=== PATIENT | female | born 1960 | race Caucasian/White ===

== ENCOUNTER 2020-09-22 20:12 | Inpatient (IN) | payer MEDICARE, SELFPAY ==
[2020-09-22 20:45] VITALS: BP 160/56; PULSE 61; RESP 18; TEMP 37.2; O2SAT 97; BMI 27.0
[2020-09-22 21:42] LABS: Basophils Percent Auto 0.3 % (0-2); Eosinophils Absolute Auto 0.2 X10*3/uL (0.0-0.4); Hematocrit 29.5 % (37-47); Hemoglobin 10.2 g/dl (12.0-16.0); Imm Gran Abs Auto 0.21 X10*3/uL (0.00-0.03); Imm Gran Pct Auto 2.1 % (0.0-0.4); Lymphocytes Absolute Auto 2.1 X10*3/uL (1.2-4.9); Lymphocytes Percent Auto 21.7 % (20-40); MANUAL DIFF FLAG NO; Mean Corpuscular HGB Conc 34.6 g/dl (31.0-35.0); Mean Corpuscular Hemoglobin 29.9 pg (27.0-33.0); Mean Corpuscular Volume 86.5 fL (80-98); Mean Platelet Volume 10.3 fL (9.4-12.3); Monocytes Percent Auto 9.7 % (2-11); Neutrophils Absolute Auto 6.3 X10*3/uL (2.0-8.3); Neutrophils Percent Auto 64.2 % (45-73); Platelet Count 320 X10*3/uL (160-400); Red Blood Count 3.41 X10*6/uL (4.20-5.50); Red Cell Distribution Width 12.3 % (11.0-16.0); White Blood Count 9.8 X10*3/uL (4.8-10.8)
[2020-09-22 21:58] LABS: Lactic Acid 0.8 mmol/L (0.5-2.0)
[2020-09-22 22:01] LABS: Anion Gap 11 (12-20); Blood Urea Nitrogen 14 mg/dL (9-16); Calcium 8.4 mg/dL (8.4-10.2); Carbon Dioxide 26 mmol/L (22-29); Chloride 106 mmol/L (96-108); Creatinine Clr Calc Pharmacy 77.9; Estimated Glomerular Filt Rate > 60; Glucose Random 85 mg/dL (60-115); Potassium 3.5 mmol/l (3.3-5.1); Sodium 139 mmol/L (135-145)
[2020-09-23] VITALS (11 sets, daily range): BP systolic 141–169; BP diastolic 46–79; PULSE 57–68; RESP 15–19; TEMP 36.3–37.2; O2SAT 97–100
--- NOTE | 2020-09-23 00:28 | US_ITS ---
EXAMINATION: US VENOUS WITH DOPPLER UPPER EXTREMITY, RIGHT CLINICAL INFORMATION: Right upper extremity edema/swelling. Pain. COMPARISON: None TECHNIQUE: Ultrasound of the upper extremity is performed using compression sonography and color and pulse Doppler flow with assessment of augmentation of flow. There is also imaging and Doppler assessment of the jugular and subclavian veins. Spectral analysis with color-flow imaging is performed. FINDINGS: Respiratory variation, normal compression, and augmented flow are noted throughout the upper extremity including the axillary, brachial, cubital, and radial and ulnar veins. There is normal flow in the internal jugular and subclavian veins. There is no visible deep or superficial thrombophlebitis. If the patient's symptoms progress, a followup ultrasound in 5 -7 days might be of value to exclude proximal propagation from a nonvisualized distal arm vein. US/US venous duplex UE RT IMPRESSION: No DVT demonstrated in the right upper extremity.
--- NOTE | 2020-09-23 00:46 | XR_ITS ---
EXAMINATION: XR HUMERUS, RIGHT XR FOREARM, RIGHT XR HAND/WRIST, RIGHT CLINICAL INFORMATION: Right arm swelling. Question osteomyelitis COMPARISON: None TECHNIQUE: 2 views of the right humerus. 2 views of the right forearm. 3 views of the right hand/wrist. FINDINGS: Right humerus: No fracture or cortical disruption. Appropriate alignment of the shoulder and elbow. Suggestion of calcific tendinosis of the rotator cuff. Mild soft tissue swelling visualized. The visualized lung is clear. Right forearm: No fracture or malalignment. Appropriate alignment at the elbow and wrist. Diffuse soft tissue swelling. No osseous erosion. No elbow joint effusion. Right hand/wrist: No fracture or malalignment. No osseous erosions. Diffuse soft tissue swelling. Arthritic changes are seen throughout the hand and wrist. This is most prominent at the first carpometacarpal joint with joint space narrowing and sclerosis. XR/XR forearm RT 2V IMPRESSION: Diffuse soft tissue swelling throughout the right upper extremity, greatest at the hand. No osseous erosions.
--- NOTE | 2020-09-23 00:46 | XR_ITS ---
EXAMINATION: XR HUMERUS, RIGHT XR FOREARM, RIGHT XR HAND/WRIST, RIGHT CLINICAL INFORMATION: Right arm swelling. Question osteomyelitis COMPARISON: None TECHNIQUE: 2 views of the right humerus. 2 views of the right forearm. 3 views of the right hand/wrist. FINDINGS: Right humerus: No fracture or cortical disruption. Appropriate alignment of the shoulder and elbow. Suggestion of calcific tendinosis of the rotator cuff. Mild soft tissue swelling visualized. The visualized lung is clear. Right forearm: No fracture or malalignment. Appropriate alignment at the elbow and wrist. Diffuse soft tissue swelling. No osseous erosion. No elbow joint effusion. Right hand/wrist: No fracture or malalignment. No osseous erosions. Diffuse soft tissue swelling. Arthritic changes are seen throughout the hand and wrist. This is most prominent at the first carpometacarpal joint with joint space narrowing and sclerosis. XR/XR humerus RT IMPRESSION: Diffuse soft tissue swelling throughout the right upper extremity, greatest at the hand. No osseous erosions.
--- NOTE | 2020-09-23 00:46 | XR_ITS ---
EXAMINATION: XR HUMERUS, RIGHT XR FOREARM, RIGHT XR HAND/WRIST, RIGHT CLINICAL INFORMATION: Right arm swelling. Question osteomyelitis COMPARISON: None TECHNIQUE: 2 views of the right humerus. 2 views of the right forearm. 3 views of the right hand/wrist. FINDINGS: Right humerus: No fracture or cortical disruption. Appropriate alignment of the shoulder and elbow. Suggestion of calcific tendinosis of the rotator cuff. Mild soft tissue swelling visualized. The visualized lung is clear. Right forearm: No fracture or malalignment. Appropriate alignment at the elbow and wrist. Diffuse soft tissue swelling. No osseous erosion. No elbow joint effusion. Right hand/wrist: No fracture or malalignment. No osseous erosions. Diffuse soft tissue swelling. Arthritic changes are seen throughout the hand and wrist. This is most prominent at the first carpometacarpal joint with joint space narrowing and sclerosis. XR/XR hand wrist RT IMPRESSION: Diffuse soft tissue swelling throughout the right upper extremity, greatest at the hand. No osseous erosions.
[2020-09-23] MEDS: Morphine Sulfate 4 MG/ML CARTRIDGE IVPUSH (00:49)
[2020-09-23] MEDS: Piperacillin Sodium/Tazobactam 3.375 GM in 0.9 % Sodium Chloride 50 ML IV ×2 (00:50→06:15)
[2020-09-23] MEDS: HYDROmorphone HCl 0.5 MG/0.5 ML SYRINGE IVPUSH ×4 (02:01→21:47)
--- NOTE | 2020-09-23 02:13 | ED.GENADULT ---
HPI - General Adult General Chief complaint: General Medical Stated complaint: cellulitis fever Time Seen by Provider: 09/23/20 00:02 Source: patient Mode of arrival: ambulatory Limitations: no limitations History of Present Illness HPI narrative: Patient presents to ED for right upper extremity pain. Patient recently discharged from [facility] with right upper extremity cellulitis. Patient states pain has worsened and at home she had a fever of 101. Patient states she just started taking Augmentin. Related Data Allergies Allergy/AdvReac Type Severity Reaction Status Date / Time doxycycline Allergy Unknown Verified 09/22/20 20:30 horse dander Allergy Unknown Verified 09/22/20 20:30 peach Allergy Unknown Verified 09/22/20 20:30 plum Allergy Unknown Verified 09/22/20 20:30 ragweed pollen Allergy Unknown Verified 09/22/20 20:30 Sulfa (Sulfonamide Allergy Unknown Verified 09/22/20 20:30 Antibiotics) Review of Systems Review of Systems: Yes all other systems are reviewed and are negative Constitutional: Constitutional: Reports as per HPI and Reports no additional constitutional complaints Eyes: Eyes: Reports as per HPI and Reports no additional eye complaints ENT: Reports system reviewed and no additional complaints, except as documented and Reports as per HPI Cardiovascular: Cardiovascular: Reports as per HPI and Reports no additional cardiovascular complaints Respiratory: Respiratory: Reports as per HPI and Reports no additional respiratory complaints Gastrointestinal: Gastrointestinal: Reports as per HPI and Reports no additional gastrointestinal complaints Genitourinary: Genitourinary: Reports no additional female genitourinary complaints and Reports as per HPI Musculoskeletal: Musculoskeletal: Reports no additional musculoskeletal complaints and Reports as per HPI Comments: Positive for right upper extremity swelling and pain Neurologic: Reports system reviewed and no additional complaints, except as documented and Reports as per HPI Psychiatric: Psychiatric: Reports no additional psychiatric complaints and Reports as per HPI [facility] Past Medical History Medical History CVA (cerebral vascular accident) Diabetes mellitus type 1 Social History Social History Smoking Status: Never smoker Use of substances other than those prescribed or required for medical reasons: Yes Substance Use Type: Marijuana Substance Use Frequency: Daily Advance Directives: No Advance Directives Information Provided: No Physical Exam Vital Signs: Vital Signs: Last Vital Signs Temp 98.9 F 09/23/20 00:17 Pulse 63 09/23/20 02:00 Resp 16 09/23/20 02:47 BP 156/61 H 09/23/20 02:00 Pulse Ox 97 09/23/20 02:00 Body Mass Index 27.0 Const: General: cooperative and healthy appearing Orientation/consciousness: patient oriented x3 HENMT: Head: Yes normal to inspection and Yes No palpable skull fracture present Eyes: General: appearance normal, both eyes and all related structures Neck: Neck: Yes normal visual inspection and Yes full ROM Chest: Chest palpation & inspection: normal inspection of the chest and normal palpation of entire chest wall Breast/axilla inspection: normal inspection of the breasts Resp: Effort & Inspection: normal respiratory effort and able to speak in complete sentences Cardio: Jugular venous distension: no JVD Heart sounds: S1 normal heart sound present and S2 normal heart sound present GI: Inspection: Yes normal to inspection and No abdominal wall ecchymosis Palpation (GI): Soft to palpation, not firm, nontender, no guarding and not rigid : General: No CVA tenderness and Yes no CVA tenderness Back/Spine/Pelvis: Back: no CVA tenderness, No CVA tenderness and No back tenderness Skin: Other: Right upper extremity swelling and redness Neuro: General: patient oriented x3, gait normal and CN's II-XI intact bilaterally Extrem: Other: Upper extremity positive for swelling, redness, and warmth. Pulses are intact. Psych: Appearance: grossly normal, well kempt and not disheveled Course Course Course Narrative: Patient will have repeat labs, given Vanco and Zosyn, and will get records from [facility] Reevaluation(s) Reevaluation #1: Records from [facility] shows patient had x-rays of upper extremity which were negative for any osteomyelitis. Patient was treated as cellulitis. Patient never had ultrasound while admitted at [facility]. Right upper extremity ultrasound will be ordered to rule out DVT due to patient's history of breast cancer. Time: 02:16 Reevaluation #2: Patient still having pain. Patient ordered more Dilaudid. Case presented to the hospitalist for admission for uncontrollable pain and cellulitis right upper extremity. He was informed of pending ultrasound of lower extremity. Time: 02:49 Medical Decision Making MDM Narrative Medical decision making narrative: Right upper extremity cellulitis. Lab Data Result diagrams: 09/22/20 21:32 09/22/20 21:32 Labs: Lab Results 09/22/20 09/22/20 09/22/20 Range/Units 21:32 21:32 21:32 WBC 9.8 (4.8-10.8) X10*3/uL RBC 3.41 L (4.20-5.50) X10*6/uL Hgb 10.2 L (12.0-16.0) g/dl Hct 29.5 L (37-47) % MCV 86.5 (80-98) fL MCH 29.9 (27.0-33.0) pg MCHC 34.6 (31.0-35.0) g/dl RDW 12.3 (11.0-16.0) % Plt Count 320 (160-400) X10*3/uL MPV 10.3 (9.4-12.3) fL Immature Gran % (Auto) 2.1 H (0.0-0.4) % Neut % (Auto) 64.2 (45-73) % Lymph % (Auto) 21.7 (20-40) % [place] % (Auto) 9.7 (2-11) % Eos % (Auto) 2.0 (0-4) % Baso % (Auto) 0.3 (0-2) % Lymph # (Auto) 2.1 (1.2-4.9) X10*3/uL [place] # (Auto) 1.0 (0.1-1.2) X10*3/uL Eos # (Auto) 0.2 (0.0-0.4) X10*3/uL Baso # (Auto) 0.0 (0.0-0.2) X10*3/uL Abs Immat Gran (auto) 0.21 H (0.00-0.03) X10*3/uL Absolute Neuts (auto) 6.3 (2.0-8.3) X10*3/uL Absolute Nucleated RBC 0.000 (0.0-0.012) X10*3/uL Nucleated RBC % (auto) 0.0 (0.0-0.2) /100WBC Hold Blue Top SEE NOTE Sodium 139 (135-145) mmol/L Potassium 3.5 (3.3-5.1) mmol/l Chloride 106 (96-108) mmol/L Carbon Dioxide 26 (22-29) mmol/L Anion Gap 11 L (12-20) BUN 14 (9-16) mg/dL Creatinine 0.74 (0.5-1.4) mg/dL Estim Creat Clear Calc 77.9 Estimated GFR > 60 Random Glucose 85 (60-115) mg/dL Lactic Acid (0.5-2.0) mmol/L Calcium 8.4 (8.4-10.2) mg/dL 09/22/20 Range/Units 21:34 WBC (4.8-10.8) X10*3/uL RBC (4.20-5.50) X10*6/uL Hgb (12.0-16.0) g/dl Hct (37-47) % MCV (80-98) fL MCH (27.0-33.0) pg MCHC (31.0-35.0) g/dl RDW (11.0-16.0) % Plt Count (160-400) X10*3/uL MPV (9.4-12.3) fL Immature Gran % (Auto) (0.0-0.4) % Neut % (Auto) (45-73) % Lymph % (Auto) (20-40) % [place] % (Auto) (2-11) % Eos % (Auto) (0-4) % Baso % (Auto) (0-2) % Lymph # (Auto) (1.2-4.9) X10*3/uL [place] # (Auto) (0.1-1.2) X10*3/uL Eos # (Auto) (0.0-0.4) X10*3/uL Baso # (Auto) (0.0-0.2) X10*3/uL Abs Immat Gran (auto) (0.00-0.03) X10*3/uL Absolute Neuts (auto) (2.0-8.3) X10*3/uL Absolute Nucleated RBC (0.0-0.012) X10*3/uL Nucleated RBC % (auto) (0.0-0.2) /100WBC Hold Blue Top Sodium (135-145) mmol/L Potassium (3.3-5.1) mmol/l Chloride (96-108) mmol/L Carbon Dioxide (22-29) mmol/L Anion Gap (12-20) BUN (9-16) mg/dL Creatinine (0.5-1.4) mg/dL Estim Creat Clear Calc Estimated GFR Random Glucose (60-115) mg/dL Lactic Acid 0.8 (0.5-2.0) mmol/L Calcium (8.4-10.2) mg/dL Discharge Plan Discharge Clinical Impression: Cellulitis Patient Disposition: Admitted As Inpatient
[2020-09-23 03:59] LABS: Influenza A PCR NEGATIVE (Negative); Influenza B PCR NEGATIVE (Negative); Resp Syncy Virus RNA Qual PCR NEGATIVE (Negative); SARS COV2 PCR INHOUSE NEGATIVE (Negative)
--- NOTE | 2020-09-23 04:16 | PC.NURSE ---
Hospitalist at bedside for evaluation of patient. Patient's pain is controlled but right arm is still swollen and warm to touch. Plan is for admission to hospital.
--- NOTE | 2020-09-23 04:48 | PM.IMHP ---
History of Present Illness Date of Service: 09/23/20 Chief Complaint: Right arm pain, swelling 59 year old woman presented with right arm pain and swelling. She was recently hospitalized at [facility] for RUE cellulitis and was treated with Zosyn and Vancomycin with improvement. Was transitioned to Augmentin PO and discharged home. At home she noted worsening pain and swelling in the arm and was febrile so came to ED at [place] to be evaluated. She notes that the arm previously had blisters that have improved. She describes pain in the right shoulder and right upper arm mostly. She had previously had a cut on her finger and was gardening when this started-soaked it with no improvement and then it worsened. She has hx of breast cancer and is s/p mastectomy on the right but has not had swelling of the arm like this before. Review of Systems Review of Systems: Yes all other systems are reviewed and are negative Constitutional: Comments: Fevers noted, no chills ENT: Comments: dry mouth Cardiovascular: Comments: No chest pain or palpitations Respiratory: Comments: No dyspena or cough Gastrointestinal: Comments: No abd pain, nausea, vomiting Musculoskeletal: Comments: Right arm pain and swelling noted Neurologic: Reports system reviewed and no additional complaints, except as documented and Reports as per HPI Psychiatric: Comments: Not anxious [facility] Medical History (Updated 09/23/20 @ 04:56 by Piero Norwood MD) CVA (cerebral vascular accident) Diabetes mellitus type 1 FH: mastectomy HTN (hypertension) Functional capacity: independent ambulation Family history: reviewed and not pertinent Social History Smoking Status: Never smoker Use of substances other than those prescribed or required for medical reasons: Yes Substance Use Type: Marijuana Substance Use Frequency: Daily Advance Directives: No Advance Directives Information Provided: No Meds Allergies Allergy/AdvReac Type Severity Reaction Status Date / Time doxycycline Allergy Unknown Verified 09/22/20 20:30 horse dander Allergy Unknown Verified 09/22/20 20:30 peach Allergy Unknown Verified 09/22/20 20:30 plum Allergy Unknown Verified 09/22/20 20:30 ragweed pollen Allergy Unknown Verified 09/22/20 20:30 Sulfa (Sulfonamide Allergy Unknown Verified 09/22/20 20:30 Antibiotics) Home Medications Medication Instructions Recorded Confirmed Type lisinopril 20 mg PO DAILY 09/23/20 09/23/20 History Physical Exam Vital Signs and Narrative: Vital Signs: Last Vital Signs Temp 98.9 F 09/23/20 00:17 Pulse 63 09/23/20 03:57 Resp 15 09/23/20 03:57 BP 164/61 H 09/23/20 03:57 Pulse Ox 97 09/23/20 03:57 Body Mass Index 27.0 Const: General: cooperative, comfortable and no acute distress HENMT: Head: Yes normal to inspection Mouth: Normal oral and palatal mucosa present and moist mucous membranes Eyes: General: appearance normal, both eyes and all related structures Chest: Other: Prior mastectomy on right Resp: Other: No insp crackles or exp wheezes Effort & Inspection: normal respiratory effort Auscultation: clear to auscultation bilaterally Cardio: Rate: regular rate Rhythm: regular rhythm Heart sounds: S1 normal heart sound present and S2 normal heart sound present GI: Other: nontender nondistended Inspection: Yes normal to inspection Auscultation: normal bowel sounds Skin: Other: Some crusting lesions in right upper arm Extrem: Other: right arm and hand are edematous. No significant erythema seen but does have evidence of honey-crusted vesicles Results Labs CBC and Chem 7: 09/22/20 21:32 09/22/20 21:32 Labs: Laboratory Results - last 24 hr 09/22/20 09/22/20 09/22/20 21:32 21:32 21:32 MCV 86.5 MCH 29.9 MCHC 34.6 RDW 12.3 Plt Count 320 MPV 10.3 Immature Gran % (Auto) 2.1 H Neut % (Auto) 64.2 Lymph % (Auto) 21.7 [place] % (Auto) 9.7 Eos % (Auto) 2.0 Baso % (Auto) 0.3 Lymph # (Auto) 2.1 [place] # (Auto) 1.0 Eos # (Auto) 0.2 Baso # (Auto) 0.0 Abs Immat Gran (auto) 0.21 H Absolute Neuts (auto) 6.3 Absolute Nucleated RBC 0.000 Nucleated RBC % (auto) 0.0 Hold Blue Top SEE NOTE Anion Gap 11 L Estim Creat Clear Calc 77.9 Estimated GFR > 60 Random Glucose 85 Lactic Acid Calcium 8.4 Coronavirus (PCR) Influenza Type A (PCR) Influenza Type B (PCR) RSV RNA Qual (PCR) 09/22/20 09/23/20 21:34 03:03 MCV MCH MCHC RDW Plt Count MPV Immature Gran % (Auto) Neut % (Auto) Lymph % (Auto) [place] % (Auto) Eos % (Auto) Baso % (Auto) Lymph # (Auto) [place] # (Auto) Eos # (Auto) Baso # (Auto) Abs Immat Gran (auto) Absolute Neuts (auto) Absolute Nucleated RBC Nucleated RBC % (auto) Hold Blue Top Anion Gap Estim Creat Clear Calc Estimated GFR Random Glucose Lactic Acid 0.8 Calcium Coronavirus (PCR) NEGATIVE Influenza Type A (PCR) NEGATIVE Influenza Type B (PCR) NEGATIVE RSV RNA Qual (PCR) NEGATIVE Imaging Radiologist's Impressions: Impressions Venous Duplex 09/23/20 00:28 IMPRESSION: No DVT demonstrated in the right upper extremity. Forearm X-Ray 09/23/20 00:46 IMPRESSION: Diffuse soft tissue swelling throughout the right upper extremity, greatest at the hand. No osseous erosions. Hand/Wrist X-Ray 09/23/20 00:46 IMPRESSION: Diffuse soft tissue swelling throughout the right upper extremity, greatest at the hand. No osseous erosions. Humerus X-Ray 09/23/20 00:46 IMPRESSION: Diffuse soft tissue swelling throughout the right upper extremity, greatest at the hand. No osseous erosions. Assessment and Plan (1) Cellulitis: Status: Acute 59 year old woman with right upper extremity edema, recent treatment for cellulitis in the arm at [facility]. Cellulitis Not septic. Continue Vancomycin and Zosyn for now. Pain control with Dilaudid. Honey crusted lesions suggestive of impetigo. Consider ID input if not improving. DC summary from [facility] stated she was evaluated by ortho for the shoulder pain and was thought due in part to chronic rotator cuff issues. Recommendation was for conservative management with rest, elevation. HTN Continue Lisniopril at outpt dose. DM type 2 Has her own insulin pump. Will check sugars QID-AC. DVT proph SC Heparin Code status Had detailed discussion with her and she wants to be DNR/I. Stated she had this discussion with her healthcare proxy, daughter Deyanira.
--- NOTE | 2020-09-23 07:25 | PC.NURSE ---
report taken from magali stein pt admitted inpt for cellulitis, tx w abx. pt appears to be sleeping, alert to verbal stimuli, appears w pleasant affect. has r side defecits from previous cva. able to assist w bedpan use. given breakfast tray. wctm.
[2020-09-23 07:31] LABS: Glucose, Whole Blood 58 mg/dL (60-115)
--- NOTE | 2020-09-23 08:42 | MHC.CM.PN ---
CM spoke with Patient over the phone at [phone]. Patient lives alone in a second floor townhouse (this causes stress for Patient having had a CVA in the past and she is attempting to secure first floor housing).Patient has a cane and walker and recently started using the walker more often r/t bone mets that causes her pain with ambulation. PCP is DR. Priscilla Guillaume. The goal for dc is to return home with resumption of her [address] [employer] hours/week; CM has initiated and will follow for dc planning. IMM discussed over the phone with Patient and per that discussion, RN/Barbara has agreed to give the original to the Patient when she arrives from the ER. A copy of the IMM has been placed in the chart also. Patient has her own insulin pump.
--- NOTE | 2020-09-23 09:52 | PC.NURSE ---
report given to tyrone stein c.
[2020-09-23] MEDS: 0.9 % Sodium Chloride Flush 3 ML SYRINGE IVFLUSH ×2 (10:52→15:53)
[2020-09-23] MEDS: Heparin Sodium,Porcine 5,000 UNIT/ML VIAL 5000 UNIT SUBCUT ×2 (10:52→18:03)
[2020-09-23] MEDS: lisinopriL 20 MG TABLET PO (10:52)
[2020-09-23 11:50] LABS: Glucose, Whole Blood 90 mg/dL (60-115)
[2020-09-23] MEDS: oxyCODONE HCl Immed Release 5 MG TABLET PO (13:42)
[2020-09-23] MEDS: vancomycin HCL 750 MG in 0.9 % Sodium Chloride 250 ML 265 MG IV (13:43)
[2020-09-23 15:54] LABS: Glucose, Whole Blood 176 mg/dL (60-115)
[2020-09-23 19:51] LABS: Glucose, Whole Blood 128 mg/dL (60-115)
[2020-09-24] VITALS (9 sets, daily range): BP systolic 150–160; BP diastolic 60–82; PULSE 61–65; RESP 18–20; TEMP 36.2–36.9; O2SAT 93–100
[2020-09-24] MEDS: vancomycin HCL 750 MG in 0.9 % Sodium Chloride 250 ML 265 MG IV ×2 (00:37→13:19)
[2020-09-24] MEDS: 0.9 % Sodium Chloride Flush 3 ML SYRINGE IVFLUSH ×4 (00:37→23:58)
[2020-09-24] MEDS: Heparin Sodium,Porcine 5,000 UNIT/ML VIAL 5000 UNIT SUBCUT ×3 (00:37→17:16)
[2020-09-24] MEDS: HYDROmorphone HCl 0.5 MG/0.5 ML SYRINGE IVPUSH ×2 (00:38→06:15)
[2020-09-24 07:52] LABS: Glucose, Whole Blood 77 mg/dL (60-115)
[2020-09-24] MEDS: lisinopriL 20 MG TABLET PO (08:52)
--- NOTE | 2020-09-24 10:35 | P.CDIC_ITS ---
CDI Concurrent Query Service Date: 09/24/20 Documentation Clarification: Please clarify if you are treating a proba ble/suspected/likely or confirmed: Acute Cellulitis Right upper extremity due to Diabetes Mellitus Acute Cellulitis Right upper extremity not due to Diabetes Mellitus Provider Response: Other Other Diagnosis: Acute Cellulitis Right upper extremity not due to Diabetes Mellitus PLEASE DO NOT DELETE/MODIFY EXISTING CONTENT Additional information is needed in order to code to the highest accuracy and appropriate Severity of Illness (SOI). Please clarify the information noted below in your progress notes and discharge summary. Risk Factors/Clinical Indicators/Treatments 59 year old female admitted with fever, pain right upper extremity PMH: CVA, DM, Breast CA Per H&P: Acute Cellulitis Right upper extremity CDS: Melanie Merida RN Contact Number: [phone] Please Review the information above and exercise your independent professional judgment in responding to the query. If you concur, pleas document in the PROGRESS NOTES and DISCHARGE SUMMARY. If you do not agree with the query, ple ase document in the query above. THIS QUERY IS PART OF THE PERMANENT MEDICAL RECORD
[2020-09-24 11:25] LABS: Glucose, Whole Blood 128 mg/dL (60-115)
[2020-09-24] MEDS: HYDROmorphone HCl 0.5 MG/0.5 ML SYRINGE 1 MG IVPUSH ×2 (12:27→18:22)
[2020-09-24 13:09] LABS: Vancomycin Trough 6.8 mcg/mL (10.0-20.0)
[2020-09-24 16:26] LABS: Glucose, Whole Blood 110 mg/dL (60-115)
--- NOTE | 2020-09-24 20:12 | P.CNID_ITS ---
History of Present Illness Data of Consult Service Date: 09/24/20 Requesting physician: Mykel Blanoc Primary Care Provider: Priscilla Guillaume MD [facility] Reason for consult: right arm redness She has had redness and swelling right arm for a week She started with right index finger redness after chewing for a week and then redness with blisters up wrist extending up arm. She also has been gardening. She was hospitalized at [facility] last week for one week and took Zosyn and Vancomycin for nearly a week and then symptoms returned and she came to [place] She has had right breast mastectomy Review of Systems Review of Systems: Yes all other systems are reviewed and are negative Neurologic: Reports system reviewed and no additional complaints, except as documented and Reports as per [facility] Past Medical History Medical History CVA (cerebral vascular accident) Diabetes mellitus type 1 FH: mastectomy HTN (hypertension) Functional capacity: independent ambulation Family History Family history: reviewed and not pertinent Social History Social History Household Members: None Housing: House Do you presently have visiting nurse or other home services: No Smoking Status: Never smoker Use of substances other than those prescribed or required for medical reasons: Yes Substance Use Type: Marijuana Substance Use Frequency: Daily Last Used Substance: Just Prior to Admission Currently Displaying Signs/Symptoms of Drug Intoxication Withdrawal: No Any prior treatment program specific to substance use: No Have you been hit, kicked, punched, or otherwise hurt by someone within the past year? If so, by whom?: No Do you feel safe in your current relationship?: No Is there a partner from a previous relationship who is making you feel unsafe now?: No Are you made to feel afraid or neglected: No Advance Directives: No Advance Directives Information Provided: No Do you have thoughts of harming others: None Do you have a plan to hurt others: No Plan Recently lost weight without trying: No service: No Current occupational status: retired Meds Allergies Allergy/AdvReac Type Severity Reaction Status Date / Time doxycycline Allergy Unknown Verified 09/22/20 20:30 horse dander Allergy Unknown Verified 09/22/20 20:30 peach Allergy Unknown Verified 12/29/20 20:30 plum Allergy Unknown Verified 09/22/20 20:30 ragweed pollen Allergy Unknown Verified 09/22/20 20:30 Sulfa (Sulfonamide Allergy Unknown Verified 09/22/20 20:30 Antibiotics) Home Medications Medication Instructions Recorded Confirmed Type lisinopril 20 mg PO DAILY 09/23/20 09/23/20 History Physical Exam Vital Signs: Vital Signs: Last Vital Signs Temp 98 F 09/24/20 18:44 Pulse 63 09/24/20 18:44 Resp 18 09/24/20 18:44 BP 152/60 H 09/24/20 18:44 Pulse Ox 93 09/24/20 18:44 Body Mass Index 27.0 Const: General: cooperative HENMT: Head: Yes normal to inspection Mouth: moist mucous membranes Eyes: General: appearance normal, both eyes and all related structures Resp: Effort & Inspection: normal respiratory effort Cardio: Rate: regular rate Rhythm: regular rhythm GI: Palpation (GI): Soft to palpation and nontender : General: Yes no CVA tenderness Back/Spine/Pelvis: Back: no CVA tenderness Skin: Other: redness right arm with blister wrist, also index finger paronychia General skin exam: no rashes or lesions noted Assessment and Plan (1) Cellulitis: Problem details: She has had redness arm She has possible staph or strep,not sure why recurred Concern over strep or staph Status: Acute Would give either Clindamycin 600 mg IV every 8 hours or Linezolid Results Labs CBC & Chem 7: 09/22/20 21:32 09/22/20 21:32 Microbiology Microbiology Results: Microbiology 09/22/20 21:34 Blood - Venous Blood Culture - Preliminary No growth after 24 hours. 09/22/20 21:34 Blood - Venous Blood Culture - Preliminary No growth after 24 hours.
[2020-09-24 20:32] LABS: Glucose, Whole Blood 144 mg/dL (60-115)
[2020-09-24] MEDS: Linezolid/D5W 600 MG/300 ML PIGGYBACK 300 MG IV (21:21)
[2020-09-24] MEDS: oxyCODONE HCl Immed Release 5 MG TABLET PO (21:34)
[2020-09-25] MEDS: HYDROmorphone HCl 0.5 MG/0.5 ML SYRINGE 1 MG IVPUSH ×4 (00:27→20:03)
[2020-09-25 06:48] VITALS: BP 150/94; PULSE 58; RESP 20; TEMP 36.6; O2SAT 96
[2020-09-25 07:20] LABS: Glucose, Whole Blood 73 mg/dL (60-115)
[2020-09-25 08:29] VITALS: BP 150/94; PULSE 72
[2020-09-25] MEDS: Linezolid/D5W 600 MG/300 ML PIGGYBACK 300 MG IV ×2 (08:29→20:37)
[2020-09-25] MEDS: lisinopriL 20 MG TABLET PO (08:29)
[2020-09-25] MEDS: 0.9 % Sodium Chloride Flush 3 ML SYRINGE IVFLUSH ×2 (08:30→15:52)
--- NOTE | 2020-09-25 08:39 | P.PNIM_ITS ---
Subjective Subjective Date of Service: 09/25/20 Interval History: Seen in follow-up for right arm cellulitis with significant swelling. There is persistent swelling and pain and some redeness in the arm from hand to shoulder ROS: No fever, right arm pain,. Physical Exam Vital Signs: Vital Signs: Last Vital Signs Temp 98 F 09/25/20 06:48 Pulse 72 09/25/20 08:29 Resp 20 09/25/20 06:48 BP 150/94 H 09/25/20 08:29 Pulse Ox 96 09/25/20 06:48 Body Mass Index 27.0 General: AO X 3, no acute distress Resp: CTA bilateral CVS: S1,S2,RRR GI: +BS, NT, no distention Skin: some redness on right arm Neuro: motor grossly intact Psych: appropriate affect Objective Data Current Medications Generic Name Dose Route Start Last Admin Trade Name Freq PRN Reason Stop Dose Admin Docusate Sodium 100 mg 09/25/20 08:38 Docusate Sodium 100 Mg Capsule PO BID PRN Constipation Heparin Sodium (Porcine) 5,000 unit 09/23/20 10:00 09/25/20 01:43 Heparin Sodium,Porcine 5,000 Unit/Ml Vial SUBCUT Not Given Q8H MICHEL Hydromorphone HCl 1 mg 09/24/20 09:33 09/25/20 06:11 Hydromorphone Hcl 0.5 Mg/0.5 Ml Syringe IVPUSH 1 mg Q6H PRN Administration Pain, Moderate (Pain Scale 4-6 Linezolid 600 mg in 300 mls @ 300 mls/hr 09/24/20 21:00 09/25/20 08:29 Zyvox/D5w IV 300 mls/hr Q12H MICHEL Administration Lisinopril 20 mg 09/23/20 09:52 09/25/20 08:29 Lisinopril 20 Mg Tablet PO 20 mg DAILY@0730 MICHEL Administration Protocol Oxycodone HCl 5 mg 09/23/20 12:58 09/24/20 21:34 Oxycodone Hcl Immed Release 5 Mg Tablet PO 5 mg Q4H PRN Administration Pain, Severe (Pain Scale 7-10) Pharmacy Consult 1 each 09/23/20 04:45 Consult Rx Vancomycin Dosing MISCELLANE DAILY PRN Consult order Sodium Chloride 3 ml 09/23/20 09:52 09/25/20 08:30 0.9 % Sodium Chloride Flush 3 Ml Syringe IVFLUSH 3 ml QSHIFT MICHEL Administration Labs CBC & Chem 7: 09/22/20 21:32 09/22/20 21:32 Microbiology Microbiology Results: Microbiology 09/22/20 21:34 Blood - Venous Blood Culture - Preliminary No growth after 48 hours. 09/22/20 21:34 Blood - Venous Blood Culture - Preliminary No growth after 48 hours. Assessment and Plan (1) Cellulitis: Problem details: She has had redness arm She has possible staph or strep,not sure why recurred Concern over strep or staph Status: Acute Assessment and Plan: 59 year old woman with right upper extremity edema, recent treatment for cellulitis in the arm at [facility]. Cellulitis of right arm. No component of sepsis. Marked swelling in thr arm. Zosyn and Vanco--Changed to Zyvvox on 09/24 D2, elevate the arm IV Dilaudid for pain control HTN Continue Lisniopril at outpt dose. DM type 2--Continue Insulin pump, check sugars AC. DVT proph SC Heparin DNR/DNI. Stated she had this discussion with her healthcare proxy, daughter Deyanira.
[2020-09-25] MEDS: Docusate Sodium 100 MG CAPSULE PO (09:28)
[2020-09-25] MEDS: Milk of Magnesia 30 ML ORAL.SUSP PO (09:28)
[2020-09-25] MEDS: Heparin Sodium,Porcine 5,000 UNIT/ML VIAL 5000 UNIT SUBCUT ×2 (09:28→18:37)
[2020-09-25 09:45] LABS: Anion Gap 13 (12-20); Blood Urea Nitrogen 7 mg/dL (9-16); Calcium 8.2 mg/dL (8.4-10.2); Carbon Dioxide 27 mmol/L (22-29); Chloride 102 mmol/L (96-108); Creatinine Clr Calc Pharmacy 82.4; Estimated Glomerular Filt Rate > 60; Glucose Random 69 mg/dL (60-115); Potassium 4.3 mmol/l (3.3-5.1); Sodium 138 mmol/L (135-145)
--- NOTE | 2020-09-25 09:53 | P.PNIM_ITS ---
Subjective Subjective Date of Service: 09/24/20 Interval History: Seen in follow-up for right arm cellulitis with significant swelling. Persistent swelling and pain ROS: No fever, right arm pain,. Physical Exam Vital Signs: Vital Signs: Last Vital Signs Temp 98 F 09/25/20 06:48 Pulse 72 09/25/20 08:29 Resp 20 09/25/20 06:48 BP 150/94 H 09/25/20 08:29 Pulse Ox 96 09/25/20 06:48 Body Mass Index 27.0 General: AO X 3, no acute distress Resp: CTA bilateral CVS: S1,S2,RRR GI: +BS, NT, no distention Skin: some redness on right arm Neuro: motor grossly intact Psych: appropriate affect Objective Data Current Medications Generic Name Dose Route Start Last Admin Trade Name Freq PRN Reason Stop Dose Admin Docusate Sodium 100 mg 09/25/20 08:38 09/25/20 09:28 Docusate Sodium 100 Mg Capsule PO 100 mg BID PRN Administration Constipation Heparin Sodium (Porcine) 5,000 unit 09/23/20 10:00 09/25/20 09:28 Heparin Sodium,Porcine 5,000 Unit/Ml Vial SUBCUT 5,000 unit Q8H MICHEL Administration Hydromorphone HCl 1 mg 09/24/20 09:33 09/25/20 06:11 Hydromorphone Hcl 0.5 Mg/0.5 Ml Syringe IVPUSH 1 mg Q6H PRN Administration Pain, Moderate (Pain Scale 4-6 Linezolid 600 mg in 300 mls @ 300 mls/hr 09/24/20 21:00 09/25/20 09:32 Zyvox/D5w IV Infused Q12H MICHEL Infusion Lisinopril 20 mg 09/23/20 09:52 09/25/20 08:29 Lisinopril 20 Mg Tablet PO 20 mg DAILY@0730 MICHEL Administration Protocol Magnesium Hydroxide 30 ml 09/25/20 08:38 09/25/20 09:28 Milk Of Magnesia 30 Ml Oral.Susp PO 30 ml DAILY PRN Administration Constipation Oxycodone HCl 5 mg 09/23/20 12:58 09/24/20 21:34 Oxycodone Hcl Immed Release 5 Mg Tablet PO 5 mg Q4H PRN Administration Pain, Severe (Pain Scale 7-10) Sodium Chloride 3 ml 09/23/20 09:52 09/25/20 08:30 0.9 % Sodium Chloride Flush 3 Ml Syringe IVFLUSH 3 ml QSHIFT MICHEL Administration Labs CBC & Chem 7: 09/22/20 21:32 09/25/20 08:06 Microbiology Microbiology Results: Microbiology 09/22/20 21:34 Blood - Venous Blood Culture - Preliminary No growth after 48 hours. 09/22/20 21:34 Blood - Venous Blood Culture - Preliminary No growth after 48 hours. Assessment and Plan (1) Cellulitis: Problem details: She has had redness arm She has possible staph or strep,not sure why recurred Concern over strep or staph Status: Acute Assessment and Plan: 59 year old woman with right upper extremity edema, recent treatment for cellulitis in the arm at [facility] [place]. Cellulitis of right arm. No component of sepsis. Marked swelling in thr arm. Zosyn and Vanco--Changed to Zyvvox 09/24 D2 by ID, elevate the arm IV Dilaudid for pain control HTN Continue Lisniopril at outpt dose. DM type 2--Continue Insulin pump, check sugars AC. DVT proph SC Heparin DNR/DNI. Stated she had this discussion with her healthcare proxy, daughter Deyanira. Late entry note fo 09/24/20
[2020-09-25 11:02] VITALS: BP 146/67; PULSE 60; RESP 20; TEMP 36.6; O2SAT 96
[2020-09-25 11:35] LABS: Glucose, Whole Blood 157 mg/dL (60-115)
[2020-09-25 15:47] VITALS: BP 150/60; PULSE 65; RESP 18; TEMP 36.6; O2SAT 97
[2020-09-25 16:31] LABS: Glucose, Whole Blood 93 mg/dL (60-115)
[2020-09-25] MEDS: oxyCODONE HCl Immed Release 5 MG TABLET PO (22:38)
[2020-09-26] VITALS: BP 160/82; PULSE 65; RESP 20; TEMP 36.3; O2SAT 98
[2020-09-26] MEDS: 0.9 % Sodium Chloride Flush 3 ML SYRINGE IVFLUSH ×4 (00:18→23:56)
[2020-09-26] MEDS: Heparin Sodium,Porcine 5,000 UNIT/ML VIAL 5000 UNIT SUBCUT ×3 (00:22→17:23)
[2020-09-26 01:11] LABS: Glucose, Whole Blood 85 mg/dL (60-115)
[2020-09-26] MEDS: HYDROmorphone HCl 0.5 MG/0.5 ML SYRINGE 1 MG IVPUSH ×3 (02:45→17:34)
[2020-09-26] MEDS: oxyCODONE HCl Immed Release 5 MG TABLET PO ×4 (05:08→20:21)
[2020-09-26 07:55] LABS: Glucose, Whole Blood 53 mg/dL (60-115)
[2020-09-26 07:57] VITALS: BP 162/60; PULSE 87; RESP 18; TEMP 36.4; O2SAT 97
[2020-09-26] MEDS: lisinopriL 20 MG TABLET PO (08:43)
[2020-09-26] MEDS: Linezolid/D5W 600 MG/300 ML PIGGYBACK 300 MG IV ×2 (08:55→20:21)
--- NOTE | 2020-09-26 09:58 | PC.NURSE ---
PT HAS INSULIN PUMP. DR GONZALEZ MADE AWARE AND IS MANAGING. HE HAS PUMP INFO.
[2020-09-26 10:35] VITALS: BP 173/65; PULSE 63; RESP 18; TEMP 36.8; O2SAT 99
[2020-09-26 11:30] LABS: Glucose, Whole Blood 135 mg/dL (60-115)
[2020-09-26 13:12] LABS: Glucose, Whole Blood 52 mg/dL (60-115)
[2020-09-26] MEDS: Subcutaneous Insulin Pump SUBCUT (14:20)
[2020-09-26 14:45] LABS: Glucose, Whole Blood 138 mg/dL (60-115)
[2020-09-26 15:39] VITALS: BP 140/63; PULSE 66; RESP 18; TEMP 36.7; O2SAT 96
[2020-09-26 17:16] LABS: Glucose, Whole Blood 119 mg/dL (60-115)
--- NOTE | 2020-09-26 17:17 | P.PNIM_ITS ---
Subjective Subjective Date of Service: 09/26/20 Interval History: Seen in follow-up for right arm cellulitis with significant swelling. Swelling seems better. Had hypoglycemia this ROS: No fever, right arm pain,. Physical Exam Vital Signs: Vital Signs: Last Vital Signs Temp 98.0 F 09/26/20 15:39 Pulse 66 09/26/20 15:39 Resp 18 09/26/20 15:39 BP 140/63 H 09/26/20 15:39 Pulse Ox 96 09/26/20 15:39 Body Mass Index 27.0 General: AO X 3, no acute distress Resp: CTA bilateral CVS: S1,S2,RRR GI: +BS, NT, no distention Skin: some redness on right arm Neuro: motor grossly intact Psych: appropriate affect Objective Data Current Medications Generic Name Dose Route Start Last Admin Trade Name Freq PRN Reason Stop Dose Admin Docusate Sodium 100 mg 09/25/20 08:38 09/25/20 09:28 Docusate Sodium 100 Mg Capsule PO 100 mg BID PRN Administration Constipation Heparin Sodium (Porcine) 5,000 unit 09/23/20 10:00 09/26/20 08:56 Heparin Sodium,Porcine 5,000 Unit/Ml Vial SUBCUT 5,000 unit Q8H MICHEL Administration Hydromorphone HCl 1 mg 09/24/20 09:33 09/26/20 08:45 Hydromorphone Hcl 0.5 Mg/0.5 Ml Syringe IVPUSH 1 mg Q6H PRN Administration Pain, Moderate (Pain Scale 4-6 Linezolid 600 mg in 300 mls @ 300 mls/hr 09/24/20 21:00 09/26/20 10:03 Zyvox/D5w IV Infused Q12H MICHEL Infusion Insulin Pump 0 each 09/26/20 11:30 09/26/20 14:20 Subcutaneous Insulin Pump SUBCUT 0.6 each QIDACHS MICHEL Administration Lisinopril 20 mg 09/23/20 09:52 09/26/20 08:43 Lisinopril 20 Mg Tablet PO 20 mg DAILY@0730 MICHEL Administration Protocol Magnesium Hydroxide 30 ml 09/25/20 08:38 09/25/20 09:28 Milk Of Magnesia 30 Ml Oral.Susp PO 30 ml DAILY PRN Administration Constipation Oxycodone HCl 5 mg 09/23/20 12:58 09/26/20 14:19 Oxycodone Hcl Immed Release 5 Mg Tablet PO 5 mg Q4H PRN Administration Pain, Severe (Pain Scale 7-10) Sodium Chloride 3 ml 09/23/20 09:52 09/26/20 08:54 0.9 % Sodium Chloride Flush 3 Ml Syringe IVFLUSH 3 ml QSHIFT MICHEL Administration Labs CBC & Chem 7: 09/22/20 21:32 09/25/20 08:06 Microbiology Microbiology Results: Microbiology 09/22/20 21:34 Blood - Venous Blood Culture - Preliminary No growth after 48 hours. 09/22/20 21:34 Blood - Venous Blood Culture - Preliminary No growth after 48 hours. Assessment and Plan (1) Cellulitis: Problem details: She has had redness arm She has possible staph or strep,not sure why recurred Concern over strep or staph Status: Acute Assessment and Plan: 59 year old woman with right upper extremity edema, recent treatment for cellulitis in the arm at [facility]. Cellulitis of right arm. No component of sepsis. Marked swelling in thr arm. Zosyn and Vanco--Changed to Zyvvox 09/24 D2 by ID, elevate the arm IV Dilaudid for pain control HTN Continue Lisniopril at outpt dose. DM type 2--Patient uses her own insulin pump, she had hypoglycemia today. I advised changing this to non pump in the hospital but she is adamant she want feel much more comfortable with the pump. I discuss this with pharmacy and this as patient managing insulin. She seem competent and educated about the pump which she has had for years. We will be checking sugars more closely and if hypoglycememia remains a problem, we will discontinue pump. DVT proph SC Heparin DNR/DNI. Stated she had this discussion with her healthcare proxy, daughter Deyanira. Late entry note fo 09/24/20
--- NOTE | 2020-09-26 17:18 | PC.NURSE ---
P- patient upset ,did not get what she ordered on her tray I-kitchen notified,order completed thru phone E-instructed patient to notify RN if she will need to wait a long time
[2020-09-26] MEDS: Fluconazole 150 MG TABLET PO (17:25)
[2020-09-26 20:23] LABS: Glucose, Whole Blood 77 mg/dL (60-115)
--- NOTE | 2020-09-26 20:44 | PC.NURSE ---
patient reports at 175 she gave herself a bolus 1.9 units using her insulin pump,stating her basal rate was 0.65
[2020-09-26] MEDS: Docusate Sodium 100 MG CAPSULE PO (21:48)
[2020-09-26] MEDS: Milk of Magnesia 30 ML ORAL.SUSP PO (21:48)
[2020-09-26 23:22] VITALS: BP 150/62; PULSE 71; RESP 18; TEMP 36.9; O2SAT 95
[2020-09-27] MEDS: HYDROmorphone HCl 0.5 MG/0.5 ML SYRINGE 1 MG IVPUSH ×4 (00:02→21:07)
[2020-09-27] MEDS: Heparin Sodium,Porcine 5,000 UNIT/ML VIAL 5000 UNIT SUBCUT ×3 (02:25→17:46)
[2020-09-27] MEDS: oxyCODONE HCl Immed Release 5 MG TABLET PO ×3 (02:30→16:44)
[2020-09-27 07:06] VITALS: BP 145/59; PULSE 68; RESP 18; TEMP 36.6; O2SAT 97
[2020-09-27 07:52] LABS: Glucose, Whole Blood 173 mg/dL (60-115)
[2020-09-27] MEDS: lisinopriL 20 MG TABLET PO (07:59)
[2020-09-27] MEDS: 0.9 % Sodium Chloride Flush 3 ML SYRINGE IVFLUSH ×3 (08:02→23:40)
[2020-09-27 08:34] LABS: Hematocrit 32.8 % (37-47); Hemoglobin 10.7 g/dl (12.0-16.0); Mean Corpuscular HGB Conc 32.6 g/dl (31.0-35.0); Mean Corpuscular Hemoglobin 29.4 pg (27.0-33.0); Mean Corpuscular Volume 90.1 fL (80-98); Mean Platelet Volume 9.9 fL (9.4-12.3); Platelet Count 418 X10*3/uL (160-400); Red Blood Count 3.64 X10*6/uL (4.20-5.50); White Blood Count 8.8 X10*3/uL (4.8-10.8)
[2020-09-27] MEDS: Linezolid/D5W 600 MG/300 ML PIGGYBACK 300 MG IV ×2 (08:43→21:04)
[2020-09-27 08:53] LABS: Anion Gap 12 (12-20); Blood Urea Nitrogen 7 mg/dL (9-16); Calcium 8.6 mg/dL (8.4-10.2); Carbon Dioxide 31 mmol/L (22-29); Chloride 100 mmol/L (96-108); Creatinine Clr Calc Pharmacy 69.4; Estimated Glomerular Filt Rate > 60; Glucose Random 153 mg/dL (60-115); Potassium 4.7 mmol/l (3.3-5.1); Sodium 138 mmol/L (135-145)
--- NOTE | 2020-09-27 09:10 | HO.PM.IMPN ---
Subjective Subjective Date of Service: 09/27/20 Interval History: Seen in follow-up for right arm cellulitis with significant swelling. Swelling seems better and pain has reduced also. Had hypoglycemia this Am. ROS: No fever, right arm pain,. Physical Exam Vital Signs: Vital Signs: Last Vital Signs Temp 97.8 F 09/27/20 07:06 Pulse 68 09/27/20 07:06 Resp 18 09/27/20 07:06 BP 145/59 H 09/27/20 07:06 Pulse Ox 97 09/27/20 07:06 Body Mass Index 27.0 Const: Other: General: AO X 3, no acute distress Resp: CTA bilateral CVS: S1,S2,RRR GI: +BS, NT, no distention Skin: some redness on right arm Neuro: motor grossly intact Psych: appropriate affect Objective Data Current Medications Generic Name Dose Route Start Last Admin Trade Name Freq PRN Reason Stop Dose Admin Docusate Sodium 100 mg 09/25/20 08:38 09/26/20 21:48 Docusate Sodium 100 Mg Capsule PO 100 mg BID PRN Administration Constipation Heparin Sodium (Porcine) 5,000 unit 09/23/20 10:00 09/27/20 08:43 Heparin Sodium,Porcine 5,000 Unit/Ml Vial SUBCUT 5,000 unit Q8H MICHEL Administration Hydromorphone HCl 1 mg 09/24/20 09:33 09/27/20 06:17 Hydromorphone Hcl 0.5 Mg/0.5 Ml Syringe IVPUSH 1 mg Q6H PRN Administration Pain, Moderate (Pain Scale 4-6 Linezolid 600 mg in 300 mls @ 300 mls/hr 09/24/20 21:00 09/27/20 08:43 Zyvox/D5w IV 300 mls/hr Q12H MICHEL Administration Insulin Pump 0 each 09/26/20 11:30 09/27/20 08:00 Subcutaneous Insulin Pump SUBCUT Not Given QIDACHS [facility] Lisinopril 20 mg 09/23/20 09:52 09/27/20 07:59 Lisinopril 20 Mg Tablet PO 20 mg DAILY@0730 MICHEL Administration Protocol Magnesium Hydroxide 30 ml 09/25/20 08:38 09/26/20 21:48 Milk Of Magnesia 30 Ml Oral.Susp PO 30 ml DAILY PRN Administration Constipation Oxycodone HCl 5 mg 09/23/20 12:58 09/27/20 02:30 Oxycodone Hcl Immed Release 5 Mg Tablet PO 5 mg Q4H PRN Administration Pain, Severe (Pain Scale 7-10) Sodium Chloride 3 ml 09/23/20 09:52 09/27/20 08:02 0.9 % Sodium Chloride Flush 3 Ml Syringe IVFLUSH 3 ml QSHIFT MICHEL Administration Labs CBC & Chem 7: 09/27/20 07:42 09/27/20 07:42 Microbiology Microbiology Results: Microbiology 09/22/20 21:34 Blood - Venous Blood Culture - Preliminary No growth after 48 hours. 09/22/20 21:34 Blood - Venous Blood Culture - Preliminary No growth after 48 hours. Assessment and Plan (1) Cellulitis: Problem details: She has had redness arm She has possible staph or strep,not sure why recurred Concern over strep or staph Status: Acute Assessment and Plan: 59 year old woman with right upper extremity edema, recent treatment for cellulitis in the arm at [facility]. Cellulitis of right arm. No component of sepsis. Marked swelling in the arm-swelling is down, redness and pain also beter Zosyn and Vanco--Changed to Zyvvox 09/24 D2 by ID, elevate the arm IV Dilaudid for pain control. Continue IV Abx today and change to PO tomorrow for DC HTN Continue Lisniopril at outpt dose. DM type 2--Patient uses her own insulin pump, she had hypoglycemia today. I advised changing this to non pump in the hospital but she is adamant she want feel much more comfortable with the pump. I discuss this with pharmacy and this as patient managing insulin. She seem competent and educated about the pump which she has had for years. We will be checking sugars more closely and if hypoglycememia remains a problem, we will discontinue pump. We discuss yet putting insulin pump off but she feels more comfortable having insulin pump DVT proph SC Heparin DNR/DNI. Stated she had this discussion with her healthcare proxy, daughter Deyanira. Late entry note fo 09/24/20
[2020-09-27 11:56] LABS: Glucose, Whole Blood 95 mg/dL (60-115)
--- NOTE | 2020-09-27 15:13 | MHC.CM.PN ---
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
[2020-09-27 15:29] VITALS: BP 177/89; PULSE 61; RESP 18; TEMP 36.6; O2SAT 98
[2020-09-27 16:18] LABS: Glucose, Whole Blood 108 mg/dL (60-115)
[2020-09-27 20:29] LABS: Glucose, Whole Blood 143 mg/dL (60-115)
[2020-09-27 21:08] VITALS: BP 160/57; PULSE 72; RESP 20
[2020-09-27 21:25] VITALS: BP 152/59; PULSE 74; RESP 20
[2020-09-27 21:40] VITALS: BP 149/57; PULSE 68; RESP 20
--- NOTE | 2020-09-27 22:30 | PC.NURSE ---
Patient reports she did not give herself any insulin boluses this shift
[2020-09-27 23:59] VITALS: BP 181/74; PULSE 90; RESP 20; TEMP 36.7; O2SAT 98
[2020-09-28] MEDS: oxyCODONE HCl Immed Release 5 MG TABLET PO ×3 (00:09→22:10)
[2020-09-28] MEDS: Milk of Magnesia 30 ML ORAL.SUSP PO (00:09)
[2020-09-28] MEDS: Docusate Sodium 100 MG CAPSULE PO (00:09)
[2020-09-28] MEDS: HYDROmorphone HCl 0.5 MG/0.5 ML SYRINGE 1 MG IVPUSH ×3 (02:45→18:08)
[2020-09-28] MEDS: Heparin Sodium,Porcine 5,000 UNIT/ML VIAL 5000 UNIT SUBCUT ×3 (02:46→18:09)
[2020-09-28 07:13] VITALS: BP 153/62; PULSE 74; RESP 18; TEMP 37.1; O2SAT 95
[2020-09-28 07:25] LABS: Glucose, Whole Blood 80 mg/dL (60-115)
[2020-09-28 08:42] VITALS: BP 153/62; PULSE 74
[2020-09-28] MEDS: lisinopriL 20 MG TABLET PO (08:42)
[2020-09-28] MEDS: 0.9 % Sodium Chloride Flush 3 ML SYRINGE IVFLUSH ×2 (08:43→18:09)
[2020-09-28] MEDS: Linezolid/D5W 600 MG/300 ML PIGGYBACK 300 MG IV ×2 (10:13→21:28)
[2020-09-28 10:42] VITALS: BP 166/63; PULSE 67; RESP 18; TEMP 36.6; O2SAT 95
[2020-09-28 10:49] LABS: Glucose, Whole Blood 168 mg/dL (60-115)
--- NOTE | 2020-09-28 11:55 | P.EN_ITS ---
Event Note Date of Service: 09/28/20 Event Note: Full consult dictated. Patient with right upper extremity lymphed talon. Discussed findings with patient and she can follow up with me as an outpatient.
--- NOTE | 2020-09-28 11:55 | PM.EVENT ---
Event Note Date of Service: 09/28/20 Event Note: Full consult dictated. Patient with right upper extremity lymphedema. Discussed findings with patient and she can follow up with me as an outpatient.
--- NOTE | 2020-09-28 13:04 | CONS_ITS ---
DATE OF SERVICE: 09/28/2020 REASON FOR CONSULTATION: Right upper extremity swelling. HISTORY OF PRESENT ILLNESS: This is a 59-year-old female with a history of breast cancer, which was nearly 5 years ago, developed right upper extremity swelling and cellulitis. She was treated at an outside institution with Zosyn and vancomycin with some improvement. She was subsequently discharged on p.o. Augmentin. The swelling had worsened and she presented to our emergency room. She was subsequently admitted. She now presents to us for vascular evaluation. PAST MEDICAL HISTORY: Includes CVA, diabetes, breast cancer, and hypertension. PAST SURGICAL HISTORY: Includes right-sided mastectomy with 3 sentinel nodes, left-sided lumpectomy with 2 sentinel nodes. MEDICATIONS: Medication list was reviewed. ALLERGIES: SHE HAS ALLERGIES TO DOXYCYCLINE, HORSE DANDER, PEACHES, PLUM, RAGWEED, AND SULFA. FAMILY HISTORY: No history of advanced coronary artery disease or peripheral vascular disease. SOCIAL HISTORY: Nonsmoker, nondrinker. Occasional marijuana user. No IV drug abuse history. REVIEW OF SYSTEMS: 13-point review was performed. At the current time, denies any headaches, dizziness, nausea, vomiting, diarrhea, or shortness of breath. She does complain of extreme swelling of the right upper extremity and pain at the shoulder, more towards the rotator cuff. PHYSICAL EXAMINATION: GENERAL: Afebrile. VITAL SIGNS: Stable. HEAD AND NECK: Demonstrates no bruits. CHEST: Moving air bilaterally. CARDIAC: Positive S1-S2. ABDOMEN: Soft. EXTREMITIES: Upper extremities have good radial and ulnar pulses. Lower extremities, warm with good capillary refill. Upper extremities in particular have palpable brachial, radial, and ulnar pulses. SKIN: Right upper extremity, no evidence of cellulitis. There appears to be some mild maculopapular rash of the right upper extremity. In general, arm is swollen. There is dorsum humping of the hand. The breast incision appears well healed. No evidence of fullness in the axilla. DIAGNOSTICS: White count of 9.8. Imaging; x-ray, diffuse soft tissue swelling. No fracture. No osseous erosions. IMPRESSION: Right upper extremity swelling. I do believe this is more of a lymphedema issue as she does have breast cancer with a sentinel lymph node. This may be different than her shoulder pain, which may be more related to an orthopedic rotator cuff injury in addition to her history of metastatic breast cancer. I do believe that we could help with the upper extremity swelling. Once she is discharged, she can follow up with me as an outpatient and we would be able to coordinate possible lymphedema glove or sleeve for the upper extremity. My business card was given to her and she will follow up with us as an outpatient. Thank you for allowing us to assist in her care. If there are any questions or concerns, please do not hesitate to contact us. MD JORGITO Gonzalez/SARAH / [phone]
[2020-09-28 16:00] VITALS: BP 156/70; PULSE 72; RESP 18; TEMP 36.8; O2SAT 100
--- NOTE | 2020-09-28 16:28 | HO.PM.IMPN ---
Subjective Subjective Date of Service: 09/28/20 Interval History: Seen in follow-up for right arm cellulitis with significant swelling. Persistent swelling in the arm, some noted redness have improve ROS: No fever, right arm pain,. Physical Exam Vital Signs: Vital Signs: Last Vital Signs Temp 98.2 F 09/28/20 16:00 Pulse 72 09/28/20 16:00 Resp 18 09/28/20 16:00 BP 156/70 H 09/28/20 16:00 Pulse Ox 100 09/28/20 16:00 Body Mass Index 27.0 Const: Other: General: AO X 3, no acute distress Resp: CTA bilateral CVS: S1,S2,RRR GI: +BS, NT, no distention Skin: some redness on right arm Neuro: motor grossly intact Psych: appropriate affect General: cooperative, healthy appearing, comfortable and no acute distress Orientation/consciousness: patient oriented x3 Neuro: General: patient oriented x3 Objective Data Current Medications Generic Name Dose Route Start Last Admin Trade Name Freq PRN Reason Stop Dose Admin Docusate Sodium 100 mg 09/25/20 08:38 09/28/20 00:09 Docusate Sodium 100 Mg Capsule PO 100 mg BID PRN Administration Constipation Heparin Sodium (Porcine) 5,000 unit 09/23/20 10:00 09/28/20 10:07 Heparin Sodium,Porcine 5,000 Unit/Ml Vial SUBCUT 5,000 unit Q8H MICHEL Administration Hydromorphone HCl 1 mg 09/24/20 09:33 09/28/20 10:03 Hydromorphone Hcl 0.5 Mg/0.5 Ml Syringe IVPUSH 1 mg Q6H PRN Administration Pain, Moderate (Pain Scale 4-6 Linezolid 600 mg in 300 mls @ 300 mls/hr 09/24/20 21:00 09/28/20 15:08 Zyvox/D5w IV Infused Q12H [facility] Infusion Insulin Pump 0 each 09/26/20 11:30 09/28/20 12:41 Subcutaneous Insulin Pump SUBCUT Not Given QIDACHS [facility] Lisinopril 20 mg 09/23/20 09:52 09/28/20 08:42 Lisinopril 20 Mg Tablet PO 20 mg DAILY@0730 [facility] Administration Protocol Magnesium Hydroxide 30 ml 09/25/20 08:38 09/28/20 00:09 Milk Of Magnesia 30 Ml Oral.Susp PO 30 ml DAILY PRN Administration Constipation Oxycodone HCl 5 mg 09/23/20 12:58 09/28/20 12:39 Oxycodone Hcl Immed Release 5 Mg Tablet PO 5 mg Q4H PRN Administration Pain, Severe (Pain Scale 7-10) Sodium Chloride 3 ml 09/23/20 09:52 09/28/20 08:43 0.9 % Sodium Chloride Flush 3 Ml Syringe IVFLUSH 3 ml QSHIFT MICHEL Administration Labs CBC & Chem 7: 09/27/20 07:42 09/27/20 07:42 Microbiology Microbiology Results: Microbiology 09/22/20 21:34 Blood - Venous Blood Culture - Final No growth after 5 days. 09/22/20 21:34 Blood - Venous Blood Culture - Final No growth after 5 days. Assessment and Plan (1) Cellulitis: Problem details: She has had redness arm She has possible staph or strep,not sure why recurred Concern over strep or staph Status: Acute Assessment and Plan: 59 year old woman with right upper extremity edema, recent treatment for cellulitis in the arm at [facility]. Cellulitis of right arm. No component of sepsis. 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 Dr. Rodriguez has seen her and will follow up on outpatient for management of lymphadema. Dilaudid for pain management HTN Continue Lisniopril at outpt dose. DM type 2--Patient uses her own insulin pump, she had hypoglycemia today. I advised changing this to non pump in the hospital but she is adamant she want feel much more comfortable with the pump. I discuss this with pharmacy and this as patient managing insulin. She seem competent and educated about the pump which she has had for years. We will be checking sugars more closely and if hypoglycememia remains a problem, we will discontinue pump. We discuss yet putting insulin pump off but she feels more comfortable having insulin pump DVT proph SC Heparin DNR/DNI. Stated she had this discussion with her healthcare proxy, daughter Deyanira.
[2020-09-28 16:37] LABS: Glucose, Whole Blood 120 mg/dL (60-115)
[2020-09-28 20:35] LABS: Glucose, Whole Blood 177 mg/dL (60-115)
[2020-09-29] VITALS: BP 125/52; PULSE 68; RESP 19; TEMP 36.5; O2SAT 95
[2020-09-29] MEDS: HYDROmorphone HCl 0.5 MG/0.5 ML SYRINGE 1 MG IVPUSH (00:57)
[2020-09-29] MEDS: 0.9 % Sodium Chloride Flush 3 ML SYRINGE IVFLUSH ×2 (01:14→07:45)
[2020-09-29] MEDS: Heparin Sodium,Porcine 5,000 UNIT/ML VIAL 5000 UNIT SUBCUT ×2 (02:43→10:34)
[2020-09-29 07:40] VITALS: BP 145/63; PULSE 68; RESP 17; TEMP 36.3; O2SAT 98
[2020-09-29] MEDS: oxyCODONE HCl Immed Release 5 MG TABLET PO ×2 (07:43→13:19)
[2020-09-29] MEDS: lisinopriL 20 MG TABLET PO (07:43)
[2020-09-29] MEDS: Docusate Sodium 100 MG CAPSULE PO (07:43)
[2020-09-29 07:47] LABS: Glucose, Whole Blood 123 mg/dL (60-115)
--- NOTE | 2020-09-29 10:01 | P.DS_ITS ---
DS: Providers Provider Date of admission: 09/23/20 05:14 Primary care physician: Priscilla Guillaume MD Consults: 09/24/20 07:40 Consult to Infectious Diseases Routine Consulting Provider: Irma Lewis Reason for consultation: Cellulitis of tharm Has provider been notified: No 09/24/20 20:28 Consult to Infectious Diseases Routine Consulting Provider: Mykel Chau Reason for consultation: cellulitis 09/28/20 11:04 Consult to Vascular Surgery Routine Consulting Provider: Hay Rodriguez Reason for consultation: lymphatic abnormalities DS: Diagnosis Discharge Diagnosis (1) Cellulitis: Status: Acute Problem details: She has had redness arm She has possible staph or strep,not sure why recurred Concern over strep or staph DS: Medications Discharge Medications Home Medications: Home Medications Medication Instructions Recorded Confirmed lisinopril 20 mg PO DAILY 09/23/20 09/23/20 DS: Summary Hospital Course Hospital Course: Hospital course: Chief Complaint: Right arm pain, swelling 59 year old woman presented with right arm pain and swelling. She was recently hospitalized at [facility] for RUE cellulitis and was treated with Zosyn and Vancomycin with improvement. Was transitioned to Augmentin PO and discharged home. At home she noted worsening pain and swelling in the arm and was febrile so came to ED at [facility] to be evaluated. She notes that the arm previously had blisters that have improved. She describes pain in the right shoulder and right upper arm mostly. She had previously had a cut on her finger and was gardening when this started-soaked it with no improvement and then it worsened. She has hx of breast cancer and is s/p mastectomy on the right but has not had swelling of the arm like this before. She was admitted for unresolved cellulitis associated with swelling of the hand/arm and was inititated on Vancomycin which was changed after one day to Zyvox by ID. Over the couse of hospitalization there has been improvement in some noted redness in the arm with the IV antibiotics. However the swelling has persisted despite elevation and US showed no DVT. Vascular surgery assessed her and convinced that the swelling is due to lymphadema from prior mastectomy despite the fact that the surgery was remote. She will follow up with Dr. Rodriguez for further management with possible lymphedema glove or sleeve for the upper extremity. Time Spent with Patient Time attestation: Total time spent providing and/or coordinating discharge services: Physical Exam Vital Signs: Vital Signs: Last Vital Signs Temp 97.3 F 09/29/20 07:40 Pulse 68 09/29/20 07:40 Resp 17 09/29/20 07:40 BP 145/63 H 09/29/20 07:40 Pulse Ox 98 09/29/20 07:40 Body Mass Index 27.0 DS: Data Data Completed and Pending Labs on day of discharge: 09/22/20 21:32 Basic Metabolic Panel Stat Complete Blood Count Auto Diff Stat Hold Lt Blue - Possible Coag Stat 09/22/20 21:34 Lactic Acid Stat Blood Culture X2 [BC] Stat 09/23/20 00:24 Piperacillin Sodium/Tazobactam [Zosyn] 3.375 gm 0.9 % Sodium Chloride [Ns] 50 ml IV ONCE vancomycin HCL 1,080 mg 0.9 % Sodium Chloride [Ns] 250 ml IV ONCE 09/23/20 00:28 US venous duplex UE RT Stat 09/23/20 00:29 Morphine Sulfate 4 mg IVPUSH ONCE STA 09/23/20 00:39 Piperacillin Sodium/Tazobactam [Zosyn] 3.375 gm IV .STK-MED ONE 09/23/20 00:46 XR forearm RT 2V Stat XR hand wrist RT Stat XR humerus RT Stat 09/23/20 01:23 vancomycin HCL 1,000 mg .ROUTE .STK-MED ONE 09/23/20 01:52 Morphine Sulfate 4 mg IVPUSH ONCE STA 09/23/20 01:53 HYDROmorphone HCl [Dilaudid] 0.5 mg IVPUSH ONCE ONE 09/23/20 02:36 HYDROmorphone HCl [Dilaudid] 0.5 mg IVPUSH ONCE STA 09/23/20 03:03 SARS-CoV2/FLU/RSV Stat 09/23/20 04:42 Transfer Order Routine 09/23/20 04:45 Consult Rx Vancomycin Dosing 1 each MISCELLANE DAILY PRN 09/23/20 06:08 Piperacillin Sodium/Tazobactam [Zosyn] 3.375 gm IV .STK-MED ONE 09/23/20 07:00 Piperacillin Sodium/Tazobactam [Zosyn] 3.375 gm 0.9 % Sodium Chloride [Ns] 50 ml IV ONCE 09/23/20 07:27 Glucose, Whole Blood Routine 09/23/20 09:52 HYDROmorphone HCl [Dilaudid] 0.5 mg IVPUSH RQ6H PRN 09/23/20 Breakfast Diabetic Diet 09/23/20 11:29 Glucose, Whole Blood Routine 09/23/20 13:00 vancomycin HCL 750 mg 0.9 % Sodium Chloride [Ns] 250 ml IV Q12H 09/23/20 13:37 vancomycin HCL 750 mg IV .STK-MED ONE 09/23/20 15:49 Glucose, Whole Blood Routine 09/23/20 19:45 Glucose, Whole Blood Routine 09/24/20 00:28 vancomycin HCL 750 mg IV .STK-MED ONE 09/24/20 07:42 Glucose, Whole Blood Routine 09/24/20 09:33 HYDROmorphone HCl [Dilaudid] 1 mg IVPUSH Q6H PRN 09/24/20 Breakfast Diabetic Diet 09/24/20 11:02 Glucose, Whole Blood Routine 09/24/20 12:14 Vancomycin Trough Stat 09/24/20 13:07 vancomycin HCL 750 mg IV .STK-MED ONE 09/24/20 16:23 Glucose, Whole Blood Routine 09/24/20 20:29 Glucose, Whole Blood Routine 09/25/20 01:00 vancomycin HCL 1,000 mg 0.9 % Sodium Chloride [Ns] 250 ml IV Q12H 09/25/20 07:13 Glucose, Whole Blood Routine 09/25/20 08:06 Basic Metabolic Panel Routine 09/25/20 11:02 Glucose, Whole Blood Routine 09/25/20 16:26 Glucose, Whole Blood Routine 09/26/20 01:08 Glucose, Whole Blood Routine 09/26/20 07:50 Glucose, Whole Blood Routine 09/26/20 11:14 Glucose, Whole Blood Routine 09/26/20 13:07 Glucose, Whole Blood Routine 09/26/20 13:58 Fluconazole [Diflucan] 150 mg PO ONCE ONE 09/26/20 14:08 Glucose, Whole Blood Routine 09/26/20 16:58 Glucose, Whole Blood Routine 09/26/20 20:20 Glucose, Whole Blood Routine 09/27/20 07:10 Glucose, Whole Blood Routine 09/27/20 07:42 Basic Metabolic Panel Routine Complete Blood Count no Diff Routine 09/27/20 11:51 Glucose, Whole Blood Routine 09/27/20 16:13 Glucose, Whole Blood Routine 09/27/20 20:25 Glucose, Whole Blood Routine 09/28/20 07:19 Glucose, Whole Blood Routine 09/28/20 10:45 Glucose, Whole Blood Routine 09/28/20 16:29 Glucose, Whole Blood Routine 09/28/20 20:26 Glucose, Whole Blood Routine 09/29/20 07:40 Glucose, Whole Blood Routine Laboratory Last Values WBC 8.8 X10*3/uL (4.8-10.8) 09/27/20 07:42 RBC 3.64 X10*6/uL (4.20-5.50) L 09/27/20 07:42 Hgb 10.7 g/dl (12.0-16.0) L 09/27/20 07:42 Hct 32.8 % (37-47) L 09/27/20 07:42 MCV 90.1 fL (80-98) 09/27/20 07:42 MCH 29.4 pg (27.0-33.0) 09/27/20 07:42 MCHC 32.6 g/dl (31.0-35.0) 09/27/20 07:42 RDW 12.0 % (11.0-16.0) 09/27/20 07:42 Plt Count 418 X10*3/uL (160-400) H D 09/27/20 07:42 MPV 9.9 fL (9.4-12.3) 09/27/20 07:42 Immature Gran % (Auto) 2.1 % (0.0-0.4) H 09/22/20 21:32 Neut % (Auto) 64.2 % (45-73) 09/22/20 21:32 Lymph % (Auto) 21.7 % (20-40) 09/22/20 21:32 [place] % (Auto) 9.7 % (2-11) 09/22/20 21:32 Eos % (Auto) 2.0 % (0-4) 09/22/20 21:32 Baso % (Auto) 0.3 % (0-2) 09/22/20 21:32 Lymph # (Auto) 2.1 X10*3/uL (1.2-4.9) 09/22/20 21:32 [place] # (Auto) 1.0 X10*3/uL (0.1-1.2) 09/22/20 21:32 Eos # (Auto) 0.2 X10*3/uL (0.0-0.4) 09/22/20 21:32 Baso # (Auto) 0.0 X10*3/uL (0.0-0.2) 09/22/20 21:32 Abs Immat Gran (auto) 0.21 X10*3/uL (0.00-0.03) H 09/22/20 21:32 Absolute Neuts (auto) 6.3 X10*3/uL (2.0-8.3) 09/22/20 21:32 Absolute Nucleated RBC 0.000 X10*3/uL (0.0-0.012) 09/27/20 07:42 Nucleated RBC % (auto) 0.0 /100WBC (0.0-0.2) 09/27/20 07:42 Hold Blue Top SEE NOTE 09/22/20 21:32 Sodium 138 mmol/L (135-145) 09/27/20 07:42 Potassium 4.7 mmol/l (3.3-5.1) 09/27/20 07:42 Chloride 100 mmol/L (96-108) 09/27/20 07:42 Carbon Dioxide 31 mmol/L (22-29) H 09/27/20 07:42 Anion Gap 12 (12-20) 09/27/20 07:42 BUN 7 mg/dL (9-16) L 09/27/20 07:42 Creatinine 0.83 mg/dL (0.5-1.4) 09/27/20 07:42 Estim Creat Clear Calc 69.4 09/27/20 07:42 Estimated GFR > 60 09/27/20 07:42 POC Glucose 123 mg/dL (60-115) H 09/29/20 07:40 Random Glucose 153 mg/dL (60-115) H D 09/27/20 07:42 Lactic Acid 0.8 mmol/L (0.5-2.0) 09/22/20 21:34 Calcium 8.6 mg/dL (8.4-10.2) 09/27/20 07:42 Vancomycin Trough 6.8 mcg/mL (10.0-20.0) L 09/24/20 12:14 Coronavirus (PCR) NEGATIVE (Negative) 09/23/20 03:03 Influenza Type A (PCR) NEGATIVE (Negative) 09/23/20 03:03 Influenza Type B (PCR) NEGATIVE (Negative) 09/23/20 03:03 RSV RNA Qual (PCR) NEGATIVE (Negative) 09/23/20 03:03 Discharge Plan Discharge Anticipated Discharge Date/Time: 09/29/20 14:00 Patient Disposition: Home Health Service Referrals: [facility] [Outside] (nursing home, PT and OT Please call above number if you have not heard from them by noon on 09/30/20) Priscilla Guillaume MD [Primary Care Provider] - Hay Rodriguez MD [Physician] - (PLEASE CALL AND MAKE APPOINTMENT FOR RIGHT ARM LYMPHADEMA ONCE DISCHARGED HOME.) Discharge Medications: New clindamycin HCl 300 mg Capsule 300 mg PO Q8H Qty: 14 RF: 0 hydromorphone [Dilaudid] 2 mg tablet 2 mg PO Q4H PRN (Reason: pain) Qty: 20 RF: 0 Continued lisinopril 20 mg Tablet 20 mg PO DAILY RF: 0 Discharge Orders: Discharge Order (Routine); Ordered 09/29/20 Ordered By: Mykel Chau Diet: advance to usual diet Activity on Discharge: As tolerated Visit Report Forms: Patient Portal Discharge page Care Plan Goals: Ultimate resolution of pain and swelling of the right arm Health Concerns: Lymphadema Plan of Treatment: Follow up with your PCP as well up Dr. Rodriguez for lymphadema treatment. Continue insulin pump for management of diabetes Discharge Date/Time: 09/29/20 16:30
--- NOTE | 2020-09-29 10:33 | MHC.CM.PN ---
Addendum entered by Magui Petty RN 09/29/20 12:03: CM RECEIVED CALL FROM PT WHO IS NOW ADAMANTLY REFUSING STR, PT REPORTS SHE HAS A SHOWER CHAIR AND WILL HAVE DAUGHTER ASSIST HER WITH BATHING (DAUGHTER IS MICROBIOLOGY TECHNICIAN AND PT HAS 40HRS WEEKLY), PT ALSO REPORTS HAVING WALKER AND HOSPITAL BED. PT REPORTS NEIGHBOR AND DAUGHTER ARE ABLE TO COOK MEALS FOR PT AND PT DOES NOT WANT TO BE IN A FACILITY WHERE SHE CANT EAT HER OWN FOOD AND WILL BE ISOLATED. PT WOULD RATHER HAVE [facility] AND HOME PT/OT. CM WILL NOTIFY PROVIDER. Addendum entered by Magui Petty RN 09/29/20 11:47: PER PT EVAL PT WILL NEED SHORT TERM REHAB, CM SPOKE WITH PT WHO WAS INTERESTED IN [facility] TO MAKE REFERRALS Original Note: CM met with pt who reports extreme pain whenever she moves her arm. Attending notified in multidisciplinary rounds, per attending may need eval for STR. CM will follow-up with pt regarding preferences for STR, pt prefers [facility] if discharging w/[facility] services.
[2020-09-29] MEDS: Linezolid/D5W 600 MG/300 ML PIGGYBACK 300 MG IV (10:34)
[2020-09-29 11:46] LABS: Glucose, Whole Blood 226 mg/dL (60-115)
--- NOTE | 2020-09-29 14:15 | MHC.SLORD ---
[address] [address] Speech & Hearing [phone] Name: Araceli Johnson Date of : 1960 Age: 59 Date of Registration: 09/23/20 Speech therapy consult ordered by accident. SLURRY TANK OPERATOR spoke with MD, order has been cancelled. Speech Language Pathology Order Status:
--- NOTE | 2020-09-29 14:17 | W.MHC.F2F ---
Service Date Service Date: 09/29/20 Encounter Date of encounter: 09/29/20 Reasons for Services Reason for nursing home: medication management and medication treatment Reason for physical therapy: home safety and mobility and therapeutic exercises Homebound: Leaving the home is medically contraindicated at this time without the asist of a device and/or another person due th the listed conditions above and below. Homebound supporting statement: Homeboud due to history of stroke and now swelling of right arm limitting activity and threfore needs the assistance of another person Certification: Based on the above findings, I certify that this patient is confined to the home and needs intermittent nursing home care, physical therapy and/or speech therapy, or continues to need occupational therapy. The patient is under my care, and I have initiated the establishment of the plan of care. The patient will be followed by a physician who will periodically review the plan of care.
[2020-09-29 15:21] VITALS: BP 152/73; PULSE 69; RESP 18; TEMP 36.3; O2SAT 95
== END 2020-09-29 16:30 | disposition home health service (06) | DRG 600 ==
LOC: HO.ED 09-23 05:43 → HO.IMC 09-23 06:39 → HO.S3 09-26 10:11
PROVIDERS: Physician Assistant; Admitting Provider Internal Medicine; Emergency Provider Student in an Organized Health Care Education/Training Program; PCP Family Medicine; Visit Provider Internal Medicine
DX: I97.2 Postmastectomy lymphedema syndrome (principal); L03.113 Cellulitis of right upper limb; I10 Essential (primary) hypertension; E11.649 Type 2 diabetes mellitus with hypoglycemia without coma; Z85.3 Personal history of malignant neoplasm of breast; Z90.11 Acquired absence of right breast and nipple; Z96.41 Presence of insulin pump (external) (internal); Z20.828 Contact with and (suspected) exposure to other viral communicable diseases; Z88.2 Allergy status to sulfonamides; Z79.4 Long term (current) use of insulin; Z79.899 Other long term (current) drug therapy; Z66 Do not resuscitate
CPT/HCPCS: 0241U; 36415; 73060; 73090; 73110; 73130; 80048; 80202; 82947; 83605; 85025; 85027; 87040; 93971; 96365; 96367; 96375; 96376; 97161; 99285; J1170; J2020; J2270; J2543; J3370

== ENCOUNTER 2021-08-25 13:42 | Outpatient (REF) | payer MEDICARE, MEDICAID, SELFPAY ==
[2021-08-25 14:21] LABS: COVID-19 Test Negative (Negative)
== END 2021-08-25 13:43 | disposition home or self-care (01) ==
LOC: HO.LAB 13:42
PROVIDERS: Visit Provider Internal Medicine
DX: Z20.822 Contact with and (suspected) exposure to COVID-19 (principal)
CPT/HCPCS: 36415; 87635; C9803

== ENCOUNTER 2022-06-28 12:20 | Outpatient (REF) | payer MEDICARE, MEDICAID, SELFPAY ==
[2022-06-28 13:03] LABS: COVID-19 Test Negative (Negative); IDNOW Serial# 16C4AD1C
== END 2022-06-28 12:21 | disposition home or self-care (01) ==
LOC: HO.LAB 12:20
PROVIDERS: PCP Family Medicine; Visit Provider Internal Medicine
DX: Z20.822 Contact with and (suspected) exposure to COVID-19 (principal)
CPT/HCPCS: 87635; C9803

== ENCOUNTER 2023-11-28 10:09 | Outpatient (AMB) | payer MEDICARE, MEDICAID, SELFPAY ==
--- NOTE | 2023-11-28 10:31 | A.OFFPC_ITS ---
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 Required: No Accompanied by: Grand Child Allergies insulin lispro [Humalog U-100 Insulin] Allergy (Unknown, Verified 11/28/23 11:15) redness and itching doxycycline Allergy (Verified 11/28/23 11:15) Unknown horse dander Allergy (Verified 11/28/23 11:15) Unknown peach Allergy (Verified 11/28/23 11:15) Unknown plum Allergy (Verified 11/28/23 11:15) Unknown ragweed pollen Allergy (Verified 11/28/23 11:15) Unknown Sulfa (Sulfonamide Antibiotics) Allergy (Verified 11/28/23 11:15) Unknown Doxycycline Hyclate Allergy (Unknown, Uncoded 11/28/23 11:05) Unknown Medication List - Last Reconciled 11/28/23 by Crow Lopez PA-C cholecalciferol (vitamin D3) 125 mcg PO DAILY cranberry extract 200 mg PO DAILY ibuprofen 200 mg PO Q6H PRN insulin regular hum U-500 conc (Humulin R U-500 (Conc) Insulin Kwikpen) 30 units subcut QAM lancets (Prodigy Twist Top Lancet) As directed magnesium hydroxide (Dulcolax (magnesium hydroxide)) 5 mL PO DAILY PRN pen needle, diabetic (UltiCare Pen Needle) As directed Tobacco use date assessed: 11/28/23 Fall risk assessment: 1 Fall in past year Last assessed Fall Risk: 11/28/23 Dental Screening Dental Screen Date: 11/28/23 Did you have a dental visit in the last 12 months?: No Did you have a dental problem in the last 6 months where you did not have access to dental care?: No Was dental information given to patient?: Yes HPI 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 she presents today in a wheelchair with her grandchildren Patient previous PCP was [facility] ( Dr Miller )- [facility]. patient has a past medical history significant for type 2 diabetes, hypertension, history of CVA, history in Breast cancer s/p mastectomy, lower extremity lymphedema. Concern--> reports over the last few weeks she has noted vaginal bleeding specially when standing up from a sitting position. She does have history of breast cancer and she is postmenopausal. Will send for transvaginal ultrasound to evaluate for an endometrial mass. Right hip pain: Has chronic right leg and right hip pain. Unclear etiology. She mentions getting x-rays and reports having arthritis and? Tumor from breast metastasis. She was sleeping put on hospice because of her pain previously. Over the last several years she has not been able to stand for long periods of time. She is mostly wheelchair or walker dependent. She does have a HALFWAY HOUSE COUNSELOR whom helps her tremendously with her activities of daily living. At this point is unclear would has caused her right hip pain and lower extremity weakness. She denies having any issues with her lower lumbar spine. She does use herbal remedies and ibuprofen for her pain. With suspect she has some physical deconditioning in her lower extremities and needs balance training and lower extremity strengthening. PLAN: Will try to set patient up with physical therapy at home as it has tremendously difficult for her to get in and out of her house as she lives on a 2nd floor. .. type 2 diabetes: Today's A1c is 6.9. Continues on insulin daily. She does have material carrier that she speaks with every 3 months through diabetic clinic in [place]. . . Has a history of hypertension though has been able to manage with her diet. She was on amlodipine and lisinopril in the past though had side effects. .. CVA ( 07/2017 and 2017) : Had 2 CVAs in 2017 in 2018 in the setting being treated for breast cancer. She is status post total mastectomies [facility] Medical History (Updated 11/28/23 @ 12:37 by Crow Lopez PA-C) Malignant neoplasm of central portion of right female breast Type 2 diabetes mellitus with microalbuminuria, without long-term current use of insulin Rotator cuff tear, right History of stroke with current residual effects FH: mastectomy CVA (cerebral vascular accident) Surgical History Hx of lumpectomy S/P right mastectomy Social History Household Members: None Housing: House Do you presently have visiting nurse or other home services: No Comment: sleeping Patient Tobacco Use Status: Never used Tobacco e-Cigarette/Vaping Use: Never Used Substance Use Type: Marijuana service: No Current occupational status: retired Cognitive needs: No Hearing needs: No Vision needs: No Questionnaire PHQ-9 Over the last 2 weeks, how often have you been bothered by any of the following problems? 1. Little interest or pleasure in doing things: several days 2. Feeling down, depressed, or hopeless: several days 3. Trouble falling or staying asleep, or sleeping too much: not at all 4. Feeling tired or having little energy: several days 5. Poor appetite or overeating: not at all 6. Feeling bad about yourself - or that you are a failure or have let yourself or your family down: several days 7. Trouble concentrating on things, such as reading the newspaper or watching television: more than half the days 8. Moving or speaking so slowly that other people could have noticed. Or the opposite - being so fidgety or restless that you have been moving around a lot more than usual: several days 9. Thoughts that you would be better off or of hurting yourself in some w ay: not at all Total score: 7 Depression Screening Interpretation: Positive Depression Screening Follow-up: Existing condition Depression Screening Done: Yes 83421 - PHQ-9 Billing: Yes Source: Developed by Drs. Fede Byrd, Alisia Tee, Manjinder Garcia and colleagues, with an educational inez from [employer]. Thrive Questionnaire Date Thrive assessed: 11/28/23 I am a: Patient What is your living situation today?: I have a steady place to live Within the past 12 months, did the food you bought not last and you didn't have the money to get more?: Never true Within the past 12 months, did you worry whether your food would run out before you got money to buy more?: Never true Do you have trouble paying for medicines?: No Do you have trouble getting transportation to medical appointments?: No Do you have trouble paying your heating and electricity bill?: No Do you have trouble taking care of your child, family member or friend?: No Do you have trouble with day-to-day activities such as bathing, preparing meals, shopping, managing finances, etc.?: No Are you currently unemployed and looking for a job?: No Are you interested in more education?: No Please select the resources that you would like help with: None Currently or been in a relationship where the following occur: no concerns reported THRIVE Score: 0 AUDIT C Alcohol Use Questionnaire (AUDIT-C) 1. How often do you have a drink containing alcohol?: Never 3. How often do you have six or more drinks on one occasion?: Never Total Score: 0 GRACIELA-7 AMB Questionnaire GRACIELA-7 Date GRACIELA - 7 assessed: 11/28/23 Feeling nervous, anxious, or on edge: 0 = Not at all Not being able to stop or control worryin = Nearly every day Worrying too much about different things: 3 = Nearly every day Trouble relaxin = Several days Being so restless that it is hard to sit still: 1 = Several days Becoming easily annoyed or irritable: 1 = Several days Feeling afraid as if something awful might happen: 3 = Nearly every day Total GRACIELA-7 score (0-4 normal; 5-9 mild; 10-14 moderate; 15-21 severe): 12 Source: Developed by Drs. Fede Byrd, Alisia Tee, Manjinder Garcia and colleagues, with an educational inez from [employer]. GRACIELA-7 Assessment Billing GRACIELA-7 Assessment Tool: GRACIELA-7 Assessment 17769 Physical exam (Primary Care) Vital Signs: Last Vital Signs Pulse 68 11/28/23 10:56 BP 142/80 H 11/28/23 10:56 Pulse Ox 98 11/28/23 10:56 Oxygen Delivery Method Room Air 11/28/23 10:56 BMI result Body Mass Index 23.1 Tobacco/Smoking Status: Tobacco use Status Tobacco use date assessed 11/28/23 11/28/23 11:13 Patient Tobacco Use Status Never used Tobacco 11/28/23 11:13 e-Cigarette/Vaping Use Never Used 11/28/23 11:13 PHQ-9: PHQ-9 Score PHQ-9: Total score 7 11/28/23 11:28 Depression Screening Interpretation: Positive Depression Screening Follow-up: Existing condition Thrive Assessment: Date of Thrive Assessment Date Thrive assessed 11/28/23 11/28/23 11:13 Currently or been in a relationship where the following occur: no concerns reported Results AMB Hemoglobin A1c AMB Hemoglobin A1c 6.9 % Last Edit by GIANA Osborne on 11/28/23 11:29 Results Reviewed Results Reviewed: Laboratory Last Values Hgb A1c (Clinic) 6.9 % (4.0-6.0) H 11/28/23 11:28 Assessment and Plan Assessment & Plan (1) Type 2 diabetes mellitus with microalbuminuria, without long-term current use of insulin: Code(s): E11.29 - Type 2 diabetes mellitus with other diabetic kidney complication; R80.9 - Proteinuria, unspecified Plan: Patient's type 2 diabetes well controlled at A1c at 6.9. She does follow a material carrier in diabetic clinic to which she does telehealth appointments every 3 months. She continues on daily insulin. (2) CVA (cerebral vascular accident): Code(s): I63.9 - Cerebral infarction, unspecified Qualifiers: CVA mechanism: embolism Laterality of affected vessel: bilateral Precerebral and cerebral artery: middle cerebral artery Qualified Code(s): I63.413 - Cerebral infarction due to embolism of bilateral middle cerebral arteries Plan: As per HPI patient has had 2 strokes in the past in the setting being treated for breast cancer. (3) Bilateral hip pain: Code(s): M25.551 - Pain in right hip; M25.552 - Pain in left hip Plan: Has pelvic bilateral hip pain more so on the right side. There is some apparent imaging that did show some bone lesions and arthritis. Will redo imaging of her hips. She continues not to be able to stand or walk for very long. She is dependent on her walker in her HALFWAY HOUSE COUNSELOR to help her with activities of daily living. She does use herbal remedies and NSAID for pain. (4) Physical deconditioning: Code(s): R53.81 - Other malaise Plan: She does seem to be somewhat physically deconditioned likely due to her sedentary lifestyle in her inability to stand or walk for long periods of time due to her pain. She would likely benefit from physical therapy to help her regain strength in her lower extremities (5) Postmenopausal bleeding: Code(s): N95.0 - Postmenopausal bleeding Plan: Does report over last few weeks noting vaginal bleeding. In the setting of previous cancer diagnosed will try to send for transvaginal Ultrasound to evaluate for endometrial mass. Will refer to OBGYN (6) History of breast cancer: Code(s): Z85.3 - Personal history of malignant neoplasm of breast Plan: Patient has a history of breast cancer. She is status post right total mastectomy. Has lost her follow-up with Oncology due to her oncologist retiring. Recently noted some postmenopausal bleeding. She would like to reestablish care with a new oncologist here in [place]. Orders: Orders AMB Hemoglobin A1c Today E11.29 - Type 2 diabetes mellitus with other diabetic kidney complication, R80.9 - Proteinuria, unspecified US pelvic and transvaginal Today N95.0 - Postmenopausal bleeding XR hip LT min 2V Today M25.551 - Pain in right hip, M25.552 - Pain in left hip XR hip RT 1V Today M25.551 - Pain in right hip, M25.552 - Pain in left hip Referrals INSIDE SALES RECRUITER Referral N95.0 - Postmenopausal bleeding [facility] Referral I63.9 - Cerebral infarction, unspecified, R53.81 - Other malaise Hematology & Oncology Referral Z85.3 - Personal history of malignant neoplasm of breast Medications: New chair, wheel (Wheel chair) As directed 1 ea 0RF I63.413 - Cerebral infarction due to embolism of bilateral middle cerebral arteries ibuprofen 600 mg PO Q8H 30 days PRN 90 tabs 3RF pain M25.551 - Pain in right hip, M25.552 - Pain in left hip commode (bedside commode) As directed 1 ea 1RF I63.9 - Cerebral infarction, unspecified, R53.81 - Other malaise Coding Level of Care Code New Pt Level 4 (85541) Diagnoses Type 2 diabetes mellitus with microalbuminuria, without long-term current use of insulin E11.29; R80.9 Cerebrovascular accident (CVA) due to bilateral embolism of middle cerebral arteries I63.413 CVA mechanism: embolism Laterality of affected vessel: bilateral Precerebral and cerebral artery: middle cerebral artery Bilateral hip pain M25.551; M25.552 Physical deconditioning R53.81 Postmenopausal bleeding N95.0 History of breast cancer Z85.3 Additional Codes GRACIELA-7 Assessment Billing - GRACIELA-7 Assessment Tool: GRACIELA-7 Assessment 50911 ([id number])
[2023-11-28 10:56] VITALS: BP 142/80; PULSE 68; O2SAT 98; BMI 23.1
== END 2023-11-28 12:00 | disposition home or self-care (01) ==
PROVIDERS: PCP Physician Assistant; Visit Provider Physician Assistant
DX: E11.29 Type 2 diabetes mellitus with other diabetic kidney complication (principal); R80.9 Proteinuria, unspecified; I63.413 Cerebral infarction due to embolism of bilateral middle cerebral arteries; M25.551 Pain in right hip; M25.552 Pain in left hip; R53.81 Other malaise; N95.0 Postmenopausal bleeding; Z85.3 Personal history of malignant neoplasm of breast
CPT/HCPCS: 83036; 99204

== ENCOUNTER 2023-11-28 12:07 | Outpatient (REF) | payer MEDICARE, MEDICAID, SELFPAY ==
[2023-11-28 13:52] LABS: Hematocrit 36.9 % (37.0-47.0); Mean Corpuscular HGB Conc 35.2 g/dl (31.0-35.0); Mean Corpuscular Hemoglobin 30.2 pg (27.0-33.0); Mean Corpuscular Volume 85.8 fL (80.0-98.0); Mean Platelet Volume 11.3 fL (9.4-12.3); Platelet Count 271 X10*3/uL (160-400); Red Cell Distribution Width 12.2 % (11.0-16.0); White Blood Count 7.3 X10*3/uL (4.8-10.8)
[2023-11-28 14:53] LABS: Alanine Aminotransferase 10 U/L (0-31); Albumin Level 4.6 g/dL (3.5-5.0); Alkaline Phosphatase 139 U/L (39-117); Anion Gap 10 (12-20); Aspartate Amino Transferase 17 U/L (5-31); Bilirubin Total 0.6 mg/dL (0.0-1.0); Blood Urea Nitrogen 15 mg/dL (9-16); Carbon Dioxide 30 mmol/L (22-29); Chloride 105 mmol/L (96-108); Cholesterol 273 mg/dL (<200); Estimated Glomerular Filt Rate > 60; Glucose Fasting 142 mg/dL (60-99); HDL Cholesterol 55 mg/dL (>40); LDL Cholesterol Calculated 176 mg/dL (<100); Potassium 4.4 mmol/L (3.3-5.1); Sodium 141 mmol/L (135-145); Total Protein 8.1 g/dL (6.5-8.0); Triglycerides 210 mg/dL (<150)
== END 2023-11-28 12:08 | disposition home or self-care (01) ==
LOC: HO.LAB 12:07
PROVIDERS: PCP Physician Assistant; Visit Provider Physician Assistant
DX: E11.29 Type 2 diabetes mellitus with other diabetic kidney complication (principal); R80.9 Proteinuria, unspecified; Z86.73 Personal history of transient ischemic attack (TIA), and cerebral infarction without residual deficits
CPT/HCPCS: 36415; 80053; 80061; 85027

== ENCOUNTER 2023-12-11 12:29 | Outpatient (REF) | payer MEDICARE, MEDICAID, SELFPAY ==
--- NOTE | ~2023-12-11 | US_ITS ---
EXAMINATION: US PELVIS CLINICAL INFORMATION: Postmenopausal bleeding. COMPARISON: None available. TECHNIQUE: Ultrasound of the pelvis is performed using both transabdominal and transvaginal transducers along with Doppler. Transvaginal imaging is performed due to inadequate visualization transabdominally. FINDINGS: The uterus measures 8.0 x 4.6 x 5.8 cm. No discrete fibroids are appreciated. Bilateral ovaries not visualized. Limited visualization due to bowel gas. No significant free fluid. Endometrium is abnormal and complex in appearance with abnormal thickness of 37 mm and multiple cystic spaces. US/US pelvic and transvaginal IMPRESSION: 1. Markedly abnormal endometrium with thickness of 37 mm and complex appearance with multiple cystic spaces. Neoplastic and nonneoplastic etiologies should be considered. Gynecologic consultation and possible biopsy recommended. 2. Bilateral ovaries not visualized. Limited visualization due to bowel gas. This study was presented today December 12, 2023 for interpretation. PSA staff will provide results to referring provider at this time.
== END 2023-12-11 12:30 | disposition home or self-care (01) ==
LOC: HO.US 12:29
PROVIDERS: PCP Physician Assistant; Visit Provider Physician Assistant
DX: N95.0 Postmenopausal bleeding (principal)
CPT/HCPCS: 76830; 76856

== ENCOUNTER 2023-12-19 11:53 | Outpatient (AMB) | payer MEDICARE, MEDICAID, SELFPAY ==
--- NOTE | 2023-12-19 11:50 | MHC.PC.OV ---
Intake Visit Reasons: 3 Week F/U Pharmacology Associate Required: No Information Interpreted: non-clinical & clinical Trumpet Teacher: Not Required per policy Accompanied by: Self / Same As Patient Allergies insulin lispro [Humalog U-100 Insulin] Allergy (Unknown, Verified 12/19/23 12:34) redness and itching doxycycline Allergy (Verified 12/19/23 12:34) Unknown horse dander Allergy (Verified 12/19/23 12:34) Unknown peach Allergy (Verified 12/19/23 12:34) Unknown plum Allergy (Verified 12/19/23 12:34) Unknown ragweed pollen Allergy (Verified 12/19/23 12:34) Unknown Sulfa (Sulfonamide Antibiotics) Allergy (Verified 12/19/23 12:34) Unknown tramadol Adverse Reaction (Intermediate, Verified 12/19/23 12:42) Depression Doxycycline Hyclate Allergy (Unknown, Uncoded 12/19/23 11:51) Unknown Medication List - Last Reconciled 12/19/23 by Crow Lopez PA-C chair, wheel (Wheel chair) As directed cholecalciferol (vitamin D3) 125 mcg PO DAILY commode (bedside commode) As directed cranberry extract 200 mg PO DAILY ibuprofen 600 mg PO Q8H PRN 30 days insulin regular hum U-500 conc (Humulin R U-500 (Conc) Insulin Kwikpen) 30 units subcut QAM lancets (Prodigy Twist Top Lancet) As directed magnesium hydroxide (Dulcolax (magnesium hydroxide)) 5 mL PO DAILY PRN pen needle, diabetic (UltiCare Pen Needle) As directed tramadol 50 mg PO Q8H PRN 7 days Tobacco use date assessed: 11/28/23 Fall risk assessment: No Falls in past year Last assessed Fall Risk: 12/19/23 Dental Screening Dental Screen Date: 12/19/23 Did you have a dental visit in the last 12 months?: Yes Did you have a dental problem in the last 6 months where you did not have access to dental care?: No Was dental information given to patient?: Patient has dentist HPI 3 Week F/U HPI Details Patient is a 63 old female being evaluated today for a 3 week follow-up visit. At last visit we did discuss her postmenopausal bleeding was sent for pelvic ultrasound that did show Markedly abnormal endometrium with thickness of 37 mm and complex appearance with multiple cystic spaces. Neoplastic and nonneoplastic etiologies should be considered. He has been set up with quarrying manager specialist for biopsy. She has reservations about having biopsy done due to concerns of pain after the procedure and transportation. Has been started on tramadol for pain though has been ineffective. [facility] Medical History Malignant neoplasm of central portion of right female breast Type 2 diabetes mellitus with microalbuminuria, without long-term current use of insulin Rotator cuff tear, right History of stroke with current residual effects FH: mastectomy CVA (cerebral vascular accident) Surgical History Hx of lumpectomy S/P right mastectomy Social History Household Members: None Housing: House Do you presently have visiting nurse or other home services: No Comment: sleeping Patient Tobacco Use Status: Never used Tobacco e-Cigarette/Vaping Use: Never Used Substance Use Type: Marijuana service: No Current occupational status: retired Cognitive needs: No Hearing needs: No Vision needs: No Questionnaire Thrive Questionnaire Date Thrive assessed: 11/28/23 GRACIELA-7 AMB Questionnaire GRACIELA-7 Date GRACIELA - 7 assessed: 11/28/23 Source: Developed by Drs. Fede Byrd, Alisia Tee, Manjinder Garcia and colleagues, with an educational inez from [employer]. Review of Systems Const Denies headache(s) Eyes Denies loss of vision ENT Denies vertigo, Denies dizziness, Denies headache(s) and Denies sore throat Card Denies chest pain, Denies leg edema and Denies lightheadedness Resp Denies cough, Denies hemoptysis and Denies wheezing GI Denies abdominal pain, Denies melena, Denies constipation, Denies diarrhea and Denies vomiting Denies urinary frequency, Denies dysuria and Denies urinary urgency Musc Denies arthralgias, Denies joint swelling, Denies numbness and Denies tingling Neuro Denies behavioral changes, Denies vertigo, Denies dizziness, Denies headache(s), Denies loss of vision, Denies memory loss, Denies numbness and Denies tingling Psych Denies anxiety, Denies behavioral changes, Denies depression, Denies memory loss and Denies panic attacks Raheem/Lymph Denies easy bleeding and Denies easy bruising Aller/Immun Denies wheezing Physical exam (Primary Care) Tobacco/Smoking Status: Tobacco use Status Tobacco use date assessed 11/28/23 12/19/23 11:52 Patient Tobacco Use Status Never used Tobacco 12/19/23 11:52 e-Cigarette/Vaping Use Never Used 12/19/23 11:52 Thrive Assessment: Date of Thrive Assessment Date Thrive assessed 11/28/23 12/19/23 11:52 Telehealth Telehealth Location of provider rendering services: practice address Location of patient: address on file Patient Identification confirmed using: Name, : Yes Telehealth method: voice only Patient verbally consented to treatment: Yes Patient verbally consented to billing insurance company: Yes Patient informed of any privacy concerns related to visit: Yes Minutes spent on Phone/Video with Pt.: 11 Assessment and Plan Assessment & Plan (1) Endometrial thickening on ultrasound: Code(s): R93.89 - Abnormal findings on diagnostic imaging of other specified body structures Plan: Has been having postmenopausal bleeding over the last several months.. Patient had pelvic ultrasound showing Markedly abnormal endometrium with thickness of 37 mm and complex appearance with multiple cystic spaces. Neoplastic and nonneoplastic etiologies should be considered. Has upcoming appointment next week with quarrying manager specialist to discuss endometrial biopsy. (2) Postmenopausal bleeding: Code(s): N95.0 - Postmenopausal bleeding Plan: As above Medications: Discontinued tramadol Discontinued Reason: Doctor's Order 50 mg PO Q8H 7 days PRN 21 tabs 0RF pain M25.551 - Pain in right hip, M25.552 - Pain in left hip Coding Level of Care Code Tele Est Pt Level 3 (65051) Diagnoses Endometrial thickening on ultrasound R93.89 Postmenopausal bleeding N95.0
== END 2023-12-19 13:10 | disposition home or self-care (01) ==
LOC: HO.HMGH 11:53
PROVIDERS: PCP Physician Assistant; Visit Provider Physician Assistant
DX: R93.89 Abnormal findings on diagnostic imaging of other specified body structures (principal); N95.0 Postmenopausal bleeding
CPT/HCPCS: 99442

== ENCOUNTER 2023-12-28 13:03 | Outpatient (AMB) | payer MEDICARE, MEDICAID, SELFPAY ==
--- NOTE | 2023-12-28 13:03 | A.OFFVIS_ITS ---
Intake Intake Visit Reasons: PMB Information Interpreted: non-clinical & clinical Allergies insulin lispro [Humalog U-100 Insulin] Allergy (Unknown, Verified 12/28/23 13:04) redness and itching doxycycline Allergy (Verified 12/28/23 13:04) Unknown horse dander Allergy (Verified 12/28/23 13:04) Unknown peach Allergy (Verified 12/28/23 13:04) Unknown plum Allergy (Verified 12/28/23 13:04) Unknown ragweed pollen Allergy (Verified 12/28/23 13:04) Unknown Sulfa (Sulfonamide Antibiotics) Allergy (Verified 12/28/23 13:04) Unknown tramadol Adverse Reaction (Intermediate, Verified 12/28/23 13:04) Depression Doxycycline Hyclate Allergy (Unknown, Uncoded 12/28/23 13:04) Unknown Post menopausal: Yes HPI HPI Comments History of Present Illness Details Presenting scheduled a day has visit after being referred from her primary care physician regarding postmenopausal bleeding last 6 months. Using Herbs during this period of time Pelvic ultrasound showed the following: The uterus measures 8.0 x 4.6 x 5.8 cm. No discrete fibroids are appreciated. Bilateral ovaries not visualized. Limited visualization due to bowel gas. No significant free fluid. Endometrium is abnormal and complex in appearance with abnormal thickness of 37 mm and multiple cystic spaces. Last co testing done at [facility] in 01/11 was negative [facility] Medical History Malignant neoplasm of central portion of right female breast Type 2 diabetes mellitus with microalbuminuria, without long-term current use of insulin Rotator cuff tear, right History of stroke with current residual effects FH: mastectomy CVA (cerebral vascular accident) Surgical History Hx of lumpectomy S/P right mastectomy Social History Household Members: None Housing: House Do you presently have visiting nurse or other home services: No Comment: sleeping Patient Tobacco Use Status: Never used Tobacco e-Cigarette/Vaping Use: Never Used Substance Use Type: Marijuana service: No Current occupational status: retired Cognitive needs: No Hearing needs: No Vision needs: No Review of Systems Const All systems reviewed & are unremarkable except as noted in HPI and below Reports as per HPI and Reports no additional complaints GI Reports no additional complaints Reports no additional complaints Assessment & Plan Assessment & Plan (1) Postmenopausal bleeding: Comment: With thickened endometrium by ultrasound Code(s): N95.0 - Postmenopausal bleeding Plan: Discussed with the patient the differential diagnosis of post menopausal bleeding with normal pelvic exam including but not limited to, endometrial hyperplasia, cancer, polyps and other causes; Recommended pelvic exam co testing and endometrial sampling Discussed with the patient the pelvic ultrasound findings, the endometrial stripe thickenss measured by ultrasound was more than 4mm. The negative predictive value, positive predictive value, Sensitivity, specificity of using ultrasound measurement of endometrial stripe to detecting endometrial pathology including hyperplasia , polyp or cancer were discussed with the patient. Recommended to the patient that the next step is an endometrial sampling via hysteroscopy D&C possible polypectomy versus endometrial biopsy to r/o endometrial pathology including hyperplasia or cancer. All the pros and cons risks and benefits of each approach were discussed with the patient, endometrial biopsy being less invasive, office procedure with less sensitivity and inability diagnose a polyp and removal versus hysteroscopy done under anesthesia more invasive more sensitive to endometrial cancer and possibility of diagnosing and endometrial polyp with the possibility of polypectomy. All questions were answered pt verbalized understanding and decided to think about it and get back to us. The patient was instructed to schedule an appointment for pelvic exam/co testing and EMB appointment as soon as possible versus exam under anesthesia, co testing and hysteroscopy, possible polypectomy/myomectomy. I spent a total of 20 minutes reviewing the chart, talking to the patient via phone and documenting in the medical record. Telehealth Telehealth Location of provider rendering services: practice address Location of patient: address on file Patient Identification confirmed using: Name, : Yes Telehealth method: voice only Patient verbally consented to treatment: Yes Patient verbally consented to billing insurance company: Yes Patient informed of any privacy concerns related to visit: Yes Coding Level of Care Code Tele Est Pt Level 1 (81181) Diagnoses Postmenopausal bleeding N95.0
--- OUTSIDE RECORDS SUMMARY | 2023-12-28 13:04 | XMS_ITS | Continuity of Care Document ---
Author Organization [facility] Address [address] [place] [address]- Care Team Providers Care Volcanologist Name Role Phone Not on Staff, PCP Primary Care Physician Unavail able Encounter [facility] [place] Date(s): 01/06/22 - 02/05/22 [facility] [address] [place] [address]- Allergies, Adverse Reactions, Alerts Substance Reaction Severity Status doxycycline Active sulfa drugs itching in mouth Active Augmentin Nausea, vomiting and diarrhea Active Horses Active Other Environmental Allergy 1 Active Nectarine Active [place] Active 1chicken feathers Immunizations Given and Recorded Vaccine Date Status Refusal Reason diphtheria-tetanus toxoids (DT) 1 09/29/08 Given 1Admin Note: INFO GIVEN TO PT Medications acetaminophen 500 mg oral tablet See Instructions, PRN as needed for pain, 1-2 tablet By Mouth 3 times a day, # 100 tablet, 1 Refills, Maintenance, 10/02/20 14:45:00 EST, Tablet, [facility] #[id number], Partial fill upon patient request if the prescription is for a schedule II o... Start Date: 10/02/20 Status: Ordered Acidophilus Probiotic Blend oral capsule By Mouth, Daily, 0 Refills, Maintenance, 12/15/20 15:55:00 EDT, Partial fill upon patient request if the prescription is for a schedule II opioid drug. Start Date: 12/15/20 Status: Ordered Bedside Commode See Instructions, # 1 each, Maintenance, Needs seat riser for commode, 05/29/20 13:51:00 EDT, Supply Start Date: 05/29/20 Status: Ordered CBD oil CBD oil, Refills 0, Maintenance, 05/29/20 13:30:00 EDT, Supply Start Date: 05/29/20 Status: Ordered CPAP Machine AutoCPAP 7-9, Maintenance, 10/30/17 8:39:56 EST, Compound Start Date: 10/30/17 Status: Ordered D-Mannose with cranberry D-Mannose with cranberry, Refills 0, Maintenance, to prevent uti, 07/17/18 11:08:03 EDT, Compound Start Date: 07/17/18 Status: Ordered Diabetic shoe inserts Diabetic shoe inserts, See Instructions, # 1 pair, Refills 1, Tot. Refills 1, Maintenance, wear daily with your diabetic shoes. for T2DM/E11.42, 10/04/18 13:29:51 EST, Compound Start Date: 10/04/18 Status: Ordered Diabetic shoes Diabetic shoes, See Instructions, # 1 pair, Refills 1, Tot. Refills 1, Maintenance, wear daily. forType 2 DM/E11.42, 10/10/18 10:19:27 EST, Compound Start Date: 10/10/18 Status: Ordered Echinacea oral tablet = 1,000 mg, By Mouth, Daily, alternating every 2 weeks, 0 Refills, Maintenance, 10/04/18 13:34:18 EST Start Date: 10/04/18 Status: Ordered EpiPen 2-Nas 0.3 mg injectable kit = 0.3 mg, Intramuscular, Once, PRN Anaphylactic Reaction, may repeat if necessary x1 after 5-15 min, # 1 pack/packet, 0 Refills, Soft Stop, 10/23/20 11:51:00 EST, [facility] #[id number], Partialfill upon patient request if the prescription is fo... Start Date: 10/23/20 Status: Ordered Humulin R U-500 Insulin Humulin R U-500 Insulin, Refills 0, Maintenance, Via subcutaneous Insulin Pump. Basal rate from 8amuntil noon is 1.0 units/hr. Basal rate noon until 8am is 0.95 units per hour. Bolus is calculated based on pt's carb count and poc. Pt extends bolus to... Start Date: 02/26/16 Status: Ordered ibuprofen 600 mg oral tablet 600 mg, 1, tablet, By Mouth, 2 times a day, PRN, prn, # 1 tablet, Refills 0, Tot. Refills 0, Maintenance, pain, 10/02/20 14:43:00 EST, Do Not Route, Partial fill upon patient request if the prescription is for a schedule II opioid drug. Start Date: 10/02/20 Status: Ordered lisinopril 20 mg oral tablet 1, tablet, By Mouth, Daily, # 90 tablet, Refills 0, Tot. Refills 0, Maintenance, 04/27/21 15:22:00 EDT, Route to Pharmacy Electronically, [facility] #[id number], 164, cm, 12/16/20 8:08:00 EDT, Height Start Date: 04/27/21 Status: Ordered Omni Pod Insulin Pump See Instructions, # 10 each, Refills 1, Tot. Refills 1, Maintenance, test 8 x qd, 04/13/17 9:51:22,Compound Start Date: 04/13/17 Status: Ordered Raised Toilet Seat for Commode Raised Toilet Seat for Commode, See Instructions, # 1 each, Refills 0, Tot. Refills 0, Maintenance,Raised Toilet Seat for Commode, 06/12/20 13:29:00 EDT, Supply Start Date: 06/12/20 Status: Ordered Turmeric 1 tsp, By Mouth, Daily, 0 Refills, Maintenance, 10/04/18 13:34:37 EST Start Date: 10/04/18 Status: Ordered Vitamin D3 1000 intl units oral capsule 3 capsule = 3,000 International_Units, By Mouth, Daily, 3000 units daily, # 270 capsule, 3 Refills,Maintenance, 08/29/19 11:42:52 EST, 164, cm, 08/29/19 11:05:55 EST, Height, 75.3, kg, 09/22/17 13:18:53 EST, Dry Weight Start Date: 08/29/19 Stop Date: 08/23/20 Status: Ordered Walker See Instructions, # 1 each, Maintenance, Use routinely with ambulation Folding Wheeled Walker with Seat and Brakes Right Hip Pain- M25.551, 06/30/20 10:42:00 EDT, Supply Start Date: 06/30/20 Status: Ordered Problem List Condition Effective Dates Status Health Status Inform ant Adjustment disorder with mix ed anxiety and depressed mood(Confirmed) Active 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 Arthritis(Confirmed) Active Cardiomyopathy- questionable dx, nuclear perfusion study 2016 is ok(Confirmed) 1 Active CVA (cerebrovascular accident)(Confirmed) Active Cholecystectomy(Confirmed) 1977 Active Cystoscopy(Confirmed) 1975 Active Diabetes mellitus type II-fo llowed by Dr Mcallister(Confirmed) 2 Active Diabetic nephropathy(Confirmed) Active Fibromyalgia(Confirmed) Active Herpes simplex , of L thigh, recurrent(Confirmed) Active 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
--- OUTSIDE RECORDS SUMMARY | 2023-12-28 13:04 | XMS_ITS | Continuity of Care Document ---
Author Organization [facility] Address [address] [place] [address]- Care Team Providers Care Finishing Range Feeder Name Role Phone Kamilah BARDALES, Primo Rogers Primary Care Physician Encounter [facility] [place] Date(s): 10/02/19 - 10/12/19 [facility] [address] [address]- [facility] Attending Physician: Jan Arauz Admitting Physician: Jan Arauz Referring Physician: AdmtrJan Allergies, Adverse Reactions, Alerts Substance Reaction Severity Status doxycycline Active sulfa drugs itching in mouth Active Augmentin Nausea, vomiting and diarrhea Active Horses Active Other Environmental Allergy 1 Active Nectarine Active [place] Active 1chicken feathers Immunizations Given and Recorded Vaccine Date Status Refusal Reason diphtheria-tetanus toxoids (DT) 1 09/29/08 Given 1Admin Note: INFO GIVEN TO PT Medications aspirin 325 mg oral tablet 325 mg, 1, tablet, By Mouth, Daily, take with 6 to 8 ounces of plain water, # 90 tablet, Refills 0,Tot. Refills 0, Maintenance, 11/15/18 10:39:48 EST, Route to Pharmacy Electronically, [id number], [facility] [id number] Start Date: 11/15/18 Stop Date: 02/13/19 Status: Ordered Clindamycin Vaginal 2% cream Clindamycin Vaginal 2% cream, 1 applicatorful, Vaginally, Daily at bedtime, # 40 Gm, Refills 0, Tot. Refills 0, Maintenance, 09/12/19 12:23:00 EST, Compound, 164, cm, 08/29/19 11:05:00 EST, Height, 75.3, kg, 09/22/17 13:18:00 EST, Dry Weight Start Date: 09/12/19 Stop Date: 09/19/19 Status: Ordered CPAP Machine AutoCPAP 5-9, Maintenance, 10/30/17 8:39:56, Compound Start Date: 10/30/17 Status: Ordered D-Mannose [...] EST, Compound Start Date: 10/10/18 Status: Ordered diclofenac 1% topical gel 1 application, Topically, 4 times a day, to affected joint, # 100 Gm, 5 Refills, Maintenance, 10/04/18 13:45:28 EST, Gel, 1 application Topically 4 times a day,Instr:to affected joint Start Date: 10/04/18 Status: Ordered Echinacea oral tablet = 1,000 mg, By Mouth, Daily, alternating every 2 weeks, 0 Refills, Maintenance, 10/04/18 13:34:18 EST Start Date: 10/04/18 Status: Ordered Humulin R U-500 Insulin Humulin R U-500 Insulin, Refills 0, Maintenance, Via subcutaneous Insulin Pump. Basal rate from 8amuntil noon is 1.0 units/hr. Basal rate noon until 8am is 0.95 units per hour. Bolus is calculated based on pt's carb count and poc. Pt extends bolus to... Start Date: 02/26/16 Status: Ordered lisinopril 20 mg oral tablet 20 mg, 1, tablet, By Mouth, Daily, # 30 tablet, Refills 11, Tot. Refills 11, Maintenance, 10/04/18 13:50:18 EST, Route to Pharmacy Electronically, [id number], [facility] [id number] Start Date: 10/04/18 Status: Ordered Omni Pod Insulin Pump See Instructions, # 10 each, Refills 1, Tot. 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 Arthritis(Confirmed) Active Cardiomyopathy(Confirmed) Active CVA (cerebrovascular accident)(Confirmed) Active Cholecystectomy(Confirmed) 1977 Active Cystoscopy(Confirmed) 1975 Active Diabetes mellitus type II(Confirmed) Active Diabetic nephropathy(Confirmed) Active Fibromyalgia(Confirmed) Active Herpes simplex , of L thigh, recurrent(Confirmed) Active Hypertension(Confirmed) Active Cancer of breast(Confirmed) Active Mixed hyperlipidemia(Confirmed) Active Obstructive sleep apnea hypo pnea, moderate(Confirmed) Active 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) Active Tubal ligation(Confirmed) 01/13/83 Active Social History Social History Type Response Smoking Status Never (less than 100 in lifetime) entered on: 10/23/18 Sex
--- OUTSIDE RECORDS SUMMARY | 2023-12-28 13:04 | XMS_ITS | Continuity of Care Document ---
Author Organization [facility] Address [address] [place] [address]- Care Team Providers Care Ad Setter Name Role Phone Not on Staff, PCP Primary Care Physician Unavail able Encounter [facility] [place] Date(s): 04/26/22 - 05/26/[address] [address]- Allergies, Adverse Reactions, Alerts Substance Reaction Severity Status doxycycline Active sulfa drugs itching in mouth Active Augmentin Nausea, vomiting and diarrhea Active Horses Active Other Environmental Allergy 1 Active Nectarine Active [place] Active 1chicken feathers Immunizations Given and Recorded Vaccine Date Status Refusal Reason diphtheria-tetanus toxoids (DT) 1 09/29/08 Given 1Admin Note: INFO GIVEN TO PT Medications acetaminophen 500 mg oral tablet See Instructions, PRN as needed for pain, 1-2 tablet By Mouth 3 times a day, # 100 tablet, 1 Refills, Maintenance, 10/02/20 14:45:00 EST, Tablet, [facility] #[id number], Partial fill upon patient request if the [...] 0 Refills, Soft Stop, 10/23/20 11:51:00 EST, [facility] #[id number], Partialfill upon patient request if the prescription [...] 04/27/21 15:22:00 EDT, Route to Pharmacy Electronically, [facility] #[id number], 164, cm, 12/16/20 8:08:00 EDT, Height Start [...] recurrent(Confirmed) Active Hx of cocaine abuse- in retirement remission(Confirmed) Active Hypertension(Confirmed) Active Cancer of breast(Confirmed) Active Mixed hyperlipidemia(Confirmed) Active Obstructive sleep apnea hypo pnea, moderate(Confirmed) Active 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) Active Tubal ligation(Confirmed) 01/13/83 Active 1questionable dx, nuclear perfusion study 2016 is ok 2followed by Dr Mcallister Social History Social History Type Response Smoking Status Never (less than 100 in lifetime) entered on: 10/23/18 Sex Care Team Personnel Name: Not on Staff, PCP
--- OUTSIDE RECORDS SUMMARY | 2023-12-28 13:04 | XMS_ITS | Continuity of Care Document ---
Author Organization [facility] Address [address] [place] [address]- Care Team Providers Care Arabic Teacher Name Role Phone Kamilah BARDALES, Primo Rogers Primary Care Physician [phone] [place] [facility] [place] 02/23/[address] [address]- [facility] Attending Physician: Jan Arauz Admitting Physician: Jan Arauz Referring Physician: AdmtrJan Allergies, Adverse Reactions, Alerts Substance Reaction Severity Status doxycycline Active sulfa drugs itching in mouth Active Augmentin Nausea, vomiting and diarrhea Active Horses Active Other Environmental Allergy 1 Active Nectarine Active [place] Active 1chicken feathers Immunizations Given and Recorded Vaccine Date Status Refusal Reason diphtheria-tetanus toxoids (DT) 1 09/29/08 Given 1Admin Note: INFO GIVEN TO PT Medications aspirin 325 mg oral tablet 325 mg, 1, tablet, By Mouth, Daily, take with 6 to 8 ounces of plain water, # 90 tablet, Refills 0,Tot. Refills 0, Maintenance, 11/15/18 10:39:48 EST, Route to Pharmacy Electronically, [id number], [facility] [id number] Start Date: 11/15/18 Stop Date: 02/13/19 Status: Ordered Clindamycin Vaginal 2% cream Clindamycin Vaginal 2% cream, 1 applicatorful, Vaginally, Daily at bedtime, # 40 Gm, Refills 0, Tot. Refills 0, Maintenance, 09/12/19 12:23:00 EST, Compound, 164, cm, 08/29/19 11:05:00 EST, Height, 75.3, kg, 09/22/17 13:18:00 EST, Dry Weight Start Date: 09/12/19 Stop Date: 09/19/19 Status: Ordered CPAP Machine AutoCPAP 7-9, Maintenance, [...] Status: Ordered ibuprofen 600 mg oral tablet 1, tablet, By Mouth, Every 8 hours, # 21 tablet, Refills 0, Tot. Refills 0, Acute, 11/27/19 17:40:00 EST, Route to Pharmacy Electronically, [facility] #[id number], 164, cm, 08/29/19 11:05:00 EST, Height Start Date: 11/27/19 Status: Ordered lisinopril 20 mg oral tablet 20 mg, 1, tablet, By Mouth, Daily, # 30 tablet, Refills 5, Tot. Refills 5, Maintenance, 11/06/19 14:52:00 EST, Route to Pharmacy Electronically, [facility] #[id number], 164, cm, 08/29/19 11:05:00 EST, Height Start Date: 11/06/19 Status: Ordered Omni Pod Insulin Pump See [...]
--- OUTSIDE RECORDS SUMMARY | 2023-12-28 13:04 | XMS_ITS | Continuity of Care Document ---
Author Organization [facility] Address [address] [place] [address]- Care Team Providers Care Radiology Administrator Name Role Phone Markell BARDALES, Priscilla De Jesus Primary Care Physician Encounter [facility] [place] Date(s): 09/30/20 - 10/30/20 [facility] [address] [place] [address]- Allergies, Adverse Reactions, Alerts Substance Reaction Severity Status doxycycline Active sulfa drugs itching in mouth Active Augmentin Nausea, vomiting and diarrhea Active Horses Active Other Environmental Allergy 1 Active Nectarine Active [place] Active 1chicken feathers Immunizations Given and Recorded Vaccine Date Status Refusal Reason diphtheria-tetanus toxoids (DT) 1 09/29/08 Given 1Admin Note: INFO GIVEN TO PT Medications acetaminophen 500 mg oral tablet See Instructions, PRN as needed for pain, 1-2 tablet By Mouth 3 times a day, # 100 tablet, 1 Refills, Maintenance, 10/02/20 14:45:00 EST, Tablet, [facility] #[id number], Partial fill upon patient request if the prescription is for a schedule II o... Start Date: 10/02/20 Status: Ordered Bedside Commode See Instructions, # 1 each, Maintenance, Needs seat riser for commode, 05/29/20 13:51:00 EDT, Supply Start Date: 05/29/20 Status: Ordered CBD oil CBD oil, Refills 0, Maintenance, 05/29/20 13:30:00 EDT, Supply Start Date: 05/29/20 Status: Ordered ciprofloxacin 500 mg oral tablet 1 tablet = 500 mg, By Mouth, Every 12 hours, for 7 days, # 14 tablet, 0 Refills, Acute 11/02/20 16:26:00 EST, 10/26/20 16:26:00 EST, Tablet, [facility] #[id number], 164, cm, 10/23/20 9:54:00 EST, Height Start Date: 10/26/20 Stop Date: 11/02/20 Status: Ordered CPAP Machine AutoCPAP 7-9, Maintenance, [...] 0 Refills, Soft Stop, 10/23/20 11:51:00 EST, [facility] #[id number], Partialfill upon patient request if the prescription [...] mg, 1, tablet, By Mouth, Daily, # 90 tablet, Refills 2, Tot. Refills 2, 03/05/20 13:27:00 EDT, Route to Pharmacy Electronically, [facility] #[id number], 164, cm, 03/05/20 12:30:00 EDT, Height Start Date: 03/05/20 Status: Ordered Omni Pod Insulin Pump See Instructions, # 10 each, Refills 1, Tot. Refills 1, Maintenance, test 8 x qd, 04/13/17 9:51:22,Compound Start Date: 04/13/17 Status: Ordered phenazopyridine 100 mg oral tablet See Instructions, PRN, 1-2 tablet By Mouth 3 times a day after meals 2 days, # 12 tablet, Refills 0, Tot. Refills 0, Acute 11/02/20 16:30:00 EST, pain with urination, 10/26/20 16:28:00 EST, Instructions Replace Required Details, Route to Pharmacy Elec... Start Date: 10/26/20 Stop Date: 11/02/20 Status: Ordered Raised Toilet Seat for Commode [...] mellitus type II-fo llowed by Dr Mcallister(Confirmed) 1 Active Diabetic nephropathy(Confirmed) Active Fibromyalgia(Confirmed) Active Herpes simplex , of L thigh, recurrent(Confirmed) Active Hx of cocaine abuse- in [place] remission(Confirmed) Active Hypertension(Confirmed) Active Cancer of breast(Confirmed) Active Mixed hyperlipidemia(Confirmed) Active Obstructive sleep apnea hypo pnea, moderate(Confirmed) Active 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
--- OUTSIDE RECORDS SUMMARY | 2023-12-28 13:04 | XMS_ITS | Continuity of Care Document ---
Author Organization [facility] Address [address] [place] [address]- Care Team Providers Care Tax Manager Name Role Phone Kamilah BARDALES, Primo Rogers Primary Care Physician Encounter [facility] [place] Date(s): 04/16/20 - 05/16/20 [facility] [address] [place] [address]- [facility] Allergies, Adverse Reactions, Alerts Substance Reaction Severity Status doxycycline Active sulfa drugs itching in mouth Active Augmentin Nausea, vomiting and diarrhea Active Horses Active Other Environmental Allergy 1 Active Nectarine Active [place] Active 1chicken feathers Immunizations Given and Recorded Vaccine Date Status Refusal Reason diphtheria-tetanus toxoids (DT) 1 09/29/08 Given 1Admin Note: INFO GIVEN TO PT Medications aspirin 325 mg oral tablet 325 mg, 1, tablet, By Mouth, Daily, take with 6 to 8 ounces of plain water, # 90 tablet, Refills 0,Tot. Refills 0, Maintenance, 11/15/18 10:39:48 EST, Route to Pharmacy Electronically, [id number], [facility] [id number] Start Date: 11/15/18 Stop Date: 02/13/19 Status: [...] Start Date: 10/04/18 Status: Ordered Humulin R (Concentrated) 500 units/mL subcutaneous 0 Refills, 03/05/20 13:14:00 EDT Start Date: 03/05/20 Status: Ordered HumuLIN R KwikPen (Concentrated) human recombinant 500 units/mL subcutaneous solution 0 Refills, 03/05/20 13:14:00 EDT Start Date: 03/05/20 Status: Ordered Humulin R U-500 Insulin Humulin R U-500 Insulin, Refills 0, Maintenance, Via subcutaneous Insulin Pump. Basal rate from 8amuntil noon is 1.0 units/hr. Basal rate noon until 8am is 0.95 units per hour. Bolus is calculated based on pt's carb count and poc. Pt extends bolus to... Start Date: 02/26/16 Status: Ordered ibuprofen 600 mg oral tablet See Instructions, TAKE 1 TABLET BY MOUTH EVERY 8 HOURS, # 21 tablet, Refills 0, Acute, InstructionsReplace Required Details, Route to Pharmacy Electronically, [facility] #[id number], 164, cm, 11/28/19 11:37:00 EST, Height Start Date: 02/26/20 Status: Ordered lisinopril 20 mg oral tablet 20 mg, 1, tablet, By Mouth, Daily, # 90 tablet, Refills 2, Tot. Refills 2, 03/05/20 13:27:00 EDT, [facility] to [facility][id number], 164, cm, 03/05/20 12:30:00 EDT, Height Start Date: 03/05/20 Status: Ordered lisinopril 20 mg oral tablet 20 mg, 1, tablet, By Mouth, Daily, # 30 tablet, Refills 1, Tot. Refills 1, Maintenance, 02/25/20 11:31:00 EDT, Route to Pharmacy Electronically, [facility] #[id number], 164, cm, 11/28/19 11:37:00 EST, Height Start Date: 02/25/20 Status: Ordered Omni Pod Insulin Pump See [...]
--- OUTSIDE RECORDS SUMMARY | 2023-12-28 13:04 | XMS_ITS | Continuity of Care Document ---
Author Organization [facility] Address [address] [place] [address]- Care Team Providers Care Tenter Frame Back Tender Name Role Phone Markell BARDALES, Priscilla De Jesus Primary Care Physician [place] [facility]16[place]20 - 11/15/20 [facility] [address] [address] Allergies, Adverse Reactions, Alerts Substance Reaction Severity Status doxycycline Active sulfa drugs itching in mouth Active Augmentin Nausea, vomiting and diarrhea Active Horses Active Other Environmental Allergy 1 Active Nectarine Active [place] Active 1chicken feathers Immunizations Given and Recorded Vaccine Date Status Refusal Reason diphtheria-tetanus toxoids (DT) 1 09/29/08 Given 1Admin Note: INFO GIVEN TO PT Medications acetaminophen 500 mg oral tablet See Instructions, PRN as needed for pain, 1-2 tablet By Mouth 3 times a day, # 100 tablet, 1 Refills, Maintenance, 10/02/20 14:45:00 EST, Tablet, [facility] #[id number], Partial fill upon patient request if the [...] 0 Refills, Soft Stop, 10/23/20 11:51:00 EST, [facility] #[id number], Partialfill upon patient request if the prescription [...] 03/05/20 13:27:00 EDT, Route to Pharmacy Electronically, [facility] #[id number], 164, cm, 03/05/20 12:30:00 EDT, Height Start [...] recurrent(Confirmed) Active Hx of cocaine abuse- in [facility] remission(Confirmed) Active Hypertension(Confirmed) Active Cancer of breast(Confirmed) Active Mixed hyperlipidemia(Confirmed) Active Obstructive sleep apnea hypo pnea, moderate(Confirmed) Active 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
--- OUTSIDE RECORDS SUMMARY | 2023-12-28 13:04 | XMS_ITS | Continuity of Care Document ---
Author Organization [facility] Address [address] [place] [address]- Care Team Providers Care Distribution Center Associate Name Role Phone Kamilah BARDALES, Primo Rogers Primary Care Physician Encounter [facility] Date(s): 04/15/20 - 05/15/20 [facility] [address] [address]- [facility] Attending Physician: Jan Arauz Admitting Physician: Jan Arauz Referring Physician: AdmtrJan Allergies, Adverse Reactions, Alerts Substance Reaction Severity Status doxycycline Active sulfa drugs itching in mouth Active Augmentin Nausea, vomiting and diarrhea Active Horses Active Other Environmental Allergy 1 Active Nectarine Active [place] Active 1chicken feathers Immunizations Given and Recorded Vaccine Date Status Refusal Reason diphtheria-tetanus toxoids (DT) 1 09/29/08 Given 1Admin Note: INFO GIVEN TO PT Medications aspirin 325 mg oral tablet 325 mg, 1, tablet, By Mouth, Daily, take with 6 to 8 ounces of plain water, # 90 tablet, Refills 0,Tot. Refills 0, Maintenance, 11/15/18 10:39:48 EST, Route to Pharmacy Electronically, [id number], [facility] [id number] Start Date: 11/15/18 Stop Date: 02/13/19 Status: [...] InstructionsReplace Required Details, Route to Pharmacy Electronically, [facility] #[id number], 164, cm, 11/28/19 11:37:00 EST, Height Start Date: 02/26/20 Status: Ordered lisinopril 20 mg oral tablet 20 mg, 1, tablet, By Mouth, Daily, # 90 tablet, Refills 2, Tot. Refills 2, 03/05/20 13:27:00 EDT, Route to Pharmacy Electronically, [facility] #[id number], 164, cm, 03/05/20 12:30:00 EDT, Height Start Date: 03/05/20 Status: Ordered lisinopril 20 mg oral tablet 20 mg, 1, tablet, By Mouth, Daily, # 30 tablet, Refills 1, Tot. Refills 1, Maintenance, 02/25/20 11:31:00 EDT, Route to Pharmacy Electronically, [facility] #[id number], 164, cm, 11/28/19 11:37:00 EST, Height Start [...]
--- OUTSIDE RECORDS SUMMARY | 2023-12-28 13:04 | XMS_ITS | Continuity of Care Document ---
Author Organization [facility] Address [address] [place] [address]- Care Team Providers Care Punch Operator Name Role Phone Markell BARDALES, Priscilla De Jesus Primary Care Physician ( [phone] Encounter [facility] Date(s): 10/07/20 - 11/06/20 [facility] [address] [place] [address]- Allergies, Adverse Reactions, Alerts Substance Reaction Severity Status doxycycline Active sulfa drugs itching in mouth Active Augmentin Nausea, vomiting and diarrhea Active Horses Active Other Environmental Allergy 1 Active Nectarine Active [place] Active 1chicken feathers Immunizations Given and Recorded Vaccine Date Status Refusal Reason diphtheria-tetanus toxoids (DT) 1 09/29/08 Given 1Admin Note: INFO GIVEN TO PT Medications acetaminophen 500 mg oral tablet See Instructions, PRN as needed for pain, 1-2 tablet By Mouth 3 times a day, # 100 tablet, 1 Refills, Maintenance, 10/02/20 14:45:00 EST, Tablet, [facility] #[id number], Partial fill upon patient request if the [...] 0 Refills, Soft Stop, 10/23/20 11:51:00 EST, [facility] #[id number], Partialfill upon patient request if the prescription [...] 03/05/20 13:27:00 EDT, Route to Pharmacy Electronically, [facility] #[id number], 164, cm, 03/05/20 12:30:00 EDT, Height Start [...] recurrent(Confirmed) Active 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
--- OUTSIDE RECORDS SUMMARY | 2023-12-28 13:04 | XMS_ITS | Continuity of Care Document ---
Author Organization [facility] Address [address] [place] [address]- Care Team Providers Care Electronic Scale Tester Name Role Phone Kamilah BARDALES, Primo Rogers Primary Care Physician Encounter [facility] Date(s): 10/02/19 - 10/09/[address] [address]- [facility] Attending Physician: Brooke Mon NP Admitting Physician: Brooke Mon NP Allergies, Adverse Reactions, Alerts Substance Reaction Severity Status doxycycline Active sulfa drugs itching in mouth Active Augmentin Nausea, vomiting and diarrhea Active Horses Active Other Environmental Allergy 1 Active Nectarine Active [place] Active 1chicken feathers Immunizations Given and Recorded Vaccine Date Status Refusal Reason diphtheria-tetanus toxoids (DT) 1 09/29/08 Given 1Admin Note: INFO GIVEN TO PT Medications aspirin 325 mg oral tablet 325 mg, 1, tablet, By Mouth, Daily, take with 6 to 8 ounces of plain water, # 90 tablet, Refills 0,Tot. Refills 0, Maintenance, 11/15/18 10:39:48 EST, Route to Pharmacy Electronically, [id number], [facility] [id number] Start Date: 11/15/18 Stop Date: 02/13/19 Status: [...] 10/04/18 13:50:18 EST, Route to Pharmacy Electronically, [id number], [facility] [address] Start Date: 10/04/18 Status: Ordered Omni Pod [...]
--- OUTSIDE RECORDS SUMMARY | 2023-12-28 13:05 | XMS_ITS | Continuity of Care Document ---
Author Organization [facility] Address [address] [place] [address]- Care Team Providers Care Precision Farming Specialist Name Role Phone Markell BARDALES, Priscilla De Jesus Primary Care Physician ( [phone] Encounter [facility] Date(s): 10/26/20 - 11/02/20 [facility] [address] [place] [address]- Encounter Diagnosis UTI symptoms(Discharge Diagnosis) - 10/26/20 Attending Physician: Priscilla Guillaume MD Allergies, Adverse Reactions, Alerts Substance Reaction Severity Status doxycycline Active sulfa drugs itching in mouth Active Augmentin Nausea, vomiting and diarrhea Active Horses Active Other Environmental Allergy 1 Active Nectarine Active [place] Active 1chicken feathers Immunizations Given and Recorded Vaccine Date Status Refusal Reason diphtheria-tetanus toxoids (DT) 1 09/29/08 Given 1Admin Note: INFO GIVEN TO PT Medications acetaminophen 500 mg oral tablet See Instructions, PRN as needed for pain, 1-2 tablet By Mouth 3 times a day, # 100 tablet, 1 Refills, Maintenance, 10/02/20 14:45:00 EST, Tablet, [facility] #[id number], Partial fill upon patient request if the [...] 0 Refills, Soft Stop, 10/23/20 11:51:00 EST, [facility] #[id number], Partialfill upon patient request if the prescription [...] a schedule II opioid drug. Start Date: 1/8/21 Status: Ordered lisinopril 20 mg oral tablet 20 mg, 1, tablet, By Mouth, Daily, # 90 tablet, Refills 2, Tot. Refills 2, 03/05/20 13:27:00 EDT, Route to Pharmacy Electronically, [facility] #[id number], 164, cm, 03/05/20 12:30:00 EDT, Height Start [...] recurrent(Confirmed) Active Hx of cocaine abuse- in [facility] remission(Confirmed) Active Hypertension(Confirmed) Active Cancer of breast(Confirmed) Active Mixed hyperlipidemia(Confirmed) Active Obstructive sleep apnea hypo pnea, moderate(Confirmed) Active 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) Active Tubal ligation(Confirmed) 01/13/83 Active [address]ed [address] Dr Mcallister Diagnosis Diagnosis Type Effective Dates Health Status Cl inical Service Informant UTI symptoms Discharge Diagnosis 10/26/20 Social History Social History Type Response Smoking Status Never (less than 100 in lifetime) entered on: 10/23/18 Sex
--- OUTSIDE RECORDS SUMMARY | 2023-12-28 13:05 | XMS_ITS | Continuity of Care Document ---
Author Organization [facility] Address [address] [place] [address]- Care Team Providers Care Edger Operator Name Role Phone Markell BARDALES, Priscilla De Jesus Primary Care Physician Encounter [facility] [place] Date(s): 06/30/20 - 07/30/20 [facility] [address] [place] [address]- Allergies, Adverse Reactions, Alerts Substance Reaction Severity Status doxycycline Active sulfa drugs itching in mouth Active Augmentin Nausea, vomiting and diarrhea Active Horses Active Other Environmental Allergy 1 Active Nectarine Active [place] Active 1chicken feathers Immunizations Given and Recorded Vaccine Date Status Refusal Reason diphtheria-tetanus toxoids (DT) 1 09/29/08 Given 1Admin Note: INFO GIVEN TO PT Medications aspirin 325 mg oral tablet 325 mg, 1, tablet, By Mouth, Daily, take with 6 to 8 ounces of plain water, # 90 tablet, Refills 0,Tot. Refills 0, Maintenance, 11/15/18 10:39:48 EST, Route to Pharmacy Electronically, [id number], [facility] [address] Start Date: 11/15/18 Stop Date: 02/13/19 Status: Ordered Bedside Commode See Instructions, # 1 each, Maintenance, Needs seat riser for commode, 05/29/20 13:51:00 EDT, Supply Start Date: 05/29/20 Status: Ordered CBD oil CBD oil, Refills 0, Maintenance, 05/29/20 13:30:00 EDT, Supply Start Date: 05/29/20 Status: Ordered Clindamycin Vaginal 2% cream Clindamycin [...] joint, # 100 Gm, 5 Refills, Maintenance, 05/29/20 13:47:00 EDT, Gel, [facility][id number], 164, cm, 05/29/20 13:22:00 EDT, Height Start Date: 05/29/20 Status: Ordered Echinacea oral tablet = 1,000 [...] 03/05/20 13:27:00 EDT, Route to Pharmacy Electronically, [facility] #[id number], 164, cm, 03/05/20 12:30:00 EDT, Height Start Date: 03/05/20 Status: Ordered lisinopril 20 mg oral tablet 20 mg, 1, tablet, By Mouth, Daily, # 30 tablet, Refills 1, Tot. Refills 1, Maintenance, 02/25/20 11:31:00 EDT, Route to Pharmacy Electronically, [facility] #[id number], 164, cm, 11/28/19 11:37:00 EST, Height Start [...]
--- OUTSIDE RECORDS SUMMARY | 2023-12-28 13:05 | XMS_ITS | Continuity of Care Document ---
Author Organization [facility] Address [address], [address] [place] [address]- Care Team Providers Care Obstetric Assistant Name Role Phone Elbert Marques VARGAS Primary Care Physician [phone] Encounter [facility] Date(s): 06/05/20 - 07/05/20 [facility] [address], [address] [place] [address]- [facility] Allergies, Adverse Reactions, Alerts Substance Reaction Severity Status doxycycline Active sulfa drugs itching in mouth Active Horses Active Other Environmental Allergy 1 Active Nectarine Active [place] Active Augmentin Nausea, vomiting and diarrhea Active 1chicken feathers Immunizations Given and Recorded Vaccine Date Status Refusal Reason diphtheria-tetanus toxoids (DT) 1 09/29/08 Given 1Admin Note: INFO GIVEN TO PT Medications aspirin 325 mg oral tablet 325 mg, 1, tablet, By Mouth, Daily, take with 6 to 8 ounces of plain water, # 90 tablet, Refills 0,Tot. Refills 0, Maintenance, 11/15/18 10:39:48 EST, Route to Pharmacy Electronically, [id number], [facility] [id number] Start Date: 11/15/18 Stop Date: 02/13/19 Status: [...] 5 Refills, Maintenance, 05/29/20 13:47:00 EDT, Gel, [id number], 164, cm, 05/29/20 13:22:00 EDT, Height Start [...] tablet 600 mg, 1, tablet, By Mouth, Every 8 hours, for 28 days, # 84 tablet, Refills 1, Tot. Refills 1, Acute 07/24/20 13:47:00 EDT, 05/29/20 13:47:00 EDT, Route to Pharmacy Electronically, [facility] #[id number], 164, cm, 05/29/20 13:22:00 EDT, Height Start Date: 05/29/20 Stop Date: 07/24/20 Status: Ordered lisinopril 20 mg oral tablet 20 mg, 1, tablet, By Mouth, Daily, # 90 tablet, Refills 2, Tot. Refills 2, 03/05/20 13:27:00 EDT, Route to Pharmacy Electronically, [facility] #[id number], 164, cm, 03/05/20 12:30:00 EDT, Height Start Date: 03/05/20 Status: Ordered lisinopril 20 mg oral tablet 20 mg, 1, tablet, By Mouth, Daily, # 30 tablet, Refills 1, Tot. Refills 1, Maintenance, 02/25/20 11:31:00 EDT, Route to Pharmacy Electronically, [facility] #[id number], 164, cm, 11/28/19 11:37:00 EST, Height Start [...]
--- OUTSIDE RECORDS SUMMARY | 2023-12-28 13:05 | XMS_ITS | Continuity of Care Document ---
Author Organization [facility] Address [address] [place] [address]- Care Team Providers Care Editor Managing Newspaper Name Role Phone Kamilah BARDALES, Primo Rogers Primary Care Physician En[place] [facility] [place] Date(s): 03/05/20 - 04/04/20 [facility] [address] [place] [address]- [place] Encounter Diagnosis Claudication(Discharge Diagnosis) - 07/21/19 Attending Physician: Jan Arauz Admitting Physician: Jan Arauz Referring Physician: Jan Arauz Allergies, Adverse Reactions, Alerts Substance Reaction Severity Status doxycycline Active sulfa drugs itching in mouth Active Augmentin Nausea, vomiting and diarrhea Active Horses Active Other Environmental Allergy 1 Active Nectarine Active [place] Active 1chicken feathers Immunizations Given and Recorded Vaccine Date Status Refusal Reason diphtheria-tetanus toxoids (DT) 1 09/29/08 Given 1Admin Note: INFO GIVEN TO PT Medications aspirin 325 mg oral tablet 325 mg, 1, tablet, By Mouth, Daily, take with 6 to 8 ounces of plain water, # 90 tablet, Refills 0,Tot. Refills 0, Maintenance, 11/15/18 10:39:48 EST, Route to Pharmacy Electronically, [id number], [facility] [address] Start Date: 11/15/18 Stop Date: 02/13/19 Status: [...] InstructionsReplace Required Details, Route to Pharmacy Electronically, [facility] #[id number], 164, cm, 11/28/19 11:37:00 EST, Height Start Date: 02/26/20 Status: Ordered lisinopril 20 mg oral tablet 20 mg, 1, tablet, By Mouth, Daily, # 90 tablet, Refills 2, Tot. Refills 2, 03/05/20 13:27:00 EDT, Route to Pharmacy Electronically, [facility] #[id number], 164, cm, 03/05/20 12:30:00 EDT, Height Start Date: 03/05/20 Status: Ordered lisinopril 20 mg oral tablet 20 mg, 1, tablet, By Mouth, Daily, # 30 tablet, Refills 1, Tot. Refills 1, Maintenance, 02/25/20 11:31:00 EDT, Route to Pharmacy Electronically, [facility] #[id number], 164, cm, 11/28/19 11:37:00 EST, Height Start [...] in Diabetes(Confirmed) Active Tubal ligation(Confirmed) 01/13/83 Active Diagnosis Diagnosis Type Effective Dates Health Status Cl inical Service Informant Claudication Discharge Diagnosis 07/21/19 Procedures Procedure Date Related Diagnosis Body Site Status nuclear stress test 1 08/18/11 Com pleted 1Negative, EF 58% Social History Social History Type Response Smoking Status Never (less than 100 in lifetime) entered on: 10/23/18 Sex
--- OUTSIDE RECORDS SUMMARY | 2023-12-28 13:05 | XMS_ITS | Continuity of Care Document ---
Author Organization [facility] Address [address] [place] [address]- Care Team Providers Care Energy Technician Name Role Phone Not on Staff, PCP Primary Care Physician Unavail able Encounter [facility] [place] Date(s): 04/26/22 - 05/03/[address] [address] Attending Physician: Iman Hanna MD Admitting Physician: Iman Hanna MD Allergies, Adverse Reactions, Alerts Substance Reaction Severity Status doxycycline Active sulfa drugs itching in mouth Active Augmentin Nausea, vomiting and diarrhea Active Horses Active Other Environmental Allergy 1 Active Nectarine Active [place] Active 1chicken feathers Immunizations Given and Recorded Vaccine Date Status Refusal Reason diphtheria-tetanus toxoids (DT) 1 09/29/08 Given 1Admin Note: INFO GIVEN TO PT Medications acetaminophen 500 mg oral tablet See Instructions, PRN as needed for pain, 1-2 tablet By Mouth 3 times a day, # 100 tablet, 1 Refills, Maintenance, 10/02/20 14:45:00 EST, Tablet, [facility] #[id number], Partial fill upon patient request if the [...] 0 Refills, Soft Stop, 10/23/20 11:51:00 EST, [facility] #[id number], Partialfill upon patient request if the prescription [...] 04/27/21 15:22:00 EDT, Route to Pharmacy Electronically, [facility] #[id number], 164, cm, 12/16/20 8:08:00 EDT, Height Start [...] recurrent(Confirmed) Active Hx of cocaine abuse- in senior care remission(Confirmed) Active Hypertension(Confirmed) Active Cancer of breast(Confirmed) Active Mixed hyperlipidemia(Confirmed) Active Obstructive sleep apnea hypo pnea, moderate(Confirmed) Active 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) Active Tubal ligation(Confirmed) 01/13/83 Active 1questionable dx, nuclear perfusion study 2016 is ok 2followed by Dr Mcallister Social History Social History Type Response Smoking Status Never (less than 100 in lifetime) entered on: 10/23/18 Sex
--- OUTSIDE RECORDS SUMMARY | 2023-12-28 13:05 | XMS_ITS | Continuity of Care Document ---
Author Organization [facility] Address [address] [place] [address]- Care Team Providers Care Mobile Marketing Specialist Name Role Phone Markell BARDALES, Priscilla De Jesus Primary Care Physician ( [phone] En[place] [facility] [place] Date(s): 10/13/20 - 11/12/20 [facility] [address] [place] [address]- Allergies, Adverse Reactions, Alerts Substance Reaction Severity Status doxycycline Active sulfa drugs itching in mouth Active Augmentin Nausea, vomiting and diarrhea Active Horses Active Other Environmental Allergy 1 Active Nectarine Active [place] Active 1chicken feathers Immunizations Given and Recorded Vaccine Date Status Refusal Reason diphtheria-tetanus toxoids (DT) 1 09/29/08 Given 1Admin Note: INFO GIVEN TO PT Medications acetaminophen 500 mg oral tablet See Instructions, PRN as needed for pain, 1-2 tablet By Mouth 3 times a day, # 100 tablet, 1 Refills, Maintenance, 10/02/20 14:45:00 EST, Tablet, [facility] #[id number], Partial fill upon patient request if the [...] 0 Refills, Soft Stop, 10/23/20 11:51:00 EST, [facility] #[id number], Partialfill upon patient request if the prescription [...] 03/05/20 13:27:00 EDT, Route to Pharmacy Electronically, [facility] #[id number], 164, cm, 03/05/20 12:30:00 EDT, Height Start [...] recurrent(Confirmed) Active 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
--- OUTSIDE RECORDS SUMMARY | 2023-12-28 13:05 | XMS_ITS | Continuity of Care Document ---
Author Organization [facility] Address [address] [place] [address]- Care Team Providers Care Truck Trailer Final Inspector Name Role Phone Not on Staff, PCP Primary Care Physician Unavail able [place] [facility] [place]/23 [facility] [address] [place] [address]- Allergies, Adverse Reactions, Alerts Substance Reaction Severity Status doxycycline Active sulfa drugs itching in mouth Active Augmentin Nausea, vomiting and diarrhea Active Horses Active Other Environmental Allergy 1 Active Nectarine Active [place] Active 1chicken feathers Immunizations Given and Recorded Vaccine Date Status Refusal Reason diphtheria-tetanus toxoids (DT) 1 09/29/08 Given 1Admin Note: INFO GIVEN TO PT Medications acetaminophen 500 mg oral tablet See Instructions, PRN as needed for pain, 1-2 tablet By Mouth 3 times a day, # 100 tablet, 1 Refills, Maintenance, 10/02/20 14:45:00 EST, Tablet, [facility] #[id number], Partial fill upon patient request if the [...] Start Date: 05/29/20 Status: Ordered CPAP Machine CPAP 8, Maintenance, 10/30/17 8:39:56 EST, Compound Start Date: [...] 0 Refills, Soft Stop, 10/23/20 11:51:00 EST, [facility] #[id number], Partialfill upon patient request if the prescription [...] 04/27/21 15:22:00 EDT, Route to Pharmacy Electronically, [facility] #[id number], 164, cm, 12/16/20 8:08:00 EDT, Height Start Date: 04/27/21 Status: Ordered Miscellaneous Rx [place] Poppy , 0 Refills, Maintenance, 10/04/22 9:26:00 EST Start Date: 10/04/22 Status: Ordered Miscellaneous Rx [place] tincture, 0 Refills, Maintenance, 10/04/22 9:27:00 EST Start Date: 10/04/22 Status: Ordered Miscellaneous Rx [place] cl[place] tincture, 0 Refills, Maintenance, 10/04/22 9:27:00 EST Start Date: 10/04/22 Status: Ordered Omni Pod Insulin Pump See [...] Date: 06/30/20 Status: Ordered Problem List Condition Confirmation Course Effective Dates Status H ealth Status Informant Adjustment disorder with mixed anxiety and depressed mood Confirmed Active 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 Confirmed Active Arthritis Confirmed Active Cardiomyopathy- questionable dx, nuclear perfusion study 2016 is ok 1 Confirmed Active CVA (cerebrovascular accident) Confirmed Active Cholecystectomy Confirmed 1977 Active Cystoscopy Confirmed 1975 Active Diabetes mellitus type II-followed by Dr Mcallister 2 Confirmed Active Diabetic nephropathy Confirmed Active Fibromyalgia Confirmed Active Herpes simplex , of L thigh, recurrent Confirmed Active 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 Confirmed Active Hypertension Confirmed Active Cancer of breast Confirmed Active Mixed hyperlipidemia Confirmed Active Obstructive sleep apnea hypopnea, moderate Confirmed Active Polyneuropathy in Diabetes Confirmed Active Tubal ligation Confirmed 01/13/83 Active 1questionable dx, nuclear perfusion study 2016 is ok 2followed by Dr Mcallister Social History Social History Type Response Smoking Status Never (less than 100 in lifetime) entered on: 10/23/18 Sex Patient Care team information Care Team Personnel Name: Not on Staff, PCP Position: [facility] Physician (General Medicine) Member Role: PCP Care Team Related Persons Name: STACY LUEVANO Address: [address] [place] [id number] Name: JANINE CONRAD Address: home [address] [place] [id number]
--- OUTSIDE RECORDS SUMMARY | 2023-12-28 13:05 | XMS_ITS | Continuity of Care Document ---
Author Organization [facility] Address [address] [place] [address]- Care Team Providers Care Geothermal Plant Manager Name Role Phone Markell BARDALES, Priscilla De Jesus Primary Care Physician [facility] [place] Date(s): 10/19/20 - 11/18/20 [facility] [address] [place] [address]- Allergies, Adverse Reactions, Alerts Substance Reaction Severity Status doxycycline Active sulfa drugs itching in mouth Active Augmentin Nausea, vomiting and diarrhea Active Horses Active Other Environmental Allergy 1 Active Nectarine Active [place] Active 1chicken feathers Immunizations Given and Recorded Vaccine Date Status Refusal Reason diphtheria-tetanus toxoids (DT) 1 09/29/08 Given 1Admin Note: INFO GIVEN TO PT Medications acetaminophen 500 mg oral tablet See Instructions, PRN as needed for pain, 1-2 tablet By Mouth 3 times a day, # 100 tablet, 1 Refills, Maintenance, 10/02/20 14:45:00 EST, Tablet, [facility] #[id number], Partial fill upon patient request if the [...] 0 Refills, Soft Stop, 10/23/20 11:51:00 EST, [facility] #[id number], Partialfill upon patient request if the prescription [...] 03/05/20 13:27:00 EDT, Route to Pharmacy Electronically, [facility] #[id number], 164, cm, 03/05/20 12:30:00 EDT, Height Start [...] recurrent(Confirmed) Active Hx of cocaine abuse- in skilled nursing remission(Confirmed) Active Hypertension(Confirmed) Active Cancer of breast(Confirmed) Active Mixed hyperlipidemia(Confirmed) Active Obstructive sleep apnea hypo pnea, moderate(Confirmed) Active 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
--- OUTSIDE RECORDS SUMMARY | 2023-12-28 13:05 | XMS_ITS | Continuity of Care Document ---
Author Organization [facility] Address [address] [place] [address]- Care Team Providers Care Door Serviceman Name Role Phone Markell BARDALES, Priscilla De Jesus Primary Care Physician Encounter [facility] [place] Date(s): 03/17/21 - 04/16/21 [facility] [address] [place] [address]- Encounter Diagnosis Claudication(Discharge Diagnosis) - 07/21/19 Attending Physician: Jan Arauz Admitting Physician: Jan Arauz Referring Physician: AdmtrJan Allergies, Adverse Reactions, Alerts Substance Reaction Severity Status doxycycline Active sulfa drugs itching in mouth Active Augmentin Nausea, vomiting and diarrhea Active Horses Active Other Environmental Allergy 1 Active Nectarine Active [place] Active 1chicken feathers Immunizations Given and Recorded Vaccine Date Status Refusal Reason diphtheria-tetanus toxoids (DT) 1 09/29/08 Given 1Admin Note: INFO GIVEN TO PT Medications acetaminophen 500 mg oral tablet See Instructions, PRN as needed for pain, 1-2 tablet By Mouth 3 times a day, # 100 tablet, 1 Refills, Maintenance, 10/02/20 14:45:00 EST, Tablet, [facility] #[id number], Partial fill upon patient request if the [...] 0 Refills, Soft Stop, 10/23/20 11:51:00 EST, [facility] #[id number], Partialfill upon patient request if the prescription [...] 03/05/20 13:27:00 EDT, Route to Pharmacy Electronically, [facility] #[id number], 164, cm, 03/05/20 12:30:00 EDT, Height Start Date: 03/05/20 Status: Ordered nitrofurantoin macrocrystals 100 mg oral capsule 1 capsule = 100 mg, By Mouth, 2 times a day, for 5 days, # 10 capsule, 0 Refills, Acute 04/17/21 10:30:00 EDT, 04/12/21 10:30:00 EDT, Capsule, [facility] #55861, Partial fill upon patient request if the prescription is for a schedule II opio... 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(Confirmed) Active Hypertension(Confirmed) Active Cancer of breast(Confirmed) Active Mixed hyperlipidemia(Confirmed) Active Obstructive sleep apnea hypo pnea, moderate(Confirmed) Active 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) Active Tubal ligation(Confirmed) 01/13/83 Active 1questionable dx, nuclear perfusion study 2016 is ok 2followed by Dr Mcallister Diagnosis Diagnosis Type Effective Dates Health Status Cl inical Service Informant Claudication Discharge Diagnosis 07/21/19 Procedures Procedure Date Related Diagnosis Body Site Status nuclear stress test 1 08/18/11 Com pleted 1Negative, EF 58% Social History Social History Type Response Smoking Status Never (less than 100 in lifetime) entered on: 10/23/18 Sex
--- OUTSIDE RECORDS SUMMARY | 2023-12-28 13:05 | XMS_ITS | Continuity of Care Document ---
Author Organization [facility] Address [address] [place] [address]- Care Team Providers Care Law Secretary Name Role Phone Markell BARDALES, Priscilla De Jesus Primary Care Physician Encounter [facility] [place] Date(s): 09/23/20 - 09/30/20 [facility] [address] [place] [address]- Attending Physician: Markell BARDALES, Priscilla De Jesus Allergies, Adverse Reactions, Alerts Substance Reaction Severity Status doxycycline Active sulfa drugs itching in mouth Active Augmentin Nausea, vomiting and diarrhea Active Horses Active Other Environmental Allergy 1 Active Nectarine Active [place] Active 1chicken feathers Immunizations Given and Recorded Vaccine Date Status Refusal Reason diphtheria-tetanus toxoids (DT) 1 09/29/08 Given 1Admin Note: INFO GIVEN TO PT Medications Bedside Commode See Instructions, # 1 each, [...] 5 Refills, Maintenance, 05/29/20 13:47:00 EDT, Gel, [facility] #[id number], 164, cm, 05/29/20 13:22:00 EDT, Height Start [...] 03/05/20 13:27:00 EDT, Route to Pharmacy Electronically, [facility] #[id number], 164, cm, 03/05/20 12:30:00 EDT, Height Start [...] recurrent(Confirmed) Active Hx of cocaine abuse- in snf remission(Confirmed) Active Hypertension(Confirmed) Active Cancer of breast(Confirmed) Active Mixed hyperlipidemia(Confirmed) Active Obstructive sleep apnea hypo pnea, moderate(Confirmed) Active 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) Active Tubal ligation(Confirmed) 01/13/83 Active Social History Social History Type Response Smoking Status Never (less than 100 in lifetime) entered on: 10/23/18 Sex
--- OUTSIDE RECORDS SUMMARY | 2023-12-28 13:05 | XMS_ITS | Continuity of Care Document ---
Author Organization [facility] Address [address] [place] [address]- Care Team Providers Care Environmental Permitting Specialist Name Role Phone Primo Triana MD Primary Care Physician [phone] [facility] [place] [facility] [address] [place] [address]- [facility] Attending Physician: Vincent Sawant MD Referring Physician: Primo Triana MD Allergies, Adverse Reactions, Alerts Substance Reaction Severity Status doxycycline Active sulfa drugs itching in mouth Active Augmentin Nausea, vomiting and diarrhea Active Horses Active Other Environmental Allergy 1 Active Nectarine Active [place] Active 1chicken feathers Immunizations Given and Recorded Vaccine Date Status Refusal Reason diphtheria-tetanus toxoids (DT) 1 09/29/08 Given 1Admin Note: INFO GIVEN TO PT Medications aspirin 325 mg oral tablet 325 mg, 1, tablet, By Mouth, Daily, take with 6 to 8 ounces of plain water, # 90 tablet, Refills 0,Tot. Refills 0, Maintenance, 11/15/18 10:39:48 EST, Route to Pharmacy Electronically, [id number], [id number] Start Date: 11/15/18 Stop Date: 02/13/19 Status: [...] InstructionsReplace Required Details, Route to Pharmacy Electronically, [facility] #[id number], 164, cm, 11/28/19 11:37:00 EST, Height Start Date: 02/26/20 Status: Ordered lisinopril 20 mg oral tablet 20 mg, 1, tablet, By Mouth, Daily, # 90 tablet, Refills 2, Tot. Refills 2, 03/05/20 13:27:00 EDT, Route to Pharmacy Electronically, [facility] #[id number], 164, cm, 03/05/20 12:30:00 EDT, Height Start Date: 03/05/20 Status: Ordered lisinopril 20 mg oral tablet 20 mg, 1, tablet, By Mouth, Daily, # 30 tablet, Refills 1, Tot. Refills 1, Maintenance, 02/25/20 11:31:00 EDT, Route to Pharmacy Electronically, [facility] #[id number], 164, cm, 11/28/19 11:37:00 EST, Height Start [...]
--- OUTSIDE RECORDS SUMMARY | 2023-12-28 13:05 | XMS_ITS | Continuity of Care Document ---
Author Organization [facility] Address [address] [place] [address]- Care Team Providers Care Motor Vehicle Technician Name Role Phone Markell BARDALES, Priscilla De Jesus Primary Care Physician Encounter [facility] Date(s): 08/14/20 - 09/13/20 [facility] [address] [place] [address]- Allergies, Adverse Reactions, Alerts Substance Reaction Severity Status doxycycline Active sulfa drugs itching in mouth Active Augmentin Nausea, vomiting and diarrhea Active Horses Active Other Environmental Allergy 1 Active Nectarine Active [place] Active 1chicken feathers Immunizations Given and Recorded [...] 5 Refills, Maintenance, 05/29/20 13:47:00 EDT, Gel, [facility] #[id number], 164, cm, 05/29/20 13:22:00 EDT, Height Start [...] 03/05/20 13:27:00 EDT, Route to Pharmacy Electronically, [facility] #[id number], 164, cm, 03/05/20 12:30:00 EDT, Height Start [...]
--- OUTSIDE RECORDS SUMMARY | 2023-12-28 13:05 | XMS_ITS | Continuity of Care Document ---
Author Organization [facility] Address [address] [place] [address]- Care Team Providers Care Geek Squad Manager Name Role Phone Markell BARDALES, Priscilla De Jesus Primary Care Physician [place] [facility] [place] Date(s[place] 12/15/20 - 01/14/21 [facility] [address] [place] [address]- Allergies, Adverse Reactions, Alerts Substance Reaction Severity Status doxycycline Active sulfa drugs itching in mouth Active Augmentin Nausea, vomiting and diarrhea Active Horses Active Other Environmental Allergy 1 Active Nectarine Active [place] Active 1chicken feathers Immunizations Given and Recorded Vaccine Date Status Refusal Reason diphtheria-tetanus toxoids (DT) 1 09/29/08 Given 1Admin Note: INFO GIVEN TO PT Medications acetaminophen 500 mg oral tablet See Instructions, PRN as needed for pain, 1-2 tablet By Mouth 3 times a day, # 100 tablet, 1 Refills, Maintenance, 10/02/20 14:45:00 EST, Tablet, [facility] #[id number], Partial fill upon patient request if the [...] 0 Refills, Soft Stop, 10/23/20 11:51:00 EST, [facility] #[id number], Partialfill upon patient request if the prescription [...] 03/05/20 13:27:00 EDT, Route to Pharmacy Electronically, [facility] #[id number], 164, cm, 03/05/20 12:30:00 EDT, Height Start [...] recurrent(Confirmed) Active Hx of cocaine abuse- in [facility] remission(Confirmed) Active Hypertension(Confirmed) Active Cancer of breast(Confirmed) Active Mixed hyperlipidemia(Confirmed) Active Obstructive sleep apnea hypo pnea, moderate(Confirmed) Active 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) Active Tubal ligation(Confirmed) 01/13/83 Active 1questionable dx, nuclear perfusion study 2016 is ok 2followed by Dr Mcallister Social History Social History Type Response Smoking Status Never (less than 100 in lifetime) entered on: 10/23/18 Sex
--- OUTSIDE RECORDS SUMMARY | 2023-12-28 13:05 | XMS_ITS | Continuity of Care Document ---
Author Organization [facility] Address [address] [place] [address]- Care Team Providers Care Airline Stewardess Name Role Phone Markell BARDALES, Priscilla De Jesus Primary Care Physician Encounter [facility] [place] Date(s): 10/26/20 - 11/25/20 [facility] [address] [place] [address]- Allergies, Adverse Reactions, Alerts Substance Reaction Severity Status doxycycline Active sulfa drugs itching in mouth Active Augmentin Nausea, vomiting and diarrhea Active Horses Active Other Environmental Allergy 1 Active Nectarine Active [place] Active 1chicken feathers Immunizations Given and Recorded Vaccine Date Status Refusal Reason diphtheria-tetanus toxoids (DT) 1 09/29/08 Given 1Admin Note: INFO GIVEN TO PT Medications acetaminophen 500 mg oral tablet See Instructions, PRN as needed for pain, 1-2 tablet By Mouth 3 times a day, # 100 tablet, 1 Refills, Maintenance, 10/02/20 14:45:00 EST, Tablet, [facility] #[id number], Partial fill upon patient request if the [...] 0 Refills, Soft Stop, 10/23/20 11:51:00 EST, [facility] #[id number], Partialfill upon patient request if the prescription [...] 03/05/20 13:27:00 EDT, Route to Pharmacy Electronically, [facility] #[id number], 164, cm, 03/05/20 12:30:00 EDT, Height Start [...] recurrent(Confirmed) Active Hx of cocaine abuse- in [facility] remission(Confirmed) Active Hypertension(Confirmed) Active Cancer of breast(Confirmed) Active Mixed hyperlipidemia(Confirmed) Active Obstructive sleep apnea hypo pnea, moderate(Confirmed) Active 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
--- OUTSIDE RECORDS SUMMARY | 2023-12-28 13:05 | XMS_ITS | Continuity of Care Document ---
Author Organization [facility] Address [address] [place] [address]- Care Team Providers Care Ice Seller Name Role Phone Markell BARDALES, Priscilla De Jesus Primary Care Physician ( [phone] [place] [facility] [place]/20 [facility] [address] [place] [address]- Allergies, Adverse Reactions, Alerts Substance Reaction Severity Status doxycycline Active sulfa drugs itching in mouth Active Augmentin Nausea, vomiting and diarrhea Active Horses Active Other Environmental Allergy 1 Active Nectarine Active [place] Active 1chicken feathers Immunizations Given and Recorded Vaccine Date Status Refusal Reason diphtheria-tetanus toxoids (DT) 1 09/29/08 Given 1Admin Note: INFO GIVEN TO PT Medications acetaminophen 500 mg oral tablet See Instructions, PRN as needed for pain, 1-2 tablet By Mouth 3 times a day, # 100 tablet, 1 Refills, Maintenance, 10/02/20 14:45:00 EST, Tablet, [facility] #[id number], Partial fill upon patient request if the [...] 0 Refills, Soft Stop, 10/23/20 11:51:00 EST, [facility] #[id number], Partialfill upon patient request if the prescription [...] 03/05/20 13:27:00 EDT, Route to Pharmacy Electronically, [facility] #[id number], 164, cm, 03/05/20 12:30:00 EDT, Height Start [...] 2016 is ok 2followed by Dr Mcallister Vital Signs Most recent to oldest [Reference Range]: 1 Blood Pressure [90-138/55-84 mm Hg] 136/ 80mm Hg (11/19/20 3:06 PM) Social History Social History Type Response Smoking Status Never (less than 100 in lifetime) entered on: 10/23/18 Sex
--- OUTSIDE RECORDS SUMMARY | 2023-12-28 13:05 | XMS_ITS | Continuity of Care Document ---
Author Organization [facility] Address [address] [place] [address]- Care Team Providers Care Healthcare Architect Name Role Phone Marques Boswell DO Primary Care Physician [place] [facility] [place] 05/29/20 - 06/05/20 [facility] [address] [place] [address]- [facility] Encounter Diagnosis Back pain(Discharge Diagnosis) - 05/29/20 Attending Physician: Marques Boswell DO Allergies, Adverse Reactions, Alerts Substance Reaction Severity Status doxycycline Active sulfa drugs itching in mouth Active Augmentin Nausea, vomiting and diarrhea Active Horses Active Other Environmental Allergy 1 Active Nectarine Active [place] Active 1chicken feathers Immunizations Given and Recorded Vaccine Date Status Refusal Reason diphtheria-tetanus toxoids (DT) 1 09/29/08 Given 1Admin Note: INFO GIVEN TO PT Medications aspirin 325 mg oral tablet 325 mg, 1, tablet, By Mouth, Daily, take with 6 to 8 ounces of plain water, # 90 tablet, Refills 0,Tot. Refills 0, Maintenance, 11/15/18 10:39:48 EST, Route to Pharmacy Electronically, [id number], [facility] [id number] Start Date: 11/15/18 Stop Date: 02/13/19 Status: [...] 5 Refills, Maintenance, 05/29/20 13:47:00 EDT, Gel, [facility] #[id number], 164, cm, 05/29/20 13:22:00 EDT, Height Start [...] 05/29/20 13:47:00 EDT, Route to Pharmacy Electronically, [facility] #[id number], 164, cm, 05/29/20 13:22:00 EDT, Height Start Date: 05/29/20 Stop Date: 07/24/20 Status: Ordered lisinopril 20 mg oral tablet 20 mg, 1, tablet, By Mouth, Daily, # 90 tablet, Refills 2, Tot. Refills 2, 03/05/20 13:27:00 EDT, Route to Pharmacy Electronically, [facility] #[id number], 164, cm, 03/05/20 12:30:00 EDT, Height Start Date: 03/05/20 Status: Ordered lisinopril 20 mg oral tablet 20 mg, 1, tablet, By Mouth, Daily, # 30 tablet, Refills 1, Tot. Refills 1, Maintenance, 02/25/20 11:31:00 EDT, Route to Pharmacy Electronically, [facility] #[id number], 164, cm, 11/28/19 11:37:00 EST, Height Start [...] # 1 each, Maintenance, Use routinely with ambulation, 05/29/20 13:48:00 EDT, Supply Start Date: 05/29/20 Status: Ordered Problem List Condition Effective Dates [...] Diagnosis Diagnosis Type Effective Dates Health Status Clini luis Service Informant Back pain Discharge Diagnosis 05/29/20 Vital Signs Most recent to oldest [Reference Range]: 1 Height 164.0 cm (05/29/20 1:22 PM) Social History Social History Type Response Smoking Status Never (less than 100 in lifetime) entered on: 10/23/18 Sex
--- OUTSIDE RECORDS SUMMARY | 2023-12-28 13:05 | XMS_ITS | Continuity of Care Document ---
Author Organization [facility] Address [address] [place] [address]- Care Team Providers Care Fire Protection Engineering Technician Name Role Phone Marques Boswell DO Primary Care Physician [phone] [place] [facility] [place] 07/[place]/[facility] [address] [place] [address]- [facility] Encounter Diagnosis Hip pain(Discharge Diagnosis) - 06/12/20 Hypertension(Discharge Diagnosis) - 06/12/20 Attending Physician: Marques Boswell DO Allergies, Adverse Reactions, Alerts Substance Reaction Severity Status doxycycline Active sulfa drugs itching in mouth Active Nectarine Active Augmentin Nausea, vomiting and diarrhea Active Horses Active [place] Active Other Environmental Allergy 1 Active 1chicken feathers Immunizations Given and Recorded Vaccine Date Status Refusal Reason diphtheria-tetanus toxoids (DT) 1 09/29/08 Given 1Admin Note: INFO GIVEN TO PT Medications aspirin 325 mg oral tablet 325 mg, 1, tablet, By Mouth, Daily, take with 6 to 8 ounces of plain water, # 90 tablet, Refills 0,Tot. Refills 0, Maintenance, 11/15/18 10:39:48 EST, Route to Pharmacy Electronically, [id number], [id number] Start Date: 11/15/18 Stop Date: 02/13/19 Status: [...] 5 Refills, Maintenance, 05/29/20 13:47:00 EDT, Gel, [id number], 164, cm, 05/29/20 13:22:00 EDT, Height Start [...] 05/29/20 13:47:00 EDT, Route to Pharmacy Electronically, [facility] #[id number], 164, cm, 05/29/20 13:22:00 EDT, Height Start Date: 05/29/20 Stop Date: 07/24/20 Status: Ordered lisinopril 20 mg oral tablet 20 mg, 1, tablet, By Mouth, Daily, # 90 tablet, Refills 2, Tot. Refills 2, 03/05/20 13:27:00 EDT, Route to Pharmacy Electronically, [facility] #[id number], 164, cm, 03/05/20 12:30:00 EDT, Height Start Date: 03/05/20 Status: Ordered lisinopril 20 mg oral tablet 20 mg, 1, tablet, By Mouth, Daily, # 30 tablet, Refills 1, Tot. Refills 1, Maintenance, 02/25/20 11:31:00 EDT, Route to Pharmacy Electronically, [facility] #[id number], 164, cm, 11/28/19 11:37:00 EST, Height Start [...] Dates Health Status Cl inical Service Informant Hip pain Discharge Diagnosis 06/12/20 Hypertension Discharge Diagnosis 06/12/20 Social History Social History Type Response Smoking Status Never (less than 100 in lifetime) entered on: 10/23/18 Sex
--- OUTSIDE RECORDS SUMMARY | 2023-12-28 13:05 | XMS_ITS | Continuity of Care Document ---
Author Organization [facility] Address [address] [place] [address]- Care Team Providers Care Wincher Name Role Phone Kamilah BARDALES, Primo Rogers Primary Care Physician En[place] [facility] [place](s[place] 10/22/19 - 11/01/19 [facility] [address] [place] [address]- [place] Encounter Diagnosis Claudication(Discharge Diagnosis) - 07/21/19 Attending Physician: Jan Arauz Admitting Physician: Jan Arauz Referring Physician: Jan Arauz Allergies, Adverse Reactions, Alerts Substance Reaction Severity Status doxycycline Active sulfa drugs itching in mouth Active Augmentin Nausea, vomiting and diarrhea Active Horses Active Other Environmental Allergy 1 Active Nectarine Active [place] Active 1chicken feathers Immunizations Given and Recorded Vaccine Date Status Refusal Reason diphtheria-tetanus toxoids (DT) 1 09/29/08 Given 1Admin Note: INFO GIVEN TO PT Medications aspirin 325 mg oral tablet 325 mg, 1, tablet, By Mouth, Daily, take with 6 to 8 ounces of plain water, # 90 tablet, Refills 0,Tot. Refills 0, Maintenance, 11/15/18 10:39:48 EST, Route to Pharmacy Electronically, [id number], [id number] Start Date: 11/15/18 Stop Date: 02/13/19 Status: [...] 10/04/18 13:50:18 EST, Route to Pharmacy Electronically, [id number], [id number] Start Date: 10/04/18 Status: Ordered Omni Pod [...]
--- OUTSIDE RECORDS SUMMARY | 2023-12-28 13:05 | XMS_ITS | Continuity of Care Document ---
Author Organization [facility] Address [address] [place] [address]- Care Team Providers Care Building Drafting Officer Name Role Phone Monique Boswell DOsir Primary Care Physician [place] [facility] [place] 04/27/20 - 05/27/20 [facility] [address] [place] [address] Allergies, Adverse Reactions, Alerts Substance Reaction Severity Status doxycycline Active sulfa drugs itching in mouth Active Augmentin Nausea, vomiting and diarrhea Active Horses Active Other Environmental Allergy 1 Active Nectarine Active [place] Active 1chicken feathers Immunizations Given and Recorded Vaccine Date Status Refusal Reason diphtheria-tetanus toxoids (DT) 1 09/29/08 Given 1Admin Note: INFO GIVEN TO PT Medications aspirin 325 mg oral tablet 325 mg, 1, tablet, By Mouth, Daily, take with 6 to 8 ounces of plain water, # 90 tablet, Refills 0,Tot. Refills 0, Maintenance, 11/15/18 10:39:48 EST, Route to Pharmacy Electronically, [id number], [facility] Start Date: 11/15/18 Stop Date: 02/13/19 Status: [...] InstructionsReplace Required Details, Route to Pharmacy Electronically, [facility][id number], 164, cm, 11/28/19 11:37:00 EST, Height Start Date: 02/26/20 Status: Ordered lisinopril 20 mg oral tablet 20 mg, 1, tablet, By Mouth, Daily, # 90 tablet, Refills 2, Tot. Refills 2, 03/05/20 13:27:00 EDT, Route to Pharmacy Electronically, [facility] #[id number], 164, cm, 03/05/20 12:30:00 EDT, Height Start Date: 03/05/20 Status: Ordered lisinopril 20 mg oral tablet 20 mg, 1, tablet, By Mouth, Daily, # 30 tablet, Refills 1, Tot. Refills 1, Maintenance, 02/25/20 11:31:00 EDT, Route to Pharmacy Electronically, [facility] #[id number], 164, cm, 11/28/19 11:37:00 EST, Height Start Date: 02/25/20 Status: Ordered meclizine 25 mg oral tablet 1 tablet = 25 mg, By Mouth, 3 times a day, PRN for dizziness, for 10 days, may decrease to 0.5 tablet for sedation, # 30 tablet, 0 Refills, Acute 05/31/20 17:23:00 EDT, 05/21/20 17:23:00 EDT, Tablet,[facility] #[id number], 164, cm, 03/05/20 12:3... Start Date: 05/21/20 Stop Date: 05/31/20 Status: Ordered Omni Pod Insulin Pump See [...]
--- OUTSIDE RECORDS SUMMARY | 2023-12-28 13:05 | XMS_ITS | Continuity of Care Document ---
Author Organization [facility] Address [address] [place] [address]- Care Team Providers Care School Counselor Name Role Phone Markell BARDALES, Priscilla De Jesus Primary Care Physician [place] [facility] [place]20 - 10/30/20 [facility] [address] [place] [address]- Encounter Diagnosis Skin lesions(Discharge Diagnosis) - 10/23/20 Cellulitis(Discharge Diagnosis) - 10/23/20 Cancer of breast(Discharge Diagnosis) - 10/23/20 Allergic reaction(Discharge Diagnosis) - 10/23/20 Diabetes mellitus type II-followed by Dr Mcallister(Discharge Diagnosis) - 10/23/20 Attending Physician: Markell BARDALES, Priscilla De Jesus Allergies, Adverse Reactions, Alerts Substance Reaction Severity Status doxycycline Active sulfa drugs itching in mouth Active Augmentin Nausea, vomiting and diarrhea Active Horses Active Other Environmental Allergy 1 Active Nectarine Active [place] Active 1chicken feathers Immunizations Given and Recorded Vaccine Date Status Refusal Reason diphtheria-tetanus toxoids (DT) 1 09/29/08 Given 1Admin Note: INFO GIVEN TO PT Medications acetaminophen 500 mg oral tablet See Instructions, PRN as needed for pain, 1-2 tablet By Mouth 3 times a day, # 100 tablet, 1 Refills, Maintenance, 10/02/20 14:45:00 EST, Tablet, [facility][id number], Partial fill upon patient request if the [...] 11/02/20 16:26:00 EST, 10/26/20 16:26:00 EST, Tablet, [facility] #[id number], 164, cm, 10/23/20 9:54:00 EST, Height Start [...] 0 Refills, Soft Stop, 10/23/20 11:51:00 EST, [facility] #56247, Partialfill upon patient request if the prescription [...] 03/05/20 13:27:00 EDT, Route to Pharmacy Electronically, [facility] #[id number], 164, cm, 03/05/20 12:30:00 EDT, Height Start [...] Diagnosis Diagnosis Type Effective Dates Health Status Clinical Service Informant Skin lesions Discharge Diagnosis 10/23/20 Cellulitis Discharge Diagnosis 10/23/20 Cancer of breast Discharge Diagnosis 10/23/20 Allergic reaction Discharge Diagnosis 10/23/20 Diabetes mellitus type II-followed by Dr Mcallister Discharge Diagnosis 10/23/20 Vital Signs Most recent to oldest [Reference Range]: 1 Height 164.0 cm (10/23/20 9:54 AM) Social History Social History Type Response Smoking Status Never (less than 100 in lifetime) entered on: 10/23/18 Sex
--- OUTSIDE RECORDS SUMMARY | 2023-12-28 13:05 | XMS_ITS | Continuity of Care Document ---
Author Organization [facility] Address [address] [place] [address]- Care Team Providers Care Presentation Manager Name Role Phone Markell BARDALES, Priscilla De Jesus Primary Care Physician [place] [facility] [place] 06/29/20 - 07/29/20 [facility] [address] [place] [address]- [facility] Allergies, Adverse Reactions, Alerts Substance Reaction Severity Status doxycycline Active sulfa drugs itching in mouth Active Augmentin Nausea, vomiting and diarrhea Active Other Environmental Allergy 1 Active Nectarine Active [place] Active Horses Active 1chicken feathers Immunizations Given and Recorded Vaccine Date Status Refusal Reason diphtheria-tetanus toxoids (DT) 1 09/29/08 Given 1Admin Note: INFO GIVEN TO PT Medications aspirin 325 mg oral tablet 325 mg, 1, tablet, By Mouth, Daily, take with 6 to 8 ounces of plain water, # 90 tablet, Refills 0,Tot. Refills 0, Maintenance, 11/15/18 10:39:48 EST, Route to Pharmacy Electronically, [id number], [id number] Start Date: 11/15/18 Stop Date: 02/13/19 Status: [...] 5 Refills, Maintenance, 05/29/20 13:47:00 EDT, Gel, [facility] #[id number], 164, cm, 05/29/20 13:22:00 EDT, Height Start [...] 03/05/20 13:27:00 EDT, Route to Pharmacy Electronically, [facility] #[id number], 164, cm, 03/05/20 12:30:00 EDT, Height Start Date: 03/05/20 Status: Ordered lisinopril 20 mg oral tablet 20 mg, 1, tablet, By Mouth, Daily, # 30 tablet, Refills 1, Tot. Refills 1, Maintenance, 02/25/20 11:31:00 EDT, Route to Pharmacy Electronically, [facility] #[id number], 164, cm, 11/28/19 11:37:00 EST, Height Start [...]
--- OUTSIDE RECORDS SUMMARY | 2023-12-28 13:05 | XMS_ITS | Continuity of Care Document ---
Author Organization [facility] Address [address] [place] [address]- Care Team Providers Care Interpreter Deaf Name Role Phone Markell BARDALES, Priscilla De Jesus Primary Care Physician En[place] [facility] [place](s[place] 04/12/21 - 05/12/21 [facility] [address] [place] [address]- Allergies, Adverse Reactions, Alerts Substance Reaction Severity Status doxycycline Active sulfa drugs itching in mouth Active Augmentin Nausea, vomiting and diarrhea Active Horses Active Other Environmental Allergy 1 Active Nectarine Active [place] Active 1chicken feathers Immunizations Given and Recorded Vaccine Date Status Refusal Reason diphtheria-tetanus toxoids (DT) 1 09/29/08 Given 1Admin Note: INFO GIVEN TO PT Medications acetaminophen 500 mg oral tablet See Instructions, PRN as needed for pain, 1-2 tablet By Mouth 3 times a day, # 100 tablet, 1 Refills, Maintenance, 10/02/20 14:45:00 EST, Tablet, 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
--- OUTSIDE RECORDS SUMMARY | 2023-12-28 13:05 | XMS_ITS | Continuity of Care Document ---
Author Organization [facility] Address [address] [place] [address]- Care Team Providers Care Rougher Merchant Mill Name Role Phone Markell BARDALES, Priscilla De Jesus Primary Care Physician ( [phone] [place] [facility] [place] 12[place]26/20 [facility] [address] [place] [address]- Allergies, Adverse Reactions, Alerts Substance Reaction Severity Status doxycycline Active sulfa drugs itching in mouth Active Augmentin Nausea, vomiting and diarrhea Active Horses Active Other Environmental Allergy 1 Active Nectarine Active [place] Active 1chicken feathers Immunizations Given and Recorded Vaccine Date Status Refusal Reason diphtheria-tetanus toxoids (DT) 1 09/29/08 Given 1Admin Note: INFO GIVEN TO PT Medications acetaminophen 500 mg oral tablet See Instructions, PRN as needed for pain, 1-2 tablet By Mouth 3 times a day, # 100 tablet, 1 Refills, Maintenance, 10/02/20 14:45:00 EST, Tablet, 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
--- OUTSIDE RECORDS SUMMARY | 2023-12-28 13:05 | XMS_ITS | Continuity of Care Document ---
Author Organization [facility] Address [address] [place] [address]- Care Team Providers Care Retrimmer Name Role Phone Not on Staff, PCP Primary Care Physician Unavail able Encounter [facility] [place] Date(s): 05/04/22 - 05/11/[address] [address] Attending Physician: Brooke Mon NP Admitting Physician: Brooke Mon NP Allergies, Adverse Reactions, Alerts Substance Reaction Severity Status doxycycline Active sulfa drugs itching in mouth Active Augmentin Nausea, vomiting and diarrhea Active Horses Active Other Environmental Allergy 1 Active Nectarine Active [place] Active 1chicken feathers Immunizations Given and Recorded Vaccine Date Status Refusal Reason diphtheria-tetanus toxoids (DT) 1 09/29/08 Given 1Admin Note: INFO GIVEN TO PT Medications acetaminophen 500 mg oral tablet See Instructions, PRN as needed for pain, 1-2 tablet By Mouth 3 times a day, # 100 tablet, 1 Refills, Maintenance, 10/02/20 14:45:00 EST, Tablet, [facility] #[id number], Partial fill upon patient request if the [...] 0 Refills, Soft Stop, 10/23/20 11:51:00 EST, [facility] #[id number], Partialfill upon patient request if the prescription [...] 04/27/21 15:22:00 EDT, Route to Pharmacy Electronically, [facility] #[id number], 164, cm, 12/16/20 8:08:00 EDT, Height Start [...] recurrent(Confirmed) Active Hx of cocaine abuse- in long-term remission(Confirmed) Active Hypertension(Confirmed) Active Cancer of breast(Confirmed) Active Mixed hyperlipidemia(Confirmed) Active Obstructive sleep apnea hypo pnea, moderate(Confirmed) Active 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) Active Tubal ligation(Confirmed) 01/13/83 Active 1questionable dx, nuclear perfusion study 2016 is ok 2followed by Dr Mcallister Social History Social History Type Response Smoking Status Never (less than 100 in lifetime) entered on: 10/23/18 Sex
--- OUTSIDE RECORDS SUMMARY | 2023-12-28 13:05 | XMS_ITS | Continuity of Care Document ---
Author Organization [facility] Address [address] [place] [address]- Care Team Providers Care Buyer Intern Name Role Phone Primo Triana MD Primary Care Physician [phone] [place] [facility] [place] 10/04/19 - 11/09/19 [facility] [address] [place] [address]- [facility] Attending Physician: Primo Triana MD Allergies, Adverse Reactions, Alerts Substance Reaction Severity Status doxycycline Active sulfa drugs itching in mouth Active Augmentin Nausea, vomiting and diarrhea Active Horses Active Other Environmental Allergy 1 Active Nectarine Active [place] Active 1chicken feathers Immunizations Given and Recorded Vaccine Date Status Refusal Reason diphtheria-tetanus toxoids (DT) 1 09/29/08 Given 1Admin Note: INFO GIVEN TO PT Medications aspirin 325 mg oral tablet 325 mg, 1, tablet, By Mouth, Daily, take with 6 to 8 ounces of plain water, # 90 tablet, Refills 0,Tot. Refills 0, Maintenance, 11/15/18 10:39:48 EST, Route to Pharmacy Electronically, [id number], [facility] [id number] Start Date: 11/15/18 Stop Date: 02/13/19 Status: [...] 11/06/19 14:52:00 EST, Route to Pharmacy Electronically, [facility] #[id number], 164, cm, 08/29/19 11:05:00 EST, Height Start [...]
--- OUTSIDE RECORDS SUMMARY | 2023-12-28 13:05 | XMS_ITS | Continuity of Care Document ---
Author Organization [facility] Address [address] [place] [address]- Care Team Providers Care Junior Web Developer Name Role Phone Not on Staff, PCP Primary Care Physician Unavail able [place] [facility] [place] 04/07/23 - 05/07/23 [facility] [address] [place] [address]- Allergies, Adverse Reactions, Alerts Substance Reaction Severity Status doxycycline Active sulfa drugs itching in mouth Active Augmentin Nausea, vomiting and diarrhea Active Horses Active Other Environmental Allergy 1 Active Nectarine Active [place] Active 1chicken feathers Immunizations Given and Recorded Vaccine Date Status Refusal Reason diphtheria-tetanus toxoids (DT) 1 09/29/08 Given 1Admin Note: INFO GIVEN TO PT Medications acetaminophen 500 mg oral tablet See Instructions, PRN as needed for pain, 1-2 tablet By Mouth 3 times a day, # 100 tablet, 1 Refills, Maintenance, 10/02/20 14:45:00 EST, Tablet, [facility] #[id number], Partial fill upon patient request if the [...] 0 Refills, Soft Stop, 10/23/20 11:51:00 EST, [facility] #[id number], Partialfill upon patient request if the prescription [...] 04/27/21 15:22:00 EDT, Route to Pharmacy Electronically, [facility] #[id number], 164, cm, 12/16/20 8:08:00 EDT, Height Start [...] Confirmed Active 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
--- OUTSIDE RECORDS SUMMARY | 2023-12-28 13:06 | XMS_ITS | Continuity of Care Document ---
Author Organization [facility] Address [address] [place] [address]- Care Team Providers Care Integration Developer Name Role Phone Primo Triana MD Primary Care Physician [id number] Date([facility] 01/08/20 - 03/15/[address] [address] Attending Physician: Iman Hanna MD Admitting Physician: Iman Hanna MD Referring Physician: Primo Triana MD Allergies, Adverse Reactions, Alerts Substance Reaction Severity Status doxycycline Active sulfa drugs itching in mouth Active Augmentin Nausea, vomiting and diarrhea Active Horses Active Other Environmental Allergy 1 Active Nectarine Active [place] Active 1chicken feathers Immunizations Given and Recorded Vaccine Date Status Refusal Reason diphtheria-tetanus toxoids (DT) 1 09/29/08 Given 1Admin Note: INFO GIVEN TO PT Medications aspirin 325 mg oral tablet 325 mg, 1, tablet, By Mouth, Daily, take with 6 to 8 ounces of plain water, # 90 tablet, Refills 0,Tot. Refills 0, Maintenance, 11/15/18 10:39:48 EST, Route to Pharmacy Electronically, [id number], [facility] [address] Start Date: 11/15/18 Stop Date: 02/13/19 Status: [...] InstructionsReplace Required Details, Route to Pharmacy Electronically, [facility] #[id number], 164, cm, 11/28/19 11:37:00 EST, Height Start Date: 02/26/20 Status: Ordered lisinopril 20 mg oral tablet 20 mg, 1, tablet, By Mouth, Daily, # 90 tablet, Refills 2, Tot. Refills 2, 03/05/20 13:27:00 EDT, Route to Pharmacy Electronically, [facility] #[id number], 164, cm, 03/05/20 12:30:00 EDT, Height Start Date: 03/05/20 Status: Ordered lisinopril 20 mg oral tablet 20 mg, 1, tablet, By Mouth, Daily, # 30 tablet, Refills 1, Tot. Refills 1, Maintenance, 02/25/20 11:31:00 EDT, Route to Pharmacy Electronically, [facility] #70463, 164, cm, 11/28/19 11:37:00 EST, Height Start [...]
--- OUTSIDE RECORDS SUMMARY | 2023-12-28 13:06 | XMS_ITS | Continuity of Care Document ---
Author Organization [facility] Address [address] [place] [address]- Care Team Providers Care Gear Roller Name Role Phone Markell BARDALES, Priscilla De Jesus Primary Care Physician ( [phone] [place] [facility] [place] - 06/20/[address] [address] Allergies, Adverse Reactions, Alerts Substance Reaction Severity Status doxycycline Active sulfa drugs itching in mouth Active Augmentin Nausea, vomiting and diarrhea Active Horses Active Other Environmental Allergy 1 Active Nectarine Active [place] Active 1chicken feathers Immunizations Given and Recorded Vaccine Date Status Refusal Reason diphtheria-tetanus toxoids (DT) 1 09/29/08 Given 1Admin Note: INFO GIVEN TO PT Medications acetaminophen 500 mg oral tablet See Instructions, PRN as needed for pain, 1-2 tablet By Mouth 3 times a day, # 100 tablet, 1 Refills, Maintenance, 10/02/20 14:45:00 EST, Tablet, [facility] #[id number], Partial fill upon patient request if the [...] 0 Refills, Soft Stop, 10/23/20 11:51:00 EST, [facility] #04291, Partialfill upon patient request if the prescription [...] 04/27/21 15:22:00 EDT, Route to Pharmacy Electronically, [facility] #[id number], 164, cm, 12/16/20 8:08:00 EDT, Height Start [...]
--- OUTSIDE RECORDS SUMMARY | 2023-12-28 13:06 | XMS_ITS | Continuity of Care Document ---
Author Organization [facility] Address [address] [place] [address]- Care Team Providers Care Wood Box Maker Name Role Phone Markell BARDALES, Priscilla De Jesus Primary Care Physician [place] [facility] [place](s): 12/17/20 - 04/16/21 [facility] [address] [place] [address]- Attending Physician: Markell BARDALES, Priscilla De Jesus Allergies, Adverse Reactions, Alerts Substance Reaction Severity Status doxycycline Active sulfa drugs itching in mouth Active Augmentin Nausea, vomiting and diarrhea Active Horses Active Other Environmental Allergy 1 Active Nectarine Active [place] Active 1chicken feathers Immunizations Given and Recorded Vaccine Date Status Refusal Reason diphtheria-tetanus toxoids (DT) 1 09/29/08 Given 1Admin Note: INFO GIVEN TO PT Medications acetaminophen 500 mg oral tablet See Instructions, PRN as needed for pain, 1-2 tablet By Mouth 3 times a day, # 100 tablet, 1 Refills, Maintenance, 10/02/20 14:45:00 EST, Tablet, [facility] #99672, Partial fill upon patient request if the [...] 0 Refills, Soft Stop, 10/23/20 11:51:00 EST, [facility] #47459, Partialfill upon patient request if the prescription [...] 03/05/20 13:27:00 EDT, Route to Pharmacy Electronically, [facility] #[id number], 164, cm, 03/05/20 12:30:00 EDT, Height Start Date: 03/05/20 Status: Ordered nitrofurantoin macrocrystals 100 mg oral capsule 1 capsule = 100 mg, By Mouth, 2 times a day, for 5 days, # 10 capsule, 0 Refills, Acute 04/17/21 10:30:00 EDT, 04/12/21 10:30:00 EDT, Capsule, [facility] #60151, Partial fill upon patient request if the [...] Active Cardiomyopathy- questionable dx, nuclear perfusion study 2015 is ok(Confirmed) 1 Active CVA (cerebrovascular accident)(Confirmed) Active Cholecystectomy(Confirmed) 1977 Active Cystoscopy(Confirmed) 1975 Active Diabetes mellitus type II-fo llowed by Dr Mcallister(Confirmed) 2 Active Diabetic nephropathy(Confirmed) Active Fibromyalgia(Confirmed) Active Herpes simplex , of L thigh, recurrent(Confirmed) Active Hx of cocaine abuse- in intermediate remission(Confirmed) Active Hypertension(Confirmed) Active Cancer of breast(Confirmed) Active Mixed hyperlipidemia(Confirmed) Active Obstructive sleep apnea hypo pnea, moderate(Confirmed) Active 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) Active Tubal ligation(Confirmed) 01/13/83 Active 1questionable dx, nuclear perfusion study 2015 is ok 2followed by Dr Mcallister Social History Social History Type Response Smoking Status Never (less than 100 in lifetime) entered on: 10/23/18 Sex
--- OUTSIDE RECORDS SUMMARY | 2023-12-28 13:06 | XMS_ITS | Continuity of Care Document ---
Author Organization [facility] Address [address] [place] [address]- Care Team Providers Care Tire Mounter Name Role Phone Markell BARDALES, Priscilla De Jesus Primary Care Physician Encounter [facility] Date(s): 11/18/20 - 11/25/20 [facility] [address] [place] [address]- Encounter Diagnosis Diabetes mellitus type II-followed by Dr Mcallister(Discharge Diagnosis) - 11/18/20 Hypertension(Discharge Diagnosis) - 11/18/20 Rash(Discharge Diagnosis) - 11/18/20 Pain in right shoulder(Discharge Diagnosis) - 11/18/20 Cancer of breast(Discharge Diagnosis) - 11/25/20 Attending Physician: Markell BARDALES, Priscilla De Jesus Allergies, Adverse Reactions, Alerts Substance Reaction Severity Status doxycycline Active Other Environmental Allergy 1 Active Nectarine Active [place] Active sulfa drugs itching in mouth Active Augmentin Nausea, vomiting and diarrhea Active Horses Active 1chicken feathers Immunizations Given and Recorded Vaccine Date Status Refusal Reason diphtheria-tetanus toxoids (DT) 1 09/29/08 Given 1Admin Note: INFO GIVEN TO PT Medications acetaminophen 500 mg oral tablet See Instructions, PRN as needed for pain, 1-2 tablet By Mouth 3 times a day, # 100 tablet, 1 Refills, Maintenance, 10/02/20 14:45:00 EST, Tablet, [facility][id number], Partial fill upon patient request if the [...] 0 Refills, Soft Stop, 10/23/20 11:51:00 EST, [facility] #[id number], Partialfill upon patient request if the prescription [...] 03/05/20 13:27:00 EDT, Route to Pharmacy Electronically, [facility] #[id number], 164, cm, 03/05/20 12:30:00 EDT, Height Start [...] Effective Dates Health Status Clinical Service Informant Diabetes mellitus type II-followed by Dr Mcallister Discharge Diagnosis 11/18/20 Hypertension Discharge Diagnosis 11/18/20 Rash Discharge Diagnosis 11/18/20 Pain in right shoulder Discharge Diagnosis 11/18/20 Cancer of breast Discharge Diagnosis 11/25/20 Vital Signs Most recent to oldest [Reference Range]: 1 2 Height 164.0 cm (11/18/20 1:25 PM) 164.0 cm (11/18/20 12:59 PM) Weight 73.8 kg (11/18/20 12:59 PM) Pulse Rate [55-90 bpm] 78 bpm (11/18/20 12:59 PM) Body Mass Index [18.5-24.99] 27.44 *H* (11/18/20 12:59 PM) Blood Pressure [90-138/55-84 mm Hg] 128/ 88mm Hg (11/18/20 1:25 PM) 185/80mm Hg *H* (11/18/20 12:59 PM) Blood pressure sites Arm, left (11/18/20 12:59 PM) Weight Obtained Via Standing scale (11/18/20 12:59 PM) Social History Social History Type Response Smoking Status Never (less than 100 in lifetime) entered on: 10/23/18 Sex
--- OUTSIDE RECORDS SUMMARY | 2023-12-28 13:06 | XMS_ITS | Continuity of Care Document ---
Author Organization [facility] Address [address] [place] [address]- Care Team Providers Care Frothing Machine Operator Name Role Phone Kamilah BARDALES, Primo Rogers Primary Care Physician [id number] Date(s): 01/24/20 - 03/15/[address] [address]- [facility] Attending Physician: Iman Hanna MD Admitting Physician: Iman Hanna MD Referring Physician: Brooke Mon NP Allergies, Adverse Reactions, Alerts Substance Reaction Severity Status doxycycline Active sulfa drugs itching in mouth Active Augmentin Nausea, vomiting and diarrhea Active Horses Active Other Environmental Allergy 1 Active Nectarine Active [place] Active 1chicken feathers Immunizations Given and Recorded Vaccine Date Status Refusal Reason diphtheria-tetanus toxoids (DT) 1 09/29/08 Given 1Admin Note: INFO GIVEN TO PT Medications aspirin 325 mg oral tablet 325 mg, 1, tablet, By Mouth, Daily, take with 6 to 8 ounces of plain water, # 90 tablet, Refills 0,Tot. Refills 0, Maintenance, 11/15/18 10:39:48 EST, Route to Pharmacy Electronically, [id number], [id number] Start Date: 11/15/18 Stop Date: 02/13/19 Status: [...] InstructionsReplace Required Details, Route to Pharmacy Electronically, [facility][id number], 164, cm, 11/28/19 11:37:00 EST, Height Start Date: 02/26/20 Status: Ordered lisinopril 20 mg oral tablet 20 mg, 1, tablet, By Mouth, Daily, # 90 tablet, Refills 2, Tot. Refills 2, 03/05/20 13:27:00 EDT, Route to Pharmacy Electronically, [facility] #[id number], 164, cm, 03/05/20 12:30:00 EDT, Height Start Date: 03/05/20 Status: Ordered lisinopril 20 mg oral tablet 20 mg, 1, tablet, By Mouth, Daily, # 30 tablet, Refills 1, Tot. Refills 1, Maintenance, 02/25/20 11:31:00 EDT, Route to Pharmacy Electronically, [facility] #[id number], 164, cm, 11/28/19 11:37:00 EST, Height Start [...] Dry Weight Start Date: 08/29/19 Stop Date: 11/29/20 Status: Ordered Problem List Condition Effective Dates [...]
--- OUTSIDE RECORDS SUMMARY | 2023-12-28 13:06 | XMS_ITS | Continuity of Care Document ---
Author Organization [facility] Address [address] [place] [address]- Care Team Providers Care Learning Design Specialist Name Role Phone Primo Triana MD Primary Care Physician [place] [facility]/05/20 - 03/12/20 [facility] [address] [place] [address]- 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) - 03/05/20 Attending Physician: Primo Triana MD Allergies, Adverse Reactions, Alerts Substance Reaction Severity Status doxycycline Active sulfa drugs itching in mouth Active Augmentin Nausea, vomiting and diarrhea Active Horses Active Other Environmental Allergy 1 Active Nectarine Active [place] Active 1chicken feathers Immunizations Given and Recorded Vaccine Date Status Refusal Reason diphtheria-tetanus toxoids (DT) 1 09/29/08 Given 1Admin Note: INFO GIVEN TO PT Medications aspirin 325 mg oral tablet 325 mg, 1, tablet, By Mouth, Daily, take with 6 to 8 ounces of plain water, # 90 tablet, Refills 0,Tot. Refills 0, Maintenance, 11/15/18 10:39:48 EST, Route to Pharmacy Electronically, [id number], [facility] Start Date: 11/15/18 Stop Date: 02/13/19 Status: [...] InstructionsReplace Required Details, Route to Pharmacy Electronically, [facility][id number], 164, cm, 11/28/19 11:37:00 EST, Height Start Date: 02/26/20 Status: Ordered lisinopril 20 mg oral tablet 20 mg, 1, tablet, By Mouth, Daily, # 90 tablet, Refills 2, Tot. Refills 2, 03/05/20 13:27:00 EDT, Route to Pharmacy Electronically, [facility] #[id number], 164, cm, 03/05/20 12:30:00 EDT, Height Start Date: 03/05/20 Status: Ordered lisinopril 20 mg oral tablet 20 mg, 1, tablet, By Mouth, Daily, # 30 tablet, Refills 1, Tot. 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
--- OUTSIDE RECORDS SUMMARY | 2023-12-28 13:06 | XMS_ITS | Continuity of Care Document ---
Author Organization [facility] Address [address] [place] [address]- Care Team Providers Care Office Correspondent Name Role Phone Marques Boswell DO Primary Care Physician Encounter [facility] Date(s): 05/20/20 - 06/19/20 [facility] [address] [place] [address]- [facility] Allergies, Adverse Reactions, Alerts Substance Reaction Severity Status doxycycline Active sulfa drugs itching in mouth Active Augmentin Nausea, vomiting and diarrhea Active Horses Active Other Environmental Allergy [address] [place] Active 1chicken feathers Immunizations Given and Recorded Vaccine Date Status Refusal Reason diphtheria-tetanus toxoids (DT) 1 09/29/08 Given 1Admin Note: INFO GIVEN TO PT Medications aspirin 325 mg oral tablet 325 mg, 1, tablet, By Mouth, Daily, take with 6 to 8 ounces of plain water, # 90 tablet, Refills 0,Tot. Refills 0, Maintenance, 11/15/18 10:39:48 EST, Route to Pharmacy Electronically, [id number], [facility] [address] Start Date: 11/15/18 Stop Date: 02/13/19 Status: [...] Refills, Maintenance, 05/29/20 13:47:00 EDT, Gel, [id number], 164, cm, 05/29/20 13:22:00 EDT, Height Start [...] 05/29/20 13:47:00 EDT, Route to Pharmacy Electronically, [facility][id number], 164, cm, 05/29/20 13:22:00 EDT, Height Start Date: 05/29/20 Stop Date: 07/24/20 Status: Ordered lisinopril 20 mg oral tablet 20 mg, 1, tablet, By Mouth, Daily, # 90 tablet, Refills 2, Tot. Refills 2, 03/05/20 13:27:00 EDT, Route to Pharmacy Electronically, [facility] #[id number], 164, cm, 03/05/20 12:30:00 EDT, Height Start Date: 03/05/20 Status: Ordered lisinopril 20 mg oral tablet 20 mg, 1, tablet, By Mouth, Daily, # 30 tablet, Refills 1, Tot. Refills 1, Maintenance, 02/25/20 11:31:00 EDT, Route to Pharmacy Electronically, [facility] #[id number], 164, cm, 11/28/19 11:37:00 EST, Height Start [...] ambulation Folding Wheeled Walker with Seat and Brakes, 06/12/20 13:23:00 EDT, Supply Start Date: 06/12/20 Status: Ordered Problem List Condition Effective Dates [...]
--- OUTSIDE RECORDS SUMMARY | 2023-12-28 13:06 | XMS_ITS | Continuity of Care Document ---
Author Organization [facility] Address [address] [place] [address]- Care Team Providers Care Fumigator And Sterilizer Name Role Phone Markell BARDALES, Priscilla De Jesus Primary Care Physician [id number] Date(s): 04/23/21 - 05/23/21 [facility] [address] [place], [place] [address] Attending Physician: Priscilla Guillaume MD Allergies, Adverse Reactions, Alerts Substance Reaction Severity Status doxycycline Active sulfa drugs itching in mouth Active Augmentin Nausea, vomiting and diarrhea Active Horses Active Other Environmental Allergy 1 Active Nectarine Active [place] Active 1chicken feathers Immunizations Given and Recorded Vaccine Date Status Refusal Reason diphtheria-tetanus toxoids (DT) 1 09/29/08 Given 1Admin Note: INFO GIVEN TO PT Medications acetaminophen 500 mg oral tablet See Instructions, PRN as needed for pain, 1-2 tablet By Mouth 3 times a day, # 100 tablet, 1 Refills, Maintenance, 10/02/20 14:45:00 EST, Tablet, [facility] #[id number], Partial fill upon patient request if the [...] 0 Refills, Soft Stop, 10/23/20 11:51:00 EST, [facility] #[id number], Partialfill upon patient request if the prescription [...] 04/27/21 15:22:00 EDT, Route to Pharmacy Electronically, [facility] #[id number], 164, cm, 12/16/20 8:08:00 EDT, Height Start [...] recurrent(Confirmed) Active 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
--- OUTSIDE RECORDS SUMMARY | 2023-12-28 13:06 | XMS_ITS | Continuity of Care Document ---
Author Organization [facility] Address [address] [place] [address]- Care Team Providers Care Planning Official Name Role Phone Not on Staff, PCP Primary Care Physician Unavail able Encounter [facility] [place] Date(s): 03/31/23 - 04/30/23 [facility] [address] [place] [address]- Allergies, Adverse Reactions, Alerts Substance Reaction Severity Status doxycycline Active sulfa drugs itching in mouth Active Augmentin Nausea, vomiting and diarrhea Active Horses Active Other Environmental Allergy 1 Active Nectarine Active [place] Active 1chicken feathers Immunizations Given and Recorded Vaccine Date Status Refusal Reason diphtheria-tetanus toxoids (DT) 1 09/29/08 Given 1Admin Note: INFO GIVEN TO PT Medications acetaminophen 500 mg oral tablet See Instructions, PRN as needed for pain, 1-2 tablet By Mouth 3 times a day, # 100 tablet, 1 Refills, Maintenance, 10/02/20 14:45:00 EST, Tablet, [facility] #[id number], Partial fill upon patient request if the [...] 0 Refills, Soft Stop, 10/23/20 11:51:00 EST, [facility] #[id number], Partialfill upon patient request if the prescription [...] 04/27/21 15:22:00 EDT, [facility] to [facility] Electronically[id number], 164, cm, 12/16/20 8:08:00 EDT, Height Start [...] Confirmed Active Hx of cocaine abuse- in watermaster remission Confirmed Active Hypertension Confirmed Active Cancer [...] Personnel Name: Not on Staff, PCP Position: S Physician (General Medicine) Member Role: PCP Care Team Related Persons Name: STACY LUEVANO Address: [address] [place] [id number] Name: JANINE CONRAD Address: home [address] [place] [id number]
--- OUTSIDE RECORDS SUMMARY | 2023-12-28 13:06 | XMS_ITS | Continuity of Care Document ---
Author Organization [facility] Address [address] [place] [address]- Care Team Providers Care Central Office Associate Name Role Phone Kamilah BARDALES, Primo Rogers Primary Care Physician Encounter [facility] [place] Date(s): 04/15/20 - 04/22/20 [facility] [address] [address]- [facility] Attending Physician: Elieser TELETYPE CLERKBrooke Allergies, Adverse Reactions, Alerts Substance Reaction Severity Status doxycycline Active sulfa drugs itching in mouth Active Augmentin Nausea, vomiting and diarrhea Active Horses Active Other Environmental Allergy 1 Active Nectarine Active [place] Active 1chicken feathers Immunizations Given and Recorded Vaccine Date Status Refusal Reason diphtheria-tetanus toxoids (DT) 1 09/29/08 Given 1Admin Note: INFO GIVEN TO PT Medications aspirin 325 mg oral tablet 325 mg, 1, tablet, By Mouth, Daily, take with 6 to 8 ounces of plain water, # 90 tablet, Refills 0,Tot. Refills 0, Maintenance, 11/15/18 10:39:48 EST, Route to Pharmacy Electronically, [id number], [facility] [address] Start Date: 11/15/18 Stop Date: 02/13/19 [...] InstructionsReplace Required Details, Route to Pharmacy Electronically, [facility] #[id number], 164, cm, 11/28/19 11:37:00 EST, Height Start Date: 02/26/20 Status: Ordered lisinopril 20 mg oral tablet 20 mg, 1, tablet, By Mouth, Daily, # 90 tablet, Refills 2, Tot. Refills 2, 03/05/20 13:27:00 EDT, [facility] to [facility]acy Electronically, [facility], 164, cm, 03/05/20 12:30:00 EDT, Height Start Date: 03/05/20 Status: Ordered lisinopril 20 mg oral tablet 20 mg, 1, tablet, By Mouth, Daily, # 30 tablet, Refills 1, Tot. Refills 1, Maintenance, 02/25/20 11:31:00 EDT, Route to Pharmacy Electronically, [facility] #85773, 164, cm, 11/28/19 11:37:00 EST, Height Start [...] Cardiomyopathy(Confirmed) Active CVA (cerebrovascular accident)(Confirmed) Active Cholecystectomy(Confirmed) 1978 Active Cystoscopy(Confirmed) 1975 Active Diabetes mellitus type [...]
--- OUTSIDE RECORDS SUMMARY | 2023-12-28 13:06 | XMS_ITS | Continuity of Care Document ---
Author Organization [facility] Address [address] [place] [address]- Care Team Providers Care Charge Poster Name Role Phone Markell BARDALES, Priscilla De Jesus Primary Care Physician ( [phone] Encounter [facility] Date(s): 06/30/20 - 07/30/20 [facility] [address] [place] [address]- Allergies, Adverse Reactions, Alerts Substance Reaction Severity Status doxycycline Active sulfa drugs itching in mouth Active Augmentin Nausea, vomiting and diarrhea Active Horses Active Other Environmental Allergy 1 Active Nectarine Active [place] Active 1chicken feathers Immunizations Given and Recorded Vaccine Date Status Refusal Reason diphtheria-tetanus toxoids (DT) 1 09/29/08 Given 1Admin Note: INFO GIVEN TO PT Medications aspirin 325 mg oral tablet 325 mg, 1, tablet, By Mouth, Daily, take with 6 to 8 ounces of plain water, # 90 tablet, Refills 0,Tot. Refills 0, Maintenance, 11/15/18 10:39:48 EST, Route to Pharmacy Electronically, [id number], [facility] [address] Start Date: 11/15/18 Stop Date: 02/13/19 Status: [...] 5 Refills, Maintenance, 05/29/20 13:47:00 EDT, Gel, [id number], 164, cm, 05/29/20 13:22:00 EDT, Height Start [...] 03/05/20 13:27:00 EDT, Route to Pharmacy Electronically, [facility] #[id number], 164, cm, 03/05/20 12:30:00 EDT, Height Start Date: 03/05/20 Status: Ordered lisinopril 20 mg oral tablet 20 mg, 1, tablet, By Mouth, Daily, # 30 tablet, Refills 1, Tot. Refills 1, Maintenance, 02/25/20 11:31:00 EDT, Route to Pharmacy Electronically, [facility] #33363, 164, cm, 11/28/19 11:37:00 EST, Height Start [...]
--- OUTSIDE RECORDS SUMMARY | 2023-12-28 13:06 | XMS_ITS | Continuity of Care Document ---
Author Organization [facility] Address [address] [place] [address]- Care Team Providers Care Retirement Benefits Specialist Name Role Phone Monique Boswell DOsir Primary Care Physician [phone] Encounter [facility] [place] Date(s): 05/07/20 - 06/06/20 [facility] [address] [place] [address]- [facility] Allergies, Adverse Reactions, Alerts Substance Reaction Severity Status doxycycline Active sulfa drugs itching in mouth Active Augmentin Nausea, vomiting and diarrhea Active Horses Active Other Environmental Allergy 1 Active Nectarine Active [place] Active 1chicken feathers Immunizations Given and Recorded Vaccine Date Status Refusal Reason diphtheria-tetanus toxoids (DT) 1 09/29/08 Given 1Admin Note: INFO GIVEN TO PT Medications aspirin 325 mg oral tablet 325 mg, 1, tablet, By Mouth, Daily, take with 6 to 8 ounces of plain water, # 90 tablet, Refills 0,Tot. Refills 0, Maintenance, 11/15/18 10:39:48 EST, Route to Pharmacy Electronically, [id number], [facility] [address] Start Date: 11/15/18 Stop Date: 02/13/19 Status: [...] 5 Refills, Maintenance, 05/29/20 13:47:00 EDT, Gel, [id number], 164, cm, 05/29/20 13:22:00 EDT, Height Start [...] 05/29/20 13:47:00 EDT, Route to Pharmacy Electronically, [facility] #[id number], 164, cm, 05/29/20 13:22:00 EDT, Height Start Date: 05/29/20 Stop Date: 07/24/20 Status: Ordered lisinopril 20 mg oral tablet 20 mg, 1, tablet, By Mouth, Daily, # 90 tablet, Refills 2, Tot. Refills 2, 03/05/20 13:27:00 EDT, Route to Pharmacy Electronically, [facility] #[id number], 164, cm, 03/05/20 12:30:00 EDT, Height Start Date: 03/05/20 Status: Ordered lisinopril 20 mg oral tablet 20 mg, 1, tablet, By Mouth, Daily, # 30 tablet, Refills 1, Tot. Refills 1, Maintenance, 02/25/20 11:31:00 EDT, Route to Pharmacy Electronically, [facility] #[id number], 164, cm, 11/28/19 11:37:00 EST, Height Start [...]
--- OUTSIDE RECORDS SUMMARY | 2023-12-28 13:06 | XMS_ITS | Continuity of Care Document ---
Author Organization [facility] Address [address] [place] [address]- Care Team Providers Care Chuck Wagon Cook Name Role Phone Marques Boswell DO Primary Care Physician [phone] [place] [facility]/12[place]20 - 06/19/20 [facility] [address] [place] [address]- [facility] Attending Physician: Marques Boswell DO Allergies, Adverse Reactions, Alerts Substance Reaction Severity Status doxycycline Active sulfa drugs itching in mouth Active Augmentin Nausea, vomiting and diarrhea Active Horses Active Other Environmental Allergy 1 Active Nectarine Active [place] Active 1chicken feathers Immunizations Given and Recorded Vaccine Date Status Refusal Reason diphtheria-tetanus toxoids (DT) 1 09/29/08 Given 1Admin Note: INFO GIVEN TO PT Medications aspirin 325 mg oral tablet 325 mg, 1, tablet, By Mouth, Daily, take with 6 to 8 ounces of plain water, # 90 tablet, Refills 0,Tot. Refills 0, Maintenance, 11/15/18 10:39:48 EST, Route to Pharmacy Electronically, [id number], [facility] [address]73 Start Date: 11/15/18 Stop Date: 02/13/19 Status: [...] 5 Refills, Maintenance, 05/29/20 13:47:00 EDT, Gel, [facility] #[id number], 164, cm, 05/29/20 13:22:00 EDT, Height Start [...] 05/29/20 13:47:00 EDT, Route to Pharmacy Electronically, [facility] #[id number], 164, cm, 05/29/20 13:22:00 EDT, Height Start Date: 05/29/20 Stop Date: 07/24/20 Status: Ordered lisinopril 20 mg oral tablet 20 mg, 1, tablet, By Mouth, Daily, # 90 tablet, Refills 2, Tot. Refills 2, 03/05/20 13:27:00 EDT, Route to Pharmacy Electronically, [facility] #44034, 164, cm, 03/05/20 12:30:00 EDT, Height Start Date: 03/05/20 Status: Ordered lisinopril 20 mg oral tablet 20 mg, 1, tablet, By Mouth, Daily, # 30 tablet, Refills 1, Tot. Refills 1, Maintenance, 02/25/20 11:31:00 EDT, Route to Pharmacy Electronically, [facility] #21301, 164, cm, 11/28/19 11:37:00 EST, Height Start [...]
--- OUTSIDE RECORDS SUMMARY | 2023-12-28 13:06 | XMS_ITS | Continuity of Care Document ---
Author Organization [facility] Address [address] [place] [address]- Care Team Providers Care Ticketing Clerk Name Role Phone Marques Boswell DO Primary Care Physician [place] [facility] [place]20 - 07/07/20 [facility] [address] [place] [address]- [facility] Encounter Diagnosis Hip pain, right(Discharge Diagnosis) - 06/30/20 Attending Physician: Marques Boswell DO Allergies, Adverse Reactions, Alerts Substance Reaction Severity Status doxycycline Active sulfa drugs itching in mouth Active Augmentin Nausea, vomiting and diarrhea Active Horses Active Other Environmental Allergy 1 Active Nectarine Active [place] Active 1chicken feathers Immunizations Given and Recorded Vaccine Date Status Refusal Reason diphtheria-tetanus toxoids (DT) 1 09/29/08 Given 1Admin Note: INFO GIVEN TO PT Medications aspirin 325 mg oral tablet 325 mg, 1, tablet, By Mouth, Daily, take with 6 to 8 ounces of plain water, # 90 tablet, Refills 0,Tot. Refills 0, Maintenance, 11/15/18 10:39:48 EST, Route to Pharmacy Electronically, [id number], [id number] Start Date: 11/15/18 Stop Date: 02/13/19 Status: [...] 5 Refills, Maintenance, 05/29/20 13:47:00 EDT, Gel, [facility] #[id number], 164, cm, 05/29/20 13:22:00 EDT, Height Start [...] 05/29/20 13:47:00 EDT, Route to Pharmacy Electronically, [facility] #[id number], 164, cm, 05/29/20 13:22:00 EDT, Height Start Date: 05/29/20 Stop Date: 07/24/20 Status: Ordered lisinopril 20 mg oral tablet 20 mg, 1, tablet, By Mouth, Daily, # 90 tablet, Refills 2, Tot. Refills 2, 03/05/20 13:27:00 EDT, Route to Pharmacy Electronically, [facility] #[id number], 164, cm, 03/05/20 12:30:00 EDT, Height Start Date: 03/05/20 Status: Ordered lisinopril 20 mg oral tablet 20 mg, 1, tablet, By Mouth, Daily, # 30 tablet, Refills 1, Tot. Refills 1, Maintenance, 02/25/20 11:31:00 EDT, Route to Pharmacy Electronically, [facility] #[id number], 164, cm, 11/28/19 11:37:00 EST, Height Start [...] Health Status Cl inical Service Informant Hip pain, right Discharge Diagnosis 06/30/20 Vital Signs Most recent to oldest [Reference Range]: 1 Height 164.0 cm (06/30/20 8:05 AM) Social History Social History Type Response Smoking Status Never (less than 100 in lifetime) entered on: 10/23/18 Sex
--- OUTSIDE RECORDS SUMMARY | 2023-12-28 13:06 | XMS_ITS | Continuity of Care Document ---
Author Organization [facility] Address [address] [place] [address] [place] [address]- Care Team Providers Care Manager Call Name Role Phone Not on Staff, PCP Primary Care Physician Unavail able [place] [facility] [facility] [place]23 - 07/30/23 [facility] [address] [address] Allergies, Adverse Reactions, Alerts Substance Reaction Severity Status doxycycline Active Horses Active Other Environmental Allergy 1 Active Nectarine Active [place] Active Augmentin Nausea, vomiting and diarrhea Active sulfa drugs itching in mouth Active 1chicken feathers Immunizations Given and Recorded Vaccine Date Status Refusal Reason diphtheria-tetanus toxoids (DT) 1 09/29/08 Given 1Admin Note: INFO GIVEN TO PT Medications acetaminophen 500 mg oral tablet See Instructions, PRN as needed for pain, 1-2 tablet By Mouth 3 times a day, # 100 tablet, 1 Refills, Maintenance, 10/02/20 14:45:00 EST, Tablet, [facility] #[id number], Partial fill upon patient request if the [...] 0 Refills, Soft Stop, 10/23/20 11:51:00 EST, [facility] #[id number], Partialfill upon patient request if the prescription [...] 04/27/21 15:22:00 EDT, Route to Pharmacy Electronically, [facility] #[id number], 164, cm, 12/16/20 8:08:00 EDT, Height Start [...] questionable dx, nuclear perfusion study 2015 is ok 1 Confirmed Active CVA (cerebrovascular accident) Confirmed Active Cholecystectomy Confirmed 1977 Active Cystoscopy Confirmed 1975 Active Diabetes mellitus type II-followed by Dr Mcallister 2 Confirmed Active Diabetic nephropathy Confirmed Active Fibromyalgia Confirmed Active Herpes simplex , of L thigh, recurrent Confirmed Active Hx of cocaine abuse- in terminal carman remission Confirmed Active Hypertension Confirmed Active Cancer [...] Related Persons Name: STACY LUEVANO Address: [address] [place] [address] Name: JANINE CONRAD Address: home [address] [place] [id number]
--- OUTSIDE RECORDS SUMMARY | 2023-12-28 13:06 | XMS_ITS | Continuity of Care Document ---
Author Organization [facility] Address [address] [place] [address]- Care Team Providers Care Hand Bunch Maker Name Role Phone Markell BARDALES, Priscilla De Jesus Primary Care Physician [place] [facility] [place] Date(s[place] 10/16/20 - 11/15/20 [facility] [address] [place] [address]- Allergies, Adverse Reactions, Alerts Substance Reaction Severity Status doxycycline Active sulfa drugs itching in mouth Active Augmentin Nausea, vomiting and diarrhea Active Horses Active Other Environmental Allergy 1 Active Nectarine Active [place] Active 1chicken feathers Immunizations Given and Recorded Vaccine Date Status Refusal Reason diphtheria-tetanus toxoids (DT) 1 09/29/08 Given 1Admin Note: INFO GIVEN TO PT Medications acetaminophen 500 mg oral tablet See Instructions, PRN as needed for pain, 1-2 tablet By Mouth 3 times a day, # 100 tablet, 1 Refills, Maintenance, 10/02/20 14:45:00 EST, Tablet, [facility] #[id number], Partial fill upon patient request if the [...] 0 Refills, Soft Stop, 10/23/20 11:51:00 EST, [facility] #[id number], Partialfill upon patient request if the prescription [...] 03/05/20 13:27:00 EDT, Route to Pharmacy Electronically, [facility] #[id number], 164, cm, 03/05/20 12:30:00 EDT, Height Start [...] Active 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
--- OUTSIDE RECORDS SUMMARY | 2023-12-28 13:06 | XMS_ITS | Continuity of Care Document ---
Author Organization [facility] Address [address] [place] [address]- Care Team Providers Care Swimming Pool Installer Name Role Phone Markell BARDALES, Priscilla De Jesus Primary Care Physician [place] [facility] [place] [place]22/20 - 10/22/20 [facility] [address] [place] [address]- Allergies, Adverse Reactions, Alerts Substance Reaction Severity Status doxycycline Active sulfa drugs itching in mouth Active Augmentin Nausea, vomiting and diarrhea Active Horses Active Other Environmental Allergy 1 Active Nectarine Active [place] Active 1chicken feathers Immunizations Given and Recorded Vaccine Date Status Refusal Reason diphtheria-tetanus toxoids (DT) 1 09/29/08 Given 1Admin Note: INFO GIVEN TO PT Medications acetaminophen 500 mg oral tablet See Instructions, PRN as needed for pain, 1-2 tablet By Mouth 3 times a day, # 100 tablet, 1 Refills, Maintenance, 10/02/20 14:45:00 EST, Tablet, [facility] #[id number], Partial fill upon patient request if the prescription is for a schedule II o... Start Date: 10/02/20 Status: Ordered Bedside Commode See Instructions, # 1 each, Maintenance, Needs seat riser for commode, 05/29/20 13:51:00 EDT, Supply Start Date: 05/29/20 Status: Ordered CBD oil CBD oil, Refills 0, Maintenance, 05/29/20 13:30:00 EDT, Supply Start Date: 05/29/20 Status: Ordered clindamycin 300 mg oral capsule 1 capsule = 300 mg, By Mouth, Every 8 hours, # 30 capsule, 0 Refills, Maintenance, 10/02/20 13:14:00 EST, Capsule, Partial fill upon patient request if the prescription is for a schedule II opioid drug. Start Date: 10/02/20 Stop Date: 10/12/20 Status: Ordered CPAP Machine AutoCPAP 7-9, Maintenance, [...] bolus to... Start Date: 02/26/16 Status: Ordered HYDROmorphone 2 mg oral tablet 1 tablet = 2 mg, By Mouth, 2 times a day, PRN as needed for pain, per hosp dc for acute pain, 0 Refills, Maintenance, 10/02/20 13:14:00 EST, Tablet, Partial fill upon patient request if the prescription is for a schedule II opioid drug. 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
--- OUTSIDE RECORDS SUMMARY | 2023-12-28 13:06 | XMS_ITS | Continuity of Care Document ---
Author Organization [facility] Address [address] [place] [address]- Care Team Providers Care Pusher Operator Name Role Phone Not on Staff, PCP Primary Care Physician Unavail able En[place] [facility] [place] Date(s): 05/04/22 - 06/03/[address] [id number] Attending Physician: Jan Arauz Admitting Physician: Jan Arauz Referring Physician: AdmtrJan Allergies, Adverse Reactions, Alerts Substance Reaction Severity Status doxycycline Active sulfa drugs itching in mouth Active Augmentin Nausea, vomiting and diarrhea Active Horses Active Other Environmental Allergy 1 Active Nectarine Active [place] Active 1chicken feathers Immunizations Given and Recorded Vaccine Date Status Refusal Reason diphtheria-tetanus toxoids (DT) 1 09/29/08 Given 1Admin Note: INFO GIVEN TO PT Medications acetaminophen 500 mg oral tablet See Instructions, PRN as needed for pain, 1-2 tablet By Mouth 3 times a day, # 100 tablet, 1 Refills, Maintenance, 10/02/20 14:45:00 EST, Tablet, [id number], Partial fill upon patient request if the [...] 0 Refills, Soft Stop, 10/23/20 11:51:00 EST, [facility] #[id number], Partialfill upon patient request if the prescription [...] 04/27/21 15:22:00 EDT, Route to Pharmacy Electronically, [facility] #[id number], 164, cm, 12/16/20 8:08:00 EDT, Height Start [...]
--- OUTSIDE RECORDS SUMMARY | 2023-12-28 13:06 | XMS_ITS | Continuity of Care Document ---
Author Organization [facility] Address [address] [place] [address]- Care Team Providers Care Transmission Engineer Name Role Phone Markell BARDALES, Priscilla De Jesus Primary Care Physician [place] [facility] [place] [facility] [address] [place] [address]- Encounter Diagnosis Claudication(Discharge Diagnosis) - 07/21/19 Attending Physician: Jan Arauz Admitting Physician: Jan Arauz Referring Physician: AdmtrJan Allergies, Adverse Reactions, Alerts Substance Reaction Severity Status doxycycline Active Nectarine Active Other Environmental Allergy 1 Active sulfa drugs itching in mouth Active Augmentin Nausea, vomiting and diarrhea Active Horses Active [place] Active 1chicken feathers Immunizations Given and Recorded [...] 5 Refills, Maintenance, 05/29/20 13:47:00 EDT, Gel, [facility] #[id number], 164, cm, 05/29/20 13:22:00 EDT, Height Start [...] 03/05/20 13:27:00 EDT, Route to Pharmacy Electronically, [facility] #[id number], 164, cm, 03/05/20 12:30:00 EDT, Height Start [...] recurrent(Confirmed) Active Hx of cocaine abuse- in moth 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
--- OUTSIDE RECORDS SUMMARY | 2023-12-28 13:06 | XMS_ITS | Continuity of Care Document ---
Author Organization [facility] Address [address] [place] [address]- Care Team Providers Care Research And Evaluation Analyst Name Role Phone Markell BARDALES, Priscilla De Jesus Primary Care Physician [place] [facility] [place](s[place] 06/30/20 - 07/30/20 [facility] [address] [place] [address]- Allergies, Adverse Reactions, Alerts Substance Reaction Severity Status doxycycline Active sulfa drugs itching in mouth Active Augmentin Nausea, vomiting and diarrhea Active Horses Active Other Environmental Allergy 1 Active Nectarine Active [place] Active 1chicken feathers Immunizations Given and Recorded Vaccine Date Status Refusal Reason diphtheria-tetanus toxoids (DT) 1 09/29/08 Given 1Admin Note: INFO GIVEN TO PT Medications aspirin 325 mg oral tablet 325 mg, 1, tablet, By Mouth, Daily, take with 6 to 8 ounces of plain water, # 90 tablet, Refills 0,Tot. Refills 0, Maintenance, 11/15/18 10:39:48 EST, Route to Pharmacy Electronically, [id number], [facility] [id number] Start Date: 11/15/18 Stop Date: 02/13/19 Status: [...] 5 Refills, Maintenance, 05/29/20 13:47:00 EDT, Gel, [id number], 164, cm, 05/29/20 13:22:00 EDT, Height Start [...] 03/05/20 13:27:00 EDT, Route to Pharmacy Electronically, [facility] #[id number], 164, cm, 03/05/20 12:30:00 EDT, Height Start Date: 03/05/20 Status: Ordered lisinopril 20 mg oral tablet 20 mg, 1, tablet, By Mouth, Daily, # 30 tablet, Refills 1, Tot. Refills 1, Maintenance, 02/25/20 11:31:00 EDT, Route to Pharmacy Electronically, [facility] #[id number], 164, cm, 11/28/19 11:37:00 EST, Height Start [...]
--- OUTSIDE RECORDS SUMMARY | 2023-12-28 13:06 | XMS_ITS | Continuity of Care Document ---
Author Organization [facility] Address [address] [place] [address]- Care Team Providers Care Senior Engineering Team Leader Name Role Phone Markell BARDALES, Priscilla De Jesus Primary Care Physician ( [phone] [place] [facility] [place] 06/19/20 - 07/19/20 [facility] [address] [place] [address]- [facility] Allergies, Adverse Reactions, Alerts Substance Reaction Severity Status doxycycline Active Augmentin Nausea, vomiting and diarrhea Active Nectarine Active sulfa drugs itching in mouth Active Horses Active [place] Active Other Environmental Allergy 1 Active 1chicken [...] 11/15/18 10:39:48 EST, Route to Pharmacy Electronically, [id number], [facility] [id number] Start Date: 11/15/18 Stop Date: 02/13/19 Status: [...] 5 Refills, Maintenance, 05/29/20 13:47:00 EDT, Gel, [facility][id number], 164, cm, 05/29/20 13:22:00 EDT, Height Start [...] 05/29/20 13:47:00 EDT, Route to Pharmacy Electronically, [facility] #[id number], 164, cm, 05/29/20 13:22:00 EDT, Height Start Date: 05/29/20 Stop Date: 07/24/20 Status: Ordered lisinopril 20 mg oral tablet 20 mg, 1, tablet, By Mouth, Daily, # 90 tablet, Refills 2, Tot. Refills 2, 03/05/20 13:27:00 EDT, Route to Pharmacy Electronically, [facility] #[id number], 164, cm, 03/05/20 12:30:00 EDT, Height Start Date: 03/05/20 Status: Ordered lisinopril 20 mg oral tablet 20 mg, 1, tablet, By Mouth, Daily, # 30 tablet, Refills 1, Tot. Refills 1, Maintenance, 02/25/20 11:31:00 EDT, Route to Pharmacy Electronically, [facility] #72901, 164, cm, 11/28/19 11:37:00 EST, Height Start [...]
--- OUTSIDE RECORDS SUMMARY | 2023-12-28 13:06 | XMS_ITS | Continuity of Care Document ---
Author Organization [facility] Address [address] [place] [address]- Care Team Providers Care Director Product Management Name Role Phone Markell BARDALES, Priscilla De Jesus Primary Care Physician [place] [facility] [place]/16[place]20 - 07/23/20 [facility] [address] [place] [address]- [facility] Attending Physician: Markell BARDALES, Priscilla De Jesus Allergies, Adverse Reactions, Alerts Substance Reaction Severity Status doxycycline Active sulfa drugs itching in mouth Active Augmentin Nausea, vomiting and diarrhea Active Horses Active Other Environmental Allergy 1 Active Nectarine Active [place] Active 1chicken feathers Immunizations Given and Recorded Vaccine Date Status Refusal Reason diphtheria-tetanus toxoids (DT) 1 09/29/08 Given 1Admin Note: INFO GIVEN TO PT Medications aspirin 325 mg oral tablet 325 mg, 1, tablet, By Mouth, Daily, take with 6 to 8 ounces of plain water, # 90 tablet, Refills 0,Tot. Refills 0, Maintenance, 11/15/18 10:39:48 EST, Route to Pharmacy Electronically, [id number], [facility] [address]164 Start Date: 11/15/18 Stop Date: 02/13/19 Status: [...] 5 Refills, Maintenance, 05/29/20 13:47:00 EDT, Gel, [facility][id number], 164, cm, 05/29/20 13:22:00 EDT, Height Start [...] 05/29/20 13:47:00 EDT, Route to Pharmacy Electronically, [facility] #[id number], 164, cm, 05/29/20 13:22:00 EDT, Height Start Date: 05/29/20 Stop Date: 07/24/20 Status: Ordered lisinopril 20 mg oral tablet 20 mg, 1, tablet, By Mouth, Daily, # 90 tablet, Refills 2, Tot. Refills 2, 03/05/20 13:27:00 EDT, Route to Pharmacy Electronically, [facility] #30553, 164, cm, 03/05/20 12:30:00 EDT, Height Start Date: 03/05/20 Status: Ordered lisinopril 20 mg oral tablet 20 mg, 1, tablet, By Mouth, Daily, # 30 tablet, Refills 1, Tot. Refills 1, Maintenance, 02/25/20 11:31:00 EDT, Route to Pharmacy Electronically, [facility] #[id number], 164, cm, 11/28/19 11:37:00 EST, Height Start [...]
--- OUTSIDE RECORDS SUMMARY | 2023-12-28 13:06 | XMS_ITS | Continuity of Care Document ---
Author Organization [facility] Address [address] [place] [address]- Care Team Providers Care Ticket Taker Ferryboat Name Role Phone Markell BARDALES, Priscilla De Jesus Primary Care Physician [facility] [place] Date(s[facility] 10/02/20 - 10/09/20 [facility] [address] [place] [address]- Encounter Diagnosis Cellulitis of arm(Discharge Diagnosis) - 10/02/20 Shoulder pain, right(Discharge Diagnosis) - 10/02/20 Diabetes mellitus type II(Discharge Diagnosis) - 10/02/20 Presence of implanted infusion pump(Discharge Diagnosis) - 10/02/20 Cancer of breast(Discharge Diagnosis) - 10/02/20 Attending Physician: Priscilla Guillaume MD Allergies, Adverse Reactions, Alerts Substance Reaction Severity Status doxycycline Active sulfa drugs itching in mouth Active Augmentin Nausea, vomiting and diarrhea Active Horses Active Other Environmental Allergy 1 Active Nectarine Active [place] Active 1chicken feathers Immunizations Given and Recorded Vaccine Date Status Refusal Reason diphtheria-tetanus toxoids (DT) 1 09/29/08 Given 1Admin Note: INFO GIVEN TO PT Medications acetaminophen 500 mg oral tablet See Instructions, PRN as needed for pain, 1-2 tablet By Mouth 3 times a day, # 100 tablet, 1 Refills, Maintenance, 10/02/20 14:45:00 EST, Tablet, [facility] #[id number], Partial fill upon patient request if the [...] 03/05/20 13:27:00 EDT, Route to Pharmacy Electronically, [facility] #[id number], 164, cm, 03/05/20 12:30:00 EDT, Height Start [...] Active Hx of cocaine abuse- in intermediate accountant remission(Confirmed) Active Hypertension(Confirmed) Active Cancer of breast(Confirmed) Active Mixed hyperlipidemia(Confirmed) Active Obstructive sleep apnea hypo pnea, moderate(Confirmed) Active 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) Active Tubal ligation(Confirmed) 01/13/83 Active Diagnosis Diagnosis Type Effective Dates Health Status Clinical Service Informant Cellulitis of arm Discharge Diagnosis 10/02/20 Shoulder pain, right Discharge Diagnosis 10/02/20 Diabetes mellitus type II Discharge Diagnosis 10/02/20 Presence of implanted infusion pump Discharge Diagnosis 10/02/20 Cancer of breast Discharge Diagnosis 10/02/20 Vital Signs Most recent to oldest [Reference Range]: 1 Height 164.0 cm (10/02/20 1:07 PM) Blood Pressure [90-138/55-84 mm Hg] 130/ 70mm Hg (10/02/20 1:07 PM) Social History Social History Type Response Smoking Status Never (less than 100 in lifetime) entered on: 10/23/18 Sex
--- OUTSIDE RECORDS SUMMARY | 2023-12-28 13:06 | XMS_ITS | Continuity of Care Document ---
Author Organization [facility] Address [address] [place] [address]- Care Team Providers Care Exchange Clerk Name Role Phone Markell BARDALES, Priscilla De Jesus Primary Care Physician ( [phone] En[place] [facility] [place] Date(s): 04/23/21 - 05/23/21 [facility] [address] [place] [address]- Allergies, Adverse Reactions, Alerts Substance Reaction Severity Status doxycycline Active sulfa drugs itching in mouth Active Augmentin Nausea, vomiting and diarrhea Active Horses Active Other Environmental Allergy 1 Active Nectarine Active [place] Active 1chicken feathers Immunizations Given and Recorded Vaccine Date Status Refusal Reason diphtheria-tetanus toxoids (DT) 1 09/29/08 Given 1Admin Note: INFO GIVEN TO PT Medications acetaminophen 500 mg oral tablet See Instructions, PRN as needed for pain, 1-2 tablet By Mouth 3 times a day, # 100 tablet, 1 Refills, Maintenance, 10/02/20 14:45:00 EST, Tablet, [facility][id number], Partial fill upon patient request if the [...] 0 Refills, Soft Stop, 10/23/20 11:51:00 EST, [facility] #[id number], Partialfill upon patient request if the prescription [...] 04/27/21 15:22:00 EDT, Route to Pharmacy Electronically, [facility] #[id number], 164, cm, 12/16/20 8:08:00 EDT, Height Start [...] Active Hx of cocaine abuse- in intermediate designer remission(Confirmed) Active Hypertension(Confirmed) Active Cancer of breast(Confirmed) Active Mixed hyperlipidemia(Confirmed) Active Obstructive sleep apnea hypo pnea, moderate(Confirmed) Active 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) Active Tubal ligation(Confirmed) 01/13/83 Active 1questionable dx, nuclear perfusion study 2015 is ok 2followed by Dr Mcallister Social History Social History Type Response Smoking Status Never (less than 100 in lifetime) entered on: 10/23/18 Sex
--- OUTSIDE RECORDS SUMMARY | 2023-12-28 13:06 | XMS_ITS | Continuity of Care Document ---
Author Organization [facility] Address [address] [place] [address]- Care Team Providers Care Fine Jewelry Sales Associate Name Role Phone Not on Staff, PCP Primary Care Physician Unavail able Encounter [facility] [place] Date(s): 10/17/23 - 11/16/[address] [address]- Allergies, Adverse Reactions, Alerts Substance Reaction Severity Status doxycycline Active sulfa drugs itching in mouth Active Augmentin Nausea, vomiting and diarrhea Active Horses Active Other Environmental Allergy 1 Active Nectarine Active [place] Active 1chicken feathers Immunizations Given and Recorded Vaccine Date Status Refusal Reason diphtheria-tetanus toxoids (DT) 1 09/29/08 Given 1Admin Note: INFO GIVEN TO PT Medications acetaminophen 500 mg oral tablet See Instructions, PRN as needed for pain, 1-2 tablet By Mouth 3 times a day, # 100 tablet, 1 Refills, Maintenance, 10/02/20 14:45:00 EST, Tablet, [facility] #[id number], Partial fill upon patient request if the [...] 0 Refills, Soft Stop, 10/23/20 11:51:00 EST, [facility] #[id number], Partialfill upon patient request if the prescription [...] 04/27/21 15:22:00 EDT, Route to Pharmacy Electronically, [facility] #[id number], 164, cm, 12/16/20 8:08:00 EDT, Height Start [...] Confirmed Active Hx of cocaine abuse- in snf remission Confirmed Active Hypertension Confirmed Active Cancer [...] Personnel Name: Not on Staff, PCP Position: [facility] Physician (General Medicine) Member Role: PCP Care Team Related Persons Name: STACY LUEVANO Address: home [address] [place] [id number] Name: JANINE CONRAD Address: home [address] [place] [id number]
--- OUTSIDE RECORDS SUMMARY | 2023-12-28 13:07 | XMS_ITS | Continuity of Care Document ---
Author Organization [facility] Address [address] [place] [address]- Care Team Providers Care Truck Leasing Manager Name Role Phone Markell BARDALES, Priscilla De Jesus Primary Care Physician Encounter [facility] Date(s): 08/11/20 - 09/10/20 [facility] [address] [place] [address]- Allergies, Adverse Reactions, Alerts Substance Reaction Severity Status doxycycline Active sulfa drugs itching in mouth Active Augmentin Nausea, vomiting and diarrhea Active Horses Active Other Environmental Allergy 1 Active Nectarine Active [place] Active 1chicken feathers Immunizations Given and Recorded [...] 5 Refills, Maintenance, 05/29/20 13:47:00 EDT, Gel, [facility] #[id number], 164, cm, 05/29/20 13:22:00 EDT, Height Start [...] 03/05/20 13:27:00 EDT, Route to Pharmacy Electronically, [facility] #[id number], 164, cm, 03/05/20 12:30:00 EDT, Height Start [...] in Diabetes(Confirmed) Active Tubal ligation(Confirmed) 01/13/83 Active Vital Signs Most recent to oldest [Reference Range]: 1 Blood Pressure [90-138/55-84 mm Hg] 120/ 62mm Hg (07/16/20 9:23 AM) Social History Social History Type Response Smoking Status Never (less than 100 in lifetime) entered on: 10/23/18 Sex
--- OUTSIDE RECORDS SUMMARY | 2023-12-28 13:07 | XMS_ITS | Continuity of Care Document ---
Author Organization [facility] Address [address] [place] [address]- Care Team Providers Care Air Chipper Name Role Phone Markell BARDALES, Priscilla De Jesus Primary Care Physician Encounter [facility] [place] Date(s): 07/10/20 - 07/17/20 [facility] [address] [place] [address]- [facility] Attending Physician: Markell BARDALES, Priscilla De Jesus Allergies, Adverse Reactions, Alerts Substance Reaction Severity Status doxycycline Active sulfa drugs itching in mouth Active Augmentin Nausea, vomiting and diarrhea Active Horses Active Other Environmental Allergy 1 Active Nectarine Active [place] Active 1chicken feathers Immunizations Given and Recorded Vaccine Date Status Refusal Reason diphtheria-tetanus toxoids (DT) 1 09/29/08 Given 1Admin Note: INFO GIVEN TO PT Medications aspirin 325 mg oral tablet 325 mg, 1, tablet, By Mouth, Daily, take with 6 to 8 ounces of plain water, # 90 tablet, Refills 0,Tot. Refills 0, Maintenance, 11/15/18 10:39:48 EST, Route to Pharmacy Electronically, [id number], [facility] [id number] Start Date: 11/15/18 Stop Date: 02/13/19 Status: [...] 5 Refills, Maintenance, 05/29/20 13:47:00 EDT, Gel, [id number], 164, cm, 05/29/20 13:22:00 EDT, Height Start [...] 05/29/20 13:47:00 EDT, Route to Pharmacy Electronically, [facility] #[id number], 164, cm, 05/29/20 13:22:00 EDT, Height Start Date: 05/29/20 Stop Date: 07/24/20 Status: Ordered lisinopril 20 mg oral tablet 20 mg, 1, tablet, By Mouth, Daily, # 90 tablet, Refills 2, Tot. Refills 2, 03/05/20 13:27:00 EDT, Route to Pharmacy Electronically, [facility] #[id number], 164, cm, 03/05/20 12:30:00 EDT, Height Start Date: 03/05/20 Status: Ordered lisinopril 20 mg oral tablet 20 mg, 1, tablet, By Mouth, Daily, # 30 tablet, Refills 1, Tot. Refills 1, Maintenance, 02/25/20 11:31:00 EDT, Route to Pharmacy Electronically, [facility] #[id number], 164, cm, 11/28/19 11:37:00 EST, Height Start [...]
--- OUTSIDE RECORDS SUMMARY | 2023-12-28 13:07 | XMS_ITS | Continuity of Care Document ---
Author Organization [facility] Address [address] [place] [address]- Care Team Providers Care Test Consultant Name Role Phone Markell BARDALES, Priscilla De Jesus Primary Care Physician En[facility] [place] Date(s): 09/20/21 - 10/20/21 [facility] [address] [place] [address]- Allergies, Adverse Reactions, Alerts Substance Reaction Severity Status doxycycline Active sulfa drugs itching in mouth Active Augmentin Nausea, vomiting and diarrhea Active Horses Active Other Environmental Allergy 1 Active Nectarine Active [place] Active 1chicken feathers Immunizations Given and Recorded Vaccine Date Status Refusal Reason diphtheria-tetanus toxoids (DT) 1 09/29/08 Given 1Admin Note: INFO GIVEN TO PT Medications acetaminophen 500 mg oral tablet See Instructions, PRN as needed for pain, 1-2 tablet By Mouth 3 times a day, # 100 tablet, 1 Refills, Maintenance, 10/02/20 14:45:00 EST, Tablet, [facility] #[id number], Partial fill upon patient request if the [...] 0 Refills, Soft Stop, 10/23/20 11:51:00 EST, [facility] #[id number], Partialfill upon patient request if the prescription [...] 04/27/21 15:22:00 EDT, Route to Pharmacy Electronically, [facility] #[id number], 164, cm, 12/16/20 8:08:00 EDT, Height Start [...] recurrent(Confirmed) Active Hx of cocaine abuse- in ad terminal makeup operator remission(Confirmed) Active Hypertension(Confirmed) Active Cancer of breast(Confirmed) Active Mixed hyperlipidemia(Confirmed) Active Obstructive sleep apnea hypo pnea, moderate(Confirmed) Active 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) Active Tubal ligation(Confirmed) 01/13/83 Active 1questionable dx, nuclear perfusion study 2015 is ok 2followed by Dr Mcallister Social History Social History Type Response Smoking Status Never (less than 100 in lifetime) entered on: 10/23/18 Sex
--- OUTSIDE RECORDS SUMMARY | 2023-12-28 13:07 | XMS_ITS | Continuity of Care Document ---
Author Organization [facility] Address [address] [place] [address]- Care Team Providers Care Reading Intervention Teacher Name Role Phone Kamilah BARDALES, Primo Rogers Primary Care Physician [phone] [facility] [place] [place] [facility] [id number] Date(s): 02/14/20 - 03/15/20 [facility] [address] [place] [address]- [facility] Attending Physician: Jan Arauz Admitting Physician: AdmJan lobo Referring Physician: AdmtrJan Allergies, Adverse Reactions, Alerts Substance Reaction Severity Status doxycycline Active sulfa drugs itching in mouth Active Augmentin Nausea, vomiting and diarrhea Active Horses Active Other Environmental Allergy 1 Active Nectarine Active [place] Active 1chicken feathers Immunizations Given and Recorded Vaccine Date Status Refusal Reason diphtheria-tetanus toxoids (DT) 1 09/29/08 Given 1Admin Note: INFO GIVEN TO PT Medications aspirin 325 mg oral tablet 325 mg, 1, tablet, By Mouth, Daily, take with 6 to 8 ounces of plain water, # 90 tablet, Refills 0,Tot. Refills 0, Maintenance, 11/15/18 10:39:48 EST, Route to Pharmacy Electronically, [id number], [facility] [id number] Start Date: 11/15/18 Stop Date: 02/13/19 Status: [...] InstructionsReplace Required Details, Route to Pharmacy Electronically, [facility] #[id number], 164, cm, 11/28/19 11:37:00 EST, Height Start Date: 02/26/20 Status: Ordered lisinopril 20 mg oral tablet 20 mg, 1, tablet, By Mouth, Daily, # 90 tablet, Refills 2, Tot. Refills 2, 03/05/20 13:27:00 EDT, Route to Pharmacy Electronically, [facility] #74906, 164, cm, 03/05/20 12:30:00 EDT, Height Start Date: 03/05/20 Status: Ordered lisinopril 20 mg oral tablet 20 mg, 1, tablet, By Mouth, Daily, # 30 tablet, Refills 1, Tot. Refills 1, Maintenance, 02/25/20 11:31:00 EDT, Route to Pharmacy Electronically, [facility] #[id number], 164, cm, 11/28/19 11:37:00 EST, Height Start [...]
--- OUTSIDE RECORDS SUMMARY | 2023-12-28 13:07 | XMS_ITS | Continuity of Care Document ---
Author Organization [facility] Address [address] [place] [address]- Care Team Providers Care Food Safety Scientist Name Role Phone Monique Boswell DOsir Primary Care Physician [phone] Encounter [facility] [place] Date(s): 06/03/20 - 07/03/20 [facility] [address] [place] [address]- [facility] Allergies, Adverse Reactions, Alerts Substance Reaction Severity Status doxycycline Active sulfa drugs itching in mouth Active Horses Active Other Environmental Allergy 1 Active Nectarine Active [place] Active Augmentin Nausea, vomiting and diarrhea Active [...] 11/15/18 10:39:48 EST, Route to Pharmacy Electronically, [id number], [facility] [address] Start Date: 11/15/18 Stop Date: 02/13/19 Status: [...] 5 Refills, Maintenance, 05/29/20 13:47:00 EDT, Gel, [id number], 164, cm, 05/29/20 13:22:00 EDT, Height Start [...] 05/29/20 13:47:00 EDT, Route to Pharmacy Electronically, [facility] #[id number], 164, cm, 05/29/20 13:22:00 EDT, Height Start Date: 05/29/20 Stop Date: 07/24/20 Status: Ordered lisinopril 20 mg oral tablet 20 mg, 1, tablet, By Mouth, Daily, # 90 tablet, Refills 2, Tot. Refills 2, 03/05/20 13:27:00 EDT, Route to Pharmacy Electronically, [facility] #[id number], 164, cm, 03/05/20 12:30:00 EDT, Height Start Date: 03/05/20 Status: Ordered lisinopril 20 mg oral tablet 20 mg, 1, tablet, By Mouth, Daily, # 30 tablet, Refills 1, Tot. Refills 1, Maintenance, 02/25/20 11:31:00 EDT, Route to Pharmacy Electronically, [facility] #[id number], 164, cm, 11/28/19 11:37:00 EST, Height Start [...]
--- OUTSIDE RECORDS SUMMARY | 2023-12-28 13:07 | XMS_ITS | Continuity of Care Document ---
Author Organization [facility] Address [address] [place] [address]- Care Team Providers Care Self Propelled Mining Machine Operator Name Role Phone Markell BARDALES, Priscilla De Jesus Primary Care Physician Encounter [facility] [place] Date(s): 12/16/20 - 12/23/20 [facility] [address] [place] [address]- Encounter Diagnosis Cancer of breast- followed by oncology [facility], Dr Yang(Discharge Diagnosis) - 12/16/20 Diabetes mellitus type II-followed by Dr Mcallister(Discharge Diagnosis) - 12/16/20 Shoulder pain, right(Discharge Diagnosis) - 12/16/20 Diabetic nephropathy(Discharge Diagnosis) - 12/16/20 Cardiomyopathy- questionable dx, nuclear perfusion study 2016 is ok(Discharge Diagnosis) - 12/16/20 CVA (cerebrovascular accident)(Discharge Diagnosis) - 12/16/20 Hypertension(Discharge Diagnosis) - 12/16/20 Attending Physician: Markell BARDALES, Priscilla De Jesus [...] 1 Refills, Maintenance, 10/02/20 14:45:00 EST, Tablet, [facility] #36689, Partial fill upon patient request if the [...] 0 Refills, Soft Stop, 10/23/20 11:51:00 EST, [facility] #35897, Partialfill upon patient request if the prescription [...] 03/05/20 13:27:00 EDT, Route to Pharmacy Electronically, [facility] #[id number], 164, cm, 03/05/20 12:30:00 EDT, Height Start [...] recurrent(Confirmed) Active 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(Confirmed) Active Hypertension(Confirmed) Active Cancer of breast(Confirmed) Active Mixed hyperlipidemia(Confirmed) Active Obstructive sleep apnea hypo pnea, moderate(Confirmed) Active 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) Active Tubal ligation(Confirmed) 01/13/83 Active 1questionable dx, nuclear perfusion study 2016 is ok 2followed by Dr Mcallister Diagnosis Diagnosis Type Effective Dates Health Status Clinical Service Informant Cancer of breast- followed by oncology [facility], Dr Yang 1 Discharge Diagnosis 12/16/20 Non-Specified Diabetes mellitus type II-followed by Dr Mcallister Discharge Diagnosis 12/16/20 Shoulder pain, right Discharge Diagnosis 12/16/20 Diabetic nephropathy Discharge Diagnosis 12/16/20 Cardiomyopathy- questionable dx, nuclear perfusion study 2016 is ok Discharge Diagnosis 12/16/20 CVA (cerebrovascular accident) Discharge Diagnosis 12/16/20 Hypertension Discharge Diagnosis 12/16/20 8:34 EDT - Markell BARDALES, Priscilla De Jesus [facility] Vital Signs Most recent to oldest [Reference Range]: 1 2 Height 164.0 cm (12/16/20 8:08 AM) 164.0 cm (12/15/20 3:50 PM) Social History Social History Type Response Smoking Status Never (less than 100 in lifetime) entered on: 10/23/18 Sex
--- OUTSIDE RECORDS SUMMARY | 2023-12-28 13:07 | XMS_ITS | Continuity of Care Document ---
Author Organization [facility] Address [address] [place] [address]- Care Team Providers Care Heating And Cooling Systems Engineer Name Role Phone Markell BARDALES, Priscilla De Jesus Primary Care Physician En[facility] [place] Date(s): 04/23/21 - 05/23/21 [facility] [address] [place], [place] [address] Encounter Diagnosis Claudication(Discharge Diagnosis) - 07/21/19 Attending Physician: Jan Arauz Admitting Physician: Jan Arauz Referring Physician: AdmtrJan Allergies, Adverse Reactions, Alerts Substance Reaction Severity Status doxycycline Active sulfa drugs itching in mouth Active Augmentin Nausea, vomiting and diarrhea Active Horses Active Other Environmental Allergy 1 Active Nectarine Active [place] Active 1chicken feathers Immunizations Given and Recorded Vaccine Date Status Refusal Reason diphtheria-tetanus toxoids (DT) 1 09/29/08 Given 1Admin Note: INFO GIVEN TO PT Medications acetaminophen 500 mg oral tablet See Instructions, PRN as needed for pain, 1-2 tablet By Mouth 3 times a day, # 100 tablet, 1 Refills, Maintenance, 10/02/20 14:45:00 EST, Tablet, [facility] #[id number], Partial fill upon patient request if the [...] 0 Refills, Soft Stop, 10/23/20 11:51:00 EST, [facility] #[id number], Partialfill upon patient request if the prescription [...] 04/27/21 15:22:00 EDT, Route to Pharmacy Electronically, [facility] #[id number], 164, cm, 12/16/20 8:08:00 EDT, Height Start [...] M25.551, 06/30/20 10:42:00 EDT, Supply Start Date: 10/6/20 Status: Ordered Problem List Condition Effective Dates [...] recurrent(Confirmed) Active Hx of cocaine abuse- in jail remission(Confirmed) Active Hypertension(Confirmed) Active Cancer of breast(Confirmed) [...]
--- OUTSIDE RECORDS SUMMARY | 2023-12-28 13:07 | XMS_ITS | Continuity of Care Document ---
Author Organization [facility] Address [address] [place] [address]- Care Team Providers Care Protohistorian Name Role Phone Primo Triana MD Primary Care Physician [place] [facility] [place](s[place] 10/15/19 - 11/21/19 [facility] [address] [place] [address]- [facility] Attending Physician: Primo Triana MD Allergies, Adverse Reactions, Alerts Substance Reaction Severity Status doxycycline Active sulfa drugs itching in mouth Active Augmentin Nausea, vomiting and diarrhea Active Horses Active Other Environmental Allergy 1 Active Nectarine Active [place] Active 1chicken feathers Immunizations Given and Recorded Vaccine Date Status Refusal Reason diphtheria-tetanus toxoids (DT) 1 09/29/08 Given 1Admin Note: INFO GIVEN TO PT Medications aspirin 325 mg oral tablet 325 mg, 1, tablet, By Mouth, Daily, take with 6 to 8 ounces of plain water, # 90 tablet, Refills 0,Tot. Refills 0, Maintenance, 11/15/18 10:39:48 EST, Route to Pharmacy Electronically, [id number], [facility] [id number] Start Date: 11/15/18 Stop Date: 02/13/19 Status: [...] tablet, By Mouth, Every 8 hours, for 7 days, # 21 tablet, Refills 0, Tot. Refills 0, Acute 11/28/19 18:14:00 EST, 11/21/19 18:14:00 EST, [facility] to [facility]acy Electronically, [id number], 164, cm, 08/29/19 11:05:00 EST, Height Start Date: 11/21/19 Stop Date: 11/28/19 Status: Ordered lisinopril 20 mg oral tablet 20 mg, 1, tablet, By Mouth, Daily, # 30 tablet, Refills 5, Tot. Refills 5, Maintenance, 11/06/19 14:52:00 EST, Route to Pharmacy Electronically, [facility] #31802, 164, cm, 08/29/19 11:05:00 EST, Height Start [...]
--- OUTSIDE RECORDS SUMMARY | 2023-12-28 13:07 | XMS_ITS | Continuity of Care Document ---
Author Organization [facility] Address [address], [address], [address] [place] [address]- Care Team Providers Care Kiln Tester Name Role Phone Kamilah BARDALES, Primo Rogres Primary Care Physician [phone] Encounter [facility] Date(s): 04/13/20 - 05/13/20 [facility] [address], [address], [address] [place] [address]- [facility] Allergies, Adverse Reactions, Alerts Substance Reaction Severity Status doxycycline Active sulfa drugs itching in mouth Active Augmentin Nausea, vomiting and diarrhea Active Horses Active Other Environmental Allergy 1 Active Nectarine Active [place] Active 1chicken feathers Immunizations Given and Recorded Vaccine Date Status Refusal Reason diphtheria-tetanus toxoids (DT) 1 09/29/08 Given 1Admin Note: INFO GIVEN TO PT Medications aspirin 325 mg oral tablet 325 mg, 1, tablet, By Mouth, Daily, take with 6 to 8 ounces of plain water, # 90 tablet, Refills 0,Tot. Refills 0, Maintenance, 11/15/18 10:39:48 EST, Route to Pharmacy Electronically, [id number], [facility] [address] Start Date: 11/15/18 Stop Date: 02/13/19 Status: [...] InstructionsReplace Required Details, Route to Pharmacy Electronically, [facility] #[id number], 164, cm, 11/28/19 11:37:00 EST, Height Start Date: 02/26/20 Status: Ordered lisinopril 20 mg oral tablet 20 mg, 1, tablet, By Mouth, Daily, # 90 tablet, Refills 2, Tot. Refills 2, 03/05/20 13:27:00 EDT, [facility] to Pharm[facility] Electronically, [id number], 164, cm, 03/05/20 12:30:00 EDT, Height Start Date: 03/05/20 Status: Ordered lisinopril 20 mg oral tablet 20 mg, 1, tablet, By Mouth, Daily, # 30 tablet, Refills 1, Tot. Refills 1, Maintenance, 02/25/20 11:31:00 EDT, Route to Pharmacy Electronically, [facility] #62781, 164, cm, 11/28/19 11:37:00 EST, Height Start [...]
--- OUTSIDE RECORDS SUMMARY | 2023-12-28 13:07 | XMS_ITS | Continuity of Care Document ---
Author Organization [facility] Address [address] [place] [address]- Care Team Providers Care Animal Laboratory Technician Name Role Phone Not on Staff, PCP Primary Care Physician Unavail able Encounter [facility] [place] Date(s): 03/10/22 - 04/09/22 [facility] [address] [place] [address]- Allergies, Adverse Reactions, Alerts Substance Reaction Severity Status doxycycline Active sulfa drugs itching in mouth Active Augmentin Nausea, vomiting and diarrhea Active Horses Active Other Environmental Allergy 1 Active Nectarine Active [place] Active 1chicken feathers Immunizations Given and Recorded Vaccine Date Status Refusal Reason diphtheria-tetanus toxoids (DT) 1 09/29/08 Given 1Admin Note: INFO GIVEN TO PT Medications acetaminophen 500 mg oral tablet See Instructions, PRN as needed for pain, 1-2 tablet By Mouth 3 times a day, # 100 tablet, 1 Refills, Maintenance, 10/02/20 14:45:00 EST, Tablet, [facility] #[id number], Partial fill upon patient request if the [...] 0 Refills, Soft Stop, 10/23/20 11:51:00 EST, [facility] #99196, Partialfill upon patient request if the prescription [...] 04/27/21 15:22:00 EDT, Route to Pharmacy Electronically, [facility][id number], 164, cm, 12/16/20 8:08:00 EDT, Height Start [...] recurrent(Confirmed) Active Hx of cocaine abuse- in medical terminologist remission(Confirmed) Active Hypertension(Confirmed) Active Cancer of breast(Confirmed) Active Mixed hyperlipidemia(Confirmed) Active Obstructive sleep apnea hypo pnea, moderate(Confirmed) Active 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) Active Tubal ligation(Confirmed) 01/13/83 Active 1questionable dx, nuclear perfusion study 2016 is ok 2followed by Dr Mcallister Social History Social History Type Response Smoking Status Never (less than 100 in lifetime) entered on: 10/23/18 Sex
--- OUTSIDE RECORDS SUMMARY | 2023-12-28 13:07 | XMS_ITS | Continuity of Care Document ---
Author Organization [facility] Address [address] [place] [address]- Care Team Providers Care Culinary Intern Name Role Phone Markell BARDALES, Priscilla De Jesus Primary Care Physician [place] [facility] [place] - 10/16/20 [facility] [address] [place] [address]- Attending Physician: Markell BARDALES, Priscilla De Jesus Allergies, Adverse Reactions, Alerts Substance Reaction Severity Status doxycycline Active sulfa drugs itching in mouth Active Augmentin Nausea, vomiting and diarrhea Active Horses Active Other Environmental Allergy 1 Active Nectarine Active [place] Active 1chicken feathers Immunizations Given and Recorded Vaccine Date Status Refusal Reason diphtheria-tetanus toxoids (DT) 1 09/29/08 Given 1Admin Note: INFO GIVEN TO PT Medications acetaminophen 500 mg oral tablet See Instructions, PRN as needed for pain, 1-2 tablet By Mouth 3 times a day, # 100 tablet, 1 Refills, Maintenance, 10/02/20 14:45:00 EST, Tablet, [facility] #[id number], Partial fill upon patient request if the [...] 03/05/20 13:27:00 EDT, Route to Pharmacy Electronically, [facility] #[id number], 164, cm, 03/05/20 12:30:00 EDT, Height Start [...] recurrent(Confirmed) Active Hx of cocaine abuse- in middle or intermediate school principal remission(Confirmed) Active Hypertension(Confirmed) Active Cancer of breast(Confirmed) Active Mixed hyperlipidemia(Confirmed) Active Obstructive sleep apnea hypo pnea, moderate(Confirmed) Active 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
--- OUTSIDE RECORDS SUMMARY | 2023-12-28 13:07 | XMS_ITS | Continuity of Care Document ---
Author Organization [facility] Address [address] [place] [address]- Care Team Providers Care Industrial Pharmacist Name Role Phone Markell BARDALES, Priscilla De Jesus Primary Care Physician Encounter [facility] [place] Date(s): 06/16/20 - 07/16/20 [facility] [address] [place] [address]- [facility] Allergies, Adverse Reactions, Alerts Substance Reaction Severity Status doxycycline Active sulfa drugs itching in mouth Active Augmentin Nausea, vomiting and diarrhea Active Horses Active Other Environmental Allergy 1 Active Nectarine Active [place] Active 1chicken feathers Immunizations Given and Recorded Vaccine Date Status Refusal Reason diphtheria-tetanus toxoids (DT) 1 09/29/08 Given 1Admin Note: INFO GIVEN TO PT Medications aspirin 325 mg oral tablet 325 mg, 1, tablet, By Mouth, Daily, take with 6 to 8 ounces of plain water, # 90 tablet, Refills 0,Tot. Refills 0, Maintenance, 11/15/18 10:39:48 EST, Route to Pharmacy Electronically, [id number], [facility] [id number] Start Date: 11/15/18 Stop Date: 02/13/19 Status: [...] Refills, Maintenance, 05/29/20 13:47:00 EDT, Gel, [id number], 164, cm, 05/29/20 13:22:00 EDT, Height Start [...] 05/29/20 13:47:00 EDT, Route to Pharmacy Electronically, [facility] #[id number], 164, cm, 05/29/20 13:22:00 EDT, Height Start Date: 05/29/20 Stop Date: 07/24/20 Status: Ordered lisinopril 20 mg oral tablet 20 mg, 1, tablet, By Mouth, Daily, # 90 tablet, Refills 2, Tot. Refills 2, 03/05/20 13:27:00 EDT, Route to Pharmacy Electronically, [facility] #[id number], 164, cm, 03/05/20 12:30:00 EDT, Height Start Date: 03/05/20 Status: Ordered lisinopril 20 mg oral tablet 20 mg, 1, tablet, By Mouth, Daily, # 30 tablet, Refills 1, Tot. Refills 1, Maintenance, 02/25/20 11:31:00 EDT, Route to Pharmacy Electronically, [facility] #[id number], 164, cm, 11/28/19 11:37:00 EST, Height Start [...]
--- OUTSIDE RECORDS SUMMARY | 2023-12-28 13:07 | XMS_ITS | Continuity of Care Document ---
Author Organization [facility] Address [address] [place] [address]- Care Team Providers Care Public Service Administrator Name Role Phone Markell BARDALES, Priscilla De Jesus Primary Care Physician Encounter [facility] Date(s): 08/03/20 - 09/02/20 [facility] [address] [place] [address]- Allergies, Adverse Reactions, Alerts Substance Reaction Severity [...] 5 Refills, Maintenance, 05/29/20 13:47:00 EDT, Gel, [facility] #[id number], 164, cm, 05/29/20 13:22:00 EDT, Height Start [...] 03/05/20 13:27:00 EDT, Route to Pharmacy Electronically, [facility] #[id number], 164, cm, 03/05/20 12:30:00 EDT, Height Start [...] recurrent(Confirmed) Active Hx of cocaine abuse- in technician terminal and repeater remission(Confirmed) Active Hypertension(Confirmed) Active Cancer of breast(Confirmed) Active Mixed hyperlipidemia(Confirmed) Active Obstructive sleep apnea hypo pnea, moderate(Confirmed) Active 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) Active Tubal ligation(Confirmed) 01/13/83 Active Social History Social History Type Response Smoking Status Never (less than 100 in lifetime) entered on: 10/23/18 Sex
--- OUTSIDE RECORDS SUMMARY | 2023-12-28 13:07 | XMS_ITS | Continuity of Care Document ---
Author Organization [facility] Address [address] [place] [address]- Care Team Providers Care Net Coordinator Name Role Phone Kamilah BARDALES, Primo Rogers Primary Care Physician [phone] Encounter [facility] [place] Date(s): 11/28/19 - 12/08/19 [facility] [address] [place] [address]- [place] [facility] Encounter Diagnosis Claudication(Discharge Diagnosis) - 07/21/19 Attending Physician: Jan Arauz Admitting Physician: Jan Arauz Referring Physician: Jan Arauz Allergies, Adverse Reactions, Alerts Substance Reaction Severity Status doxycycline Active Other Environmental Allergy 1 Active Nectarine Active sulfa drugs itching in mouth Active Augmentin Nausea, vomiting and diarrhea Active Horses Active [place] Active 1chicken feathers Immunizations Given and Recorded Vaccine Date Status Refusal Reason diphtheria-tetanus toxoids (DT) 1 09/29/08 Given 1Admin Note: INFO GIVEN TO PT Medications aspirin 325 mg oral tablet 325 mg, 1, tablet, By Mouth, Daily, take with 6 to 8 ounces of plain water, # 90 tablet, Refills 0,Tot. Refills 0, Maintenance, 11/15/18 10:39:48 EST, Route to Pharmacy Electronically, [id number], [id number] Start Date: 11/15/18 Stop Date: 02/13/19 Status: [...] 11/27/19 17:40:00 EST, Route to Pharmacy Electronically, [facility] #[id number], 164, cm, 08/29/19 11:05:00 EST, Height Start Date: 11/27/19 Status: Ordered lisinopril 20 mg oral tablet 20 mg, 1, tablet, By Mouth, Daily, # 30 tablet, Refills 5, Tot. Refills 5, Maintenance, 11/06/19 14:52:00 EST, Route to Pharmacy Electronically, [facility] #[id number], 164, cm, 08/29/19 11:05:00 EST, Height Start [...]
== END 2023-12-28 13:53 | disposition home or self-care (01) ==
LOC: HO.HWS 13:03
PROVIDERS: PCP Physician Assistant; Visit Provider Obstetrics & Gynecology
DX: N95.0 Postmenopausal bleeding (principal)
CPT/HCPCS: 99211

== ENCOUNTER → 2023-12-28 13:03 | Outpatient (BNVA) | payer MEDICARE, MEDICAID, SELFPAY | PROVIDERS: PCP Physician Assistant; Visit Provider Obstetrics & Gynecology ==

== ENCOUNTER → 2024-01-10 13:12 | Outpatient (BNVA) | payer MEDICARE, MEDICAID, SELFPAY | PROVIDERS: PCP Physician Assistant; Visit Provider Obstetrics & Gynecology ==

== ENCOUNTER 2024-02-13 14:25 | Outpatient (AMB) | payer MEDICARE, MEDICAID, SELFPAY ==
--- NOTE | 2024-02-13 14:26 | MHC.PC.OV ---
Intake Visit Reasons: f/u telehealth- postmenopausal bleeding Zoology Professor Required: No Accompanied by: Self / Same As Patient Allergies insulin lispro [Humalog U-100 Insulin] Allergy (Unknown, Verified 02/13/24 14:) redness and itching doxycycline Allergy (Verified 02/13/24 14:26) Unknown horse dander Allergy (Verified 02/13/24 14:26) Unknown peach Allergy (Verified 02/13/24 14:) Unknown plum Allergy (Verified 02/13/24 14:) Unknown ragweed pollen Allergy (Verified 02/13/24 14:26) Unknown Sulfa (Sulfonamide Antibiotics) Allergy (Verified 02/13/24 14:) Unknown tramadol Adverse Reaction (Intermediate, Verified 02/13/24 14:) Depression Doxycycline Hyclate Allergy (Unknown, Uncoded 02/13/24 14:) Unknown Tobacco use date assessed: 11/28/23 Fall risk assessment: No Falls in past year Last assessed Fall Risk: 02/13/24 Dental Screening Dental Screen Date: 12/19/23 HPI f/u telehealth- postmenopausal bleeding HPI Details Patient is a 63 old female being evaluated via telephone today for a 3 week follow-up visit. At last visit we did discuss her postmenopausal bleeding was sent for pelvic ultrasound that did show Markedly abnormal endometrium with thickness of 37 mm and complex appearance with multiple cystic spaces. Neoplastic and nonneoplastic etiologies should be considered. Postmenopausal bleeding--> has followed up with dictionary editor specialty, She has reservations about having biopsy done due to concerns of pain after the procedure and transportation. Spoke to STAPLE SHEAR OPERATOR speacialty and declines biopsy/ hysterecyom and radiation. Now has hospice/ palative care and is on pain medication to help keep her comfortable. [facility] Medical History Malignant neoplasm of central portion of right female breast Type 2 diabetes mellitus with microalbuminuria, without long-term current use of insulin Rotator cuff tear, right History of stroke with current residual effects FH: mastectomy CVA (cerebral vascular accident) Surgical History Hx of lumpectomy S/P right mastectomy Social History Household Members: None Housing: House Do you presently have visiting nurse or other home services: No Comment: sleeping Patient Tobacco Use Status: Never used Tobacco e-Cigarette/Vaping Use: Never Used Substance Use Type: Marijuana service: No Current occupational status: retired Cognitive needs: No Hearing needs: No Vision needs: No Questionnaire Thrive Questionnaire Date Thrive assessed: 11/28/23 GRACIELA-7 AMB Questionnaire GRACIELA-7 Date GRACIELA - 7 assessed: 11/28/23 Source: Developed by Drs. Fede Byrd, Alisia Tee, Manjinder Garcia and colleagues, with an educational inez from [employer]. Review of Systems Const Denies headache(s) Eyes Denies loss of vision ENT Denies vertigo, Denies dizziness, Denies headache(s) and Denies sore throat Card Denies chest pain, Denies leg edema and Denies lightheadedness Resp Denies cough, Denies hemoptysis and Denies wheezing GI Denies abdominal pain, Denies melena, Denies constipation, Denies diarrhea and Denies vomiting Denies urinary frequency, Denies dysuria and Denies urinary urgency Musc Denies arthralgias, Denies joint swelling, Denies numbness and Denies tingling Neuro Denies behavioral changes, Denies vertigo, Denies dizziness, Denies headache(s), Denies loss of vision, Denies memory loss, Denies numbness and Denies tingling Psych Denies anxiety, Denies behavioral changes, Denies depression, Denies memory loss and Denies panic attacks Raheem/Lymph Denies easy bleeding and Denies easy bruising Aller/Immun Denies wheezing Physical exam (Primary Care) Tobacco/Smoking Status: Tobacco use Status Tobacco use date assessed 11/28/23 02/13/24 14:35 Patient Tobacco Use Status Never used Tobacco 02/13/24 14:35 e-Cigarette/Vaping Use Never Used 02/13/24 14:35 Thrive Assessment: Date of Thrive Assessment Date Thrive assessed 11/28/23 02/13/24 14:35 Telehealth Telehealth Telehealth Platform: Telephone Location of provider rendering services: practice address Location of patient: other Patient Identification confirmed using: Name, : Yes Telehealth method: voice only Patient verbally consented to treatment: Yes Patient verbally consented to billing insurance company: Yes Patient informed of any privacy concerns related to visit: Yes Minutes spent on Phone/Video with Pt.: 11 Assessment and Plan Assessment & Plan (1) Endometrial thickening on ultrasound: Code(s): R93.89 - Abnormal findings on diagnostic imaging of other specified body structures Plan: Has been having postmenopausal bleeding over the last several months.. Patient had pelvic ultrasound showing Markedly abnormal endometrium with thickness of 37 mm and complex appearance with multiple cystic spaces. Neoplastic and nonneoplastic etiologies should be considered. Has followed up with STAPLE SHEAR OPERATOR and declines any biopsy/ hysterectomy or radiation. Now on Hospice and getting care at home. Coding Level of Care Code Tele Est Pt Level 3 (67049) Diagnoses Endometrial thickening on ultrasound R93.89
== END 2024-02-13 15:36 | disposition home or self-care (01) ==
LOC: HO.HMGH 14:25
PROVIDERS: PCP Physician Assistant; Visit Provider Physician Assistant
DX: N95.0 Postmenopausal bleeding (principal); R93.89 Abnormal findings on diagnostic imaging of other specified body structures
CPT/HCPCS: 99442

== ENCOUNTER 2024-02-19 10:52 | Inpatient (IN) | payer OTHER, SELFPAY ==
[2024-02-19 11:04] VITALS: BP 158/96; BP 171/79; PULSE 102; PULSE 78; RESP 20; TEMP 36.7; O2SAT 97; O2SAT 98; BMI 23.2
--- OUTSIDE RECORDS SUMMARY | 2024-02-19 12:29 | XMS_ITS | Continuity of Care Document ---
Author Organization [facility] Address [address] [place] [id number]- Care Team Providers Care Molding Technician Name Role Phone Not on Staff, PCP Primary Care Physician Unavail able Encounter [facility] [place] Date(s): 12/19/23 - 01/18/[address] [address]- Allergies, Adverse Reactions, Alerts Substance Reaction Severity Status doxycycline Active Horses Active Nectarine Active [place] Active Other Environmental Allergy 1 Active sulfa [...] 1 Refills, Maintenance, 10/02/20 14:45:00 EST, Tablet, [facility] #[id number], Partial fill upon patient request if the [...] 0 Refills, Soft Stop, 10/23/20 11:51:00 EST, [facility] #[id number], Partialfill upon patient request if the prescription [...] 04/27/21 15:22:00 EDT, Route to Pharmacy Electronically, [facility] #[id number], 164, cm, 12/16/20 8:08:00 EDT, Height Start [...] Confirmed Active 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
--- NOTE | 2024-02-19 12:38 | ED.GENADULT ---
HPI - General Adult General Chief complaint: General Medical Stated complaint: PAIN D/T [facility] PER EMS Time Seen by Provider: 02/19/24 11:12 Source: patient Mode of arrival: EMS History of Present Illness ED Provider: Dr De Jesus HPI narrative: 63-year-old female with known malignancy, currently on hospice arrives via EMS stating that she is unable to get comfortable at home, now can no longer lie flat without significant amount of pain and was scared because this morning she felt confused but denies any other fevers, chills. She does note decreased appetite and energy level. Her grandson is her primary caregiver. Related Data Home Medications ?Medication ?Instructions ?Recorded ?Confirmed cranberry extract 200 mg capsule 200 mg PO DAILY 11/22/23 02/19/24 pen needle, diabetic 32 gauge x #1,200 ea 11/22/23 12/19/23 (UltiCare Pen Needle) insulin regular hum U-500 conc 500 30 unit subcut QAM 11/28/23 12/19/23 unit/mL(3 mL) subcut pen (Humulin R U-500 (Conc) Insulin Kwikpen) lancets 28 gauge (Prodigy Twist #100 ea 11/28/23 12/19/23 Top Lancet) Lactobacillus rhamnosus GG 10 1 cap PO DAILY 02/13/24 billion cell-inulin 200 mg capsule ([facility] [employer] [facility]) blood sugar diagnostic (OneTouch #10 ea 02/13/24 Verio test strips) blood-glucose meter (OneTouch #1 ea 02/13/24 Verio Flex Meter) ibuprofen 600 mg tablet 200 mg PO Q8H PRN pain 02/13/24 02/19/24 lorazepam 0.5 mg tablet 0.5 mg PO Q4H PRN Anxiety 02/13/24 02/19/24 meclizine 25 mg tablet 25 mg PO DAILY PRN Dizziness 02/13/24 02/19/24 morphine concentrate 100 mg/5 mL 10 mg PO Q1-2H PRN Pain 02/13/24 02/19/24 (20 mg/mL) oral solution nystatin 100,000 unit/gram topical 1 appl topical BID-TID 02/13/24 powder sennosides 8.6 mg tablet (senna) 17.2 mg PO DAILY 02/13/24 02/19/24 morphine 30 mg tablet,extended 30 mg PO BID pain 02/19/24 02/19/24 release Previous Rx's ?Medication ?Instructions ?Recorded commode (bedside commode) #1 ea 11/29/23 chair, wheel (Wheel chair) #1 ea 01/16/24 Allergies Allergy/AdvReac Type Severity Reaction Status Date / Time insulin lispro Allergy Unknown redness Verified 02/19/24 11:05 [Humalog U-100 Insulin] and itching doxycycline Allergy Unknown Verified 02/19/24 11:05 horse dander Allergy Unknown Verified 02/19/24 11:05 peach Allergy Unknown Verified 02/19/24 11:05 plum Allergy Unknown Verified 02/19/24 11:05 ragweed pollen Allergy Unknown Verified 02/19/24 11:05 Sulfa (Sulfonamide Allergy Unknown Verified 02/19/24 11:05 Antibiotics) tramadol AdvReac Intermediate Depression Verified 02/19/24 11:05 Doxycycline Hyclate Allergy Unknown Unknown Uncoded 02/13/24 14:26 Review of Systems Review of Systems: Pertinent positives and negatives as stated in HPI [facility] Past Medical History Source: nursing notes reviewed Medical History Malignant neoplasm of central portion of right female breast Type 2 diabetes mellitus with microalbuminuria, without long-term current use of insulin Rotator cuff tear, right History of stroke with current residual effects FH: mastectomy CVA (cerebral vascular accident) Surgical History Hx of lumpectomy S/P right mastectomy Social History Social History Household Members: None Housing: House Do you presently have visiting nurse or other home services: No Comment: sleeping Patient Tobacco Use Status: Never used Tobacco Smoked in Last 30 Days: No e-Cigarette/Vaping Use: Never Used Use of substances other than those prescribed or required for medical reasons: No Substance Use Type: Marijuana Advance Directives: No Advance Directives Information Provided: No service: No Current occupational status: retired Cognitive needs: No Hearing needs: No Vision needs: No Physical Exam ED Vital Signs: Vital Signs - 24 hr 02/19/24 11:04 02/19/24 14:15 Temperature 98.1 F 98.0 F Pulse Rate 78 74 Respiratory Rate 20 14 Blood Pressure 171/79 H 167/61 H Pulse Oximetry 98 94 Oxygen Delivery Method Room Air Room Air BMI result Body Mass Index 23.2 VITAL SIGNS: Reviewed. GENERAL: Well developed, well nourished, in no acute distress. HEAD: Normocephalic/atraumatic EYES: PERRLA, EOMI EARS: Ext canals without abnormality NOSE: Nares patent bilateral OROPHARYNX: no oral lesions noted, posterior pharynx clear NECK: Supple, no adenopathy LUNGS: Normal breath sounds. No adventitious sounds or accessory muscle use. SpO2<98> CARDIOVASCULAR: Regular rate and rhythm without noted murmurs ABDOMEN: Soft, tenderness to palpation,, non-distended with bowel sounds. PELVIS: Stable but tenderness on palpation, primarily on the left MUSCULOSKELETAL: No tenderness, deformities, or effusions noted on gross inspection. EXTREMITIES: No cyanosis, clubbing or edema. SKIN: Inspection of the skin reveals no rashes NEUROLOGIC: Alert and oriented x 4. Strength and sensation to light touch were grossly intact x 4. Medications Administered Discontinued Medications Generic Name Dose Route Start Last Admin Trade Name Freq PRN Reason Stop Dose Admin Morphine Sulfate 30 mg 02/19/24 13:49 02/19/24 13:57 Morphine Sulfate Er 30 Mg Tablet.Er PO 02/19/24 13:50 30 mg ONCE ONE Administration Medical Decision Making Medical Decision Making [facility] Narrative: Significant confusion regarding the goal for the patient, I did speak to the patient at the bedside extensively regarding the side effects from the morphine that could include confusion, lightheadedness and that she should continue to take the pain medication but I completely understood if she wanted to balance that with not feeling as confused. Reviewed patient's recent pharmacy orders for pain medication and provided patient with prescribed morphine 30 mg extended release and are in the process of completing the medication reconciliation. I requested that nursing staff establish patient is understanding of her VNA hospice care. After extensive discussion with case management upstairs as well as VNA services and inpatient hospitalist we were finally able to establish that this is a new program and provided feedback to VNA services regarding possibility of an expect. At this time inpatient hospitalist is aware admitting the patient, will complete medication reconciliation, patient has been medicated and is otherwise hemodynamically stable. Differential Diagnosis Differential Diagnoses: The differential diagnosis associated with the presentation includes Please see the discussion above Admission/Observation Consideration of admission/observation: Escalation of care including admission/observation considered Please see the discussion above Consult Healthcare Provider Management of the patient was discussed with: Hospitalist and Senior Technologist Please see the discussion above Lab Data MDM Lab Attestation statement: I reviewed the patient's lab results. Please see the discussion above Labs: Lab Results 02/19/24 02/19/24 Range/Units 13:28 13:50 POC Glucose 114 121 H (60-115) mg/dL External Record Review External record reviewed: Office record, Outpatient record, Prior outpatient labs and Prior outpatient radiology Chronic Conditions Patient?s care impacted by: Diabetes Malignancy Critical Care Time Critical Care Time Critical Care Time: Yes Total Critical Care Time: 60 Attestation: I personally attest to this time spent taking care of the patient. Discharge Plan Discharge Clinical Impression: Metastatic cancer, Hospice care patient Patient Disposition: Admitted As Inpatient Print Language: Polish
--- NOTE | 2024-02-19 13:11 | MHC.CM.PN ---
Addendum entered by Magui Petty RN 02/19/24 13:26: [facility]. 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 HOSPITALIST TEAM AWARE.
--- NOTE | 2024-02-19 13:25 | PM.IMHP ---
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 Pt lives alone and looked after by her grandson, though this has been increasingly difficult for grandson to do, thus the need for long-term placement. Patient complains of chronic bilateral hip pain radiating down to knees. Also reports chronic constipation with last bowel movement 5+ days ago. Chronic fatigue, and left-sided weakness at baseline. Has been unable to walk or transfer self for some weeks now. Otherwise denies any acute medical complaints. In the ED pt was hypertensive up to 171/79, vitals otherwise stable and WNL. Pt will be admitted to the hospital for hospice for respite stay awaiting long-term placement. Review of Systems Review of Systems: Bilateral hip pain radiating down to knees Constipation Chronic fatigue Chronic left-sided upper and lower extremity weakness No fever, chills, nausea, vomiting, diarrhea Denies abdominal pain No chest pain/pressure, palpitations Denies shortness of breath PMFSH Medical History Malignant neoplasm of central portion of right female breast Type 2 diabetes mellitus with microalbuminuria, without long-term current use of insulin Rotator cuff tear, right History of stroke with current residual effects FH: mastectomy CVA (cerebral vascular accident) Surgical History Hx of lumpectomy S/P right mastectomy Social History Household Members: None Housing: House Do you presently have visiting nurse or other home services: No Comment: sleeping Patient Tobacco Use Status: Never used Tobacco Smoked in Last 30 Days: No e-Cigarette/Vaping Use: Never Used Use of substances other than those prescribed or required for medical reasons: No Substance Use Type: Marijuana Advance Directives: No Advance Directives Information Provided: No service: No Current occupational status: retired Cognitive needs: No Hearing needs: No Vision needs: No Meds Allergies Allergy/AdvReac Type Severity Reaction Status Date / Time insulin lispro Allergy Unknown redness Verified 02/19/24 11:05 [Humalog U-100 Insulin] and itching doxycycline Allergy Unknown Verified 02/19/24 11:05 horse dander Allergy Unknown Verified 02/19/24 11:05 peach Allergy Unknown Verified 02/19/24 11:05 plum Allergy Unknown Verified 02/19/24 11:05 ragweed pollen Allergy Unknown Verified 02/19/24 11:05 Sulfa (Sulfonamide Allergy Unknown Verified 02/19/24 11:05 Antibiotics) tramadol AdvReac Intermediate Depression Verified 02/19/24 11:05 Doxycycline Hyclate Allergy Unknown Unknown Uncoded 02/13/24 14:26 Home Medications ?Medication ?Instructions ?Recorded ?Confirmed ?Last Taken ?Type cranberry extract 200 mg capsule 200 mg PO DAILY 11/22/23 02/19/24 Unknown History pen needle, diabetic 32 gauge x #1,200 ea 11/22/23 12/19/23 Unknown History (UltiCare Pen Needle) lancets 28 gauge (Prodigy Twist #100 ea 11/28/23 12/19/23 Unknown History Top Lancet) blood sugar diagnostic (OneTouch #10 ea 02/13/24 Unknown History Verio test strips) blood-glucose meter (OneTouch #1 ea 02/13/24 Unknown History Verio Flex Meter) ibuprofen 600 mg tablet 200 mg PO Q8H PRN pain 02/13/24 02/19/24 Unknown History lorazepam 0.5 mg tablet 0.5 mg PO Q4H PRN Anxiety 02/13/24 02/19/24 Unknown History meclizine 25 mg tablet 25 mg PO DAILY Dizziness 02/13/24 02/19/24 Unknown History morphine concentrate 100 mg/5 mL 5 - 10 mg PO Q1-2H PRN Pain or SOB 02/13/24 02/19/24 Unknown History (20 mg/mL) oral solution nystatin 100,000 unit/gram topical 1 appl topical BID PRN Rash 02/13/24 02/19/24 Unknown History powder sennosides 8.6 mg tablet (senna) 8.6 - 17.2 mg PO DAILY 02/13/24 02/19/24 Unknown History bisacodyl 10 mg rectal suppository 10 mg NV DAILY PRN Constipation 02/19/24 02/19/24 Unknown History morphine 30 mg tablet,extended 30 mg PO BID pain 02/19/24 02/19/24 Unknown History release Physical Exam Vital Signs and Narrative: Vital Signs: Last Vital Signs Temp 98.1 F 02/19/24 11:04 Pulse 78 02/19/24 11:04 Resp 20 02/19/24 11:04 BP 171/79 H 02/19/24 11:04 Pulse Ox 98 02/19/24 11:04 O2 Del Method Room Air 02/19/24 11:04 BMI result Body Mass Index 23.2 Constitutional: Alert, in no acute distress. Mental Status: Oriented to person, place and time. Eyes: Pupils are equal, round, and reactive to light. Ear, Nose, and Throat: Oropharynx clear, mucous membranes moist. Ears and nose without deformities. Trachea midline. Respiratory: Clear to auscultation bilaterally. No wheezing, rales, or rhonchi. Cardiovascular: S1, S2 regular. 3/6 murmur heard at left sternal border. Gastrointestinal: Abdomen firm with mild distension, non-tender. Normal bowel sounds. Neurologic: Cranial nerves II-XII are grossly intact bilaterally. Moves all extremities spontaneously though with chronic left-sided weakness. Skin: Warm, dry. Extremities: 3+ bilateral pitting edema. Psychiatric: Normal mood and affect. 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 Metastatic cancer on Hospice Hx of breast cancer in 2014 & 2018, new metastasis to bone and likely endometrium Patient unable to transfer herself or ambulate, has been on hospice for approximately 2 months Patient's former BOBBIN DOFFER/grandson longer able to care for patient Patient will be long-term placement after 5 day respite stay in hospital Continue all home meds Analgesics for pain management Lower leg edema 3+ bilateral pitting edema Will start on Lasix 20mg IV daily Constipation Will give lactulose 30g x1 dose Continue home bowel regimen Additional laxatives as necessary Hx of insulin-dependent type 2 diabetes Reports not on insulin for past 6+ weeks Allergic to insulin lispro Will check A1C Diabetic diet DNR/DNI Attending:?Dr. Chau DVT Prophylaxis: Pneumatic boots due to recent abnormal uterine bleeding Pt will require a hospitalization of at least two nights as she has here for a 5 day hospice respite stay with a goal of discharge to long-term placement as she no longer has sufficient care at home. Quality Stroke Does the patient have a stroke diagnosis?: No VTE Prior VTE?: No VTE Risk Level:: Medical - moderate - high VTE Device Contraindication: N/A - Device Ordered VTE Drug Contraindication: Treatment Not Indicated
[2024-02-19 13:33] LABS: Glucose, Whole Blood 114 mg/dL (60-115)
[2024-02-19 13:54] LABS: Glucose, Whole Blood 121 mg/dL (60-115)
[2024-02-19] MEDS: Morphine Sulfate ER 30 MG TABLET.ER PO ×2 (13:57→20:37)
[2024-02-19 14:15] VITALS: BP 167/61; PULSE 74; RESP 14; TEMP 36.7; O2SAT 94
--- NOTE | 2024-02-19 14:40 | PHA.MEDREC ---
Pharmacy Consult ? Medication Reconciliation Pharmacy has completed the medication reconciliation. Patient with list from [facility]
[2024-02-19 15:15] LABS: Anion Gap 13 (12-20); Blood Urea Nitrogen 13 mg/dL (9-16); Calcium 10.4 mg/dL (8.4-10.2); Carbon Dioxide 30 mmol/L (22-29); Chloride 102 mmol/L (96-108); Estimated Average Glucose 151 mg/dL; Estimated Glomerular Filt Rate > 60; Glucose Random 130 mg/dL (60-115); Hemoglobin A1c % 6.9 % (<6.0); Potassium 3.7 mmol/L (3.3-5.1); Sodium 141 mmol/L (135-145)
[2024-02-19] MEDS: Lactulose 20 GM/30 ML SOLUTION 30 GM PO (15:34)
[2024-02-19 16:02] VITALS: BP 179/50; PULSE 66; RESP 16; TEMP 36.8; O2SAT 98
[2024-02-19] MEDS: Furosemide 20 MG/2 ML VIAL IVPUSH (18:06)
[2024-02-19 20:13] VITALS: BP 168/90; PULSE 93; RESP 16; TEMP 36.7; O2SAT 97
[2024-02-19] MEDS: Sennosides 8.6 MG TABLET 17.2 MG PO (20:37)
--- NOTE | 2024-02-19 20:40 | PC.NURSE ---
pt c/o bilateral hip and leg pain. pt medicated per MAR
[2024-02-19 21:27] LABS: Glucose, Whole Blood 130 mg/dL (60-115)
--- NOTE | 2024-02-19 22:05 | PC.NURSE ---
pt resting comfortably at this time. pt requested food, stated she hasn't been offered food while here. pt had a sandwich and crackers
[2024-02-20] VITALS: BP 154/68; PULSE 69; RESP 16; TEMP 36.7; O2SAT 94
[2024-02-20 00:27] VITALS: PULSE 69; O2SAT 94
[2024-02-20] MEDS: Morphine Sulfate 4 MG/ML CARTRIDGE IVPUSH ×3 (01:39→19:54)
[2024-02-20] MEDS: 0.9 % Sodium Chloride Flush 3 ML SYRINGE IVFLUSH ×2 (01:41→22:10)
[2024-02-20 07:29] LABS: Glucose, Whole Blood 131 mg/dL (60-115)
[2024-02-20] MEDS: LORazepam 0.5 MG TABLET PO (09:14)
[2024-02-20] MEDS: Meclizine HCl 25 MG TABLET PO (09:14)
[2024-02-20] MEDS: Acetaminophen 325 MG TABLET 650 MG PO (09:14)
[2024-02-20] MEDS: Furosemide 20 MG/2 ML VIAL IVPUSH (09:14)
[2024-02-20] MEDS: Morphine Sulfate ER 30 MG TABLET.ER PO ×2 (09:14→22:09)
--- NOTE | 2024-02-20 10:11 | MHC.CM.PN ---
Addendum entered by Nerissa Guerrero 02/20/24 10:41: CM MET WITH PT AND GRANDSON AT BEDSIDE PT WAS HOME WITH ANOTHER GRANDSON CARING FOR HER THEY REPORT THEY DO NOT HAVE ANYONE ELSE AVAILABLE TO PROVIDE 17/04 CARE PT IS FULLY ALERT AND ORIENTED HCP AND MOLST ON FILE PCP: ANNA KEMP SHE IS AGREEABLE TO SNF PLACEMENT WITH HOSPICE SHE INDICATED [facility]OULD BE A PREFERRED SNF IMM DELIVERED SNF REFERRALS ARE OUT Addendum entered by Nerissa Guerrero 02/20/24 10:18: CM ATTEMPTED TO CONTACT PTS DAUGHTER AGAIN, A RECORDING NOW PICKS UP SAYING THE SERVICE YOU ARE ATTEMPTING TO USE HAS BEEN RESTRICTED Original Note: PT CAME FROM HOME WHERE SHE WAS ACTIVE WITH [facility] PER [facility] REPORT, PT WAS LEFT ALONE SO WAS TRANSPORTED TO [facility] FOR RESPITE CARE PT WILL REQUIRE SNF PLACEMENT TO CONTINUE HOSPICE CM DID ATTEMPT TO CONTACT PTS DAUGHTER/HCP, JANINE [phone] HOWEVER THERE WAS NO ANSWER AND NO VM OPTION DM WILL ATTEMPT TO REACH HER AT A LATER TIME
--- NOTE | 2024-02-20 10:40 | PC.NURSE ---
pt c/o pain, shanti morphine given. pt c/o anxiety, crying, prn ativan given w/ + effect. IV LUE assessed and flushed. pt has L sided weakness. a/ox3. room air. purewick in place. pt stated she has had weakness in her b/l LE's.
[2024-02-20 11:44] VITALS: BP 121/62; PULSE 67; RESP 18; TEMP 36.7; O2SAT 97
[2024-02-20 14:14] LABS: Glucose, Whole Blood 137 mg/dL (60-115)
--- NOTE | 2024-02-20 14:54 | HO.PM.IMPN ---
Subjective Subjective Date of Service: 02/20/24 Interval History: hospice Review of Systems denies new c/o. seems comfortable garndson at bedside Physical Exam Vital Signs: Vital Signs: Last Vital Signs Temp 98.1 F 02/20/24 11:44 Pulse 67 02/20/24 11:44 Resp 18 02/20/24 11:44 BP 121/62 02/20/24 11:44 Pulse Ox 97 02/20/24 11:44 O2 Del Method Room Air 02/20/24 11:44 BMI result Body Mass Index 23.2 Appearance: Alert.? Oriented, seems comfortable.? cvs: rrr, [id number] . res:fair air entry, no rales or wheezing. abd: no rebound or guarding ,nt, bs present. ext pulses present , no cyanosis . neuro:moves all ext. Objective Data Active Medications Acetaminophen (Acetaminophen 325 Mg Tablet) 650 mg PO Q6H PRN PRN Reason: Pain, Mild (Pain Scale 1-3) Last Admin: 02/20/24 09:14 Dose: 650 mg Documented By: YUSUF Benzonatate (Benzonatate 100 Mg Capsule) 100 mg PO TID PRN PRN Reason: Cough Bisacodyl (Bisacodyl 10 Mg Supp.Rect) 10 mg IN DAILY PRN PRN Reason: Constipation Furosemide (Furosemide 20 Mg/2 Ml Vial) 20 mg IVPUSH DAILY [facility]; Protocol Last Admin: 02/20/24 09:14 Dose: 20 mg Documented By: YUSUF Glucose (Glucose Gel 15 Gm Gel..Gram.) 15 gm PO Q15M PRN; Protocol PRN Reason: per Hypoglycemia Standing Ord. Dextrose (D10) 250 mls @ 750 mls/hr IV Q15M PRN; Protocol PRN Reason: per Hypoglycemia Standing Ord. Lorazepam (Lorazepam 0.5 Mg Tablet) 0.5 mg PO Q4H PRN PRN Reason: Anxiety Last Admin: 02/20/24 09:14 Dose: 0.5 mg Documented By: YUSUF Magnesium Hydroxide (Milk Of Magnesia 30 Ml Oral.Susp) 30 ml PO DAILY PRN PRN Reason: Constipation Meclizine HCl (Meclizine Hcl 25 Mg Tablet) 25 mg PO DAILY MICHEL Last Admin: 02/20/24 09:14 Dose: 25 mg Documented By: YUSUF Melatonin (Melatonin 3 Mg Tablet) 6 mg PO BEDTIME PRN PRN Reason: Insomnia Morphine Sulfate (Morphine Sulfate 4 Mg/Ml Cartridge) 4 mg IVPUSH Q4H PRN; Protocol PRN Reason: Pain, Severe (Pain Scale 7-10) Last Admin: 02/20/24 11:19 Dose: 4 mg Documented By: YUSUF Morphine Sulfate (Morphine Sulfate Er 30 Mg Tablet.Er) 30 mg PO BID [facility] Last Admin: 02/20/24 09:14 Dose: 30 mg Documented By: YUSUF Ondansetron HCl (Ondansetron Hcl 4 Mg/2 Ml Vial) 4 mg IVPUSH Q8H PRN PRN Reason: Nausea and Vomiting Senna (Sennosides 8.6 Mg Tablet) 17.2 mg PO BEDTIME [facility] Last Admin: 02/19/24 20:37 Dose: 17.2 mg Documented By: DELFINA Sodium Chloride (0.9 % Sodium Chloride Flush 3 Ml Syringe) 3 ml IVFLUSH QSHIFT [facility] Last Admin: 02/20/24 11:40 Dose: Not Given Documented By: YUSUF Non-Admin Reason: Previously Administered Labs 02/19/24 14:58 Labs: Laboratory Results - last 24 hr 02/19/24 02/19/24 02/20/24 14:58 20:17 07:26 Anion Gap 13 Estim Creat Clear Calc 57.0 Estimated GFR > 60 POC Glucose 130 H 131 H Random Glucose 130 H Estimat Average Glucose 151 Hemoglobin A1c % 6.9 H Calcium 10.4 H 02/20/24 11:33 Anion Gap Estim Creat Clear Calc Estimated GFR POC Glucose 137 H Random Glucose Estimat Average Glucose Hemoglobin A1c % Calcium Assessment and Plan (1) Hospice care patient: Status: Acute Assessment and Plan: 63-year-old female with a PMH significant for?hx of recurrent breast cancer possible metastasis-, recently placed on Hospice 2 months ago, hx of CVA in 2017 and 2018 with residual left-sided deficits, and insulin-dependent type 2 diabetes who presents to the ED for a 5-day hospice respite stay with goal discharge to custodial placement. 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 Continue all home meds,Analgesics for pain management Lower leg edema-improving po Lasix 20mg daily. Constipation Continue home bowel regimen Additional laxatives as necessary Hx of insulin-dependent type 2 diabetes Reports not on insulin for past 6+ weeks Allergic to insulin lispro a1c 6.9 Diabetic diet,will try sliding scale. DNR/DNI DVT Prophylaxis: Pneumatic boots due to recent abnormal uterine bleeding ongoing hospitalization of at least two nights as she has here for a 5 day hospice respite stay with a goal of discharge to long-term placement as she no longer has sufficient care at home. Quality Stroke Does the patient have a stroke diagnosis?: No VTE Prior VTE?: No VTE Risk Level:: Medical - moderate - high VTE Device Contraindication: N/A - Device Ordered VTE Drug Contraindication: Treatment Not Indicated
[2024-02-20 15:49] VITALS: BP 145/67; PULSE 80; RESP 17; O2SAT 97
[2024-02-20 16:22] LABS: Glucose, Whole Blood 115 mg/dL (60-115)
--- NOTE | 2024-02-20 19:58 | PC.NURSE ---
assumed care at 1900, pt reported 10/10 pain, medicated per MAR
[2024-02-20 21:10] LABS: Glucose, Whole Blood 149 mg/dL (60-115)
[2024-02-20 21:39] VITALS: BP 143/67; PULSE 66; RESP 16; TEMP 36.3; O2SAT 94
[2024-02-20 22:08] VITALS: RESP 20
[2024-02-20] MEDS: Sennosides 8.6 MG TABLET 17.2 MG PO (22:10)
[2024-02-20] MEDS: LORazepam 0.5 MG TABLET 0.25 MG PO (22:55)
[2024-02-21 00:46] LABS: Glucose, Whole Blood 174 mg/dL (60-115)
[2024-02-21 01:37] VITALS: RESP 20
[2024-02-21] MEDS: Morphine Sulfate 4 MG/ML CARTRIDGE IVPUSH (01:37)
--- NOTE | 2024-02-21 01:43 | PC.NURSE ---
pt refusing regular insulin. pt states I can only take R U-500 . pt educated on regular insulin different brand names and implication of not taking insulin. pt reports not taking insulin for numerous weeks. pt states i understand you are telling me that they are the same type of insulin...I am going to call my correspondence transcriber today to see if I should take it. call tosin in reach. pt medicated for pain per prn parameters. pt states she is comfortable and denies any other complaints. call tosin in reach. plan of care ongoing.
[2024-02-21 03:02] VITALS: BP 154/69; PULSE 67; RESP 16; TEMP 36.6; O2SAT 92
[2024-02-21 05:47] LABS: Glucose, Whole Blood 136 mg/dL (60-115)
[2024-02-21 07:46] VITALS: BP 155/67; PULSE 66; RESP 16; TEMP 36.7; O2SAT 93
[2024-02-21] MEDS: Morphine Sulfate ER 30 MG TABLET.ER PO ×2 (08:10→21:44)
[2024-02-21] MEDS: Meclizine HCl 25 MG TABLET PO (08:11)
[2024-02-21] MEDS: 0.9 % Sodium Chloride Flush 3 ML SYRINGE IVFLUSH ×2 (08:11→16:00)
[2024-02-21] MEDS: Furosemide 20 MG TABLET PO (08:11)
[2024-02-21] MEDS: Morphine Sulfate Oral Sol 10 MG/5 ML SOLUTION PO ×3 (11:20→19:33)
[2024-02-21 11:43] LABS: Glucose, Whole Blood 147 mg/dL (60-115)
[2024-02-21 15:05] VITALS: BP 149/65; PULSE 74; RESP 16; TEMP 36.3; O2SAT 94
--- NOTE | 2024-02-21 15:22 | MHC.CM.PN ---
CM MET WITH PT AT BEDSIDE. PT WOULD LIKE A REFERRAL TO [facility], REFERRAL SENT BUT THEY WERE UNABLE TO OFFER A BED. CM WILL CONTINUE TO PLACE REFERRALS.
--- NOTE | 2024-02-21 15:50 | HO.PM.IMPN ---
Subjective Subjective Date of Service: 02/21/24 Interval History: hospice Review of Systems no new c/o requested for regular diet ,patient also defer sliding scale. Physical Exam Vital Signs: Vital Signs: Last Vital Signs Temp 97.3 F 02/21/24 15:05 Pulse 74 02/21/24 15:05 Resp 16 02/21/24 15:05 BP 149/65 H 02/21/24 15:05 Pulse Ox 94 02/21/24 15:05 O2 Del Method Room Air 02/21/24 15:05 BMI result Body Mass Index 23.2 Appearance: Alert.? Oriented, seems comfortable.? cvs: rrr, [id number] . res:fair air entry, no rales or wheezing. abd: no rebound or guarding ,nt, bs present. ext pulses present , no cyanosis . neuro:moves all ext. Objective Data Active Medications Acetaminophen (Acetaminophen 325 Mg Tablet) 650 mg PO Q6H PRN PRN Reason: Pain, Mild (Pain Scale 1-3) Last Admin: 02/20/24 09:14 Dose: 650 mg Documented By: VANDANAFAMartínez Benzonatate (Benzonatate 100 Mg Capsule) 100 mg PO TID PRN PRN Reason: Cough Bisacodyl (Bisacodyl 10 Mg Supp.Rect) 10 mg [place] DAILY PRN PRN Reason: Constipation Furosemide (Furosemide 20 Mg Tablet) 20 mg PO DAILY [facility]; Protocol Last Admin: 02/21/24 08:11 Dose: 20 mg Documented By: CHANTEL Glucose (Glucose Gel 15 Gm Gel..Gram.) 15 gm PO Q15M PRN; Protocol PRN Reason: per Hypoglycemia Standing Ord. Dextrose (D10) 250 mls @ 750 mls/hr IV Q15M PRN; Protocol PRN Reason: per Hypoglycemia Standing Ord. Dextrose (D10) 250 mls @ 750 mls/hr IV Q15M PRN; Protocol PRN Reason: per Hypoglycemia Standing Ord. Insulin Human Regular (Insulin Regular, Human 100 Unit/Ml 10 Ml Vial) 0 unit SUBCUT Q6H [facility]; Protocol Last Admin: 02/21/24 11:58 Dose: Not Given Documented By: CHANTEL Non-Admin Reason: No Insulin Coverage Magnesium Hydroxide (Milk Of Magnesia 30 Ml Oral.Susp) 30 ml PO DAILY PRN PRN Reason: Constipation Meclizine HCl (Meclizine Hcl 25 Mg Tablet) 25 mg PO DAILY [facility] Last Admin: 02/21/24 08:11 Dose: 25 mg Documented By: CHANTEL Melatonin (Melatonin 3 Mg Tablet) 6 mg PO BEDTIME PRN PRN Reason: Insomnia Morphine Sulfate (Morphine Sulfate Er 30 Mg Tablet.Er) 30 mg PO BID [facility] Last Admin: 02/21/24 08:10 Dose: 30 mg Documented By: CHANTEL Morphine Sulfate (Morphine Sulfate Oral Flora 10 Mg/5 Ml Solution) 10 mg PO Q3H PRN PRN Reason: Pain, Moderate(Pain Scale 4-6) Last Admin: 02/21/24 11:20 Dose: 10 mg Documented By: CHANTEL Ondansetron HCl (Ondansetron Hcl 4 Mg/2 Ml Vial) 4 mg IVPUSH Q8H PRN PRN Reason: Nausea and Vomiting Senna (Sennosides 8.6 Mg Tablet) 17.2 mg PO BEDTIME [facility] Last Admin: 02/20/24 22:10 Dose: 17.2 mg Documented By: AVELINO Sodium Chloride (0.9 % Sodium Chloride Flush 3 Ml Syringe) 3 ml IVFLUSH QSHIFT [facility] Last Admin: 02/21/24 08:11 Dose: 3 ml Documented By: CHANTEL Labs 02/19/24 14:58 Labs: Laboratory Results - last 24 hr 02/20/24 02/20/24 02/21/24 16:14 21:06 00:42 POC Glucose 115 149 H 174 H 02/21/24 02/21/24 05:42 11:38 POC Glucose 136 H 147 H Assessment and Plan (1) Hospice care patient: Status: Acute Assessment and Plan: 63-year-old female with a PMH significant for?hx of recurrent breast cancer possible metastasis-, recently placed on Hospice 2 months ago, 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 Continue all home meds,Analgesics for pain management Lower leg edema-improving po Lasix 20mg daily. Constipation Continue home bowel regimen Additional laxatives as necessary Hx of insulin-dependent type 2 diabetes Reports not on insulin for past 6+ weeks Allergic to insulin lispro a1c 6.9 Diabetic diet,will try sliding scale. DNR/DNI DVT Prophylaxis: Pneumatic boots due to recent abnormal uterine bleeding ongoing hospitalization : she has here for a 5 day hospice respite stay with a goal of discharge to long-term placement as she no longer has sufficient care at home. Quality Stroke Does the patient have a stroke diagnosis?: No VTE Prior VTE?: No VTE Risk Level:: Medical - moderate - high VTE Device Contraindication: N/A - Device Ordered VTE Drug Contraindication: Treatment Not Indicated
[2024-02-21 16:45] LABS: Glucose, Whole Blood 112 mg/dL (60-115)
[2024-02-21] MEDS: Sennosides 8.6 MG TABLET 17.2 MG PO (19:35)
[2024-02-21] MEDS: Acetaminophen 325 MG TABLET 650 MG PO (19:35)
[2024-02-21 19:41] LABS: Glucose, Whole Blood 166 mg/dL (60-115)
[2024-02-21 19:42] VITALS: BP 159/70; PULSE 76; RESP 18; TEMP 36.8; O2SAT 96
--- NOTE | 2024-02-21 21:41 | HO.WOUND ---
Wound Consult: Initial 63yr old F?admitted to [facility] on? 02/19/24 - See progress notes and H&P for detailed history.?Wound consult placed for coccyx wound POA. Arrival to bedside patient agreeable to assessment. Patient family at bedside - pt and family report she has has pressure injury in the past to the sacral area and right heel. She reports her grandson is her care technician and does not have services at this time. Coccyx Etiology: Unstageable Pressure Injury - Present On Admission?? Measurements: 0.4cm x 0.5cm x 0.1cm Wound Bed: dry adherent scab vs eschar with surrounding nonblanchable tissue with areas of epidermal lifting Drainage / Odor: none Edges: ?irregular Rupinder wound: Red pink blanchable erythema with two small light purple areas of intact nonblanchable tissue - No Induration, Fluctuance or Warmth noted Pain: patient reports pain Goals of Treatment: ?Foam to aid in off loading pressure Left Elbow Etiology: Skin Tear ?? Measurements:1cm x 1cm x 0.1cm Wound Bed: no flap noted - clean pale pink wound bed Drainage / Odor: none Edges: ?irregular Rupinder wound: Red pink blanchable erythema - No Induration, Fluctuance or Warmth noted Pain: patient reports pain Goals of Treatment: ?Foam to aid in off loading pressure Right Heel Etiology: Unstageable Pressure Injury - Present On Admission?? Measurements: 2.5cm x 3.5cm x 0cm Wound Bed: dry adherent scab vs eschar with central brown black eschar Drainage / Odor: none Edges: ?well defined Rupinder wound: Intact central mild fluctuance noted - No Induration or Warmth noted Pain: patient reports pain Goals of Treatment: Skin Prep to protect from friction and heel protector boot applied Recommendations: 1. Turn and Reposition every 2 hours and as needed for patient comfort.? Use pillows or wedges to support off loading positions. 2. Off Load all bony prominences with use of pillows and heel boots if needed.? Apply Preventative foams where needed. 3. Monitor for incontinence and moisture control, use barrier creams when needed for prevention and treatment. 4. Provide adequate and supplemental nutrition.? 5. Order low air loss mattress. 6. When applicable maintain blood glucose levels per Providers order. 7. Coccyx and Sacrum - Off Load Pressure - Cleanse with PH balance spray or wipes, pat dry. ?Apply thin layer of Triad to wound bed. Do not remove all of paste between applications as this may cause further skin damage.? Cover with foam dressing to aid in off loading and protection from friction. Apply Triad to perianal and perineal area to protect from moisture and friction. 8. Left Elbow - Cleanse with NS moist gauze, pat dry. Apply skin prepallow to dry. Apply Foam dressing, peel back and assess and change every 3 days. 9. Right Heel - [place] with Betadine allow to dry. Place in heel protector boot to off load heel from surface of bed. Re-consult wound care Nurse for wound deterioration or wound changes.
[2024-02-21 23:13] VITALS: PULSE 72; RESP 18; O2SAT 95
[2024-02-22] MEDS: Morphine Sulfate Oral Sol 10 MG/5 ML SOLUTION PO ×5 (03:29→23:21)
[2024-02-22 03:31] VITALS: BP 158/69; PULSE 75; RESP 18; TEMP 36.3; O2SAT 96
[2024-02-22 04:38] LABS: Glucose, Whole Blood 112 mg/dL (60-115)
[2024-02-22 07:26] VITALS: BP 142/64; PULSE 68; RESP 16; TEMP 36.6; O2SAT 95
[2024-02-22 07:46] LABS: Glucose, Whole Blood 99 mg/dL (60-115)
[2024-02-22 08:43] VITALS: BP 142/60
[2024-02-22] MEDS: Meclizine HCl 25 MG TABLET PO (08:43)
[2024-02-22] MEDS: Furosemide 20 MG TABLET PO (08:43)
[2024-02-22] MEDS: Morphine Sulfate ER 30 MG TABLET.ER PO ×2 (08:44→19:48)
[2024-02-22 12:53] LABS: Glucose, Whole Blood 144 mg/dL (60-115)
--- NOTE | 2024-02-22 12:55 | P.CDIM_ITS ---
PROVIDER RESPONSE TEXT: To clarify, the appropriate diagnosis supported by the clinical indicators: Pressure injury coccyx unstageable QUERY TEXT: PHYSICIAN'S DOCUMENTATION REQUEST Date of Query: 02/22/2024 08:18 AM EDT Patient Name: Lien CONRAD Admit Date: 02/19/2024 Dear Vilma Gutierrez, A review of the medical record indicates additional documentation may be needed. Please review below and update the documentation accordingly. Clinical Indicators: Wound care notes: Unstageable pressure injury coccyx - present on arrival Foam to aid in off loading pressure Based on the above, could you please provide further information regarding the ulcer/wound/injury: Pressure injury coccyx unstageable Other Other (explain) Clinically unable to determine (explain) Thank you, Juanita Chavez, CCS, CDIS Use of terms such as suspected, likely, concern for, or probable (associated with a specific diagnosi s that is being evaluated, monitored, or treated as if it exists) are acceptable and can be coded in the inpatient se tting, when documented at the time of discharge. Please use your independent medical judgment in providing your response. THIS QUERY IS PART OF THE PERMANENT MEDICAL RECORD
--- NOTE | 2024-02-22 13:55 | HO.PM.IMPN ---
Subjective Subjective Date of Service: 02/22/24 Interval History: Metastatic cancer on Hospice Review of Systems no new c/o. pain controlled. Physical Exam Vital Signs: Vital Signs: Last Vital Signs Temp 97.8 F 02/22/24 07:26 Pulse 68 02/22/24 07:26 Resp 16 02/22/24 07:26 BP 142/60 H 02/22/24 08:43 Pulse Ox 95 02/22/24 07:26 O2 Del Method Room Air 02/22/24 07:26 BMI result Body Mass Index 23.2 Appearance: Alert.? Oriented, seems comfortable.? cvs: rrr, [id number] . res:fair air entry, no rales or wheezing. abd: no rebound or guarding ,nt, bs present. ext pulses present , no cyanosis . neuro:moves all ext. Objective Data Active Medications Acetaminophen (Acetaminophen 325 Mg Tablet) 650 mg PO Q6H PRN PRN Reason: Pain, Mild (Pain Scale 1-3) Last Admin: 02/21/24 19:35 Dose: 650 mg Documented By: ZENA Benzonatate (Benzonatate 100 Mg Capsule) 100 mg PO TID PRN PRN Reason: Cough Bisacodyl (Bisacodyl 10 Mg Supp.Rect) 10 mg OR DAILY PRN PRN Reason: Constipation Furosemide (Furosemide 20 Mg Tablet) 20 mg PO DAILY [facility]; Protocol Last Admin: 02/22/24 08:43 Dose: 20 mg Documented By: WILLIE Glucose (Glucose Gel 15 Gm Gel..Gram.) 15 gm PO Q15M PRN; Protocol PRN Reason: per Hypoglycemia Standing Ord. Dextrose (D10) 250 mls @ 750 mls/hr IV Q15M PRN; Protocol PRN Reason: per Hypoglycemia Standing Ord. Dextrose (D10) 250 mls @ 750 mls/hr IV Q15M PRN; Protocol PRN Reason: per Hypoglycemia Standing Ord. Insulin Human Regular (Insulin Regular, Human 100 Unit/Ml 10 Ml Vial) 0 unit SUBCUT Q6H [facility]; Protocol Last Admin: 02/22/24 05:04 Dose: Not Given Documented By: ZENA Non-Admin Reason: No Insulin Coverage Magnesium Hydroxide (Milk Of Magnesia 30 Ml Oral.Susp) 30 ml PO DAILY PRN PRN Reason: Constipation Meclizine HCl (Meclizine Hcl 25 Mg Tablet) 25 mg PO DAILY [facility] Last Admin: 02/22/24 08:43 Dose: 25 mg Documented By: WILLIE Melatonin (Melatonin 3 Mg Tablet) 6 mg PO BEDTIME PRN PRN Reason: Insomnia Morphine Sulfate (Morphine Sulfate Er 30 Mg Tablet.Er) 30 mg PO BID [facility] Last Admin: 02/22/24 08:44 Dose: 30 mg Documented By: WILLIE Morphine Sulfate (Morphine Sulfate Oral Flora 10 Mg/5 Ml Solution) 10 mg PO Q3H PRN PRN Reason: Pain, Moderate(Pain Scale 4-6) Last Admin: 02/22/24 12:06 Dose: 10 mg Documented By: WILLIE Ondansetron HCl (Ondansetron Hcl 4 Mg/2 Ml Vial) 4 mg IVPUSH Q8H PRN PRN Reason: Nausea and Vomiting Senna (Sennosides 8.6 Mg Tablet) 17.2 mg PO BEDTIME [facility] Last Admin: 02/21/24 19:35 Dose: 17.2 mg Documented By: ZENA Sodium Chloride (0.9 % Sodium Chloride Flush 3 Ml Syringe) 3 ml IVFLUSH QSHIFT [facility] Last Admin: 02/22/24 10:55 Dose: Not Given Documented By: WILLIE Non-Admin Reason: Pain Labs 02/19/24 14:58 Labs: Laboratory Results - last 24 hr 02/21/24 02/21/24 02/22/24 16:32 19:27 04:33 POC Glucose 112 166 H 112 02/22/24 02/22/24 07:30 12:46 POC Glucose 99 144 H Assessment and Plan (1) Hospice care patient: Status: Acute Assessment and Plan: 63-year-old female with a PMH significant for?hx of recurrent breast cancer possible metastasis-, recently placed on Hospice 2 months ago, 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 Metastatic cancer on Hospice Patient unable to transfer herself or ambulate, has been on hospice for approximately 2 months will be long-term placement after 5 day respite stay in hospital(former [employer]/grandson longer able to care for patient). Continue all home meds,Analgesics for pain management Lower leg edema-improving po Lasix 20mg daily. Constipation Continue home bowel regimen Additional laxatives as necessary Hx of insulin-dependent type 2 diabetes Reports not on insulin for past 6+ weeks Allergic to insulin lispro a1c 6.9 Diabetic diet,will try sliding scale. pressure injuries coccyx /right heel unstageable injury(POA): left elbow -skin tear Seen by wound care rec: 1. Turn and Reposition every 2 hours and as needed for patient comfort.? Use pillows or wedges to support off loading positions. 2. Off Load all bony prominences with use of pillows and heel boots if needed.? Apply Preventative foams where needed. 3. Monitor for incontinence and moisture control, use barrier creams when needed for prevention and treatment. 4. Provide adequate and supplemental nutrition.? 5. Order low air loss mattress. 6. When applicable maintain blood glucose levels per Providers order. 7. Coccyx and Sacrum - Off Load Pressure - Cleanse with PH balance spray or wipes, pat dry. ?Apply thin layer of Triad to wound bed. Do not remove all of paste between applications as this may cause further skin damage.? Cover with foam dressing to aid in off loading and protection from friction. Apply Triad to perianal and perineal area to protect from moisture and friction. 8. Left Elbow - Cleanse with NS moist gauze, pat dry. Apply skin prepallow to dry. Apply Foam dressing, peel back and assess and change every 3 days. 9. Right Heel - [place] with Betadine allow to dry. Place in heel protector boot to off load heel from surface of bed. Re-consult wound care Nurse for wound deterioration or wound changes. DNR/DNI DVT Prophylaxis: Pneumatic boots due to recent abnormal uterine bleeding ongoing hospitalization : she has here for a 5 day hospice respite stay with a goal of discharge to long-term placement as she no longer has sufficient care at home. Quality Stroke Does the patient have a stroke diagnosis?: No VTE Prior VTE?: No VTE Risk Level:: Medical - moderate - high VTE Device Contraindication: N/A - Device Ordered VTE Drug Contraindication: Treatment Not Indicated
--- NOTE | 2024-02-22 13:58 | P.CDIM_ITS ---
PROVIDER RESPONSE TEXT: To clarify, the appropriate diagnosis supported by the clinical indicators: Pressure injury right heel unstageable QUERY TEXT: PHYSICIAN'S DOCUMENTATION REQUEST Date of Query: 02/22/2024 08:19 AM EDT Patient Name: Lien CONRAD Admit Date: 02/19/2024 Dear Vilma Gutierrez, A review of the medical record indicates additional documentation may be needed. Please review below and update the documentation accordingly. Clinical Indicators: Wound care notes: Unstageable pressure injury right heel, present on arrival Skin Prep to protect from friction and heel protector boot applied. Based on the above, could you please provide further information regarding the ulcer/wound/injury: Pressure injury right heel unstageable Other Other (explain) Clinically unable to determine (explain) Thank you, Juanita Chavez, CCS, CDIS Use of terms such as suspected, likely, concern for, or probable (associated with a specific diagnosi s that is being evaluated, monitored, or treated as if it exists) are acceptable and can be coded in the inpatient se tting, when documented at the time of discharge. Please use your independent medical judgment in providing your response. THIS QUERY IS PART OF THE PERMANENT MEDICAL RECORD
[2024-02-22 15:02] VITALS: BP 128/60; PULSE 65; RESP 13; TEMP 36.6; O2SAT 95
[2024-02-22 16:34] LABS: Glucose, Whole Blood 126 mg/dL (60-115)
[2024-02-22] MEDS: 0.9 % Sodium Chloride Flush 3 ML SYRINGE IVFLUSH ×2 (17:42→23:21)
[2024-02-22] MEDS: Sennosides 8.6 MG TABLET 17.2 MG PO (19:48)
[2024-02-22 20:00] VITALS: BP 167/72; PULSE 79; RESP 15; TEMP 36.7; O2SAT 95
[2024-02-22 23:08] LABS: Glucose, Whole Blood 141 mg/dL (60-115)
[2024-02-23 00:12] VITALS: RESP 15
[2024-02-23 04:00] VITALS: BP 157/71; PULSE 75; RESP 16; TEMP 36; O2SAT 96
[2024-02-23 05:02] LABS: Glucose, Whole Blood 135 mg/dL (60-115)
[2024-02-23 07:44] VITALS: PULSE 84; RESP 18; TEMP 36.2; O2SAT 96
[2024-02-23 08:07] LABS: Glucose, Whole Blood 126 mg/dL (60-115)
[2024-02-23 08:11] VITALS: BP 144/64
[2024-02-23 08:42] VITALS: BP 144/64
[2024-02-23] MEDS: Meclizine HCl 25 MG TABLET PO (08:42)
[2024-02-23] MEDS: Furosemide 20 MG TABLET PO (08:42)
[2024-02-23] MEDS: Morphine Sulfate ER 30 MG TABLET.ER PO (08:42)
[2024-02-23] MEDS: 0.9 % Sodium Chloride Flush 3 ML SYRINGE IVFLUSH (08:45)
[2024-02-23] MEDS: Morphine Sulfate Oral Sol 10 MG/5 ML SOLUTION PO (09:58)
--- NOTE | 2024-02-23 10:46 | PM.DS ---
DS: Providers Provider Date of Service: 02/23/24 Date of admission: 02/19/24 16:04 Date of discharge: 02/23/24 Primary care physician: Crow Lopez PA-C Consults: 02/20/24 12:03 Consult to Wound Care Routine Reason for consultation: Wounds to b/l elbows, R heel, coccyx 02/21/24 09:08 Consult to Wound Care Routine Reason for consultation: Elbow /foot soar DS: Diagnosis Discharge Diagnosis (1) Hospice care patient: Status: Acute DS: Summary Hospital Course Hospital Course: Hpi:63-year-old female with a PMH significant for?hx of recurrent breast cancer in 2014 and 2018 with new metastasis to bones and likely endometrium, recently placed on Hospice 2 months ago, hx of CVA in 2016 and 2018 with residual left-sided deficits, and insulin-dependent type 2 diabetes who presents to the ED for a 5-day hospice respite stay with goal discharge to [facility] placement. Pt lives alone and looked after by her grandson, though this has been increasingly difficult for grandson to do, thus the need for long-term placement. Patient complains of chronic bilateral hip pain radiating down to knees. Also reports chronic constipation with last bowel movement 5+ days ago. Chronic fatigue, and left-sided weakness at baseline. Has been unable to walk or transfer self for some weeks now. Otherwise denies any acute medical complaints. In the ED pt was hypertensive up to 171/79, vitals otherwise stable and WNL. Pt will be admitted to the hospital for hospice for respite stay awaiting long-term placement. Hospital course: Patient came to the hospital because metastatic cancer on hospice and former [employer]/grandson longer able to care for patient-patient is unable to transfer herself -needed placement so brought to the hospital-patient home pain medications continued-patient seems to be doing okay on that. continue luxative for bowel regimen. Has diabetes: Hemoglobin A1c 6.9, currently defers insulin-if agrees use it use sliding scale coverage. pressure injuries coccyx /right heel unstageable injury(POA),left elbow -skin tear-please see wound care instructions below in discharge instruction section . Plan : patient was given morphine ER 30 mg po bid for 10 days. morphine concentrate and ativan limited supply-see dc instrutctions. continue bowel regimen -see dc instrutctions. Above management discussed with the patient in detail length she understand and in agreement with the plan, time spent 40 minute. Time Attestation Total time managing care of this patient today: 40 mintues. Discharge Coordination Time (in mins): 40 min Quality: Safe Use of Opioids Does Pt have an Active Cancer Diagnosis on the Problem List?: Yes Opioid Measure Date for [facility] Report: 01/24/24 Opioid Measure Time for [facility] Report: 10:55 Quality: Stroke Does the patient have a stroke diagnosis?: No Physical Exam Vital Signs: Vital Signs: Last Vital Signs Temp 97.1 F 02/23/24 07:44 Pulse 84 02/23/24 07:44 Resp 18 02/23/24 07:44 BP 144/64 H 02/23/24 08:42 Pulse Ox 96 02/23/24 07:44 O2 Del Method Room Air 02/23/24 07:44 BMI result Body Mass Index 23.2 Appearance: Alert.? Oriented, seems comfortable.? cvs: [id number], [id number] . res:fair air entry, no rales or wheezing. abd: no rebound or guarding ,nt, bs present. ext pulses present , no cyanosis . skin changes -pressure injuries coccyx /right heel unstageable injury(POA),left elbow -skin tear. neuro:moves all ext. DS: Data Data Completed and Pending Labs on day of discharge: Laboratory Results - last 24 hr 02/22/24 02/22/24 02/22/24 12:46 16:17 23:03 POC Glucose 144 H 126 H 141 H 02/23/24 02/23/24 04:58 07:57 POC Glucose 135 H 126 H Discharge Plan Discharge Anticipated Discharge Date/Time: 02/23/24 10:28 Patient Disposition: Xfer LTC Discharge Diagnosis: hospice Referrals: [facility] [Outside] - 1 Week (TRANSFER FOR HOSPICE/LTC.) Crow Lopez PA-C [Primary Care Provider] - 1 Week Discharge Medications: New sennosides [Senna Lax] 8.6 mg Tablet 17.2 mg PO BEDTIME Qty: 1 0RF Humulin R Regular U-100 Insuln 100 unit/mL Solution See Protocol subcut Q6H Qty: 1 0RF Protocol: Insulin Correction Scale Less than or equal to 110 ---- Give (units): 0 111 to 150 Give (units): 0 151 to 200 Give (units): 2 201 to 250 Give (units): 4 251 to 300 Give (units): 6 301 to 350 Give (units): 8 Greater than 350 Give (units): 10 Call MD if Blood Glucose > : 350 benzonatate 100 mg Capsule 100 mg PO TID PRN (Reason: Cough) Qty: 10 0RF magnesium hydroxide [Milk of Magnesia] 400 mg/5 mL Suspension 30 ml PO DAILY PRN (Reason: Constipation) Qty: 1 0RF Continued (DME) bedside commode Kit See Rx Instructions .Route Qty: 1 1RF Rx Instructions: As directed (DME) Wheel chair Kit See Rx Instructions .Route Qty: 1 0RF Rx Instructions: As directed bisacodyl 10 mg suppository 10 mg MO DAILY PRN (Reason: Constipation) morphine concentrate 100 mg/5 mL (20 mg/mL) solution 5 - 10 mg PO Q1-2H PRN (Reason: Pain or SOB) Qty: 100 0RF morphine 30 mg tablet extended release 30 mg PO BID Qty: 20 0RF lorazepam 0.5 mg tablet 0.5 mg PO Q4H PRN (Reason: Anxiety) Qty: 20 0RF (DME) pen needle, diabetic [UltiCare Pen Needle] 32 gauge x 5/32 needle See Rx Instructions .ROUTE .MEDSUPPLY Qty: 1200 Rx Instructions: As directed cranberry extract 200 mg capsule 200 mg PO DAILY Rx Instructions: administer with a meal (DME) lancets [Prodigy Twist Top Lancet] 28 gauge misc See Rx Instructions .ROUTE .MEDSUPPLY Qty: 100 Rx Instructions: As directed ibuprofen 600 mg tablet 200 mg PO Q8H PRN (Reason: pain) meclizine 25 mg tablet 25 mg PO DAILY nystatin 100,000 unit/gram powder 1 appl topical BID PRN (Reason: Rash) Rx Instructions: fungal rash left abdominal fold (DME) OneTouch Verio test strips Strip See Rx Instructions .ROUTE TID Qty: 10 Rx Instructions: As directed (DME) blood-glucose meter [OneTouch Verio Flex meter] [facility] [place] See Rx Instructions .ROUTE TID Qty: 1 Rx Instructions: As directed sennosides [senna] 8.6 mg tablet 8.6 - 17.2 mg PO DAILY Discharge Orders: Discharge Order (Routine); Ordered 02/23/24 Ordered By: Vilma Gutierrez Diet: Advance to usual diet Activity on Discharge: As tolerated Stand Alone Forms: Patient Portal Discharge page Print Language: [place] Activity Restrictions/Additional Instructions: wound care rec: Turn and Reposition every 2 hours and as needed for patient comfort.? Use pillows or wedges to support off loading positions. Off Load all bony prominences with use of pillows and heel boots if needed.? Apply Preventative foams where needed. Monitor for incontinence and moisture control, use barrier creams when needed for prevention and treatment. Provide adequate and supplemental nutrition.? When applicable maintain blood glucose levels per Providers order. Coccyx and Sacrum - Off Load Pressure - Cleanse with PH balance spray or wipes, pat dry. ?Apply thin layer of Triad to wound bed. Do not remove all of paste between applications as this may cause further skin damage.? Cover with foam dressing to aid in off loading and protection from friction. Apply Triad to perianal and perineal area to protect from moisture and friction. Left Elbow - Cleanse with NS moist gauze, pat dry. Apply skin prepallow to dry. Apply Foam dressing, peel back and assess and change every 3 days. Right Heel - [place] with Betadine allow to dry. Place in heel protector boot to off load heel from surface of bed. 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 continue luxative for bowel regimen. Has diabetes: Hemoglobin A1c 6.9, currently defers insulin-if agrees use it use sliding scale coverage. pressure injuries coccyx /right heel unstageable injury(POA),left elbow -skin tear-please see wound care instructions above. Health Concerns: As above. Plan of Treatment: As above. Assessment: As above.
--- NOTE | 2024-02-23 11:10 | MHC.CM.PN ---
DP: PT HAS BEEN CLEARED TO DC TO LTC AT [facility] TO RESUME HOSPICE CARE. C NOTIFIED. CENTER NOTIFIED. BLS TRANSPORT AT 11 AM VIA [facility].
== END 2024-02-23 11:22 | DRG 948 ==
LOC: HO.ED 14:07 → HO.EDOVER 16:05 → HO.S3 02-20 19:30
PROVIDERS: Internal Medicine; Admitting Provider Student in an Organized Health Care Education/Training Program; Emergency Provider Student in an Organized Health Care Education/Training Program; PCP Physician Assistant; Visit Provider Internal Medicine
DX: G89.3 Neoplasm related pain (acute) (chronic) (principal); I69.354 Hemiplegia and hemiparesis following cerebral infarction affecting left non-dominant side; C79.51 Secondary malignant neoplasm of bone; C79.82 Secondary malignant neoplasm of genital organs; C50.919 Malignant neoplasm of unspecified site of unspecified female breast; L89.150 Pressure ulcer of sacral region, unstageable; Z51.5 Encounter for palliative care; L89.610 Pressure ulcer of right heel, unstageable; K59.00 Constipation, unspecified; E11.9 Type 2 diabetes mellitus without complications; Z79.899 Other long term (current) drug therapy
CPT/HCPCS: 36415; 80048; 82947; 83036; 94660; 99285; J1940; J2270

== ENCOUNTER → 2024-02-19 16:04 | Outpatient (BNV) | payer MEDICARE, MEDICAID, SELFPAY | PROVIDERS: Admitting Provider Student in an Organized Health Care Education/Training Program; Emergency Provider Student in an Organized Health Care Education/Training Program; PCP Physician Assistant; Visit Provider Student in an Organized Health Care Education/Training Program | DX: C79.9 Secondary malignant neoplasm of unspecified site (principal); Z51.5 Encounter for palliative care | CPT/HCPCS: 99223; 99231; 99239 ==

== ENCOUNTER 2024-03-11 12:05 | Inpatient (IN) | payer MEDICARE, MEDICAID, SELFPAY ==
--- NOTE | ~2024-03-11 | XR_ITS ---
EXAMINATION: XR CHEST CLINICAL INFORMATION: Preop COMPARISON: None available. TECHNIQUE: Frontal view of the chest was obtained. 10:00 FINDINGS: There are Chronic coarse increased lung markings. Linear Scarring at both lung bases. Minimal blunting of the right costophrenic angle which can be due to a tiny pleural effusion versus pleural thickening. No pulmonary vascular congestion. Heart size is normal. No pulmonary vascular congestion. There are vascular calcifications of aorta. XR/XR chest 1V IMPRESSION: Minimal blunting of the right costophrenic angle which can be due to a tiny pleural effusion versus pleural thickening.
--- NOTE | ~2024-03-11 | XR_ITS ---
EXAMINATION: XR HIP, LEFT CLINICAL INFORMATION: Pain, deformity. COMPARISON: None available. TECHNIQUE: Two views of the left hip. FINDINGS: Bones are diffusely osteopenic. Query if there is any history of disuse of the extremity. The articular cartilage space of the left hip is maintained. The femoral head is well-positioned within the acetabulum. No evidence of a degenerative or inflammatory arthropathy. There is a complete fracture of the intertrochanteric region of the femur with severe femoral varus deformity and superolateral migration of the shaft fragment. XR/XR hip LT w PEL1V IMPRESSION: * The bones are osteopenic. * There is a fracture of the intertrochanteric region of the left femur with femoral varus deformity.
--- NOTE | ~2024-03-11 | FL_ITS ---
EXAMINATION: XR FLUOROSCOPY WITH IMAGES CLINICAL INFORMATION: Left IM nail COMPARISON: Left hip 03/11/2024 TECHNIQUE: Fluoroscopy Supervised By: Dr. Oneil Fluoroscopy Time: 1.0 minutes. Cumulative Dose: 10.6 mGy. DAP: 0.184 Gycm2. Images: 5. FINDINGS: 5 images demonstrate placement of an intramedullary rosa with associated compression screw and distal horizontal screw in the left femur transfixing a fracture of the intertrochanteric region of the femur. FL/FL guidance in OR IMPRESSION: Status post ORIF left femur fracture. Please see Dr. Oneil's report for full details.
[2024-03-11 12:15] VITALS: BP 124/74; PULSE 90; O2SAT 98
--- NOTE | 2024-03-11 12:22 | MHC.CM.ED ---
Received notification from [facility] that patient is active with their agency and currently residing at [facility]. Patient will need GIP admission due to pain control. [facility] will allow hip xrays but no other testing. Continue to monitor for d/c needs.
[2024-03-11 12:28] VITALS: BP 115/71; PULSE 62; RESP 18; TEMP 36.7
[2024-03-11 12:38] VITALS: BP 162/60; PULSE 67; RESP 17; TEMP 37.1; O2SAT 93; BMI 24.0
[2024-03-11] MEDS: Morphine Sulfate Oral Sol 10 MG/5 ML SOLUTION PO (12:56)
[2024-03-11] MEDS: LORazepam 1 MG TABLET PO (12:57)
--- NOTE | 2024-03-11 13:08 | ED_ITS ---
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 She has had severe intractable chronic hip pain but L is much more severe this week. She was placed at [facility] at that time and is on ativan PRN, 15mg of IR morphine 6 times a day, 60mg ER morphine at night. She notes no falls and her pain is out of control and she cannot take it. MD Complaint: joint pain Onset (ago): week(s) (1) Pain Consistency: constant Location: left and other (hip) Severity scale (1-10): >10 Quality: crushing Radiation: none Relieving factors: nothing Exacerbating factors: range of motion and palpation Associated symptoms: denies other symptoms Context: other (? metastatic cancer) Related Data Home Medications ?Medication ?Instructions ?Recorded ?Confirmed cranberry extract 200 mg capsule 200 mg PO DAILY 11/22/23 02/19/24 pen needle, diabetic 32 gauge x #1,200 ea 11/22/23 12/19/23 (UltiCare Pen Needle) lancets 28 gauge (Prodigy Twist #100 ea 11/28/23 12/19/23 Top Lancet) blood sugar diagnostic (OneTouch #10 ea 02/13/24 Verio test strips) blood-glucose meter (OneTouch #1 ea 02/13/24 Verio Flex Meter) ibuprofen 600 mg tablet 200 mg PO Q8H PRN pain 02/13/24 02/19/24 meclizine 25 mg tablet 25 mg PO DAILY Dizziness 02/13/24 02/19/24 nystatin 100,000 unit/gram topical 1 appl topical BID PRN Rash 02/13/24 02/19/24 powder sennosides 8.6 mg tablet (senna) 8.6 - 17.2 mg PO DAILY 02/13/24 02/19/24 bisacodyl 10 mg rectal suppository 10 mg WV DAILY PRN Constipation 02/19/24 02/19/24 atropine 1 % eye drops drp ophthalmic (eye) 03/11/24 03/11/24 dexamethasone 4 mg tablet PO 03/11/24 tizanidine 2 mg tablet 2 mg PO TID 03/11/24 Previous Rx's ?Medication ?Instructions ?Recorded commode (bedside commode) #1 ea 11/29/23 chair, wheel (Wheel chair) #1 ea 01/16/24 benzonatate 100 mg capsule 100 mg PO TID PRN Cough #10 caps 02/23/24 insulin regular human 100 unit/mL See Protocol subcut Q6H #1 mL 02/23/24 injection solution (Humulin R Regular U-100 Insulin) lorazepam 0.5 mg tablet 0.5 mg PO Q4H PRN Anxiety #20 tabs 02/23/24 magnesium hydroxide 400 mg/5 mL 30 ml PO DAILY PRN Constipation #1 02/23/24 oral suspension (Milk of Magnesia) mL morphine 30 mg tablet,extended 30 mg PO BID pain #20 tabs 02/23/24 release morphine concentrate 100 mg/5 mL 5 - 10 mg (0.25 - 0.5 mL) PO Q1-2H 02/23/24 (20 mg/mL) oral solution PRN Pain or SOB #100 mL sennosides 8.6 mg tablet (Senna 17.2 mg (2 x 8.6 mg) PO BEDTIME #1 02/23/24 Lax) tab Allergies Allergy/AdvReac Type Severity Reaction Status Date / Time insulin lispro Allergy Unknown redness Verified 03/11/24 12:49 [Humalog U-100 Insulin] and itching doxycycline Allergy Unknown Verified 03/11/24 12:49 horse dander Allergy Unknown Verified 02/19/24 11:05 peach Allergy Unknown Verified 03/11/24 12:49 plum Allergy Unknown Verified 03/11/24 12:49 ragweed pollen Allergy Unknown Verified 03/11/24 12:49 Sulfa (Sulfonamide Allergy Unknown Verified 03/11/24 12:49 Antibiotics) tramadol AdvReac Intermediate Depression Verified 03/11/24 12:49 Doxycycline Hyclate Allergy Unknown Unknown Uncoded 02/13/24 14:26 Review of Systems Review of Systems: Constitutional : No Fever, No Chills ENT/Mouth : No Ear Pain, No Hoarseness, No sore throat Eyes: No Eye Pain, No Swelling, No Redness, No Foreign Body Cardiovascular : No Chest Pain, No SOB Respiratory : No Cough, No Dyspnea Gastrointestinal : No Nausea, No Vomiting, No Diarrhea, No abdominal Pain Genitourinary : No Dysuria, No Hematuria Musculoskeletal : positive joint pain, No Myalgias, No Joint Swelling Skin : No Skin lacerations, No rash Neuro : No Weakness, No Numbness, No Loss of Consciousness, No Dizziness, No Headache Psych : No Anxiety/Panic, No Depression All other systems reviewed and are negative [facility] Past Medical History Attestation statement: The following information was validated with the patient. Source: old records reviewed Medical History Malignant neoplasm of central portion of right female breast Type 2 diabetes mellitus with microalbuminuria, without long-term current use of insulin Rotator cuff tear, right History of stroke with current residual effects FH: mastectomy CVA (cerebral vascular accident) Surgical History Hx of lumpectomy S/P right mastectomy Social History Social History Household Members: None Housing: House Do you presently have visiting nurse or other home services: No Alcohol intake: never Comment: sleeping Patient Tobacco Use Status: Never used Tobacco Smoked in Last 30 Days: No e-Cigarette/Vaping Use: Never Used Use of substances other than those prescribed or required for medical reasons: No Substance Use Type: Other Advance Directives: Yes Advance Directives on File: Yes Advance Directives Date on File: 02/21/24 Do you have a plan to hurt others: No Plan service: No Current occupational status: retired Cognitive needs: No Hearing needs: No Vision needs: No Physical Exam Vital Signs: Vital Signs: Last Vital Signs Temp 98.8 F 03/11/24 12:38 Pulse 67 03/11/24 12:38 Resp 17 03/11/24 12:38 BP 162/60 H 03/11/24 12:38 Pulse Ox 93 03/11/24 12:38 O2 Del Method Room Air 03/11/24 12:38 BMI result Body Mass Index 24.0 Appearance: Alert. Oriented X3. No acute distress. anxious Eyes: Pupils equal, round and reactive to light. ENT: Pharynx normal. Neck: Normal inspection. Neck supple. CVS: Normal heart rate and rhythm. Pulses normal. Respiratory: No respiratory distress. Breath sounds normal. Abdomen: Soft and non-tender. Skin: Skin warm and dry. pale skin color. Extremities: L hip appears deformed distal NV intact ?dislocation Neuro: Oriented X 3. at baseline Course Course Course Narrative: patient states she would consider procedure such as surgery to alleviate her pain given xray and pathologic fracture if orthopedics thought it was amenable Reevaluation(s) Reevaluation #1: spoke to Deyanira daughter [phone] she is HCP states okay to have surgery aware and wants pain controlled agrees with mom's wishes. Medications Administered Discontinued Medications Generic Name Dose Route Start Last Admin Trade Name Freq PRN Reason Stop Dose Admin Fentanyl 25 mcg 03/11/24 13:01 03/11/24 13:11 Fentanyl 25 Mcg Patch.[id number] TRANSDERMA 03/11/24 13:02 25 mcg ONCE ONE Administration Lorazepam 1 mg 03/11/24 12:47 03/11/24 12:57 Lorazepam 1 Mg Tablet PO 03/11/24 12:48 1 mg ONCE ONE Administration Morphine Sulfate 10 mg 03/11/24 12:47 03/11/24 12:56 Morphine Sulfate Oral Flora 10 Mg/5 Ml Solution PO 03/11/24 12:48 10 mg ONCE ONE Administration Tizanidine HCl 4 mg 03/11/24 13:04 03/11/24 14:06 Tizanidine Hcl 4 Mg Tablet PO 03/11/24 13:05 4 mg ONCE ONE Administration Medical Decision Making Medical Decision Making [facility] Narrative: 63 yo female with PMH of recurrent breast cancer with mets to bone and endomet rium, 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 At this time she has pulses will need xray as she agreed to PO pain medications and I am going to start her on fentanyl 25mcg patch. I did ask her if she would want surgery and she refused. I am going to discuss this again with the patient if the xray looks like there is any intervention that can be done. as of January 19 she was independent walking with walker in her home per hospice but then due to pelvic pain could not walk and last week pain was more severe and she was screaming in pain Differential Diagnosis Differential Diagnoses: The differential diagnosis associated with the presentation includes pathologic fracture, dislocation, acute pain Admission/Observation Consideration of admission/observation: Escalation of care including admission/observation considered plan to admit to hospitalist keep NPO at midnight possible surgery tomorrow Consult Healthcare Provider Management of the patient was discussed with: Hospitalist (will admit) and Production Hardener (message sent to orthopedics given xray) Independent Interpretation I performed an independent interpretation of an: EKG and Plain X-Ray (L intertrochanteric fracture) Interpretation: Rate: Rhythm: [place]: Normal P waves. Normal DAVID. Normal QRS complex. ST T wave : qTC: prior studies: The study has been interpreted contemporaneously by me. . Radiology Impression Discussion of test interpretation with radiology: I have reviewed the radiologist's reading. Independent Historian Clinical information obtained from an independent historian. History obtained from or confirmed by: EMS External Record Review External record reviewed: Inpatient record Discharge Plan Discharge Clinical Impression: Displaced intertrochanteric fracture of femur Qualifiers: Encounter type: initial encounter Fracture type: closed Laterality: left Qualified Code(s): S72.142A - Displaced intertrochanteric fracture of left femur, initial encounter for closed fracture Patient Disposition: Admitted As Inpatient Prescriptions: No Action (DME) bedside commode Kit See Rx Instructions .Route Qty: 1 1RF Rx Instructions: As directed (DME) Wheel chair Kit See Rx Instructions .Route Qty: 1 0RF Rx Instructions: As directed bisacodyl 10 mg suppository 10 mg WV DAILY PRN (Reason: Constipation) sennosides [Senna Lax] 8.6 mg Tablet 17.2 mg PO BEDTIME Qty: 1 0RF Humulin R Regular U-100 Insuln 100 unit/mL Solution See Protocol subcut Q6H Qty: 1 0RF Protocol: Insulin Correction Scale Less than or equal to 110 ---- Give (units): 0 111 to 150 Give (units): 0 151 to 200 Give (units): 2 201 to 250 Give (units): 4 251 to 300 Give (units): 6 301 to 350 Give (units): 8 Greater than 350 Give (units): 10 Call MD if Blood Glucose > : 350 benzonatate 100 mg Capsule 100 mg PO TID PRN (Reason: Cough) Qty: 10 0RF magnesium hydroxide [Milk of Magnesia] 400 mg/5 mL Suspension 30 ml PO DAILY PRN (Reason: Constipation) Qty: 1 0RF morphine concentrate 100 mg/5 mL (20 mg/mL) solution 5 - 10 mg PO Q1-2H PRN (Reason: Pain or SOB) Qty: 100 0RF morphine 30 mg tablet extended release 30 mg PO BID Qty: 20 0RF lorazepam 0.5 mg tablet 0.5 mg PO Q4H PRN (Reason: Anxiety) Qty: 20 0RF tizanidine 2 mg tablet 2 mg PO TID dexamethasone 4 mg tablet PO atropine 1 % drops ophthalmic (eye) (DME) pen needle, diabetic [UltiCare Pen Needle] 32 gauge x 5/32 needle See Rx Instructions .ROUTE .MEDSUPPLY Qty: 1200 Rx Instructions: As directed cranberry extract 200 mg capsule 200 mg PO DAILY Rx Instructions: administer with a meal (DME) lancets [Prodigy Twist Top Lancet] 28 gauge misc See Rx Instructions .ROUTE .MEDSUPPLY Qty: 100 Rx Instructions: As directed ibuprofen 600 mg tablet 200 mg PO Q8H PRN (Reason: pain) meclizine 25 mg tablet 25 mg PO DAILY nystatin 100,000 unit/gram powder 1 appl topical BID PRN (Reason: Rash) Rx Instructions: fungal rash left abdominal fold (DME) OneTouch Verio test strips Strip See Rx Instructions .ROUTE TID Qty: 10 Rx Instructions: As directed (DME) blood-glucose meter [OneTouch Verio Flex meter] Misc See Rx Instructions .ROUTE TID Qty: 1 Rx Instructions: As directed sennosides [senna] 8.6 mg tablet 8.6 - 17.2 mg PO DAILY Print Language: Persian
[2024-03-11] MEDS: fentaNYL 25 MCG PATCH.TD72 TRANSDERMA (13:11)
[2024-03-11] MEDS: TiZANidine HCL 4 MG TABLET PO (14:06)
[2024-03-11 17:06] LABS: MANUAL DIFF FLAG NO
[2024-03-11 17:07] LABS: Basophils Percent Auto 0.1 % (0-2); Hematocrit 36.8 % (37.0-47.0); Hemoglobin 12.8 g/dl (12.0-16.0); Imm Gran Abs Auto 0.04 X10*3/uL (0.00-0.03); Imm Gran Pct Auto 0.4 % (0.0-0.4); Lymphocytes Absolute Auto 0.9 X10*3/uL (1.2-4.9); Lymphocytes Percent Auto 9.5 % (20-40); Mean Corpuscular HGB Conc 34.8 g/dl (31.0-35.0); Mean Corpuscular Hemoglobin 28.6 pg (27.0-33.0); Mean Corpuscular Volume 82.3 fL (80.0-98.0); Mean Platelet Volume 10.7 fL (9.4-12.3); Monocytes Absolute Auto 0.4 X10*3/uL (0.1-1.2); Monocytes Percent Auto 4.4 % (2-11); Neutrophils Absolute Auto 8.1 x10*3/uL (2.0-8.3); Neutrophils Percent Auto 85.6 % (45-73); Platelet Count 369 X10*3/uL (160-400); Red Blood Count 4.47 X10*6/uL (4.20-5.50); White Blood Count 9.5 X10*3/uL (4.8-10.8)
[2024-03-11 17:22] LABS: Anion Gap 13 (12-20); Blood Urea Nitrogen 38 mg/dL (9-16); Calcium 9.1 mg/dL (8.4-10.2); Carbon Dioxide 23 mmol/L (22-29); Chloride 106 mmol/L (96-108); Creatinine Clr Calc Pharmacy 57.6; Estimated Glomerular Filt Rate > 60; Glucose Random 299 mg/dL (60-115); Potassium 4.5 mmol/L (3.3-5.1); Sodium 137 mmol/L (135-145)
--- NOTE | 2024-03-11 17:31 | P.HPHOSP_ITS ---
History of Present Illness Date of Service: 03/11/24 <Era Ibarra NP - Last Filed: 03/12/24 11:09> Chief Complaint: Fall, pain <Era Ibarra NP - Last Filed: 03/12/24 11:09> 63-year-old woman presenting to the ER with complaints of intractable pain. Patient has a history of recurrent breast cancer with new metastasis to the bone and likely endometrium. Patient was recently placed on hospice approximately 2 months ago. 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 She reports hip pain. Patient has been living alone and had looked after her grandson. Patient has been at [facility] and has been on morphine and Ativan. She denied any trauma or falls. Hip x-ray showed fracture of the intertrochanteric region of the left femur. Patient is on hospice but is opting to do a surgical procedure to help with the pain. In the ER, she received lorazepam, morphine, fentanyl Duragesic patch, Zanaflex. Her labs and vital signs are within acceptable limits. She will be admitted for further management and treatment of intractable pain secondary to acute hip fracture. <Era Ibarra NP - Last Filed: 03/12/24 11:09> Review of Systems 2 Review of Systems: Denies any recent fever chills or decrease in appetite respiratory denies any shortness of breath coverage production cardiovascular is adjustment of any PND or edema gastrointestinal denies any dysphagia abdominal pain nausea vomiting or diarrhea genitourinary denies any dysuria frequency or hematuria musculoskeletal denies any joint pain or swelling neuropsych denies any weakness or seizures all other systems reviewed are negative <Era Ibarra NP - Last Filed: 03/12/24 11:09> [facility] Medical History: Medical History Malignant neoplasm of central portion of right female breast Type 2 diabetes mellitus with microalbuminuria, without long-term current use of insulin Rotator cuff tear, right History of stroke with current residual effects FH: mastectomy CVA (cerebral vascular accident) <Era Ibarra NP - Last Filed: 03/12/24 11:09> Surgical History: Surgical History Hx of lumpectomy S/P right mastectomy <Era Ibarra NP - Last Filed: 03/12/24 11:09> Social History: Social History Household Members: None Housing: Retirement Do you presently have visiting nurse or other home services: No Alcohol intake: never Comment: sleeping Patient Tobacco Use Status: Never used Tobacco Smoked in Last 30 Days: No e-Cigarette/Vaping Use: Never Used Second Hand Smoke Exposure: No Use of substances other than those prescribed or required for medical reasons: No Substance Use Type: Other Advance Directives: Yes Advance Directives on File: Yes Advance Directives Date on File: 02/21/24 Do you have a plan to hurt others: No Plan Nutrition Risks: No Nutritional Risk Patient : No Poor oral hygiene: No service: No Current occupational status: retired Cognitive needs: No Hearing needs: No Vision needs: No <Era Ibarra NP - Last Filed: 03/12/24 11:09> Meds Allergies/Adverse reactions: Allergies Allergy/AdvReac Type Severity Reaction Status Date / Time insulin lispro Allergy Unknown redness Verified 03/11/24 12:49 [Humalog U-100 Insulin] and itching doxycycline Allergy Unknown Verified 03/11/24 12:49 horse dander Allergy Unknown Verified 02/19/24 11:05 peach Allergy Unknown Verified 03/11/24 12:49 plum Allergy Unknown Verified 03/11/24 12:49 ragweed pollen Allergy Unknown Verified 03/11/24 12:49 Sulfa (Sulfonamide Allergy Unknown Verified 03/11/24 12:49 Antibiotics) tramadol AdvReac Intermediate Depression Verified 03/11/24 12:49 Doxycycline Hyclate Allergy Unknown Unknown Uncoded 02/13/24 14:26 <Era Ibarra NP - Last Filed: 03/12/24 11:09> Active Medications: Current Medications Acetaminophen (Acetaminophen 325 Mg Tablet) 650 mg PO Q6H PRN PRN Reason: Pain, Mild (Pain Scale 1-3), fever or headache Calcium Carbonate (Calcium Carbonate 750 Mg Tab.Chew) 750 mg PO Q4H PRN PRN Reason: Heartburn Glucose (Glucose Gel 15 Gm Gel..Gram.) 15 gm PO Q15M PRN; Protocol PRN Reason: per Hypoglycemia Standing Ord. Dextrose (D10) 250 mls @ 750 mls/hr IV Q15M PRN; Protocol PRN Reason: per Hypoglycemia Standing Ord. Insulin Human Lispro (Insulin Lispro 100 Unit/Ml 3 Ml Vial) [facility]; Protocol Magnesium Hydroxide (Milk Of Magnesia 30 Ml Oral.Susp) 30 ml PO DAILY PRN PRN Reason: Constipation Melatonin (Melatonin 3 Mg Tablet) 6 mg PO BEDTIME PRN PRN Reason: Insomnia Morphine Sulfate (Morphine Sulfate 2 Mg/Ml Cartridge) 1 mg IVPUSH Q4H PRN; Protocol PRN Reason: Pain, Severe (Pain Scale 7-10) Oxycodone HCl (Oxycodone Hcl Immed Release 5 Mg Tablet) 5 mg PO Q4H PRN PRN Reason: Pain, Moderate(Pain Scale 4-6) Sodium Chloride (0.9 % Sodium Chloride Flush 3 Ml Syringe) 3 ml IVFLUSH QSHIFT [facility] <Era Ibarra NP - Last Filed: 03/12/24 11:09> Home medications: Home Medications ?Medication ?Instructions ?Recorded ?Confirmed ?Last Taken ?Type pen needle, diabetic 32 gauge x #1,200 ea 11/22/23 12/19/23 Unknown History (UltiCare Pen Needle) lancets 28 gauge (Prodigy Twist #100 ea 11/28/23 12/19/23 Unknown History Top Lancet) blood sugar diagnostic (OneTouch #10 ea 02/13/24 Unknown History Verio test strips) blood-glucose meter (OneTouch #1 ea 02/13/24 Unknown History Verio Flex Meter) ibuprofen 600 mg tablet 600 mg PO DAILY PRN pain 02/13/24 03/11/24 Unknown History meclizine 25 mg tablet 25 mg PO DAILY Dizziness 02/13/24 03/11/24 Unknown History nystatin 100,000 unit/gram topical 1 appl topical QSHIFT Rash 02/13/24 03/11/24 Unknown History powder bisacodyl 10 mg rectal suppository 10 mg IA DAILY PRN Constipation 02/19/24 03/11/24 Unknown History acetaminophen 325 mg tablet 650 mg PO Q4H PRN Fever Or Pain 03/11/24 03/11/24 Unknown History (Tylenol) atropine 1 % eye drops 4 drp sublingual Q3H 03/11/24 03/11/24 Unknown History dexamethasone 4 mg tablet 8 mg PO TID 03/11/24 03/11/24 Unknown History methyl salicylate-menthol topical 1 ea topical TID 03/11/24 03/11/24 Unknown History ointment morphine 30 mg tablet,extended 60 mg PO TID pain 03/11/24 03/11/24 Unknown History release morphine concentrate 100 mg/5 mL 15 mg PO 6XD PRN Pain 03/11/24 03/11/24 Unknown History (20 mg/mL) oral solution morphine concentrate 100 mg/5 mL 15 mg PO Q1H PRN Pain 03/11/24 03/11/24 Unknown History (20 mg/mL) oral solution polyethylene glycol 3350 17 17 g PO DAILY 03/11/24 03/11/24 Unknown History gram/dose oral powder sennosides 8.6 mg tablet (Senna 17.2 mg PO BID 03/11/24 03/11/24 Unknown History Lax) sodium phosphates 19 gram-7 118 ml IA DAILY PRN Constipation 03/11/24 03/11/24 Unknown History gram/118 mL enema (Fleet Enema) tizanidine 2 mg tablet 4 mg PO TID 03/11/24 03/11/24 Unknown History <Era Ibarra NP - Last Filed: 03/12/24 11:09> Physical Exam 2 Vital Signs and Narrative: Vital Signs: Last Vital Signs Temp 98.8 F 03/11/24 12:38 Pulse 67 03/11/24 12:38 Resp 17 03/11/24 12:38 BP 162/60 H 03/11/24 12:38 Pulse Ox 93 03/11/24 12:38 O2 Del Method Room Air 03/11/24 12:38 BMI result Body Mass Index 24.0 <Era Ibarra NP - Last Filed: 03/12/24 11:09> Results Labs CBC and Chem 7: 03/12/24 07:22 03/12/24 05:16 <Era Ibarra NP - Last Filed: 03/12/24 11:09> Labs: Laboratory Results - last 24 hr 03/11/24 17:01 MCV 82.3 MCH 28.6 MCHC 34.8 RDW 12.0 Plt Count 369 D MPV 10.7 Immature Gran % (Auto) 0.4 Neut % (Auto) 85.6 H Lymph % (Auto) 9.5 L [place] % (Auto) 4.4 Eos % (Auto) 0.0 Baso % (Auto) 0.1 Lymph # (Auto) 0.9 L [place] # (Auto) 0.4 Eos # (Auto) 0.0 Baso # (Auto) 0.0 Abs Immat Gran (auto) 0.04 H Absolute Neuts (auto) 8.1 Absolute Nucleated RBC 0.000 Nucleated RBC % (auto) 0.0 Anion Gap 13 Estim Creat Clear Calc 57.6 Estimated GFR > 60 Random Glucose 299 H Calcium 9.1 D <Era Ibarra NP - Last Filed: 03/12/24 11:09> Imaging Radiologist's Impressions: Impressions Chest X-Ray 03/11/24 14:12 IMPRESSION: Minimal blunting of the right costophrenic angle which can be due to a tiny pleural effusion versus pleural thickening. Hip/Pelvis X-Ray 03/11/24 14:12 IMPRESSION: * The bones are osteopenic. * There is a fracture of the intertrochanteric region of the left femur with femoral varus deformity. <Era Ibarra NP - Last Filed: 03/12/24 11:09> Assessment and Plan (1) Closed left femoral fracture: Status: Acute <Era Ibarra NP - Last Filed: 03/12/24 11:09> 63 year old women admitted with intractable pain likely secondary to hip fracture. Patient with history of breast cancer with metastasis currently on hospice but willing to have surgical procedure for hip pain Left femur fracture Orthopedic surgery consultation, NPO after midnight for possible surgical procedure Pain management Bedrest History of breast cancer with metastasis Has been on hospice, not currently on treatment Diabetes mellitus Sliding scale, ADA diet History of CVA left sided deficits DVT prophylaxis pneumatic compression boots DNR/DNI Patient required least 48 hours for inpatient admission for left femur fracture requiring surgical procedure and IV pain management. <Era Ibarra NP - Last Filed: 03/12/24 11:09> Quality Stroke Does the patient have a stroke diagnosis?: No <Mykel Chau MD - Last Filed: 03/12/24 07:00> VTE Prior VTE?: No <Mykel Chau MD - Last Filed: 03/12/24 07:00> VTE Risk Level:: Medical - moderate - high <Era Ibarra NP - Last Filed: 03/12/24 11:09> VTE Device Contraindication: N/A - Device Ordered <Era Ibarra NP - Last Filed: 03/12/24 11:09> VTE Drug Contraindication: Treatment Not Indicated <Era Ibarra NP - Last Filed: 03/12/24 11:09>
--- NOTE | 2024-03-11 17:40 | MHC.EDTECH ---
Addendum entered by Amina Corbett Martínez 03/11/24 17:45: MONTY Winston aware. Original Note: Pts daughter, Deyanira at bedside and stated to this tech that she will be taking Pts money home while she is here in the hospital. Other belongings noted: pillow, sweatshirt, ring on right hand, purse that has glasses and cellphone in it.
[2024-03-11 19:28] VITALS: BP 172/58; PULSE 57; RESP 18; O2SAT 95
--- NOTE | 2024-03-11 19:39 | PHA.MEDREC ---
Addendum entered by Vania Carvalho [facility] 03/12/24 17:34: Called [facility] to confirm morphine dosing, spoke to Oliver, he confirmed the patient was getting Morphine ER 60 three times a day although on the PDMP the patient's quantity vs. day supply would supply the patient to get 60 mg twice a day. Oliver also confirmed the morphine concentrate order was changed to Q4H, that was not reflectedon the provided medication list. Original Note: Pharmacy Consult ? Medication Reconciliation Pharmacy has completed the medication reconciliation. Used list from [facility] to confirm med list
[2024-03-11 21:00] LABS: Glucose, Whole Blood 242 mg/dL (60-115)
[2024-03-11] MEDS: oxyCODONE HCl Immed Release 5 MG TABLET PO (22:34)
[2024-03-11 22:42] VITALS: BP 178/70; PULSE 70; RESP 14; TEMP 37; O2SAT 94
[2024-03-11] MEDS: Morphine Sulfate 2 MG/ML CARTRIDGE 1 MG IVPUSH (23:22)
[2024-03-11 23:55] VITALS: BMI 24.3
[2024-03-12] VITALS (12 sets, daily range): BP systolic 144–186; BP diastolic 72–91; PULSE 83–882; RESP 16–26; TEMP 36.1–36.9; O2SAT 93–98; BMI 24.3
[2024-03-12] MEDS: 0.9 % Sodium Chloride Flush 3 ML SYRINGE IVFLUSH (00:28)
--- NOTE | 2024-03-12 00:46 | HO.SKINPHOTO ---
Location: Category: Stage: Length: Width: Depth: cm Location: Category: Stage: Length: Width: Depth: cm Location: Category: Stage: Length: Width: Depth: cm Location: Category: Stage: Length: Width: Depth: cm Location: Category: Stage: Length: Width: Depth: cm Location: Category: Stage: Length: Width: Depth: cm
[2024-03-12] MEDS: Morphine Sulfate 2 MG/ML CARTRIDGE 1 MG IVPUSH ×3 (03:43→20:04)
[2024-03-12] MEDS: Sodium Phosphate,Mono-Dibasic 133 ML ENEMA PR (04:25)
[2024-03-12 06:35] LABS: Alanine Aminotransferase 11 U/L (0-31); Alkaline Phosphatase 110 U/L (39-117); Anion Gap 13 (12-20); Aspartate Amino Transferase 20 U/L (5-31); Bilirubin Total 0.6 mg/dL (0.0-1.0); Blood Urea Nitrogen 37 mg/dL (9-16); Carbon Dioxide 19 mmol/L (22-29); Chloride 108 mmol/L (96-108); Creatinine Clr Calc Pharmacy 59.8; Estimated Glomerular Filt Rate > 60; Glucose Random 186 mg/dL (60-115); Potassium 4.3 mmol/L (3.3-5.1); Sodium 136 mmol/L (135-145); Total Protein 6.5 g/dL (6.5-8.0)
[2024-03-12 07:27] LABS: Glucose, Whole Blood 209 mg/dL (60-115)
--- NOTE | 2024-03-12 07:35 | P.CONOP_ITS ---
History of Present Illness HPI Consult date: 03/12/24 Chief complaint: fall, hip fracture Narrative: Ms. Johnson is a 63-year-old female presents with complaints of severe left hip and thigh pain. The patient was recently placed on hospice care due to metastatic breast cancer. The patient does not recall any specific traumatic event preceding the onset of her pain. She does have residual weakness on her left side after suffering a cerebrovascular accident in 2017 and again in 2018. The patient states that she can not tolerate the pain in her left hip at this time. She is interested in undergoing stabilization of her left proximal femur fracture to help control her pain. [facility] Past Medical History Medical History Malignant neoplasm of central portion of right female breast Type 2 diabetes mellitus with microalbuminuria, without long-term current use of insulin Rotator cuff tear, right History of stroke with current residual effects FH: mastectomy CVA (cerebral vascular accident) Surgical History Surgical History Hx of lumpectomy S/P right mastectomy Social History Social History Household Members: None Housing: [facility] Do you presently have visiting nurse or other home services: No Alcohol intake: never Comment: sleeping Patient Tobacco Use Status: Never used Tobacco Smoked in Last 30 Days: No e-Cigarette/Vaping Use: Never Used Second Hand Smoke Exposure: No Use of substances other than those prescribed or required for medical reasons: No Substance Use Type: Other Advance Directives: Yes Advance Directives on File: Yes Advance Directives Date on File: 02/21/24 Do you have a plan to hurt others: No Plan Nutrition Risks: No Nutritional Risk Patient : No Poor oral hygiene: No service: No Current occupational status: retired Cognitive needs: No Hearing needs: No Vision needs: No Meds Allergies Allergy/AdvReac Type Severity Reaction Status Date / Time insulin lispro Allergy Unknown redness Verified 03/11/24 12:49 [Humalog U-100 Insulin] and itching doxycycline Allergy Unknown Verified 03/11/24 12:49 horse dander Allergy Unknown Verified 02/19/24 11:05 peach Allergy Unknown Verified 03/11/24 12:49 plum Allergy Unknown Verified 03/11/24 12:49 ragweed pollen Allergy Unknown Verified 03/11/24 12:49 Sulfa (Sulfonamide Allergy Unknown Verified 03/11/24 12:49 Antibiotics) tramadol AdvReac Intermediate Depression Verified 03/11/24 12:49 Doxycycline Hyclate Allergy Unknown Unknown Uncoded 02/13/24 14:26 Active Medications: Current Medications Acetaminophen (Acetaminophen 325 Mg Tablet) 650 mg PO Q6H PRN PRN Reason: Pain, Mild (Pain Scale 1-3), fever or headache Calcium Carbonate (Calcium Carbonate 750 Mg Tab.Chew) 750 mg PO Q4H PRN PRN Reason: Heartburn Glucose (Glucose Gel 15 Gm Gel..Gram.) 15 gm PO Q15M PRN; Protocol PRN Reason: per Hypoglycemia Standing Ord. Dextrose (D10) 250 mls @ 750 mls/hr IV Q15M PRN; Protocol PRN Reason: per Hypoglycemia Standing Ord. Insulin Human Regular (Insulin Regular, Human 100 Unit/Ml 10 Ml Vial) [facility]; Protocol Last Admin: 03/11/24 21:09 Dose: Not Given Lorazepam (Lorazepam 2 Mg/Ml Vial) 1 mg IVPUSH Q6H PRN PRN Reason: Anxiety Magnesium Hydroxide (Milk Of Magnesia 30 Ml Oral.Susp) 30 ml PO DAILY PRN PRN Reason: Constipation Melatonin (Melatonin 3 Mg Tablet) 6 mg PO BEDTIME PRN PRN Reason: Insomnia Morphine Sulfate (Morphine Sulfate 2 Mg/Ml Cartridge) 1 mg IVPUSH Q4H PRN; Protocol PRN Reason: Pain, Severe (Pain Scale 7-10) Last Admin: 03/12/24 03:43 Dose: 1 mg Oxycodone HCl (Oxycodone Hcl Immed Release 5 Mg Tablet) 5 mg PO Q4H PRN PRN Reason: Pain, Moderate(Pain Scale 4-6) Last Admin: 03/11/24 22:34 Dose: 5 mg Sodium Chloride (0.9 % Sodium Chloride Flush 3 Ml Syringe) 3 ml IVFSH [facility] Last Admin: 03/12/24 00:28 Dose: 3 ml Home Medications ?Medication ?Instructions ?Recorded ?Confirmed ?Last Taken ?Type pen needle, diabetic 32 gauge x #1,200 ea 11/22/23 12/19/23 Unknown History (UltiCare Pen Needle) lancets 28 gauge (Prodigy Twist #100 ea 11/28/23 12/19/23 Unknown History Top Lancet) blood sugar diagnostic (OneTouch #10 ea 02/13/24 Unknown History Verio test strips) blood-glucose meter (OneTouch #1 ea 02/13/24 Unknown History Verio Flex Meter) ibuprofen 600 mg tablet 600 mg PO DAILY PRN pain 02/13/24 03/11/24 Unknown History meclizine 25 mg tablet 25 mg PO DAILY Dizziness 02/13/24 03/11/24 Unknown History nystatin 100,000 unit/gram topical 1 appl topical QSHIFT Rash 02/13/24 03/11/24 Unknown History powder bisacodyl 10 mg rectal suppository 10 mg [place] DAILY PRN Constipation 02/19/24 03/11/24 Unknown History acetaminophen 325 mg tablet 650 mg PO Q4H PRN Fever Or Pain 03/11/24 03/11/24 Unknown History (Tylenol) atropine 1 % eye drops 4 drp sublingual Q3H 03/11/24 03/11/24 Unknown History dexamethasone 4 mg tablet 8 mg PO TID 03/11/24 03/11/24 Unknown History methyl salicylate-menthol topical 1 ea topical TID 03/11/24 03/11/24 Unknown History ointment morphine 30 mg tablet,extended 60 mg PO TID pain 03/11/24 03/11/24 Unknown History release morphine concentrate 100 mg/5 mL 15 mg PO 6XD PRN Pain 03/11/24 03/11/24 Unknown History (20 mg/mL) oral solution morphine concentrate 100 mg/5 mL 15 mg PO Q1H PRN Pain 03/11/24 03/11/24 Unknown History (20 mg/mL) oral solution polyethylene glycol 3350 17 17 g PO DAILY 03/11/24 03/11/24 Unknown History gram/dose oral powder sennosides 8.6 mg tablet (Senna 17.2 mg PO BID 03/11/24 03/11/24 Unknown History Lax) sodium phosphates 19 gram-7 118 ml [place] DAILY PRN Constipation 03/11/24 03/11/24 Unknown History gram/118 mL enema (Fleet Enema) tizanidine 2 mg tablet 4 mg PO TID 03/11/24 03/11/24 Unknown History Physical Exam 2 Vital Signs: Vital Signs: Last Vital Signs Temp 98 F 03/12/24 07:01 Pulse 99 03/12/24 07:01 Resp 16 03/12/24 07:01 BP 170/82 H 03/12/24 07:01 Pulse Ox 98 03/12/24 07:01 O2 Del Method Room Air 03/12/24 07:01 BMI result Body Mass Index 24.3 Extrem: Other: Left lower extremity examination shows that her thigh compartments are soft, no open skin lesions, her left leg is internally rotated and flexed Results Labs 03/11/24 17:01 03/12/24 05:16 Labs: Abnormal lab results 03/11/24 03/11/24 03/12/24 Range/Units 17:01 20:57 05:16 Hct 36.8 L (37.0-47.0) % Neut % (Auto) 85.6 H (45-73) % Lymph % (Auto) 9.5 L (20-40) % Lymph # (Auto) 0.9 L (1.2-4.9) X10*3/uL Abs Immat Gran (auto) 0.04 H (0.00-0.03) X10*3/uL Carbon Dioxide 19 L (22-29) mmol/L BUN 38 H 37 H (9-16) mg/dL POC Glucose 242 H (60-115) mg/dL Random Glucose 299 H 186 H (60-115) mg/dL Albumin 3.0 L (3.5-5.0) g/dL 03/12/24 Range/Units 07:23 Hct (37.0-47.0) % Neut % (Auto) (45-73) % Lymph % (Auto) (20-40) % Lymph # (Auto) (1.2-4.9) X10*3/uL Abs Immat Gran (auto) (0.00-0.03) X10*3/uL Carbon Dioxide (22-29) mmol/L BUN (9-16) mg/dL POC Glucose 209 H (60-115) mg/dL Random Glucose (60-115) mg/dL Albumin (3.5-5.0) g/dL H & H 03/11/24 Range/Units 17:01 Hgb 12.8 (12.0-16.0) g/dl Hct 36.8 L (37.0-47.0) % Coagulation 03/11/24 Range/Units 17:01 INR 1.0 (0.9-1.1) All other labs normal. Diagnostic results Hip x-ray: other (X-rays of the patient's left hip show a fracture of the proximal femur) Assessment and Plan (1) Closed left femoral fracture: Status: Acute Plan Ms. Johnson is a 63-year-old female who presents with intractable left hip pain due to a displaced left proximal femur fracture. I had a lengthy discussion with the patient regarding the treatment options. The risks and benefits of left hip surgery were discussed at length with the patient. The patient wishes to proceed with surgery to help control her pain. Surgery will involve placement of a left hip long gamma nail versus possible open reduction and internal fixation. Surgery is scheduled for later today as the operating room schedule allows. Thank you very much for asking me to see this very friendly patient. Total time managing care of this patient today: 17 minutes. Procedures Date of Service Date of Service: 03/12/24
[2024-03-12 07:44] LABS: Basophils Percent Auto 0.1 % (0-2); Eosinophils Percent Auto 0.2 % (0-4); Hematocrit 39.3 % (37.0-47.0); Imm Gran Abs Auto 0.08 X10*3/uL (0.00-0.03); Imm Gran Pct Auto 0.5 % (0.0-0.4); Lymphocytes Absolute Auto 2.2 X10*3/uL (1.2-4.9); Lymphocytes Percent Auto 14.2 % (20-40); Mean Corpuscular HGB Conc 35.6 g/dl (31.0-35.0); Mean Corpuscular Hemoglobin 29.1 pg (27.0-33.0); Mean Corpuscular Volume 81.7 fL (80.0-98.0); Mean Platelet Volume 10.6 fL (9.4-12.3); Monocytes Absolute Auto 1.4 X10*3/uL (0.1-1.2); Monocytes Percent Auto 8.7 % (2-11); Neutrophils Absolute Auto 11.8 x10*3/uL (2.0-8.3); Neutrophils Percent Auto 76.3 % (45-73); Platelet Count 405 X10*3/uL (160-400); Red Blood Count 4.81 X10*6/uL (4.20-5.50); White Blood Count 15.5 X10*3/uL (4.8-10.8)
[2024-03-12 09:21] LABS: MANUAL DIFF FLAG NO
--- NOTE | 2024-03-12 11:09 | P.PNIM_ITS ---
Subjective Subjective Date of Service: 03/12/24 Interval History: Metastatic cancer on Hospice hip fracture confusion Review of Systems no new c/o. pain controlled. Physical Exam 2 Vital Signs: Vital Signs: Last Vital Signs Temp 98 F 03/12/24 07:01 Pulse 99 03/12/24 07:01 Resp 16 03/12/24 07:01 BP 170/82 H 03/12/24 07:01 Pulse Ox 98 03/12/24 07:01 O2 Del Method Room Air 03/12/24 07:01 BMI result Body Mass Index 24.3 visablely appears uncomfortable lung sounds are clear to auscultation heart regular rate rhythm, clear S1, S2 positive bowel sounds, abdomen is soft, nontender neuro patient is alert, confused Objective Data Active Medications Acetaminophen (Acetaminophen 325 Mg Tablet) 650 mg PO Q6H PRN PRN Reason: Pain, Mild (Pain Scale 1-3), fever or headache Calcium Carbonate (Calcium Carbonate 750 Mg Tab.Chew) 750 mg PO Q4H PRN PRN Reason: Heartburn Glucose (Glucose Gel 15 Gm Gel..Gram.) 15 gm PO Q15M PRN; Protocol PRN Reason: per Hypoglycemia Standing Ord. Dextrose (D10) 250 mls @ 750 mls/hr IV Q15M PRN; Protocol PRN Reason: per Hypoglycemia Standing Ord. Insulin Human Regular (Insulin Regular, Human 100 Unit/Ml 10 Ml Vial) 0 unit SUBCUT QIDAS [facility]; Protocol Last Admin: 03/12/24 08:47 Dose: Not Given Documented By: YOEL Non-Admin Reason: NPO Lorazepam (Lorazepam 2 Mg/Ml Vial) 1 mg IVPUSH Q6H PRN PRN Reason: Anxiety Magnesium Hydroxide (Milk Of Magnesia 30 Ml Oral.Susp) 30 ml PO DAILY PRN PRN Reason: Constipation Melatonin (Melatonin 3 Mg Tablet) 6 mg PO BEDTIME PRN PRN Reason: Insomnia Morphine Sulfate (Morphine Sulfate 2 Mg/Ml Cartridge) 1 mg IVPUSH Q4H PRN; Protocol PRN Reason: Pain, Severe (Pain Scale 7-10) Last Admin: 03/12/24 07:40 Dose: 1 mg Documented By: YOEL Oxycodone HCl (Oxycodone Hcl Immed Release 5 Mg Tablet) 5 mg PO Q4H PRN PRN Reason: Pain, Moderate(Pain Scale 4-6) Last Admin: 03/11/24 22:34 Dose: 5 mg Documented By: CHANTEL Sodium Chloride (0.9 % Sodium Chloride Flush 3 Ml Syringe) 3 ml IVFLUSH QSARFT [facility] Last Admin: 03/12/24 10:56 Dose: Not Given Documented By: YOEL Non-Admin Reason: Previously Administered Labs 03/12/24 07:22 03/12/24 05:16 Labs: Laboratory Results - last 24 hr 03/11/24 03/11/24 03/12/24 17:01 20:57 05:16 MCV 82.3 MCH 28.6 MCHC 34.8 RDW 12.0 Plt Count 369 D MPV 10.7 Immature Gran % (Auto) 0.4 Neut % (Auto) 85.6 H Lymph % (Auto) 9.5 L [place] % (Auto) 4.4 Eos % (Auto) 0.0 Baso % (Auto) 0.1 Lymph # (Auto) 0.9 L [place] # (Auto) 0.4 Eos # (Auto) 0.0 Baso # (Auto) 0.0 Abs Immat Gran (auto) 0.04 H Absolute Neuts (auto) 8.1 Absolute Nucleated RBC 0.000 Nucleated RBC % (auto) 0.0 PT 12.0 INR 1.0 Anion Gap 13 13 Estim Creat Clear Calc 57.6 59.8 Estimated GFR > 60 > 60 POC Glucose 242 H Random Glucose 299 H 186 H Calcium 9.1 D 9.0 Total Bilirubin 0.6 AST 20 ALT 11 Alkaline Phosphatase 110 Total Protein 6.5 Albumin 3.0 L Blood Type O Positive Antibody Screen NEGATIVE 03/12/24 03/12/24 07:22 07:23 MCV 81.7 MCH 29.1 MCHC 35.6 H RDW 12.0 Plt Count 405 H MPV 10.6 Immature Gran % (Auto) 0.5 H Neut % (Auto) 76.3 H Lymph % (Auto) 14.2 L [place] % (Auto) 8.7 Eos % (Auto) 0.2 Baso % (Auto) 0.1 Lymph # (Auto) 2.2 [place] # (Auto) 1.4 H Eos # (Auto) 0.0 Baso # (Auto) 0.0 Abs Immat Gran (auto) 0.08 H Absolute Neuts (auto) 11.8 H Absolute Nucleated RBC 0.000 Nucleated RBC % (auto) 0.0 PT INR Anion Gap Estim Creat Clear Calc Estimated GFR POC Glucose 209 H Random Glucose Calcium Total Bilirubin AST ALT Alkaline Phosphatase Total Protein Albumin Blood Type Antibody Screen Assessment and Plan (1) Closed left femoral fracture: Status: Acute Plan 63 year old women admitted with intractable pain likely secondary to hip fracture. Patient with history of breast cancer with metastasis currently on hospice but willing to have surgical procedure for hip pain Acute metabolic encephalopathy likely secondary to hospitalization, narcotic pain medication and femur fracture Monitor mentation Left femur fracture Orthopedic surgery consultation>plan for gamma nailing vs ORIF today Pain management Bedrest Leukocytosis Likely reactive to fracture Monitor History of breast cancer with metastasis Has been on hospice, not currently on treatment Diabetes mellitus Sliding scale, ADA diet History of CVA left sided deficits DVT prophylaxis pneumatic compression boots DNR/DNI continue admission for left femur fracture requiring surgical procedure and IV pain management. Quality Stroke Does the patient have a stroke diagnosis?: No VTE Prior VTE?: No VTE Risk Level:: Medical - moderate - high VTE Device Contraindication: N/A - Device Ordered VTE Drug Contraindication: Treatment Not Indicated
[2024-03-12 11:18] LABS: Glucose, Whole Blood 251 mg/dL (60-115)
[2024-03-12] MEDS: Insulin Regular, Human 100 UNIT/ML 10 ML VIAL SUBCUT ×3 (11:34→21:48)
--- NOTE | 2024-03-12 12:19 | MHC.CLN ---
PT WITH INCREASED NUTRITION RISK R/T PRESSURE INJURY PT IS CURRENTLY NPO R/T SX RECOMMEND ADDING ENSURE MAX BID TO PROMOTE WOUND HEALING SUPP TO PROVIDE 300KCALS, 60G PROTEIN MONITOR PO INTAKE AND ENCOURAGE SUPPLEMENT SEE ALSO FULL CLINICAL NUTRITION ASSESSMENT
[2024-03-12] MEDS: ondansetron HCL 4 MG/2 ML VIAL IVPUSH (12:35)
--- NOTE | 2024-03-12 13:03 | MHC.CM.PN ---
IMM DELIVERED TO DAUGHTER/HCP JANINE VIA TELEPHONE. REQUESTS WHITE COPY BE LEFT AT BEDSIDE. PER DAUGHTER, PLAN WILL BE TO RETURN TO [facility] FOR HOSPICE CARE WITH [facility]. PT IS CURRENTLY IN SURGERY. TRANSPORT VIA S
[2024-03-12] MEDS: Lactated Ringers 1,000 ML 50 ML IVCONT (13:12)
--- NOTE | 2024-03-12 13:17 | P.CONAN_ITS ---
HPI - Anesthesia Eval Consult details Narrative: 63-year-old female presenting with a metastatic femur fracture PMFSH Active Problems Active Problems: All Active Problems Closed left femoral fracture (Acute) Displaced intertrochanteric fracture of femur (Acute) Hospice care patient (Acute) Metastatic cancer (Acute) Osteoarthritis, hip, bilateral (Acute) Pain of right hip (Acute) Endometrial thickening on ultrasound (Acute) Hypercalcemia (Acute) History of breast cancer (Acute) Postmenopausal bleeding (Acute) Physical deconditioning (Acute) Bilateral hip pain (Acute) Type 2 diabetes mellitus with microalbuminuria, without long-term current use of insulin (Acute) CVA (cerebral vascular accident) (Acute) Cellulitis (Acute) Past Medical History Medical History Malignant neoplasm of central portion of right female breast Type 2 diabetes mellitus with microalbuminuria, without long-term current use of insulin Rotator cuff tear, right History of stroke with current residual effects FH: mastectomy CVA (cerebral vascular accident) Family History Family history of problems with anesthesia: No Surgical History Surgical History Hx of lumpectomy S/P right mastectomy History of Problems with Anesthesia: No Social History Social History Household Members: None Housing: Residential Do you presently have visiting nurse or other home services: No Alcohol intake: never Comment: sleeping Patient Tobacco Use Status: Never used Tobacco Smoked in Last 30 Days: No e-Cigarette/Vaping Use: Never Used Second Hand Smoke Exposure: No Use of substances other than those prescribed or required for medical reasons: No Substance Use Type: Other Are you DNR?: Yes Advance Directives: Yes Advance Directives on File: Yes Advance Directives Date on File: 02/21/24 Do you have a plan to hurt others: No Plan Nutrition Risks: No Nutritional Risk Patient : No Poor oral hygiene: No service: No Current occupational status: retired Cognitive needs: No Hearing needs: No Vision needs: No Meds Allergies Allergy/AdvReac Type Severity Reaction Status Date / Time insulin lispro Allergy Unknown redness Verified 03/11/24 12:49 [Humalog U-100 Insulin] and itching doxycycline Allergy Unknown Verified 03/11/24 12:49 horse dander Allergy Unknown Verified 02/19/24 11:05 peach Allergy Unknown Verified 03/11/24 12:49 plum Allergy Unknown Verified 03/11/24 12:49 ragweed pollen Allergy Unknown Verified 03/11/24 12:49 Sulfa (Sulfonamide Allergy Unknown Verified 03/11/24 12:49 Antibiotics) tramadol AdvReac Intermediate Depression Verified 03/11/24 12:49 Doxycycline Hyclate Allergy Unknown Unknown Uncoded 02/13/24 14:26 Active Medications: Current Medications Acetaminophen (Acetaminophen 325 Mg Tablet) 650 mg PO Q6H PRN PRN Reason: Pain, Mild (Pain Scale 1-3), fever or headache Calcium Carbonate (Calcium Carbonate 750 Mg Tab.Chew) 750 mg PO Q4H PRN PRN Reason: Heartburn Glucose (Glucose Gel 15 Gm Gel..Gram.) 15 gm PO Q15M PRN; Protocol PRN Reason: per Hypoglycemia Standing Ord. Dextrose (D10) 250 mls @ 750 mls/hr IV Q15M PRN; Protocol PRN Reason: per Hypoglycemia Standing Ord. Lactated Ringer's (Lr) 1,000 mls @ 50 mls/hr IVCONT .Q20H [facility] Last Admin: 03/12/24 13:12 Dose: 50 mls/hr Insulin Human Regular (Insulin Regular, Human 100 Unit/Ml 10 Ml Vial) 0 unit SUBCUT QIDACHS [facility]; Protocol Last Admin: 03/12/24 11:34 Dose: 4 unit Lorazepam (Lorazepam 2 Mg/Ml Vial) 1 mg IVPUSH Q6H PRN PRN Reason: Anxiety Magnesium Hydroxide (Milk Of Magnesia 30 Ml Oral.Susp) 30 ml PO DAILY PRN PRN Reason: Constipation Melatonin (Melatonin 3 Mg Tablet) 6 mg PO BEDTIME PRN PRN Reason: Insomnia Morphine Sulfate (Morphine Sulfate 2 Mg/Ml Cartridge) 1 mg IVPUSH Q4H PRN; Protocol PRN Reason: Pain, Severe (Pain Scale 7-10) Last Admin: 03/12/24 07:40 Dose: 1 mg Oxycodone HCl (Oxycodone Hcl Immed Release 5 Mg Tablet) 5 mg PO Q4H PRN PRN Reason: Pain, Moderate(Pain Scale 4-6) Last Admin: 03/11/24 22:34 Dose: 5 mg Sodium Chloride (0.9 % Sodium Chloride Flush 3 Ml Syringe) 3 ml IVFLUSH QSHIFT [facility] Last Admin: 03/12/24 10:56 Dose: Not Given Home Medications ?Medication ?Instructions ?Recorded ?Confirmed ?Last Taken ?Type pen needle, diabetic 32 gauge x #1,200 ea 11/22/23 12/19/23 Unknown History (UltiCare Pen Needle) lancets 28 gauge (Prodigy Twist #100 ea 11/28/23 12/19/23 Unknown History Top Lancet) blood sugar diagnostic (OneTouch #10 ea 02/13/24 Unknown History Verio test strips) blood-glucose meter (OneTouch #1 ea 02/13/24 Unknown History Verio Flex Meter) ibuprofen 600 mg tablet 600 mg PO DAILY PRN pain 02/13/24 03/11/24 Unknown History meclizine 25 mg tablet 25 mg PO DAILY Dizziness 02/13/24 03/11/24 Unknown History nystatin 100,000 unit/gram topical 1 appl topical QSHIFT Rash 02/13/24 03/11/24 Unknown History powder bisacodyl 10 mg rectal suppository 10 mg [place] DAILY PRN Constipation 02/19/24 03/11/24 Unknown History acetaminophen 325 mg tablet 650 mg PO Q4H PRN Fever Or Pain 03/11/24 03/11/24 Unknown History (Tylenol) atropine 1 % eye drops 4 drp sublingual Q3H 03/11/24 03/11/24 Unknown History dexamethasone 4 mg tablet 8 mg PO TID 03/11/24 03/11/24 Unknown History methyl salicylate-menthol topical 1 ea topical TID 03/11/24 03/11/24 Unknown History ointment morphine 30 mg tablet,extended 60 mg PO TID pain 03/11/24 03/11/24 Unknown History release morphine concentrate 100 mg/5 mL 15 mg PO 6XD PRN Pain 03/11/24 03/11/24 Unknown History (20 mg/mL) oral solution morphine concentrate 100 mg/5 mL 15 mg PO Q1H PRN Pain 03/11/24 03/11/24 Unknown History (20 mg/mL) oral solution polyethylene glycol 3350 17 17 g PO DAILY 03/11/24 03/11/24 Unknown History gram/dose oral powder sennosides 8.6 mg tablet (Senna 17.2 mg PO BID 03/11/24 03/11/24 Unknown History Lax) sodium phosphates 19 gram-7 118 ml [place] DAILY PRN Constipation 03/11/24 03/11/24 Unknown History gram/118 mL enema (Fleet Enema) tizanidine 2 mg tablet 4 mg PO TID 03/11/24 03/11/24 Unknown History Exam Height,Weight and Vital Signs: Height 5 ft 4 in Weight 141 lb 12.116 oz Last Vital Signs Temp 98.4 F 03/12/24 12:19 Pulse 89 03/12/24 12:19 Resp 16 03/12/24 12:19 BP 173/73 H 03/12/24 12:19 Pulse Ox 97 03/12/24 12:19 O2 Del Method Room Air 03/12/24 12:19 Pertinent Lab Results Pertinent Lab Results: Laboratory Tests 03/11/24 03/11/24 03/12/24 17:01 20:57 05:16 WBC 9.5 RBC 4.47 Hgb 12.8 Hct 36.8 L MCV 82.3 MCH 28.6 MCHC 34.8 RDW 12.0 Plt Count 369 D MPV 10.7 Immature Gran % (Auto) 0.4 Neut % (Auto) 85.6 H Lymph % (Auto) 9.5 L [place] % (Auto) 4.4 Eos % (Auto) 0.0 Baso % (Auto) 0.1 Lymph # (Auto) 0.9 L [place] # (Auto) 0.4 Eos # (Auto) 0.0 Baso # (Auto) 0.0 Abs Immat Gran (auto) 0.04 H Absolute Neuts (auto) 8.1 Absolute Nucleated RBC 0.000 Nucleated RBC % (auto) 0.0 PT 12.0 INR 1.0 Sodium 137 136 Potassium 4.5 D 4.3 Chloride 106 108 Carbon Dioxide 23 19 L Anion Gap 13 13 BUN 38 H 37 H Creatinine 0.84 0.81 Estim Creat Clear Calc 57.6 59.8 Estimated GFR > 60 > 60 POC Glucose 242 H Random Glucose 299 H 186 H Calcium 9.1 D 9.0 Total Bilirubin 0.6 AST 20 ALT 11 Alkaline Phosphatase 110 Total Protein 6.5 Albumin 3.0 L Blood Type O Positive Antibody Screen NEGATIVE 03/12/24 03/12/2424 07:22 07:23 11:15 WBC 15.5 H RBC 4.81 Hgb 14.0 Hct 39.3 MCV 81.7 MCH 29.1 MCHC 35.6 H RDW 12.0 Plt Count 405 H MPV 10.6 Immature Gran % (Auto) 0.5 H Neut % (Auto) 76.3 H Lymph % (Auto) 14.2 L [place] % (Auto) 8.7 Eos % (Auto) 0.2 Baso % (Auto) 0.1 Lymph # (Auto) 2.2 [place] # (Auto) 1.4 H Eos # (Auto) 0.0 Baso # (Auto) 0.0 Abs Immat Gran (auto) 0.08 H Absolute Neuts (auto) 11.8 H Absolute Nucleated RBC 0.000 Nucleated RBC % (auto) 0.0 PT INR Sodium Potassium Chloride Carbon Dioxide Anion Gap BUN Creatinine Estim Creat Clear Calc Estimated GFR POC Glucose 209 H 251 H Random Glucose Calcium Total Bilirubin AST ALT Alkaline Phosphatase Total Protein Albumin Blood Type Antibody Screen Airway Mallampati Class: II TM Dist: >3cm Neck ROM: Full Loose/Missing/Broken Teeth: Yes (Multiple loose and broken teeth) Assessment and Plan Assessment Anesthesia Assessment: Anesthesia Plan Discussed and Chart Reviewed Final Anesthetic Review Family History of Problems with Anesthesia: No History of Problems with Anesthesia: No NPO: Yes ASA Class: III Final Preanesthetic Review: No Changes in Pt Med Stat, Meds/Allgs Chart Reviewed, Consent Obtained/Reviewed and Anes Risks/Benef Reviewed Patient Risk: Intermediate Procedure Risk: Low Anesthetic Plan Anesthetic Plan: GA Disposition: Standard PACU
[2024-03-12 13:33] LABS: Glucose, Whole Blood 215 mg/dL (60-115)
--- NOTE | 2024-03-12 14:30 | MHC.CM.PN ---
CM received call from [facility], hospice SW. Per [facility] patient and daughter would like patient to transfer to [facility] on dc, as patient has a friend in this facility. [facility] does not cover [place], so new hospice agency will be needed. CM confirmed these wishes w/ daughter Deyanira. Referral placed to [facility]. Awaiting response. Deyanira does not have preference for new hospice agency, will check w/ [facility]. CM will continue to follow.
[2024-03-12] MEDS: HYDROmorphone HCl 0.5 MG/0.5 ML SYRINGE IVPUSH ×2 (16:20→16:25)
[2024-03-12 17:11] LABS: Glucose, Whole Blood 234 mg/dL (60-115)
[2024-03-12] MEDS: oxyCODONE HCl Immed Release 5 MG TABLET PO (17:47)
[2024-03-12] MEDS: ceFAZolin Sodium/Dextrose,Iso 2 GM/50 ML PIGGYBACK IV (20:20)
[2024-03-12 20:54] LABS: Glucose, Whole Blood 227 mg/dL (60-115)
[2024-03-12] MEDS: Nystatin Powder 15 GM BOTTLE 1 APPL TOPICAL (21:59)
[2024-03-13] VITALS (7 sets, daily range): BP systolic 107–170; BP diastolic 56–88; PULSE 62–103; RESP 16–18; TEMP 36.4–37.9; O2SAT 94–98
[2024-03-13] MEDS: ondansetron HCL 4 MG/2 ML VIAL IVPUSH ×2 (01:52→15:50)
[2024-03-13] MEDS: 0.9 % Sodium Chloride Flush 3 ML SYRINGE IVFLUSH ×2 (01:54→15:38)
[2024-03-13] MEDS: Morphine Sulfate 2 MG/ML CARTRIDGE 1 MG IVPUSH (02:03)
[2024-03-13] MEDS: Metoclopramide HCl 10 MG/2 ML VIAL 5 MG IVPUSH (02:26)
[2024-03-13] MEDS: Morphine Sulfate Oral Sol 10 MG/5 ML SOLUTION 15 MG PO (03:44)
[2024-03-13] MEDS: ceFAZolin Sodium/Dextrose,Iso 2 GM/50 ML PIGGYBACK IV ×2 (05:38→12:02)
--- NOTE | 2024-03-13 06:51 | PM.OP ---
Brief Operative Note Date of Service: 03/12/24 Pre-op diagnosis: Left proximal femur subtrochanteric fracture Post-op diagnosis: same Procedure: Intramedullary nailing of left proximal femur subtrochanteric fracture with placement of a long Gamma nail Implants: [place] left long gamma nail measuring 360 mm in length with a 125 degree neck-shaft angle, a 90 mm lag screw, standard set screw, distal locking bolt measuring 40 mm in length Surgeon: Jean Pierre Altamirano MD Anesthesia: GETA Was an Old Testament Professor used for this Procedure?: No Estimated blood loss (mL): 50 Pathology: none sent Condition: stable Disposition: PACU
--- NOTE | 2024-03-13 06:52 | P.OP_ITS ---
Operative Note Operative Note Date of Service: 03/12/24 Narrative: After the patient was identified as Lien Johnson and her left hip was initialed by myself they were brought to the operating room where general anesthesia was induced by the anesthesiologist in routine fashion. The patient was given 2 g of IV Ancef for infection prophylaxis. The patient was then gently transferred from the hospital bed onto the fracture table. The patient's right lower extremity was placed into the well leg bell. The patient's left lower extremity was placed in gentle in-line traction with their patella parallel to the floor. All bony prominences were well padded. C-arm AP and lateral radiographs were taken to confirm good fracture reduction. The patient's left hip region and thigh were prepped and draped in sterile fashion. A formal time-out was completed. A #10 scalpel blade was used to make a 5 cm incision just proximal to the tip of the greater trochanter. A curved cannulated awl was introduced into the proximal femur in routine fashion. A ball-tipped guidewire was then placed through the cannula and into the femoral canal. The guidewire was passed down to the superior pole of the patella. The awl was removed. The guidewire measured 360 mm in length. Reaming was begun with a 9 mm reamer. Reaming was increased incrementally up to a size 12 reamer distally and a 15.5 mm reamer proximally. The left long gamma nail measuring 10 mm in diameter by 360 mm in length was passed over the guidewire. Good fracture reduction and nail positioning were confirmed using C-arm AP and lateral radiographs. A 2 cm incision was then made where the lag screw trocar met the p atient's lateral thigh. The subcutaneous tissues and fascia broderick were split down to the lateral cortex of the femur using a hemostat. The lag screw trocar was passed down to the lateral cortex of the femur. A threaded guidewire was then placed into the inferior aspect of the femoral head on the AP x-ray and the center of the femoral head on the lateral x-ray. The guidewire measured 90 mm in length. Reaming was then performed over the guidewire to a depth of 90 mm. The lag screw measuring 90 mm in length was then placed over the guidewire. The guidewire was removed. The set screw was then placed into the proximal aspect of the nail and tightened fully. Our attention was then directed to the distal aspect of the rosa. One distal locking bolt was placed from lateral to medial in routine fashion. Final AP and lateral radiographs showed good fracture reduction and hardware positioning. All 3 wounds were irrigated with copious amounts of normal saline solution. The distal 2 wounds were closed with 2-0 Vicryl and skin walt. The proximal wound was irrigated. The fascia broderick was closed with 0 Vicryl [id number] interrupted suture. The wound was once again irrigated. The subcutaneous tissues were closed with 2-0 Vicryl interrupted suture. The skin was closed with skin walt. Dry sterile dressing was placed over all incisions. The patient was gently transferred from the fracture table onto her hospital bed. The patient was awoken and extubated in the operating room. The patient was transferred to the recovery room in stable condition.
[2024-03-13 07:17] LABS: Glucose, Whole Blood 269 mg/dL (60-115)
[2024-03-13] MEDS: oxyCODONE HCl Immed Release 5 MG TABLET PO ×3 (07:20→14:45)
[2024-03-13] MEDS: Metoclopramide HCl 10 MG/2 ML VIAL IVPUSH (07:21)
[2024-03-13] MEDS: Nystatin Powder 15 GM BOTTLE 1 APPL TOPICAL (07:23)
--- NOTE | 2024-03-13 07:57 | HO.POSTANES ---
Post Anesthesia Evaluation Post Anesthesia Evaluation Date of Service: 03/12/24 Vital Signs: Vital Signs Temp Pulse Resp BP Pulse Ox O2 Del Method 03/13/24 06:59 98.2 F 101 H 17 150/83 H 98 Room Air 03/13/24 03:13 100.2 F 100 18 167/88 H 95 Room Air 03/13/24 02:39 98.8 F 91 18 168/79 H 94 Room Air Anesthesia: General Mental Status: Awake Pain Control: Satisfactory Nausea/Vomiting: Mild (chronic pain meds ) Hydration: Adequate Anesthesia-Related Issues: No Anes. Related Issues
--- NOTE | 2024-03-13 08:02 | PM.PNORT ---
Subjective Subjective Date of Service: 03/13/24 Interval history: POD1 s/p left hip IM Nail Patient is resting in bed No overnight events Pain is managed Complains of nausea and vomiting No additional complaints Physical Exam Vital Signs: Vital Signs: Last Vital Signs Temp 98.2 F 03/13/24 06:59 Pulse 101 H 03/13/24 06:59 Resp 17 03/13/24 06:59 BP 150/83 H 03/13/24 06:59 Pulse Ox 98 03/13/24 06:59 O2 Del Method Room Air 03/13/24 06:59 O2 Flow Rate 1 03/12/24 17:04 BMI result Body Mass Index 24.3 Const: General: cooperative, healthy appearing and no acute distress Resp: Effort & Inspection: normal respiratory effort and able to speak in complete sentences Cardio: Rate: regular rate Peripheral pulses: Peripheral pulses 2+ throughout GI: Palpation (GI): Soft to palpation Skin: Lesions: no lesions Rashes: no rashes Extrem: Other: left hip dressings are c/d/i. Able to dorsi/plantar flex. Calf is supple and nontender. Sensation intact. Pedal pulse intact. Procedures Date of Service Date of Service: 03/13/24 Progress Note: A&P Assessment and plan (1) Closed left femoral fracture: Status: Acute Assessment and Plan: Continue pain mgmnt Begin Lovenox for dvt ppx begin PT/OT for leftg hip IM Nail Nausea and vomiting - adjusted to d/c zofran and added phenergan Dispo planning-Pending PT eval, pain mgmnt, rehab placement, management of N+V (2) Displaced intertrochanteric fracture of femur: Status: Acute (3) Metastatic cancer: Status: Acute Time Spent With Patient Time: Total time managing care of this patient today ____ minutes. Quality Stroke Does the patient have a stroke diagnosis?: No VTE Prior VTE?: No VTE Risk Level:: Medical - moderate - high VTE Device Contraindication: N/A - Device Ordered VTE Drug Contraindication: Treatment Not Indicated
--- NOTE | 2024-03-13 08:40 | HO.PM.IMPN ---
Subjective Subjective Date of Service: 03/13/24 Interval History: Metastatic cancer on Hospice hip fracture, s/p nailing nausea Review of Systems no new c/o. pain controlled. Physical Exam Vital Signs: Vital Signs: Last Vital Signs Temp 98.2 F 03/13/24 06:59 Pulse 101 H 03/13/24 06:59 Resp 17 03/13/24 06:59 BP 150/83 H 03/13/24 06:59 Pulse Ox 98 03/13/24 06:59 O2 Del Method Room Air 03/13/24 06:59 O2 Flow Rate 1 03/12/24 17:04 BMI result Body Mass Index 24.3 Appearing in no acute distress lung sounds are clear to auscultation heart regular rate rhythm, clear S1, S2 positive bowel sounds, abdomen is soft, nontender neuro patient is alert x3, no focal deficits Objective Data Active Medications Acetaminophen (Acetaminophen 325 Mg Tablet) 650 mg PO Q6H PRN PRN Reason: Pain, Mild (Pain Scale 1-3), fever or headache Calcium Carbonate (Calcium Carbonate 750 Mg Tab.Chew) 750 mg PO Q4H PRN PRN Reason: Heartburn Enoxaparin Sodium (Enoxaparin Sodium 40 Mg/0.4 Ml Syringe) 40 mg SUBCUT Q24H MICHEL Glucose (Glucose Gel 15 Gm Gel..Gram.) 15 gm PO Q15M PRN; Protocol PRN Reason: per Hypoglycemia Standing Ord. Dextrose (D10) 250 mls @ 750 mls/hr IV Q15M PRN; Protocol PRN Reason: per Hypoglycemia Standing Ord. Lactated Ringer's (Lr) 1,000 mls @ 50 mls/hr IVCONT .Q20H [facility] Last Admin: 03/12/24 13:12 Dose: 50 mls/hr Documented By: BERYL Cefazolin Sodium/Dextrose (Ancef) 2 gm in 50 mls @ 100 mls/hr IV Q8H [facility] Stop: 03/13/24 20:59 Last Infusion: 03/13/24 06:24 Dose: Infused Documented By: MARIANNA Insulin Human Regular (Insulin Regular, Human 100 Unit/Ml 10 Ml Vial) 0 unit SUBCUT QIDACHS [facility]; Protocol Last Admin: 03/13/24 07:46 Dose: Not Given Documented By: CHANTEL Non-Admin Reason: Patient Refused Lorazepam (Lorazepam 2 Mg/Ml Vial) 1 mg IVPUSH Q6H PRN PRN Reason: Anxiety Magnesium Hydroxide (Milk Of Magnesia 30 Ml Oral.Susp) 30 ml PO DAILY PRN PRN Reason: Constipation Melatonin (Melatonin 3 Mg Tablet) 6 mg PO BEDTIME PRN PRN Reason: Insomnia Morphine Sulfate (Morphine Sulfate 2 Mg/Ml Cartridge) 1 mg IVPUSH Q4H PRN; Protocol PRN Reason: Pain, Severe (Pain Scale 7-10) Last Admin: 03/13/24 02:03 Dose: 1 mg Documented By: MARIANNA Morphine Sulfate (Morphine Sulfate Er 30 Mg Tablet.Er) 60 mg PO TID [facility] Last Admin: 03/12/24 21:57 Dose: Not Given Documented By: STEVEN Non-Admin Reason: Nausea Morphine Sulfate (Morphine Sulfate Oral Flora 10 Mg/5 Ml Solution) 15 mg PO Q4H PRN PRN Reason: Pain Last Admin: 03/13/24 03:44 Dose: 15 mg Documented By: MARIANNA Nystatin (Nystatin Powder 15 Gm Bottle) 1 appl TOPICAL [facility]; Protocol Last Admin: 03/13/24 07:23 Dose: 1 appl Documented By: CHANTEL Oxycodone HCl (Oxycodone Hcl Immed Release 5 Mg Tablet) 5 mg PO Q4H PRN PRN Reason: Pain, Moderate(Pain Scale 4-6) Last Admin: 03/13/24 07:20 Dose: 5 mg Documented By: CHANTEL Promethazine HCl (Promethazine Hcl 25 Mg Tablet) 25 mg PO Q6H PRN PRN Reason: Nausea Senna (Sennosides 8.6 Mg Tablet) 17.2 mg PO BID [facility] Last Admin: 03/12/24 21:57 Dose: Not Given Documented By: STEVEN Non-Admin Reason: Nausea Sodium Chloride (0.9 % Sodium Chloride Flush 3 Ml Syringe) 3 ml IVFLUSH [facility] Last Admin: 03/13/24 07:21 Dose: Not Given Documented By: CHANTEL Non-Admin Reason: IV Running Tizanidine HCl (Tizanidine Hcl 4 Mg Tablet) 4 mg PO TID [facility] Last Admin: 03/12/24 21:56 Dose: Not Given Documented By: STEVEN Non-Admin Reason: Nausea Labs 03/12/24 07:22 03/12/24 05:16 Labs: Laboratory Results - last 24 hr 03/12/24 03/12/24 03/12/24 11:15 13:29 17:08 POC Glucose 251 H 215 H 234 H 03/12/24 03/13/24 20:50 07:14 POC Glucose 227 H 269 H Assessment and Plan (1) Closed left femoral fracture: Status: Acute Plan 63 year old women admitted with intractable pain likely secondary to hip fracture. Patient with history of breast cancer with metastasis currently on hospice but willing to have surgical procedure for hip pain Nausea and vomiting no abd pain start IV pepcid KUB, patient declined removed fentanyl patch to see if that alleviates nausea Left femur fracture s/p gamma nailing Orthopedic surgery following Pain management PT consult Acute metabolic encephalopathy. resolving likely secondary to hospitalization, narcotic pain medication and femur fracture Monitor mentation Leukocytosis Likely reactive to fracture Monitor History of breast cancer with metastasis Has been on hospice, not currently on treatment plan to return to facility as hospice Diabetes mellitus 2 Sliding scale, ADA diet History of CVA left sided deficits DVT prophylaxis pneumatic compression boots Attending Dr. Gilliam DNR/DNI continue admission for left femur fracture requiring surgical procedure and IV pain management. Quality Stroke Does the patient have a stroke diagnosis?: No VTE Prior VTE?: No VTE Risk Level:: Medical - moderate - high VTE Device Contraindication: N/A - Device Ordered VTE Drug Contraindication: Treatment Not Indicated
[2024-03-13] MEDS: Famotidine/PF 20 MG/2 ML VIAL IVPUSH ×2 (10:23→20:47)
[2024-03-13 11:17] LABS: Glucose, Whole Blood 295 mg/dL (60-115)
[2024-03-13] MEDS: Insulin Regular, Human 100 UNIT/ML 10 ML VIAL SUBCUT ×3 (12:00→21:01)
--- NOTE | 2024-03-13 12:16 | MHC.CLN ---
F/U DIET=REGULAR. ADDING ADDING ENSURE MAX BID TO PROMOTE WOUND HEALING. SUPPLEMENT TO PROVIDE 300 KCALS, 60 G PROTEIN. MONITOR PO INTAKE AND ENCOURAGE SUPPLEMENT.
[2024-03-13] MEDS: Enoxaparin Sodium 40 MG/0.4 ML SYRINGE SUBCUT (14:45)
[2024-03-13] MEDS: TiZANidine HCL 4 MG TABLET PO ×2 (14:45→20:45)
[2024-03-13] MEDS: Morphine Sulfate ER 30 MG TABLET.ER 60 MG PO ×2 (14:46→20:46)
--- NOTE | 2024-03-13 16:01 | MHC.CM.PN ---
EMR reviewed and per MD rounds, pt is not medically cleared for discharge due to ongoing management of post-op care of left femur fracture repair. [facility] willing to accept pt, MDS completed per their request. Per [facility], they work with [facility] as they do not accept [facility]. This CM met with pt to discuss discharge plan to go to [facility] [place] when she is medically cleared for discharge, and she is in agreement with plan.
[2024-03-13 16:40] LABS: Glucose, Whole Blood 308 mg/dL (60-115)
[2024-03-13 20:10] LABS: Glucose, Whole Blood 239 mg/dL (60-115)
[2024-03-13] MEDS: Sennosides 8.6 MG TABLET 17.2 MG PO (20:47)
[2024-03-13] MEDS: Lactated Ringers 1,000 ML 50 ML IVCONT (22:59)
[2024-03-14] VITALS (7 sets, daily range): BP systolic 96–155; BP diastolic 53–69; PULSE 50–63; RESP 16–20; TEMP 36.2–36.6; O2SAT 95–98
[2024-03-14] MEDS: Nystatin Powder 15 GM BOTTLE 1 APPL TOPICAL ×3 (01:18→14:35)
[2024-03-14 07:23] LABS: Glucose, Whole Blood 173 mg/dL (60-115)
[2024-03-14] MEDS: ondansetron HCL 4 MG/2 ML VIAL IVPUSH ×2 (07:42→14:40)
[2024-03-14] MEDS: Famotidine/PF 20 MG/2 ML VIAL IVPUSH ×2 (07:42→20:53)
[2024-03-14] MEDS: Insulin Regular, Human 100 UNIT/ML 10 ML VIAL SUBCUT ×3 (07:43→17:13)
[2024-03-14] MEDS: TiZANidine HCL 4 MG TABLET PO ×3 (07:53→20:57)
[2024-03-14] MEDS: Morphine Sulfate ER 30 MG TABLET.ER 60 MG PO ×3 (07:53→20:54)
--- NOTE | 2024-03-14 08:31 | PM.PNORT ---
Subjective Subjective Date of Service: 03/14/24 Interval history: POD2 s/p left hip IM Nail Patient is resting in bed No overnight events Pain is managed Complaints of nausea and vomiting has improved No additional complaints Physical Exam Vital Signs: Vital Signs: Last Vital Signs Temp 97.3 F 03/14/24 07:15 Pulse 63 03/14/24 07:15 Resp 16 03/14/24 07:15 BP 155/69 H 03/14/24 07:15 Pulse Ox 97 03/14/24 07:15 O2 Del Method Room Air 03/14/24 07:15 O2 Flow Rate 1 03/12/24 17:04 BMI result Body Mass Index 24.3 Const: General: cooperative, healthy appearing and no acute distress Resp: Effort & Inspection: normal respiratory effort and able to speak in complete sentences Cardio: Rate: regular rate Peripheral pulses: Peripheral pulses 2+ throughout GI: Palpation (GI): Soft to palpation Skin: Lesions: no lesions Rashes: no rashes Extrem: Other: left hip dressings are c/d/i. Able to dorsi/plantar flex. Calf is supple and nontender. Sensation intact. Pedal pulse intact. Procedures Date of Service Date of Service: 03/14/24 Progress Note: A&P Assessment and plan (1) Closed left femoral fracture: Status: Acute Assessment and Plan: Continue pain mgmnt Lovenox for dvt ppx PT/OT for leftg hip IM Nail Dispo planning-Pending PT eval, pain mgmnt, rehab placement, management of N+V (2) Displaced intertrochanteric fracture of femur: Status: Acute (3) Metastatic cancer: Status: Acute Time Spent With Patient Time: Total time managing care of this patient today ____ minutes. Quality Stroke Does the patient have a stroke diagnosis?: No VTE Prior VTE?: No VTE Risk Level:: Medical - moderate - high VTE Device Contraindication: N/A - Device Ordered VTE Drug Contraindication: Treatment Not Indicated
--- NOTE | 2024-03-14 09:42 | MHC.CM.PN ---
Addendum entered by Sarah George RN 03/14/24 14:15: PLAN IS DC TO [facility] ON Monday03/15/24. Original Note: [facility] UPDATED IN [facility]. CASE MANAGEMENT FOLLOWING FOR PATIENT'S DC TO FACILITY.
[2024-03-14 11:16] LABS: Glucose, Whole Blood 157 mg/dL (60-115)
--- NOTE | 2024-03-14 14:31 | P.PNIM_ITS ---
Subjective Subjective Date of Service: 03/14/24 Interval History: Seen and examined this morning Follow-up for left proximal femur fracture status post IM nail No overnight events Nausea improved from yesterday, pain controlled Review of Systems Review of Systems: Yes all other systems are reviewed and are negative Constitutional Constitutional: Denies chills and Denies fever(s) Cardiovascular Cardiovascular: Denies chest pain and Denies dyspnea Respiratory Respiratory: Denies dyspnea Gastrointestinal Gastrointestinal: Denies abdominal pain Physical Exam 2 Vital Signs: Vital Signs: Last Vital Signs Temp 97.8 F 03/14/24 11:21 Pulse 56 03/14/24 11:21 Resp 18 03/14/24 11:21 BP 105/57 L 03/14/24 11:21 Pulse Ox 98 03/14/24 11:21 O2 Del Method Room Air 03/14/24 11:21 O2 Flow Rate 1 03/12/24 17:04 BMI result Body Mass Index 24.3 Const: General: comfortable, no acute distress, alert and awake Nutritional Appearance: average body habitus Orientation/consciousness: patient oriented x3 Resp: Effort & Inspection: normal respiratory effort, able to speak in complete sentences, no respiratory distress and no use of accessory muscles Neuro: General: patient oriented x3, moves all extremities and CN's II-XI intact bilaterally Extrem: Other: left hip bandage c/d/i Objective Data Active Medications Acetaminophen (Acetaminophen 325 Mg Tablet) 650 mg PO Q6H PRN PRN Reason: Pain, Mild (Pain Scale 1-3), fever or headache Calcium Carbonate (Calcium Carbonate 750 Mg Tab.Chew) 750 mg PO Q4H PRN PRN Reason: Heartburn Enoxaparin Sodium (Enoxaparin Sodium 40 Mg/0.4 Ml Syringe) 40 mg SUBCUT Q24H [facility] Last Admin: 03/13/24 14:45 Dose: 40 mg Documented By: CHANTEL Famotidine (Famotidine/Pf 20 Mg/2 Ml Vial) 20 mg IVPUSH BID [facility] Last Admin: 03/14/24 07:42 Dose: 20 mg Documented By: COTEMA Glucose (Glucose Gel 15 Gm Gel..Gram.) 15 gm PO Q15M PRN; Protocol PRN Reason: per Hypoglycemia Standing Ord. Dextrose (D10) 250 mls @ 750 mls/hr IV Q15M PRN; Protocol PRN Reason: per Hypoglycemia Standing Ord. Lactated Ringer's (Lr) 1,000 mls @ 50 mls/hr IVCONT .Q20H [facility] Last Admin: 03/13/24 22:59 Dose: 50 mls/hr Documented By: KAROLINA Insulin Human Regular (Insulin Regular, Human 100 Unit/Ml 10 Ml Vial) 0 unit SUBCUT QIDACHS [facility]; Protocol Last Admin: 03/14/24 11:45 Dose: 2 unit Documented By: BRY Co-signed By: BRITTANY Lorazepam (Lorazepam 2 Mg/Ml Vial) 1 mg IVPUSH Q6H PRN PRN Reason: Anxiety Magnesium Hydroxide (Milk Of Magnesia 30 Ml Oral.Susp) 30 ml PO DAILY PRN PRN Reason: Constipation Melatonin (Melatonin 3 Mg Tablet) 6 mg PO BEDTIME PRN PRN Reason: Insomnia Morphine Sulfate (Morphine Sulfate 2 Mg/Ml Cartridge) 1 mg IVPUSH Q4H PRN; Protocol PRN Reason: Pain, Severe (Pain Scale 7-10) Last Admin: 03/13/24 02:03 Dose: 1 mg Documented By: MARIANNA Morphine Sulfate (Morphine Sulfate Er 30 Mg Tablet.Er) 60 mg PO TID [facility] Last Admin: 03/14/24 07:53 Dose: 60 mg Documented By: BRY Morphine Sulfate (Morphine Sulfate Oral Flora 10 Mg/5 Ml Solution) 15 mg PO Q4H PRN PRN Reason: Pain Last Admin: 03/13/24 03:44 Dose: 15 mg Documented By: MARIANNA Nystatin (Nystatin Powder 15 Gm Bottle) [facility]; Protocol Last Admin: 03/14/24 07:43 Dose: 1 appl Documented By: BRY Ondansetron HCl (Ondansetron Hcl 4 Mg/2 Ml Vial) 4 mg IVPUSH Q6H PRN PRN Reason: Nausea and Vomiting Last Admin: 03/14/24 07:42 Dose: 4 mg Documented By: BRY Oxycodone HCl (Oxycodone Hcl Immed Release 5 Mg Tablet) 5 mg PO Q4H PRN PRN Reason: Pain, Moderate(Pain Scale 4-6) Last Admin: 03/13/24 14:45 Dose: 5 mg Documented By: CHANTEL Promethazine HCl (Promethazine Hcl 25 Mg Tablet) 25 mg PO Q6H PRN PRN Reason: Nausea Senna (Sennosides 8.6 Mg Tablet) 17.2 mg PO BID [facility] Last Admin: 03/14/24 07:43 Dose: Not Given Documented By: BRY Non-Admin Reason: Patient Refused Sodium Chloride (0.9 % Sodium Chloride Flush 3 Ml Syringe) 3 ml IVFLUSH QSHIFT [facility] Last Admin: 03/14/24 14:27 Dose: Not Given Documented By: BRY Non-Admin Reason: IV Running Tizanidine HCl (Tizanidine Hcl 4 Mg Tablet) 4 mg PO TID [facility] Last Admin: 03/14/24 07:53 Dose: 4 mg Documented By: BRY Labs 03/12/24 07:22 03/12/24 05:16 Labs: Laboratory Results - last 24 hr 03/13/24 03/13/24 03/14/24 16:38 20:05 07:19 POC Glucose 308 H 239 H 173 H 03/14/24 11:08 POC Glucose 157 H Assessment and Plan (1) Closed left femoral fracture: Status: Acute (2) Metastatic cancer: Status: Acute Plan 63 year old women admitted with intractable pain likely secondary to hip fracture. Patient with history of breast cancer with metastasis currently on hospice but willing to have surgical procedure for hip pain Nausea and vomiting. improving no abd pain start IV pepcid KUB, patient declined removed fentanyl patch to see if that alleviates nausea Left femur fracture s/p gamma nailing Orthopedic surgery following - recommend 6 weeks of DVT prophylaxis with lovenox (end April 24) Pain management Acute metabolic encephalopathy. resolved likely secondary to hospitalization, narcotic pain medication and femur fracture Monitor mentation Leukocytosis Likely reactive to fracture Monitor History of breast cancer with metastasis Has been on hospice, not currently on treatment plan to return to facility under hospice Diabetes mellitus 2 Sliding scale, ADA diet History of CVA left sided deficits DVT prophylaxis pneumatic compression boots Attending Dr. Gilliam DNR/DNI continue admission pain control Quality Stroke Does the patient have a stroke diagnosis?: No VTE Prior VTE?: No VTE Risk Level:: Medical - moderate - high VTE Device Contraindication: N/A - Device Ordered VTE Drug Contraindication: Treatment Not Indicated
[2024-03-14] MEDS: Milk of Magnesia 30 ML ORAL.SUSP PO (14:32)
[2024-03-14] MEDS: Enoxaparin Sodium 40 MG/0.4 ML SYRINGE SUBCUT (14:32)
[2024-03-14 16:12] LABS: Glucose, Whole Blood 192 mg/dL (60-115)
[2024-03-14 20:05] LABS: Glucose, Whole Blood 148 mg/dL (60-115)
[2024-03-14] MEDS: Sennosides 8.6 MG TABLET 17.2 MG PO (20:57)
[2024-03-14] MEDS: Morphine Sulfate 2 MG/ML CARTRIDGE 1 MG IVPUSH (23:56)
[2024-03-15] VITALS (7 sets, daily range): BP systolic 114–175; BP diastolic 62–73; PULSE 58–70; RESP 16–18; TEMP 36.2–36.6; O2SAT 92–98
[2024-03-15] MEDS: 0.9 % Sodium Chloride Flush 3 ML SYRINGE IVFLUSH ×4 (00:08→21:58)
[2024-03-15] MEDS: Morphine Sulfate 2 MG/ML CARTRIDGE 1 MG IVPUSH ×3 (04:04→14:50)
[2024-03-15 07:39] LABS: Glucose, Whole Blood 117 mg/dL (60-115)
[2024-03-15] MEDS: Famotidine/PF 20 MG/2 ML VIAL IVPUSH (08:06)
[2024-03-15] MEDS: Sennosides 8.6 MG TABLET 17.2 MG PO ×2 (08:08→21:46)
[2024-03-15] MEDS: TiZANidine HCL 4 MG TABLET PO ×3 (08:09→21:46)
[2024-03-15] MEDS: Morphine Sulfate ER 30 MG TABLET.ER 60 MG PO ×3 (08:10→21:46)
[2024-03-15] MEDS: Nystatin Powder 15 GM BOTTLE 1 APPL TOPICAL ×2 (08:23→16:48)
--- NOTE | 2024-03-15 10:54 | PC.NURSE ---
Patient refuses sequentials,risks explained to patient,encouraged leg excercises,JACOB Cervantes notified
--- NOTE | 2024-03-15 11:24 | P.DS_ITS ---
DS: Providers Provider Date of Service: 03/15/24 Date of admission: 03/11/24 17:26 Date of discharge: 03/15/24 Primary care physician: Daljit Upton MD Consults: 03/12/24 02:44 Consult to Wound Care Routine Reason for consultation: coccyx st II open sin x2 Has provider been notified: No 03/13/24 03:19 Consult to Wound Care Routine Reason for consultation: stage 2 x2 to coccyx Attending physician on discharge: Dany Gilliam Discharging clinician: Helen Ramon DS: Diagnosis Discharge Diagnosis (1) Closed left femoral fracture: Status: Acute (2) Metastatic cancer: Status: Acute DS: Summary Hospital Course Hospital Course: From H&P on the day of admission 63-year-old woman presenting to the ER with complaints of intractable pain. Patient has a history of recurrent breast cancer with new metastasis to the bone and likely endometrium. Patient was recently placed on hospice approximately 2 months ago. 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 She reports hip pain. Patient has been living alone and had looked after her grandson. Patient has been at [facility] and has been on morphine and Ativan. She denied any trauma or falls. Hip x-ray showed fracture of the intertrochanteric region of the left femur. Patient is on hospice but is opting to do a surgical procedure to help with the pain. In the ER, she received lorazepam, morphine, fentanyl Duragesic patch, Zanaflex. Her labs and vital signs are within acceptable limits. She will be admitted for further management and treatment of intractable pain secondary to acute hip fracture. Nausea and vomiting. improving due to anesthesia, pain medication. improved. Left femur fracture s/p gamma nailing Orthopedic surgery following - recommend 6 weeks of DVT prophylaxis with lovenox (end April 24) Pain management Acute metabolic encephalopathy. likely secondary to hospitalization, narcotic pain medication and femur fracture. resolved History of breast cancer with metastasis Has been on hospice, not currently on treatment plan to return to facility under hospice Time Attestation Discharge Coordination Time (in mins): 32 Quality: Safe Use of Opioids Does Pt have an Active Cancer Diagnosis on the Problem List?: Yes Opioid Measure Date for [facility] Report: 02/14/24 Opioid Measure Time for [facility] Report: 11:37 Quality: Stroke Does the patient have a stroke diagnosis?: No Physical Exam Vital Signs: Vital Signs: Last Vital Signs Temp 97.2 F 03/15/24 07:31 Pulse 61 03/15/24 08:11 Resp 16 03/15/24 07:31 BP 166/73 H 03/15/24 08:11 Pulse Ox 97 03/15/24 07:31 O2 Del Method Room Air 03/15/24 07:31 O2 Flow Rate 1 03/12/24 17:04 BMI result Body Mass Index 24.3 Const: General: comfortable, no acute distress, alert and awake Nutritional Appearance: average body habitus Orientation/consciousness: patient oriented x3 Resp: Effort & Inspection: normal respiratory effort, able to speak in complete sentences, no respiratory distress and no use of accessory muscles Neuro: General: patient oriented x3, moves all extremities and CN's II-XI intact bilaterally Extrem: Other: left hip bandage c/d/i DS: Data Data Completed and Pending Labs on day of discharge: Laboratory Results - last 24 hr 03/14/24 03/14/24 03/15/24 16:08 19:59 07:35 POC Glucose 192 H 148 H 117 H Discharge Plan Discharge Anticipated Discharge Date/Time: 03/15/24 11:37 Patient Disposition: Xfer SNF Discharge Diagnosis: Placed intertrochanteric fracture femur status post left hip IM nail Referrals: Amado Burrell PA [Physician Bowling Teacher] - 2 Weeks (03/27/24 10:[place] [facility] [place] [facility] Amado Burrell PA) Daljit Upton MD [Primary Care Provider] - 1 Week Discharge Medications: New enoxaparin 40 mg/0.4 mL Syringe 40 mg subcut Q24H Qty: 4 0RF Continued bisacodyl 10 mg suppository 10 mg [place] DAILY PRN (Reason: Constipation) Rx Instructions: For no BM, If M.O.M ineffective benzonatate 100 mg Capsule 100 mg PO TID PRN (Reason: Cough) Qty: 10 0RF magnesium hydroxide [Milk of Magnesia] 400 mg/5 mL Suspension 30 ml PO DAILY PRN (Reason: Constipation) Qty: 1 0RF Rx Instructions: For no BM in 3 days (do not administer with dialysis / renal failure) lorazepam 0.5 mg tablet 0.5 mg PO Q4H PRN (Reason: Anxiety) Qty: 20 0RF tizanidine 2 mg tablet 4 mg PO TID dexamethasone 4 mg tablet 8 mg PO TID atropine 1 % drops 4 drp sublingual Q3H morphine concentrate 100 mg/5 mL (20 mg/mL) solution 15 mg PO 6XD PRN (Reason: Pain) Rx Instructions: May hold if patient is sleeping or over sedated/ lethargic. Provide prn schedule dose if mised due to sleeping and patient wakes up looking for pain medication. acetaminophen [Tylenol] 325 mg Tablet 650 mg PO Q4H PRN (Reason: Fever Or Pain) Rx Instructions: Max of 3 gm daily methyl salicylate-menthol Ointment 1 ea TOPICAL TID Rx Instructions: Apply 4 gm to left hip sennosides [Senna Lax] 8.6 mg tablet 17.2 mg PO BID morphine concentrate 100 mg/5 mL (20 mg/mL) solution 15 mg PO Q1H PRN (Reason: Pain) morphine 30 mg tablet extended release 60 mg PO TID Rx Instructions: Give 2 tablets daily, give tablets in the afternoon and 2 tablets at bedtime. Fleet Enema 19-7 gram/118 mL Enema 118 ml [place] DAILY PRN (Reason: Constipation) Rx Instructions: For no BM & if Bisacodyl supp. ineffective (do not give with dialysis / renal failure polyethylene glycol 3350 17 gram/dose Powder 17 g PO DAILY Rx Instructions: hold for loose stool meclizine 25 mg tablet 25 mg PO DAILY nystatin 100,000 unit/gram powder 1 appl topical QSHIFT Rx Instructions: Apply to Groin/under abd folds Held ibuprofen 600 mg tablet 600 mg PO DAILY PRN (Reason: pain) Hold Instructions: hold while on lovenox No Action (DME) bedside commode Kit See Rx Instructions .Route Qty: 1 1RF Rx Instructions: As directed (DME) Wheel chair Kit See Rx Instructions .Route Qty: 1 0RF Rx Instructions: As directed (DME) pen needle, diabetic [UltiCare Pen Needle] 32 gauge x 5/32 needle See Rx Instructions .ROUTE .MEDSUPPLY Qty: 1200 Rx Instructions: As directed (DME) lancets [Prodigy Twist Top Lancet] 28 gauge misc See Rx Instructions .ROUTE .MEDSUPPLY Qty: 100 Rx Instructions: As directed (DME) OneTouch Verio test strips Strip See Rx Instructions .ROUTE TID Qty: 10 Rx Instructions: As directed (DME) blood-glucose meter [OneTouch Verio Flex meter] Misc See Rx Instructions .ROUTE TID Qty: 1 Rx Instructions: As directed Discharge Orders: Discharge Order (Routine); Ordered 03/15/24 Ordered By: Helen Ramon Activity on Discharge: As tolerated Stand Alone Forms: Patient Portal Discharge page Print Language: Namibian Care Plan Goals: see below Health Concerns: Displaced intertrochanteric femur fracture status post left hip IM nail Metastatic cancer Plan of Treatment: DVT prophylaxis with Lovenox for 6 weeks postprocedure, end date April 24 Follow-up with orthopedic surgery as scheduled Pain control Assessment: see discharge summary
[2024-03-15 11:38] LABS: Glucose, Whole Blood 192 mg/dL (60-115)
[2024-03-15] MEDS: Insulin Regular, Human 100 UNIT/ML 10 ML VIAL SUBCUT (11:50)
--- NOTE | 2024-03-15 12:18 | HO.PM.IMPN ---
Subjective Subjective Date of Service: 03/15/24 Interval History: Seen and examined this morning No overnight events No specific complaints. Nausea improved Review of Systems no new c/o. pain controlled. Review of Systems: Yes all other systems are reviewed and are negative Constitutional Constitutional: Denies chills and Denies fever(s) Cardiovascular Cardiovascular: Denies chest pain and Denies dyspnea Respiratory Respiratory: Denies dyspnea Gastrointestinal Gastrointestinal: Denies abdominal pain Physical Exam Vital Signs: Vital Signs: Last Vital Signs Temp 97.2 F 03/15/24 07:31 Pulse 61 03/15/24 08:11 Resp 16 03/15/24 07:31 BP 166/73 H 03/15/24 08:11 Pulse Ox 97 03/15/24 07:31 O2 Del Method Room Air 03/15/24 07:31 O2 Flow Rate 1 03/12/24 17:04 BMI result Body Mass Index 24.3 Const: General: comfortable, no acute distress, alert and awake Nutritional Appearance: average body habitus Orientation/consciousness: patient oriented x3 Resp: Effort & Inspection: normal respiratory effort, able to speak in complete sentences, no respiratory distress and no use of accessory muscles Neuro: General: patient oriented x3, moves all extremities and CN's II-XI intact bilaterally Extrem: Other: left hip bandage c/d/i Objective Data Active Medications Acetaminophen (Acetaminophen 325 Mg Tablet) 650 mg PO Q6H PRN PRN Reason: Pain, Mild (Pain Scale 1-3), fever or headache Calcium Carbonate (Calcium Carbonate 750 Mg Tab.Chew) 750 mg PO Q4H PRN PRN Reason: Heartburn Enoxaparin Sodium (Enoxaparin Sodium 40 Mg/0.4 Ml Syringe) 40 mg SUBCUT Q24H [facility] Last Admin: 03/14/24 14:32 Dose: 40 mg Documented By: COTEMA Famotidine (Famotidine/Pf 20 Mg/2 Ml Vial) 20 mg IVPUSH BID [facility] Last Admin: 03/15/24 08:06 Dose: 20 mg Documented By: BEIT Glucose (Glucose Gel 15 Gm Gel..Gram.) 15 gm PO Q15M PRN; Protocol PRN Reason: per Hypoglycemia Standing Ord. Dextrose (D10) 250 mls @ 750 mls/hr IV Q15M PRN; Protocol PRN Reason: per Hypoglycemia Standing Ord. Insulin Human Regular (Insulin Regular, Human 100 Unit/Ml 10 Ml Vial) 0 unit SUBCUT QIDACHS [facility]; Protocol Last Admin: 03/15/24 11:50 Dose: 2 unit Documented By: ALMA Co-signed By: KALEENM Lidocaine/Diphenhydr/Alum/Mg/Simeth (Mag&Al/Sim/Diphenhyd/Lidocaine 10 Ml Oral.Susp) 10 ml PO Q6H [facility]; Protocol Lorazepam (Lorazepam 2 Mg/Ml Vial) 1 mg IVPUSH Q6H PRN PRN Reason: Anxiety Magnesium Hydroxide (Milk Of Magnesia 30 Ml Oral.Susp) 30 ml PO DAILY PRN PRN Reason: Constipation Last Admin: 03/14/24 14:32 Dose: 30 ml Documented By: COTEMA Melatonin (Melatonin 3 Mg Tablet) 6 mg PO BEDTIME PRN PRN Reason: Insomnia Morphine Sulfate (Morphine Sulfate 2 Mg/Ml Cartridge) 1 mg IVPUSH Q4H PRN; Protocol PRN Reason: Pain, Severe (Pain Scale 7-10) Last Admin: 03/15/24 10:59 Dose: 1 mg Documented By: ALMA Morphine Sulfate (Morphine Sulfate Er 30 Mg Tablet.Er) 60 mg PO TID [facility] Last Admin: 03/15/24 08:10 Dose: 60 mg Documented By: ALMA Morphine Sulfate (Morphine Sulfate Oral Flora 10 Mg/5 Ml Solution) 15 mg PO Q4H PRN PRN Reason: Pain Last Admin: 03/13/24 03:44 Dose: 15 mg Documented By: KRISTAL-RIVCOLBY Nystatin (Nystatin Powder 15 Gm Bottle) [facility]; Protocol Last Admin: 03/15/24 08:23 Dose: 1 appl Documented By: ALMA Ondansetron HCl (Ondansetron Hcl 4 Mg/2 Ml Vial) 4 mg IVPUSH Q6H PRN PRN Reason: Nausea and Vomiting Last Admin: 03/14/24 14:40 Dose: 4 mg Documented By: BRY Oxycodone HCl (Oxycodone Hcl Immed Release 5 Mg Tablet) 5 mg PO Q4H PRN PRN Reason: Pain, Moderate(Pain Scale 4-6) Last Admin: 03/13/24 14:45 Dose: 5 mg Documented By: HO.VENLA Promethazine HCl (Promethazine Hcl 25 Mg Tablet) 25 mg PO Q6H PRN PRN Reason: Nausea Senna (Sennosides 8.6 Mg Tablet) 17.2 mg PO BID [facility] Last Admin: 03/15/24 08:08 Dose: 17.2 mg Documented By: ALMA Sodium Chloride (0.9 % Sodium Chloride Flush 3 Ml Syringe) 3 ml IVFLUSH QSHIFT [facility] Last Admin: 03/15/24 08:05 Dose: 3 ml Documented By: ALMA Tizanidine HCl (Tizanidine Hcl 4 Mg Tablet) 4 mg PO TID [facility] Last Admin: 03/15/24 08:09 Dose: 4 mg Documented By: ALMA Labs 03/12/24 07:22 03/12/24 05:16 Labs: Laboratory Results - last 24 hr 03/14/24 03/14/24 03/15/24 16:08 19:59 07:35 POC Glucose 192 H 148 H 117 H 03/15/24 11:26 POC Glucose 192 H Assessment and Plan (1) Closed left femoral fracture: Status: Acute Plan 63 year old women admitted with intractable pain likely secondary to hip fracture. Patient with history of breast cancer with metastasis currently on hospice but willing to have surgical procedure for hip pain Nausea and vomiting. improved no abd pain start IV pepcid KUB, patient declined removed fentanyl patch to see if that alleviates nausea Left femur fracture s/p gamma nailing Orthopedic surgery following - recommend 6 weeks of DVT prophylaxis with lovenox (end April 24) Pain management Acute metabolic encephalopathy. resolved likely secondary to hospitalization, narcotic pain medication and femur fracture Monitor mentation Leukocytosis Likely reactive to fracture Monitor History of breast cancer with metastasis Has been on hospice, not currently on treatment plan to return to facility under hospice Diabetes mellitus 2 Sliding scale, ADA diet History of CVA left sided deficits DVT prophylaxis pneumatic compression boots Attending Dr. Gilliam DNR/DNI continue admission pain control Quality Stroke Does the patient have a stroke diagnosis?: No VTE Prior VTE?: No VTE Risk Level:: Medical - moderate - high VTE Device Contraindication: N/A - Device Ordered VTE Drug Contraindication: Treatment Not Indicated
[2024-03-15] MEDS: Enoxaparin Sodium 40 MG/0.4 ML SYRINGE SUBCUT (13:29)
[2024-03-15] MEDS: Mag&Al/Sim/Diphenhyd/Lidocaine 10 ML ORAL.SUSP PO ×2 (13:39→21:53)
[2024-03-15 16:06] LABS: Glucose, Whole Blood 161 mg/dL (60-115)
--- NOTE | 2024-03-15 17:09 | PC.NURSE ---
Patient refuses sequentials,encouraged ambulation and leg excercises,risks explained
[2024-03-15] MEDS: Morphine Sulfate Oral Sol 10 MG/5 ML SOLUTION 15 MG PO (18:31)
[2024-03-15 21:23] LABS: Glucose, Whole Blood 202 mg/dL (60-115)
[2024-03-16] MEDS: Morphine Sulfate Oral Sol 10 MG/5 ML SOLUTION 15 MG PO ×3 (02:48→14:55)
[2024-03-16 03:22] VITALS: BP 142/72; PULSE 79; RESP 18; TEMP 36.2; O2SAT 96
[2024-03-16] MEDS: Mag&Al/Sim/Diphenhyd/Lidocaine 10 ML ORAL.SUSP PO ×2 (05:43→11:52)
--- NOTE | 2024-03-16 06:19 | PC.NURSE ---
Pt had difficulty voiding throughout shift. Pt's abdomen distended and firm. Bladder scan this morning for 1335ml. MD Zimmerman was notified of the situation. Straight cath was ordered and placed for 15 minutes. Straight cath output was 1325ml of concentrated urine. Pt was re-bladder scan for 6ml. Pt was cleaned and repositioned with 2A. Pt's bed in lowest position, call leahy within reach, bed alarm, and camera intact. Will continue to monitor pt's output.
[2024-03-16 07:41] LABS: Glucose, Whole Blood 154 mg/dL (60-115)
[2024-03-16 07:43] VITALS: PULSE 62; RESP 16; TEMP 36.3
[2024-03-16] MEDS: Sennosides 8.6 MG TABLET 17.2 MG PO (08:01)
[2024-03-16] MEDS: TiZANidine HCL 4 MG TABLET PO (08:02)
[2024-03-16] MEDS: Morphine Sulfate ER 30 MG TABLET.ER 60 MG PO (08:03)
[2024-03-16] MEDS: Famotidine/PF 20 MG/2 ML VIAL IVPUSH (08:03)
[2024-03-16] MEDS: 0.9 % Sodium Chloride Flush 3 ML SYRINGE IVFLUSH (08:03)
[2024-03-16] MEDS: Insulin Regular, Human 100 UNIT/ML 10 ML VIAL SUBCUT ×2 (08:04→11:53)
[2024-03-16] MEDS: Nystatin Powder 15 GM BOTTLE 1 APPL TOPICAL (08:10)
--- NOTE | 2024-03-16 10:20 | PM.DS ---
DS: Providers Provider Date of Service: 03/16/24 Date of admission: 03/11/24 17:26 Primary care physician: Daljit Upton MD Consults: 03/12/24 02:44 Consult to Wound Care Routine Reason for consultation: coccyx st II open sin x2 Has provider been notified: No 03/13/24 03:19 Consult to Wound Care Routine Reason for consultation: stage 2 x2 to coccyx DS: Diagnosis Discharge Diagnosis (1) Closed left femoral fracture: Status: Acute DS: Summary Hospital Course Hospital Course: From H&P on the day of admission 63-year-old woman presenting to the ER with complaints of intractable pain. Patient has a history of recurrent breast cancer with new metastasis to the bone and likely endometrium. Patient was recently placed on hospice approximately 2 months ago. 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 She reports hip pain. Patient has been living alone and had looked after her grandson. Patient has been at [facility] and has been on morphine and Ativan. She denied any trauma or falls. Hip x-ray showed fracture of the intertrochanteric region of the left femur. Patient is on hospice but is opting to do a surgical procedure to help with the pain. In the ER, she received lorazepam, morphine, fentanyl Duragesic patch, Zanaflex. Her labs and vital signs are within acceptable limits. She will be admitted for further management and treatment of intractable pain secondary to acute hip fracture. Nausea and vomiting. improving due to anesthesia, pain medication. improved. Left femur fracture s/p gamma nailing Orthopedic surgery following - recommend 6 weeks of DVT prophylaxis with lovenox (end April 24) Pain management Acute metabolic encephalopathy. likely secondary to hospitalization, narcotic pain medication and femur fracture. resolved History of breast cancer with metastasis Has been on hospice, not currently on treatment plan to return to facility under hospice Time Attestation Discharge Coordination Time (in mins): 35 Quality: Safe Use of Opioids Does Pt have an Active Cancer Diagnosis on the Problem List?: No Quality: Stroke Does the patient have a stroke diagnosis?: No Physical Exam Vital Signs: Vital Signs: Last Vital Signs Temp 97.3 F 03/16/24 07:43 Pulse 62 03/16/24 07:43 Resp 16 03/16/24 07:43 BP 142/72 H 03/16/24 03:22 Pulse Ox 96 06/22/24 03:22 O2 Del Method Room Air 03/16/24 03:22 O2 Flow Rate 1 03/12/24 17:04 BMI result Body Mass Index 24.3 Appearing in no acute distress head is normocephalic atraumatic eyes pupils are PERRLA sclera is anicteric mouth throat mucous membranes are intact and moist neck is supple no lymphadenopathy, no JVD noted lung sounds are clear to auscultation heart regular rate rhythm, clear S1, S2 positive bowel sounds, abdomen is soft, nontender neuro patient is alert x3, no focal deficits non ambulatory DS: Data Data Completed and Pending Labs on day of discharge: Laboratory Results - last 24 hr 03/15/24 03/15/24 03/15/24 11:26 16:03 21:19 POC Glucose 192 H 161 H 202 H 03/16/24 07:36 POC Glucose 154 H Discharge Plan Discharge Anticipated Discharge Date/Time: 03/16/24 10:20 Patient Disposition: Xfer SNF Discharge Diagnosis: Placed intertrochanteric fracture femur status post left hip IM nail Referrals: Amado Burrell PA [Physician Meat Press Operator] - 2 Weeks (03/27/24 10:00 [facility] [place] [facility] [facility] Amado Burrell PA) Daljit Upton MD [Primary Care Provider] - 1 Week Discharge Medications: New enoxaparin 40 mg/0.4 mL Syringe 40 mg subcut Q24H Qty: 4 0RF Continued bisacodyl 10 mg suppository 10 mg [place] DAILY PRN (Reason: Constipation) Rx Instructions: For no BM, If M.O.M ineffective benzonatate 100 mg Capsule 100 mg PO TID PRN (Reason: Cough) Qty: 10 0RF magnesium hydroxide [Milk of Magnesia] 400 mg/5 mL Suspension 30 ml PO DAILY PRN (Reason: Constipation) Qty: 1 0RF Rx Instructions: For no BM in 3 days (do not administer with dialysis / renal failure) lorazepam 0.5 mg tablet 0.5 mg PO Q4H PRN (Reason: Anxiety) Qty: 20 0RF tizanidine 2 mg tablet 4 mg PO TID dexamethasone 4 mg tablet 8 mg PO TID atropine 1 % drops 4 drp sublingual Q3H morphine concentrate 100 mg/5 mL (20 mg/mL) solution 15 mg PO 6XD PRN (Reason: Pain) Rx Instructions: May hold if patient is sleeping or over sedated/ lethargic. Provide prn schedule dose if mised due to sleeping and patient wakes up looking for pain medication. acetaminophen [Tylenol] 325 mg Tablet 650 mg PO Q4H PRN (Reason: Fever Or Pain) Rx Instructions: Max of 3 gm daily methyl salicylate-menthol Ointment 1 ea TOPICAL TID Rx Instructions: Apply 4 gm to left hip sennosides [Senna Lax] 8.6 mg tablet 17.2 mg PO BID morphine concentrate 100 mg/5 mL (20 mg/mL) solution 15 mg PO Q1H PRN (Reason: Pain) morphine 30 mg tablet extended release 60 mg PO TID Rx Instructions: Give 2 tablets daily, give tablets in the afternoon and 2 tablets at bedtime. Fleet Enema 19-7 gram/118 mL Enema 118 ml [place] DAILY PRN (Reason: Constipation) Rx Instructions: For no BM & if Bisacodyl supp. ineffective (do not give with dialysis / renal failure polyethylene glycol 3350 17 gram/dose Powder 17 g PO DAILY Rx Instructions: hold for loose stool meclizine 25 mg tablet 25 mg PO DAILY nystatin 100,000 unit/gram powder 1 appl topical QSHIFT Rx Instructions: Apply to Groin/under abd folds Held ibuprofen 600 mg tablet 600 mg PO DAILY PRN (Reason: pain) Hold Instructions: hold while on lovenox No Action (DME) bedside commode Kit See Rx Instructions .Route Qty: 1 1RF Rx Instructions: As directed (DME) Wheel chair Kit See Rx Instructions .Route Qty: 1 0RF Rx Instructions: As directed (DME) pen needle, diabetic [UltiCare Pen Needle] 32 gauge x 5/32 needle See Rx Instructions .ROUTE .MEDSUPPLY Qty: 1200 Rx Instructions: As directed (DME) lancets [Prodigy Twist Top Lancet] 28 gauge misc See Rx Instructions .ROUTE .MEDSUPPLY Qty: 100 Rx Instructions: As directed (DME) OneTouch Verio test strips Strip See Rx Instructions .ROUTE TID Qty: 10 Rx Instructions: As directed (DME) blood-glucose meter [OneTouch Verio Flex meter] Misc See Rx Instructions .ROUTE TID Qty: 1 Rx Instructions: As directed Discharge Orders: Discharge Order (Routine); Ordered 03/16/24 Ordered By: Era Ibarra Diet: Advance to usual diet Activity on Discharge: As tolerated Stand Alone Forms: Patient Portal Discharge page Print Language: Occitan Care Plan Goals: see below Health Concerns: Displaced intertrochanteric femur fracture status post left hip IM nail Metastatic cancer Plan of Treatment: DVT prophylaxis with Lovenox for 6 weeks postprocedure, end date April 24 Follow-up with orthopedic surgery as scheduled Pain control Assessment: see discharge summary
[2024-03-16 11:12] LABS: Glucose, Whole Blood 178 mg/dL (60-115)
[2024-03-16 12:00] VITALS: BP 135/65; PULSE 72; RESP 16; TEMP 36.3; O2SAT 95
[2024-03-16] MEDS: LORazepam 2 MG/ML VIAL 1 MG IVPUSH (14:56)
[2024-03-16] MEDS: Enoxaparin Sodium 40 MG/0.4 ML SYRINGE SUBCUT (14:57)
--- NOTE | 2024-03-16 16:06 | MHC.CM.PN ---
JOSEMANUEL MET WITH PT SEVERAL TIMES YESTERDAY AND TODAY SHE SAYS SHE IS AGREEABLE TO GOING TO [facility] WITH HOSPICE, BUT DID NOT WANT T RETURN TO [facility] SHE STATED YESTERDAY SHE DID NOT FEEL READY SHE IS STILL IN A LOT OF PAIN, HOWEVER CM REMINDED HER HOSPICE WOULD BE FOLLOWING HER ONCE IN THE SNF AND WOULD WORK TO CONTROL HER PAIN CM SPOKE TO HER DAUGHTER, JANINE, YESTERDAY AFTERNOON, SHE WAS AWARE THE PLAN WAS FOR PT TO DC TO [facility] TODAY AT 1500 HOURS, CM CALLED HER TODAY TO CONFIRM THE PLAN. SHE SAID SHE WOULD BE GOING TO THE [facility] ON MONDAY TO COLLECT PTS BELONGINGS AND BRING THEM TO THE NEW SNF. CM MET WITH PT AGAIN TODAY, PT REMAINS ANXIOUS AND STATES IT IS MOSTLY ABOUT THE PAIN SHE WILL EXPERIENCE WHEN THEY MOVE HER. RN DID ATTEMPT TO PRE-MEDICATE BEFORE THE AMBULANCE TRANSPORT, HOWEVER TRANSPORT IS NOW MORE THAN AN HOUR BEHIND SCHEDULE CM CALLED [facility] AND WAS INFORMED PT IS NEXT ON THE LIST, HOWEVER THEY DO NOT HAVE A CREW AVAILABLE AT THIS TIME. RN AND NA BE PRESENT WHEN PT IS TRANSFERRED, PT HAS EXPLAINED IT HAS TO BE DONE IN A VERY SPECIFIC WAY TO REDUCE PAIN. PT WILL DC TO [facility] TODAY VIA [facility] WILL SIGN HER ONTO HOSPICE ONCE THERE
== END 2024-03-16 17:06 | disposition skilled nursing facility (03) | DRG 480 ==
LOC: HO.ED 16:07 → HO.EDOVER 17:33 → HO.S3 19:56
PROVIDERS: Emergency Medicine; Orthopaedic Surgery; Physician Assistant Medical; Admitting Provider Nurse Practitioner Acute Care; Emergency Provider Student in an Organized Health Care Education/Training Program; PCP Family Medicine; Visit Provider Nurse Practitioner Acute Care
PROC: 0QS736Z Reposition Left Upper Femur with Intramedullary Internal Fixation Device, Percutaneous Approach (ICD-10-PCS; principal; 2024-03-12 13:00)
DX: S72.142A Displaced intertrochanteric fracture of left femur, initial encounter for closed fracture (principal); G93.41 Metabolic encephalopathy; I69.354 Hemiplegia and hemiparesis following cerebral infarction affecting left non-dominant side; C79.51 Secondary malignant neoplasm of bone; C79.82 Secondary malignant neoplasm of genital organs; E11.9 Type 2 diabetes mellitus without complications; Z85.3 Personal history of malignant neoplasm of breast; Z66 Do not resuscitate; Z90.11 Acquired absence of right breast and nipple; X58.XXXA Exposure to other specified factors, initial encounter; Z79.899 Other long term (current) drug therapy
CPT/HCPCS: 36415; 71045; 73502; 80048; 80053; 82947; 85025; 85610; 86850; 86900; 86901; 99285; C1713; J0690; J1170; J1650; J2060; J2270; J2371; J2405; J2704; J2765; J3010; J7120

== ENCOUNTER → 2024-03-11 17:26 | Outpatient (BNV) | payer MEDICARE, MEDICAID, SELFPAY | PROVIDERS: Admitting Provider Nurse Practitioner Acute Care; Emergency Provider Student in an Organized Health Care Education/Training Program; PCP Family Medicine; Visit Provider Nurse Practitioner Acute Care | DX: S72.92XA Unspecified fracture of left femur, initial encounter for closed fracture (principal) | CPT/HCPCS: 99222; 99232; 99239 ==

== ENCOUNTER → 2024-03-11 17:26 | Outpatient (BNV) | payer MEDICARE, MEDICAID, SELFPAY | PROVIDERS: Admitting Provider Nurse Practitioner Acute Care; Emergency Provider Student in an Organized Health Care Education/Training Program; PCP Family Medicine; Visit Provider Orthopaedic Surgery | DX: S72.22XA Displaced subtrochanteric fracture of left femur, initial encounter for closed fracture (principal) | CPT/HCPCS: 27245; 99024; 99222 ==

== ENCOUNTER 2024-03-27 08:50 | Outpatient (REF) | payer MEDICARE, MEDICAID, SELFPAY | END 2024-03-27 08:51 | disposition home or self-care (01) | LOC: HO.HOSX 08:50 | DX: Z13.89 Encounter for screening for other disorder (principal) ==